=== PATIENT | male | born 1970 | race Caucasian/White ===

== ENCOUNTER 2020-02-25 16:20 | Emergency (ER) | payer MEDICAID, SELFPAY ==
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
[2020-02-25 16:45] VITALS: BP 130/76; PULSE 95; RESP 20; TEMP 36.6; O2SAT 96
[2020-02-25] MEDS: LORazepam 1 MG TABLET 2 MG PO (16:56)
[2020-02-25 17:03] VITALS: BP 130/76; PULSE 95; RESP 24; TEMP 36.6; BMI 26.2
[2020-02-25 17:13] LABS: Glucose, Whole Blood 102 mg/dL (60-115)
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
[2020-02-25 17:24] LABS: MANUAL DIFF FLAG NO
[2020-02-25 17:27] LABS: Basophils Absolute Auto 0.1 X10*3/uL (0.0-0.2); Basophils Percent Auto 1.4 % (0-2); Eosinophils Percent Auto 13.8 % (0-4); Hematocrit 36.6 % (42-52); Hemoglobin 11.9 g/dl (14.0-18.0); Imm Gran Abs Auto 0.01 X10*3/uL (0.00-0.03); Imm Gran Pct Auto 0.1 % (0.0-0.4); Lymphocytes Percent Auto 42.1 % (20-40); Mean Corpuscular HGB Conc 32.5 g/dl (31.0-36.0); Mean Corpuscular Hemoglobin 30.5 pg (27.0-33.0); Mean Corpuscular Volume 93.8 fL (80-98); Mean Platelet Volume 8.8 fL (9.4-12.4); Monocytes Absolute Auto 0.7 X10*3/uL (0.1-1.2); Monocytes Percent Auto 9.5 % (2-11); Neutrophils Absolute Auto 2.4 X10*3/uL (2.0-8.3); Neutrophils Percent Auto 33.1 % (45-73); Platelet Count 221 X10*3/uL (160-400); Red Cell Distribution Width 16.5 % (11.0-16.0); White Blood Count 7.2 X10*3/uL (4.8-10.8)
--- NOTE | 2020-02-25 17:37 | PC.NURSE ---
Dr Oscar aware of current [facility] rating.
[2020-02-25 17:41] LABS: Ethanol 130 mg/dL
[2020-02-25 17:45] LABS: Alanine Aminotransferase 29 U/L (0-40); Albumin Level 3.8 g/dL (3.5-5.0); Alkaline Phosphatase 61 U/L (39-117); Anion Gap 13 (12-20); Aspartate Amino Transferase 23 U/L (5-37); Bilirubin Direct < 0.2 mg/dL (0.0-0.5); Bilirubin Total 0.2 mg/dL (0.0-1.0); Blood Urea Nitrogen 10 mg/dL (9-16); Calcium 8.3 mg/dL (8.4-10.2); Carbon Dioxide 27 mmol/L (22-29); Chloride 107 mmol/L (96-108); Creatinine Clr Calc Pharmacy 111.6; Estimated Glomerular Filt Rate > 60; Glucose Random 96 mg/dL (60-115); Potassium 4.2 mmol/l (3.3-5.1); Sodium 143 mmol/L (135-145); Total Protein 6.5 g/dL (6.5-8.0)
--- NOTE | 2020-02-25 18:07 | PC.NURSE ---
Late entry: Dr Oscar aware of CIWA completed on arrival
[2020-02-25] MEDS: Ibuprofen 600 MG TABLET PO (18:24)
[2020-02-25 19:18] VITALS: BP 115/67; PULSE 94; O2SAT 94
--- NOTE | 2020-02-25 19:29 | PC.NURSE ---
Patient in bed appears sleeping, no distress observed/reported, asymptomatic of withdrawal, respiration +/=/non-labored bilaterally. Will continue to monitor.
--- NOTE | 2020-02-25 20:30 | PC.NURSE ---
JOE called to check on clinician ETA, reported they have not received referral for the patient and no called, Audra refaxed/called/spoke with Michelle/confirmed receipt of referral. [facility], spoke with Tobias pharmacist, [facility] recs completed/pending providers approval. Patient in bed appears sleeping, no distress observed/reported. will continue to monitor.
[2020-02-25] MEDS: LORazepam 1 MG TABLET PO (22:55)
--- NOTE | 2020-02-25 22:58 | PC.NURSE ---
Patient in bed lying, tremulous, Ativan 1 mg administered as ordered. Will continue to monitor.
--- NOTE | 2020-02-26 00:33 | PC.NURSE ---
BHN just called/notified clinician will be shorty for patient assessment.
--- NOTE | 2020-02-26 01:41 | PC.NURSE ---
BHN with patient patient seems engaged.
[2020-02-26 02:16] VITALS: BP 122/85; PULSE 83; RESP 18; TEMP 36.9; O2SAT 96
[2020-02-26] MEDS: LORazepam 1 MG TABLET PO ×4 (02:41→16:03)
--- NOTE | 2020-02-26 02:53 | PC.NURSE ---
Patient scored 12 on CIWA, mostly because patient is diaphoretic and tremulous, seems like chronic alcoholic tremor, HR 97, BP 122/85, administered scheduled Ativan 1 mg as ordered. patient currently appears sleeping. Harpaln completed assessment pending disposition. Will continue to monitor,
--- NOTE | 2020-02-26 03:45 | PC.NURSE ---
JOE updated patient's disposition, patient is voluntary EATS bed search. Will continue to monitor.
--- NOTE | 2020-02-26 07:21 | PC.NURSE ---
Report received from LAYA Menchaca. Pt resting, resp unlabored.
--- NOTE | 2020-02-26 10:48 | PC.NURSE ---
Pt resting, resp unlabored.
[2020-02-26 12:23] VITALS: BP 136/83; PULSE 65; RESP 18; TEMP 36.9; O2SAT 96
[2020-02-26 13:12] LABS: Amphetamine Screen Urine Not Detected (Not Detect); Barbiturates, Urine POSITIVE (Not Detect); Benzodiazepines Screen Urine Not Detected (Not Detect); Cannabinoid Screen Urine Not Detected (Not Detect); Cocaine Screen Urine Not Detected (Not Detect); Opiate Screen Urine Not Detected (Not Detect); Phencyclidine Screen Urine Not Detected (Not Detect)
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
[2020-02-26 14:12] VITALS: BP 127/69; PULSE 93; RESP 20; TEMP 36.3; O2SAT 95
[2020-02-26] MEDS: Ibuprofen 600 MG TABLET PO (16:03)
--- NOTE | 2020-02-26 16:41 | PC.NURSE ---
pt came to desk, demanding medications, demanding to be dioscharged. N December notified. BHN notified- pt is voluntary, EATS bedsearch per [facility]. Pt to be dischareged per December. Pt reports he can be safe on discharge.
--- NOTE | 2020-02-26 16:43 | PC.NURSE ---
Pt becoming increasingly anxious, agitated, demanding to leave. Aware that provider is working on discharge.
[2020-02-27 07:32] LABS: Glucose, Whole Blood 102 mg/dL (60-115)
== END 2020-02-26 17:00 | disposition home or self-care (01) ==
PROVIDERS: Emergency Provider Emergency Medicine; PCP Nurse Practitioner Family
DX: F33.1 Major depressive disorder, recurrent, moderate (principal); R45.851 Suicidal ideations; F10.129 Alcohol abuse with intoxication, unspecified; F14.10 Cocaine abuse, uncomplicated; Y90.6 Blood alcohol level of 120-199 mg/100 ml; F17.200 Nicotine dependence, unspecified, uncomplicated; Z71.6 Tobacco abuse counseling; Z79.899 Other long term (current) drug therapy
CPT/HCPCS: 36415; 80048; 80076; 80307; 80320; 82947; 85025; 99285

== ENCOUNTER 2021-12-05 10:07 | Emergency (ER) | payer MEDICAID, SELFPAY ==
[2021-12-05 10:15] VITALS: BP 132/80; PULSE 71; RESP 13; TEMP 36.8; O2SAT 97
[2021-12-05 10:23] VITALS: BMI 28.0
--- NOTE | 2021-12-05 10:29 | ECG_ITS ---
Test Reason : electrocuted Blood Pressure : / mmHG Vent. Rate : 067 BPM Atrial Rate : 067 BPM P-R Int : 146 ms QRS Dur : 108 ms QT Int : 398 ms P-R-T Axes : 060 009 047 degrees QTc Int : 420 ms Normal sinus rhythm Normal ECG No previous ECGs available Referred By: Traci Oscar Electronically Signed By:MELISSA DE LEÓN MD
[2021-12-05] MEDS: diazePAM 2 MG TABLET 5 MG PO (10:44)
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
[2021-12-05 11:17] LABS: MANUAL DIFF FLAG NO
[2021-12-05 11:19] LABS: Basophils Absolute Auto 0.1 X10*3/uL (0.0-0.2); Eosinophils Absolute Auto 0.1 X10*3/uL (0.0-0.4); Eosinophils Percent Auto 2.7 % (0-4); Hematocrit 41.2 % (42.0-52.0); Hemoglobin 13.8 g/dl (14.0-18.0); Imm Gran Abs Auto 0.01 X10*3/uL (0.00-0.03); Imm Gran Pct Auto 0.2 % (0.0-0.4); Lymphocytes Absolute Auto 2.2 X10*3/uL (1.2-4.9); Lymphocytes Percent Auto 45.4 % (20-40); Mean Corpuscular HGB Conc 33.5 g/dl (31.0-36.0); Mean Corpuscular Hemoglobin 30.9 pg (27.0-33.0); Mean Corpuscular Volume 92.4 fL (80.0-98.0); Mean Platelet Volume 9.8 fL (9.4-12.4); Monocytes Absolute Auto 0.6 X10*3/uL (0.1-1.2); Monocytes Percent Auto 11.9 % (2-11); Neutrophils Absolute Auto 1.9 x10*3/uL (2.0-8.3); Neutrophils Percent Auto 38.8 % (45-73); Platelet Count 225 X10*3/uL (160-400); Red Blood Count 4.46 X10*6/uL (4.60-5.80); Red Cell Distribution Width 12.7 % (11.0-16.0); White Blood Count 4.8 X10*3/uL (4.8-10.8)
[2021-12-05 11:41] LABS: Anion Gap 13 (12-20); Blood Urea Nitrogen 11 mg/dL (9-16); Calcium 9.4 mg/dL (8.4-10.2); Carbon Dioxide 27 mmol/L (22-29); Chloride 106 mmol/L (96-108); Creatinine Clr Calc Pharmacy 113.1; Estimated Glomerular Filt Rate > 60; Glucose Random 129 mg/dL (60-115); Magnesium 1.7 mg/dL (1.6-2.6); Potassium 4.5 mmol/L (3.3-5.1); Sodium 141 mmol/L (135-145)
[2021-12-05 11:42] LABS: Troponin-I High Sensitivity < 3.5 ng/L (<3.5-35.0)
--- NOTE | 2021-12-05 12:43 | PC.NURSE ---
Pt had MD fill out paperwork for [facility], left before I could give DC paperwork
== END 2021-12-05 12:44 | disposition home or self-care (01) ==
PROVIDERS: Emergency Provider Emergency Medicine; PCP Nurse Practitioner Family
DX: F41.9 Anxiety disorder, unspecified (principal); G62.9 Polyneuropathy, unspecified; T75.4XXA Electrocution, initial encounter; W86.8XXA Exposure to other electric current, initial encounter; Y93.9 Activity, unspecified; Y92.009 Unspecified place in unspecified non-institutional (private) residence as the place of occurrence of the external cause; Y99.9 Unspecified external cause status
CPT/HCPCS: 36415; 80048; 82550; 83735; 84484; 85025; 93005; 99283; 99284

== ENCOUNTER 2022-02-02 15:23 | Emergency (ER) | payer MEDICAID, SELFPAY ==
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
[2022-02-02 15:46] VITALS: BP 113/65; BP 138/92; PULSE 104; PULSE 120; RESP 16; TEMP 36.8; O2SAT 100; O2SAT 95; BMI 26.9
[2022-02-02 16:37] LABS: Basophils Absolute Auto 0.1 X10*3/uL (0.0-0.2); Basophils Percent Auto 0.4 % (0-2); Eosinophils Absolute Auto 0.1 X10*3/uL (0.0-0.4); Eosinophils Percent Auto 0.6 % (0-4); Hematocrit 40.6 % (42.0-52.0); Hemoglobin 13.6 g/dl (14.0-18.0); Imm Gran Abs Auto 0.07 X10*3/uL (0.00-0.03); Imm Gran Pct Auto 0.5 % (0.0-0.4); Lymphocytes Absolute Auto 1.4 X10*3/uL (1.2-4.9); Lymphocytes Percent Auto 10.1 % (20-40); MANUAL DIFF FLAG NO; Mean Corpuscular HGB Conc 33.5 g/dl (31.0-36.0); Mean Corpuscular Hemoglobin 30.6 pg (27.0-33.0); Mean Corpuscular Volume 91.2 fL (80.0-98.0); Mean Platelet Volume 9.6 fL (9.4-12.4); Monocytes Absolute Auto 1.3 X10*3/uL (0.1-1.2); Monocytes Percent Auto 9.3 % (2-11); Neutrophils Absolute Auto 11.1 x10*3/uL (2.0-8.3); Neutrophils Percent Auto 79.1 % (45-73); Platelet Count 270 X10*3/uL (160-400); Red Blood Count 4.45 X10*6/uL (4.60-5.80); Red Cell Distribution Width 14.2 % (11.0-16.0)
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
[2022-02-02] MEDS: Midazolam HCl/PF 2 MG/2 ML VIAL IVPUSH (16:52)
[2022-02-02] MEDS: 0.9 % Sodium Chloride 1,000 ML 999 ML IV (16:53)
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
[2022-02-02 18:33] VITALS: BP 131/76; PULSE 97; RESP 16; TEMP 37.2; O2SAT 97
[2022-02-02] MEDS: LORazepam 1 MG TABLET 2 MG PO (20:21)
[2022-02-02 20:51] LABS: COVID-19 Test Negative (Negative); IDNOW Serial# 9DB6401D
[2022-02-02] MEDS: Acetaminophen 325 MG TABLET 975 MG PO (21:04)
--- NOTE | 2022-02-02 21:14 | PC.NURSE ---
Unable to get his labs, 3 attempts, no result. Patient is now refusing any labs.
[2022-02-03 00:35] VITALS: BP 167/89; PULSE 100; RESP 16; TEMP 36.6; O2SAT 96
--- NOTE | 2022-02-03 06:37 | PC.NURSE ---
Patient sleeping comfortably. No distress noted. Will continue to monitor.
[2022-02-03 06:54] VITALS: BP 130/103; PULSE 96; RESP 18; O2SAT 96
[2022-02-03 10:19] LABS: Appearance Urine Clear; Color Urine Yellow; Glucose Urine UA Negative (Negative); Leukocyte Esterase Urine Negative (Negative); Nitrite Urine Negative (Negative); Specific Gravity - Urine 1.015 (1.005-1.025); Urine Blood Negative (Negative); Urine Ketones Negative (Negative); Urine Protein Negative (Neg-Trace)
[2022-02-03] MEDS: LORazepam 1 MG TABLET 2 MG PO ×2 (10:20→13:22)
[2022-02-03] MEDS: Acetaminophen 325 MG TABLET 650 MG PO (10:20)
--- NOTE | 2022-02-03 10:23 | PC.NURSE ---
alert, speech clear, slept most of the morning after coming to the rn station and stating he was suicidal, lindsay griffin complete and plan is for a bed search, md to bedside and looked through pt chart, medicated for reported etoh withdrawl, has tremors, lab contacted for another attempt at blood draw
[2022-02-03 10:58] LABS: Alanine Aminotransferase 18 U/L (0-40); Albumin Level 3.9 g/dL (3.5-5.0); Alkaline Phosphatase 50 U/L (39-117); Anion Gap 14 (12-20); Aspartate Amino Transferase 14 U/L (5-37); Bilirubin Direct < 0.2 mg/dL (0.0-0.5); Bilirubin Total 0.3 mg/dL (0.0-1.0); Blood Urea Nitrogen 14 mg/dL (9-16); Carbon Dioxide 25 mmol/L (22-29); Chloride 105 mmol/L (96-108); Creatinine Clr Calc Pharmacy 126.6; Estimated Glomerular Filt Rate > 60; Glucose Random 132 mg/dL (60-115); Potassium 4.5 mmol/L (3.3-5.1); Sodium 139 mmol/L (135-145); Total Protein 6.2 g/dL (6.5-8.0)
--- NOTE | 2022-02-03 13:24 | PC.NURSE ---
alert, speech clear, steady gait, skin wpd, reports withdrawl and anxiety , medicated as ordered, tremulous, cooperative, disaster recovery manager working w pt to get into detox
[2022-02-03 13:30] VITALS: BP 122/76; PULSE 89; RESP 19; TEMP 36.6; O2SAT 97
--- NOTE | 2022-02-03 14:04 | MHC.RECOVRN ---
T/W met w/ pt. Pt states has been drinking a gallon of Vodka daily for past weeks. Pt states last drink about 3 days ago. Pt reports history of ATS, last ATS stay about one year ago. Pt is requesting detox, pt wants to stay in [facility]. T/W reviewed sending referral to [facility]. Pt agreeable. T/W discussed w/ pt making calls from the community and accessing [facility]. Pt verbalized understanding.
--- NOTE | 2022-02-03 15:22 | MHC.RECOVRN ---
T/W met w/ pt, pt did phone intake w/ [facility]. T/W f/u w/ [facility], pts referral needs to be reviewed by nursing. T/W will pass on to Care team before end of shift.
--- NOTE | 2022-02-03 15:32 | PC.NURSE ---
Addendum entered by Colleen Maradiaga 02/03/22 15:37: men's basketball coach at bedside. Original Note: This nurse assumed care at 1500. PT in room resting quietly.
== END 2022-02-03 16:19 | disposition home or self-care (01) ==
PROVIDERS: Emergency Medicine; Physician Assistant; Emergency Provider Internal Medicine; PCP Nurse Practitioner Family
DX: S09.90XA Unspecified injury of head, initial encounter (principal); S79.912A Unspecified injury of left hip, initial encounter; R51.9 Headache, unspecified; M25.552 Pain in left hip; F14.10 Cocaine abuse, uncomplicated; Y04.2XXA Assault by strike against or bumped into by another person, initial encounter; Y93.9 Activity, unspecified; Y92.9 Unspecified place or not applicable; Y99.9 Unspecified external cause status; Z20.822 Contact with and (suspected) exposure to COVID-19; Z79.899 Other long term (current) drug therapy
CPT/HCPCS: 36415; 73502; 80048; 80076; 81003; 82550; 85025; 87635; 96372; 99285; J2250

== ENCOUNTER 2022-02-13 17:45 | Emergency (ER) | payer MEDICAID, SELFPAY ==
--- NOTE | ~2022-02-13 | CT_ITS ---
EXAMINATION: CT HEAD WITHOUT CONTRAST CLINICAL INFORMATION: EtOH with possible fall COMPARISON: None TECHNIQUE: Contiguous axial imaging was performed from the skull base to vertex without intravenous administration of contrast. This CT examination was performed using dose optimization techniques as appropriate, variously including the following: *Automated exposure control *Adjustment of mA and/or kV according to patient size (this includes techniques or standardized protocols for targeted exams where dose is matched to indication/reason for exam; i.e. extremities or head) *Use of iterative reconstruction technique DLP: 1412 mGy-cm FINDINGS: No midline shift. No mass effect. No hemorrhage. Basal cisterns appear patent. The posterior fossa is grossly within normal limits. There is no extra-axial collection. No fracture on the bone windows. Ventricular system within normal limits. Some possible small scattered areas of white matter ischemic change in focal small infarcts CT/CT head/brain wo IV con IMPRESSION: Negative acute noncontrast CT of the brain.
[2022-02-13 17:58] VITALS: BP 110/60; PULSE 58; O2SAT 94
[2022-02-13 18:01] VITALS: BP 110/56; PULSE 56; RESP 19; TEMP 36.6; O2SAT 98; BMI 27.3
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
[2022-02-13 20:00] VITALS: BP 135/74; PULSE 65; RESP 15; O2SAT 99
--- NOTE | 2022-02-13 20:28 | MHC.RECOVSUP ---
? Reason for consult:ETOH o? Current location:ED22H? o? Identified substance use concern:? -? Seeking ATS (detox) -? Support ? Intervention: o? ATS bed search started/completed/in process o? Harm reduction discussion ? Plan: o? Follow up tomorrow? ? Additional information:RC met with pt, pt states he's willing to try detox, RC called around but wasn't successful in finding pt a bed tonight. Pt is still intoxicated, please follow up in the morning with [facility].
--- NOTE | 2022-02-13 20:49 | PC.NURSE ---
pt wakes up and uses inapprop languege. pt states he is to be on a atian drip which is not ordered at this time. pt has tremors visable and a headache. lights sensitivity
[2022-02-13] MEDS: LORazepam 1 MG TABLET 2 MG PO (21:06)
--- NOTE | 2022-02-13 21:44 | PC.NURSE ---
Patient yelling and swearing at staff and yelling out multiple times.Calling anyone over who walks by. Patient voicing displeasure about being in the ED, not being able to go home, States he is detoxing by having sensitivity to light and anxiety. MD over to access. Patient given ativan PO, ate a sandwich and 2 gingerale. Patient then yelling out that he needs to (string of obscenities) but not telling staff exactly what he needs. When speaking with the charge nurse sometime later patient started crying and hyperventilating that he wanted to kill himself by drinking gallons of ETOH and taking whatever pills will make him go to sleep and not wake up. Patient changed to hospital attire with security and moved to a room with 1:1 sitter
[2022-02-13 22:07] LABS: Glucose, Whole Blood 144 mg/dL (60-115)
[2022-02-13 22:19] LABS: Amphetamine Screen Urine Not Detected (Not Detect); Barbiturates, Urine POSITIVE (Not Detect); Benzodiazepines Screen Urine POSITIVE (Not Detect); Cannabinoid Screen Urine Not Detected (Not Detect); Cocaine Screen Urine Not Detected (Not Detect); Fentanyl, urine Not Detected (Not Detect); Opiate Screen Urine Not Detected (Not Detect); Phencyclidine Screen Urine Not Detected (Not Detect)
[2022-02-13 23:51] VITALS: BP 120/52; PULSE 81; RESP 16; TEMP 36.8; O2SAT 92
--- NOTE | 2022-02-14 00:21 | PC.NURSE ---
Pt continued to make SI statements to this RN. Pt stated, I wish I was . Pt also stated that he would like help with getting sober but it is very difficult for him to stop drinking.
[2022-02-14] MEDS: HaloperidoL 5 MG TABLET PO (02:02)
[2022-02-14] MEDS: LORazepam 1 MG TABLET 2 MG PO (02:02)
[2022-02-14] MEDS: diphenhydrAMINE HCL 25 MG TABLET 50 MG PO (02:14)
[2022-02-14 02:33] LABS: Ethanol 102 mg/dL
--- NOTE | 2022-02-14 03:56 | PC.NURSE ---
[facility] referral completed.
[2022-02-14 06:04] VITALS: BP 124/69; PULSE 74; RESP 16; O2SAT 96
[2022-02-14 06:29] LABS: COVID-19 Test Negative (Negative)
[2022-02-14 07:24] VITALS: BP 137/70; PULSE 71; RESP 16; TEMP 36.7; O2SAT 94
--- NOTE | 2022-02-14 08:48 | PC.NURSE ---
N provider at bedside . patient currently 1.1 . patient aware of plan of care .
[2022-02-14 08:55] VITALS: BP 147/90; PULSE 84
[2022-02-14] MEDS: Acetaminophen 325 MG TABLET 975 MG PO (09:04)
[2022-02-14] MEDS: chlordiazePOXIDE HCl 25 MG CAPSULE PO (09:04)
--- NOTE | 2022-02-14 09:17 | PC.NURSE ---
Nurse to Nurse has been Given to Mariela RN patient ready to transfer to [facility] . patient aware of plan of care .
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
--- NOTE | 2022-02-14 10:38 | PC.NURSE ---
RECOVERY COAH -(MANUEL) AT BEDSIDE, PT AWARE OF PLAN OF CARE.
--- NOTE | 2022-02-14 11:21 | MHC.RECOVSUP ---
Recovery Support note: This conventional mortgage underwriter met with patient at request of CARE Team. Patient reports he left [facility] one day ago, stating that they could not manage his withdrawal symptoms and they felt he needed a higher level of care. This conventional mortgage underwriter offered to secure a spot at a different [facility] facility for patient and patient declined. Patient stated I need help for my mental health. This conventional mortgage underwriter explained getting through detox would be the first step in that process however patient is not interested at this time. Offered to provide patient with resources on supports and patient declined, requesting discharge. Discussed with CARE Team.
== END 2022-02-14 12:35 | disposition home or self-care (01) ==
PROVIDERS: Emergency Provider Emergency Medicine; PCP Nurse Practitioner Family
DX: F10.220 Alcohol dependence with intoxication, uncomplicated (principal); Y90.5 Blood alcohol level of 100-119 mg/100 ml; R45.851 Suicidal ideations; R45.1 Restlessness and agitation; E11.9 Type 2 diabetes mellitus without complications; Z79.02 Long term (current) use of antithrombotics/antiplatelets; Z79.899 Other long term (current) drug therapy; Z79.84 Long term (current) use of oral hypoglycemic drugs; Z20.822 Contact with and (suspected) exposure to COVID-19
CPT/HCPCS: 36415; 70450; 80307; 82077; 82947; 87635; 99285; Q0163

== ENCOUNTER 2022-04-16 17:39 | Emergency (ER) | payer MEDICAID, SELFPAY ==
[2022-04-16] VITALS (8 sets, daily range): BP systolic 115–124; BP diastolic 58–70; PULSE 84–101; RESP 16–20; TEMP 37.1; O2SAT 95–98; BMI 33.3
[2022-04-16] MEDS: diphenhydrAMINE HCL 50 MG/ML VIAL IM (18:05)
[2022-04-16] MEDS: LORazepam 2 MG/ML VIAL IM (18:08)
[2022-04-16] MEDS: Haloperidol Lactate 5 MG/ML VIAL IM (18:08)
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
--- NOTE | 2022-04-16 18:28 | PC.NURSE ---
[employer] Operator was notified of patient in restraints.
--- OUTSIDE RECORDS SUMMARY | 2022-04-16 18:28 | XMS_ITS | Continuity of Care Document ---
:1970 Author Organization [facility] Address [address] [place] [address] Drive [address] [place] [address]- Care Team Providers Name Role Phone Jonathan OLIVARES, Amalia Primary Care Physician [place] [facility] [place] [place] [id number] Date(s): 03/14/20 - 04/27/20 [facility] [address] [place] [address] Drive [address] [place], [place] [address] Attending Physician: Samson IRVIN MD, Cedric Fernando Referring Physician: Amalia Castillo NP Allergies, Adverse Reactions, Alerts Substance Reaction Severity Status lisinopril1 intestent twisting Active Zoloft Active Red Dye Persistent Severe Active Mushrooms Persistent Severe Active 1Makes his legs hurt Immunizations Not Given Vaccine Date Status Refusal Reason influenza virus vaccine, inactivated 04/08/20 Not Given Patient Refuses influenza virus vaccine, inactivated 03/06/20 Not Given Patient Refuses influenza virus vaccine, inactivated 03/04/20 Not Given Patient Refuses influenza virus vaccine, inactivated 02/05/20 Not Given Patient Refuses pneumococcal 23-valent vaccine 04/08/20 Not Given P atient Refuses pneumococcal 23-valent vaccine 03/06/20 Not Given P atient Refuses pneumococcal 23-valent vaccine 03/04/20 Not Given P atient Refuses pneumococcal 23-valent vaccine 02/29/20 Not Given P ermanently Refused pneumococcal 23-valent vaccine 10/12/14 Not Given P atient Refuses pneumococcal 23-valent vaccine 10/01/14 Not Given P atient Refuses pneumococcal 23-valent vaccine 01/12/14 Not Given P atient Refuses pneumococcal 23-valent vaccine 01/03/14 Not Given P atient Refuses pneumococcal 23-valent vaccine1 09/06/13 Not Given Patient Refuses 1Result Note: pt refused vaccine at this time Medications atorvastatin 20 mg oral tablet 1 tablet = 20 mg, By Mouth, Daily, # 30 tablet, 0 Refills, Maintenance, 04/09/20 12:02:00 EST, Tablet, [facility] #[id number], 175, cm, 04/09/20 0:09:00 EST, Height, 79.5, kg, 04/06/20 14:00:00 EST, Dry Weight Start Date: 04/09/20 Status: OrderedbuPROPion 150 mg/24 hours (XL) oral tablet, extended release 3 tablet = 450 mg, By Mouth, Every 24 hours, # 90 tablet, 0 Refills, Maintenance, 04/09/20 12:02:00 EST, XL Tablet, [facility] #[id number], Partial fill upon patient request if the prescription isfor a schedule II opioid drug., 3 tablet By Mouth... Start Date: 04/09/20 Status: OrderedcloNIDine 0.1 mg oral tablet 0.2 mg, 2, tablet, By Mouth, Daily at bedtime, # 60 tablet, Refills 0, Tot. Refills 0, Maintenance, 04/09/20 12:02:00 EST, Route to Pharmacy Electronically, [facility] #[id number], Partial fill upon patient request, 175, cm, 04/09/20 0:09:00 EST,... Start Date: 04/09/20 Status: OrderedhydrOXYzine pamoate 50 mg oral capsule = 50 mg, By Mouth, Every 6 hours, PRN Anxiety, # 28 tablet, 3 Refills, Maintenance, 04/09/20 12:03:00 EST, Capsule, [facility] #[id number], 175, cm, 04/09/20 0:09:00 EST, Height, 79.5, kg, 04/06/20 14:00:00 EST, Dry Weight Start Date: 04/09/20 Status: OrderedmetFORMIN 500 mg oral tablet 1 each = 500 mg, By Mouth, 2 times a day, # 60 tablet, 0 Refills, Maintenance, 04/09/20 12:02:00 EST, Tablet, [facility] #[id number], 175, cm, 04/09/20 0:09:00 EST, Height, 79.5, kg, 04/06/20 14:00:00 EST, Dry Weight Start Date: 04/09/20 Status: Orderedmultivitamin Multiple Vitamins oral tablet 1 tablet, By Mouth, Daily, # 30 tablet, 0 Refills, Maintenance, 04/09/20 12:03:00 EST, Tablet, [facility] #[id number], 1 tablet By Mouth Daily, 175, cm, 04/09/20 0:09:00 EST, Height, 79.5, kg, 04/06/20 14:00:00 EST, Dry Weight Start Date: 04/09/20 Status: OrderedNicotine 2 mg gum 1 each = 2 mg, Chew, Every 2 hours, PRN as needed for smoking cessation, # 40 each, 0 Refills, Maintenance, 04/09/20 12:05:00 EST, Gum, [facility] #[id number], Partial fill upon patient request ifthe prescription is for a schedule II opioid drug... Start Date: 04/09/20 Status: OrderedPeridex 0.12% liquid 15 mL = 0.018 Gm, By Mouth, 2 times a day, # 210 mL, 1 Refills, Maintenance, 04/09/20 12:02:00 EST, [facility] #[id number], Partial fill upon patient request, 15 mL By Mouth 2 times a day,x7 days,175, cm, 04/09/20 0:09:00 EST, Height, 79.5, kg,... Start Date: 04/09/20 Stop Date: 04/23/20 Status: Orderedpregabalin 50 mg oral capsule 2 capsule = 100 mg, By Mouth, 3 times a day, # 30 capsule, 0 Refills, Maintenance, 04/09/20 12:03:00EST, Capsule, [facility] #[id number], Partial fill upon patient request, 175, cm, 04/09/20 0:09:00 EST, Height, 79.5, kg, 04/06/20 14:00:00 EST,... Start Date: 04/09/20 Status: OrderedSEROquel 25 mg oral tablet 50 mg, 2, tablet, By Mouth, 3 times a day, PRN, # 21 tablet, Refills 0, Tot. Refills 0, Maintenance,Anxiety, 03/22/20 12:37:00 EST, Route to Pharmacy Electronically, [facility], Partial fill upon patient request, 175, cm, 03/21/20 19:40... Start Date: 03/22/20 Stop Date: 03/29/20 Status: OrderedtraZODone 50 mg oral tablet 100 mg, 2, tablet, By Mouth, Daily at bedtime, PRN, # 14 tablet, Refills 0, Tot. Refills 0, Maintenance, Sleep, 04/09/20 12:03:00 EST, Route to Pharmacy Electronically, [facility] #[id number], Partial fill upon patient request, 175, cm, 04/09/20... Start Date: 04/09/20 Stop Date: 04/16/20 Status: Orderedvenlafaxine 150 mg oral capsule, extended release 150 mg, 1, capsule, By Mouth, Daily, # 30 capsule, Refills 0, Tot. Refills 0, Maintenance, 04/09/20 12:03:00 EST, Route to Pharmacy Electronically, [facility] #[id number], Partial fill upon patient request, 175, cm, 04/09/20 0:09:00 EST, Height,... Start Date: 04/09/20 Status: Ordered Problem List Condition Effective Dates Status Health Status Informant Alcohol abuse(Confirmed) Active Alcohol dependence(Confirmed) Active Alcohol-induced mood Active disorder(Confirmed) Generalized anxiety Active disorder(Confirmed) Hypertension(Confirmed) Active Musculoskeletal chest pain(Confirmed) Active Neurosyphilis in male(Confirmed) Active Post traumatic stress disorder Active (PTSD)(Confirmed) Major depressive disorder, recurrent Active episode, moderate without psychosis(Confirmed) Alcohol use disorder, severe, Active dependence(Confirmed) Suicidal ideation(Confirmed) Active Diabetes mellitus type 2, Active diet-controlled(Confirmed) Social History Social History Type Response Smoking Status Current every day smoker entered on: 09/30/14 Sex
--- OUTSIDE RECORDS SUMMARY | 2022-04-16 18:28 | XMS_ITS | Continuity of Care Document ---
:1970 Author Organization [facility] Address [address] [place] [address] Drive [address] [place] [address]- Care Team Providers Name Role Phone Jonathan OLIVARES, Amalia Primary Care Physician Encounter [facility] [place] Date(s): 04/18/20 - 04/25/20 [facility] [address] [place] [address] Drive [address] [place], [place] [address] Attending Physician: Samson IRVIN MD, Cedric Fernando [...] 0 Refills, Maintenance, 04/09/20 12:02:00 EST, Tablet, [facility] #[id number], 175, cm, 04/09/20 0:09:00 EST, Height, 79.5, kg, 04/06/20 14:00:00 EST, Dry Weight Start Date: 04/09/20 Status: OrderedbuPROPion 150 mg/24 hours (XL) oral tablet, extended release 3 tablet = 450 mg, By Mouth, Every 24 hours, # 90 tablet, 0 Refills, Maintenance, 04/09/20 12:02:00 EST, XL Tablet, [facility] #[id number], Partial fill upon patient request if the prescription isfor a schedule II opioid drug., 3 tablet By Mouth... Start Date: 04/09/20 Status: OrderedcloNIDine 0.1 mg oral tablet 0.2 mg, 2, tablet, By Mouth, Daily at bedtime, # 60 tablet, Refills 0, Tot. Refills 0, Maintenance, 04/09/20 12:02:00 EST, Route to Pharmacy Electronically, [facility] #[id number], Partial fill upon patient request, 175, cm, 04/09/20 0:09:00 EST,... Start Date: 04/09/20 Status: OrderedhydrOXYzine pamoate 50 mg oral capsule = 50 mg, By Mouth, Every 6 hours, PRN Anxiety, # 28 tablet, 3 Refills, Maintenance, 04/09/20 12:03:00 EST, Capsule, [facility] #[id number], 175, cm, 04/09/20 0:09:00 EST, Height, 79.5, kg, 04/06/20 14:00:00 EST, Dry Weight Start Date: 04/09/20 Status: OrderedmetFORMIN 500 mg oral tablet 1 each = 500 mg, By Mouth, 2 times a day, # 60 tablet, 0 Refills, Maintenance, 04/09/20 12:02:00 EST, Tablet, [facility] #[id number], 175, cm, 04/09/20 0:09:00 EST, Height, 79.5, kg, 04/06/20 14:00:00 EST, Dry Weight Start Date: 04/09/20 Status: Orderedmultivitamin Multiple Vitamins oral tablet 1 tablet, By Mouth, Daily, # 30 tablet, 0 Refills, Maintenance, 04/09/20 12:03:00 EST, Tablet, [facility] #[id number], 1 tablet By Mouth Daily, 175, cm, 04/09/20 0:09:00 EST, Height, 79.5, kg, 04/06/20 14:00:00 EST, Dry Weight Start Date: 04/09/20 Status: OrderedNicotine 2 mg gum 1 each = 2 mg, Chew, Every 2 hours, PRN as needed for smoking cessation, # 40 each, 0 Refills, Maintenance, 04/09/20 12:05:00 EST, Gum, [facility] #[id number], Partial fill upon patient request ifthe prescription is for a schedule II opioid drug... Start Date: 04/09/20 Status: OrderedPeridex 0.12% liquid 15 mL = 0.018 Gm, By Mouth, 2 times a day, # 210 mL, 1 Refills, Maintenance, 04/09/20 12:02:00 EST, [facility] #[id number], Partial fill upon patient request, 15 mL By Mouth 2 times a day,x7 days,175, cm, 04/09/20 0:09:00 EST, Height, 79.5, kg,... Start Date: 04/09/20 Stop Date: 04/23/20 Status: Orderedpregabalin 50 mg oral capsule 2 capsule = 100 mg, By Mouth, 3 times a day, # 30 capsule, 0 Refills, Maintenance, 04/09/20 12:03:00EST, Capsule, [facility] #[id number], Partial fill upon patient request, 175, cm, 04/09/20 0:09:00 EST, Height, 79.5, kg, 04/06/20 14:00:00 EST,... Start Date: 04/09/20 Status: OrderedSEROquel 25 mg oral tablet 50 mg, 2, tablet, By Mouth, 3 times a day, PRN, # 21 tablet, Refills 0, Tot. Refills 0, Maintenance,Anxiety, 03/22/20 12:37:00 EST, Route to Pharmacy Electronically, [facility], Partial fill upon patient request, 175, cm, 03/21/20 19:40... Start Date: 03/22/20 Stop Date: 03/29/20 Status: OrderedtraZODone 50 mg oral tablet 100 mg, 2, tablet, By Mouth, Daily at bedtime, PRN, # 14 tablet, Refills 0, Tot. Refills 0, Maintenance, Sleep, 04/09/20 12:03:00 EST, Route to Pharmacy Electronically, [facility] #[id number], Partial fill upon patient request, 175, cm, 04/09/20... Start Date: 04/09/20 Stop Date: 04/16/20 Status: Orderedvenlafaxine 150 mg oral capsule, extended release 150 mg, 1, capsule, By Mouth, Daily, # 30 capsule, Refills 0, Tot. Refills 0, Maintenance, 04/09/20 12:03:00 EST, Route to Pharmacy Electronically, [facility] #[id number], Partial fill upon patient request, 175, cm, [...] Active Diabetes mellitus type 2, Active diet-controlled(Confirmed) Vital Signs Most recent to oldest [Reference Range]: 1 Height 175 cm (04/18/20 9:39 AM) Weight 81.8 kg (04/18/20 9:39 AM) Body Mass Index [18.5-24.99] 26.71 *H* (04/18/20 9:39 AM) Social History Social History Type Response Smoking Status Current every day smoker entered on: 09/30/14 Sex
--- OUTSIDE RECORDS SUMMARY | 2022-04-16 18:28 | XMS_ITS | Continuity of Care Document ---
:1970 Author Organization [facility] Address [address] [place] [address] Drive [address] [place] [address]- Care Team Providers Name Role Phone Jonathan OLIVARES, Amalia Primary Care Physician Encounter [facility] [place] [place] Date(s): 05/07/20 - 06/15/20 [facility] [address] [place] [address] Drive [address] [place], [place] [address] Attending Physician: Samson IRVIN [...] Daily, # 30 tablet, 0 Refills, Maintenance, 12/07/20 12:02:00 EST, Tablet, [facility] #[id number], 175, cm, 04/09/20 0:09:00 EST, Height, 79.5, kg, 04/06/20 14:00:00 EST, Dry Weight Start Date: 04/09/20 Status: OrderedBotox 100 units injection See Instructions, Dispense 1 vial of Botox 100 units for injection in OR to masseter muscle for spasming, # 1 each, 0 Refills, Maintenance, 05/24/20 16:41:00 EST, Partial fill upon patient request if the prescription is for a schedule II opioid drug. Start Date: 05/24/20 Status: OrderedbuPROPion 150 mg/24 hours (XL) oral tablet, extended release 3 tablet = 450 mg, By Mouth, Every 24 hours, # 90 tablet, 0 Refills, Maintenance, 04/09/20 12:02:00 EST, XL Tablet, [facility] #[id number], Partial fill upon patient request if the prescription isfor a schedule II opioid drug., 3 tablet By Mouth... Start Date: 04/09/20 Status: Orderedchlorhexidine topical 0.12% liquid 15 mL = 0.018 Gm, Swish and Spit, 2 times a day, # 473 mL, 1 Refills, Maintenance, 05/25/20 13:50:00EST, Oral Rinse, [facility] #[id number], Partial fill upon patient request if the prescription is for a schedule II opioid drug., 15 mL Swish and... Start Date: 05/25/20 Status: OrderedcloNIDine 0.1 mg oral tablet 0.2 mg, 2, tablet, By Mouth, Daily at bedtime, # 60 tablet, Refills 0, Tot. Refills 0, Maintenance, 04/09/20 12:02:00 EST, Route to Pharmacy Electronically, [facility] #[id number], Partial fill upon patient request, 175, cm, 04/09/20 0:09:00 EST,... Start Date: 04/09/20 Status: OrderedhydrOXYzine pamoate 50 mg oral capsule = 50 mg, By Mouth, Every 6 hours, PRN Anxiety, # 28 tablet, 3 Refills, Maintenance, 04/09/20 12:03:00 EST, Capsule, [facility] #[id number], 175, cm, 04/09/20 0:09:00 EST, Height, 79.5, kg, 04/06/20 14:00:00 EST, Dry Weight Start Date: 04/09/20 Status: OrderedmetFORMIN 500 mg oral tablet 1 each = 500 mg, By Mouth, 2 times a day, # 60 tablet, 0 Refills, Maintenance, 04/09/20 12:02:00 EST, Tablet, [facility] #[id number], 175, cm, 04/09/20 0:09:00 EST, Height, 79.5, kg, 04/06/20 14:00:00 EST, Dry Weight Start Date: 04/09/20 Status: Orderedmultivitamin Multiple Vitamins oral tablet 1 tablet, By Mouth, Daily, # 30 tablet, 0 Refills, Maintenance, 04/09/20 12:03:00 EST, Tablet, [facility] #[id number], 1 tablet By Mouth Daily, 175, cm, 04/09/20 0:09:00 EST, Height, 79.5, kg, 04/06/20 14:00:00 EST, Dry Weight Start Date: 04/09/20 Status: Orderedpregabalin 50 mg oral capsule 2 capsule = 100 mg, By Mouth, 3 times a day, # 30 capsule, 0 Refills, Maintenance, 04/09/20 12:03:00EST, Capsule, [facility] #[id number], Partial fill upon patient request, 175, cm, 04/09/20 0:09:00 EST, Height, 79.5, kg, 04/06/20 14:00:00 EST,... Start Date: 04/09/20 Status: OrderedVivitrol Oral Tablet 1 tab, By Mouth, Daily, 0 Refills, Maintenance, 05/17/20 8:38:00 EST, Partial fill upon patient request if the prescription is for a schedule II opioid drug. Start Date: 05/17/20 Status: Ordered Problem List Condition Effective Dates [...]
--- OUTSIDE RECORDS SUMMARY | 2022-04-16 18:28 | XMS_ITS | Continuity of Care Document ---
:1970 Author Organization [facility] Address [address] [place] [address]- Care Team Providers Name Role Phone Amalia Castillo NP Primary Care Physician [place] [facility] [place] 02/11/20 - 02/15/[address] [address]- [facility] Encounter Diagnosis Depression (Final) - 02/11/20 Discharge Disposition: Transfer to Psych Facility Attending Physician: Lam Gomez DO Admitting Physician: Lam Gomez DO Referring Physician: Not on Staff, Referring MD Allergies, Adverse Reactions, Alerts Substance Reaction Severity Status lisinopril1 intestent twisting Active Zoloft Active Red Dye Persistent Severe Active Mushrooms Persistent Severe Active 1Makes his legs hurt Immunizations Not Given Vaccine Date Status Refusal Reason influenza virus vaccine, inactivated 02/05/20 Not Given Patient Refuses pneumococcal 23-valent vaccine 10/12/14 Not Given P atient Refuses pneumococcal 23-valent vaccine 10/01/14 Not Given P atient Refuses pneumococcal 23-valent vaccine 01/12/14 Not Given P atient Refuses pneumococcal 23-valent vaccine 01/03/14 Not Given P atient Refuses pneumococcal 23-valent vaccine1 09/06/13 Not Given Patient Refuses 1Result Note: pt refused vaccine at this time Medications acetaminophen 325 mg oral tablet 650 mg, By Mouth, 4 times a day, # 50 tablet, Refills 3, Tot. Refills 3, Maintenance, 02/10/20 16:19:00 EDT, Route to Pharmacy Electronically, [facility], 176, cm, 02/10/20 11:42:00 EDT, Height, 96.3, kg, 02/04/20 17:22:00 EDT, Dry Weight Start Date: 02/10/20 Status: Orderedamoxicillin-clavulanate 875 mg-125 mg oral tablet 1 tablet, By Mouth, 2 times a day, for 7 days, # 14 tablet, 0 Refills, Acute 02/17/20 16:28:00 EDT, 02/10/20 16:28:00 EDT, Tablet, [facility], 176, cm, 02/10/20 11:42:00 EDT, Height, 96.3, kg, 02/04/20 17:22:00 EDT, Dry Weight Start Date: 02/10/20 Stop Date: 02/17/20 Status: Orderedatorvastatin 20 mg oral tablet 1 tablet = 20 mg, By Mouth, Daily, # 30 tablet, 0 Refills, Maintenance, 02/10/20 16:20:00 EDT, Tablet, [facility], 176, cm, 02/10/20 11:42:00 EDT, Height, 96.3, kg, 02/04/20 17:22:00 EDT,Dry Weight Start Date: 02/10/20 Status: OrderedbuPROPion 450 mg/24 hours (XL) oral tablet, extended release 1 tablet = 450 mg, By Mouth, Daily in AM, # 30 tablet, 0 Refills, Maintenance, 02/10/20 16:22:00 EDT, ER Tablet, [facility], 176, cm, 02/10/20 11:42:00 EDT, Height, 96.3, kg, 02/04/20 17:22:00 EDT, Dry Weight Start Date: 02/10/20 Status: OrderedcloNIDine 0.2 mg oral tablet 0.2 mg, 1, tablet, By Mouth, 2 times a day, # 60 tablet, Refills 0, Tot. Refills 0, Maintenance, 02/10/20 16:23:00 EDT, Route to Pharmacy Electronically, [facility], 176, cm, 02/10/20 11:42:00 EDT, Height, 96.3, kg, 02/04/20 17:22:00 EDT... Start Date: 02/10/20 Status: OrderedColace sodium 100 mg oral capsule 100 mg, 1, capsule, By Mouth, 2 times a day, # 60 capsule, Refills 0, Tot. Refills 0, Maintenance, 02/10/20 16:23:00 EDT, Route to Pharmacy Electronically, [facility], 176, cm, 02/10/20 11:42:00 EDT, Height, 96.3, kg, 02/04/20 17:22:00 E... Start Date: 02/10/20 Status: OrderedEffexor XR 75 mg oral capsule, extended release 75 mg, 1, capsule, By Mouth, Daily, # 30 capsule, Refills 0, Tot. Refills 0, Maintenance, 02/10/20 16:27:00 EDT, Route to Pharmacy Electronically, [facility], 176, cm, 02/10/20 11:42:00 EDT, Height, 96.3, kg, 02/04/20 17:22:00 EDT, Dry W... Start Date: 02/10/20 Status: Orderedfolic acid 1 mg oral tablet 1 mg, 1, tablet, By Mouth, Daily, # 30 tablet, Refills 0, Tot. Refills 0, Maintenance, 02/10/20 16:23:00 EDT, Route to Pharmacy Electronically, [facility], 176, cm, 02/10/20 11:42:00 EDT,Height, 96.3, kg, 02/04/20 17:22:00 EDT, Dry Weight Start Date: 02/10/20 Status: Orderedgabapentin 600 mg oral tablet 1 tablet = 600 mg, By Mouth, 3 times a day, # 90 tablet, 0 Refills, Maintenance, 02/10/20 16:24:00 EDT, Tablet, [facility], 176, cm, 02/10/20 11:42:00 EDT, Height, 96.3, kg, 02/04/20 17:22:00 EDT, Dry Weight Start Date: 02/10/20 Status: OrderedhydrOXYzine pamoate 50 mg oral capsule = 50 mg, By Mouth, Every 6 hours, PRN Anxiety, # 28 tablet, 3 Refills, Maintenance, 02/10/20 16:25:00 EDT, Capsule, [facility], 176, cm, 02/10/20 11:42:00 EDT, Height, 96.3, kg, 02/04/20 17:22:00 EDT, Dry Weight Start Date: 02/10/20 Status: Orderedloratadine 10 mg oral tablet 10 mg, 1, tablet, By Mouth, Daily, # 30 tablet, Refills 0, Tot. Refills 0, Maintenance, 02/10/20 16:19:00 EDT, Route to Pharmacy Electronically, [facility], 176, cm, 02/10/20 11:42:00 EDT, Height, 96.3, kg, 02/04/20 17:22:00 EDT, Dry Weight Start Date: 02/10/20 Status: OrderedLORazepam 1 mg oral tablet 1 tablet = 1 mg, By Mouth, 2 times a day, PRN Anxiety, for 7 days, # 14 tablet, 0 Refills, Acute 02/17/20 16:28:00 EDT, 02/10/20 16:28:00 EDT, Tablet, [facility], 176, cm, 02/10/20 11:42:00 EDT, Height, 96.3, kg, 02/04/20 17:22:00 EDT, D... Start Date: 02/10/20 Stop Date: 02/17/20 Status: OrderedmetFORMIN 500 mg oral tablet 1 each = 500 mg, By Mouth, 2 times a day, # 60 tablet, 0 Refills, Maintenance, 02/10/20 16:19:00 EDT, Tablet, [facility], 176, cm, 02/10/20 11:42:00 EDT, Height, 96.3, kg, 02/04/20 17:22:00 EDT, Dry Weight Start Date: 02/10/20 Status: Orderedmorphine 15 mg oral tablet, immediate release See Instructions, PRN Pain , Severe, Day 1: 15 mg every 4 hours as needed, Day 2: 15 mg every 6 hours as needed, Day 3: 15 mg every 8 hours as needed, Day 4: 15 mg twice daily as needed, Day 5: 15 mg daily as needed and then stop, # 16 tablet, 0 Refil... Start Date: 02/10/20 Status: Orderedmultivitamin Multiple Vitamins oral tablet 1 tablet, By Mouth, Daily, # 30 tablet, 0 Refills, Maintenance, 02/10/20 16:26:00 EDT, Tablet, [facility], 1 tablet By Mouth Daily, 176, cm, 02/10/20 11:42:00 EDT, Height, 96.3, kg, 02/04/20 17:22:00 EDT, Dry Weight Start Date: 02/10/20 Status: Orderednaproxen 250 mg oral tablet 500 mg, 2, tablet, By Mouth, 2 times a day, for 7 days, # 28 tablet, Refills 0, Tot. Refills 0, Acute 02/17/20 16:28:00 EDT, 02/10/20 16:28:00 EDT, Route to Pharmacy Electronically, [facility], 176, cm, 02/10/20 11:42:00 EDT, Height, 96.... Start Date: 02/10/20 Stop Date: 02/17/20 Status: OrderedNicotine 2 mg gum = 2 mg, Chew, Every 2 hours, PRN Other, Nicotine Cravings, # 84 each, 3 Refills, Maintenance, 02/10/20 16:26:00 EDT, Gum, [facility], 176, cm, 02/10/20 11:42:00 EDT, Height, 96.3, kg, 02/04/20 17:22:00 EDT, Dry Weight Start Date: 02/10/20 Status: Orderedpyridoxine 50 mg oral tablet 50 mg, 1, tablet, By Mouth, Daily, # 30 tablet, Refills 0, Tot. Refills 0, Maintenance, 02/10/20 16:26:00 EDT, Route to Pharmacy Electronically, [facility], 176, cm, 02/10/20 11:42:00 EDT, Height, 96.3, kg, 02/04/20 17:22:00 EDT, Dry Weight Start Date: 02/10/20 Status: OrderedSenna 8.6 mg oral tablet 17.2 mg, 2, tablet, By Mouth, Daily, # 60 tablet, Refills 0, Tot. Refills 0, Maintenance, 02/10/20 16:26:00 EDT, Route to Pharmacy Electronically, [facility] Tablet, 176, cm, 02/10/20 11:42:00 EDT, Height, 96.3, kg, 02/04/20 17:22:00 EDT... Start Date: 02/10/20 Status: Orderedthiamine 100 mg oral tablet 100 mg, 1, tablet, By Mouth, Daily, # 30 tablet, Refills 0, Tot. Refills 0, Maintenance, 02/10/20 16:26:00 EDT, Route to Pharmacy Electronically, [facility], 176, cm, 02/10/20 11:42:00 EDT, Height, 96.3, kg, 02/04/20 17:22:00 EDT, Dry We... Start Date: 02/10/20 Status: OrderedtraZODone 50 mg oral tablet 50 mg, 1, tablet, By Mouth, Daily at bedtime, PRN, # 30 tablet, Refills 0, Tot. Refills 0, Maintenance, Insomnia, 02/10/20 16:27:00 EDT, Route to Pharmacy Electronically, [facility], 176,cm, 02/10/20 11:42:00 EDT, Height, 96.3, kg, 100... 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(Confirmed) Diabetes mellitus type 2, Active diet-controlled(Confirmed) Vital Signs Most recent to oldest 1 2 3 [Reference Range]: Oxygen Saturation [94-100 %] 98 % 98 % 98 % (02/15/20 5:31 PM) (02/15/20 4:07 PM) (02/15/20 5:38 AM) Pulse Rate [55-90 bpm] 93 bpm 68 bpm 57 bpm *H* (02/15/20 4:07 PM) (02/15/20 5:3 8 AM) (02/15/20 5:31 PM) Blood Pressure [90-138/55-84 134/66 mm Hg 122/72 mm Hg 108 /69 mm Hg mm Hg] (02/15/20 5:31 PM) (02/15/20 4:07 PM) (02/15/20 5:38 AM) Respiratory Rate [16-30 22 br/min 18 br/min 20 br/mi n br/min] (02/15/20 5:39 PM) (02/15/20 5:31 PM) (02/15/20 4:10 PM) Temperature [96.8-100.4 98.0 DegF 98.1 DegF 98.3 Deg F DegF] (02/15/20 4:07 PM) (02/15/20 5:38 AM) (02/14/20 6:12 PM) Liters per Minute 0 L/min (02/13/20 4:07 AM) Mode of Delivery (Oxygen) Room air Room air Room a ir (02/15/20 5:31 PM) (02/15/20 4:07 PM) (02/15/20 5:38 AM) Blood pressure sites Arm, left Arm, left Arm, right (02/15/20 5:31 PM) (02/15/20 4:07 PM) (02/13/20 4:27 PM) Temperature Route Oral Oral Oral (02/15/20 4:07 PM) (02/15/20 5:38 AM) (02/14/20 6:12 PM) Social History Social History Type Response Smoking Status Current every day smoker entered on: 09/30/14 Sex
--- OUTSIDE RECORDS SUMMARY | 2022-04-16 18:29 | XMS_ITS | Continuity of Care Document ---
:1970 Author Organization [facility] Address [address] [place] [address]- Care Team Providers Name Role Phone Jonathan OLIVARES, Amalia Primary Care Physician [place] [facility] [place] [id number] Date(s): 04/14/22 - 04/15/[address] [address]- Discharge Disposition: A-D/C Walkout Attending Physician: Not on Staff, Attending MD Admitting Physician: Not on Staff, Admitting MD Referring Physician: Not on Staff, Referring MD Allergies, Adverse Reactions, Alerts Substance Reaction Severity Status lisinopril1 intestent twisting Active Zoloft Active Red Dye2 Persistent Severe Active Mushrooms Persistent Severe Active [place] Oil Active 1Makes his legs [id number] dye 40 Immunizations Given and Recorded Vaccine Date Status Refusal Reason influenza virus vaccine, inactivated 02/22/22 Given [id number] 12y+ bivalent booster vax 02/07/22 Given hepatitis B adult vaccine 11/29/21 Recorded SARS-CoV-2 (COVID-19) mRNA-1273 vaccine 11/12/21 Recorded SARS-CoV-2 (COVID-19) mRNA-1273 vaccine1 11/01/21 Recorde d SARS-CoV-2 (COVID-19) mRNA BNT-162b2 vac 07/12/20 Recorde d SARS-CoV-2 (COVID-19) mRNA BNT-162b2 vac 06/20/20 Recorde d Not Given Vaccine Date Status Refusal Reason [...] Not Given P atient Refuses pneumococcal 23-valent vaccine2 09/06/13 Not Given Patient Refuses 1Result Comment: Not given on that [id number] Note: pt refused vaccine at this time Medications acetaminophen 325 mg oral tablet 975 mg, By Mouth, 3 times a day, Temperature Greater than 100.5, Refills 0, Maintenance, 03/05/22 14:36:00 EDT, Partial fill upon patient request if the prescription is for a schedule II opioid drug. Start Date: 03/05/22 Status: Orderedatorvastatin 40 mg oral tablet 1 tablet = 40 mg, By Mouth, Daily at bedtime, TAKE 1 TABLET BY MOUTH AT BEDTIME Start Date: 02/11/22 Status: OrderedbuPROPion 300 mg/24 hours (XL) oral tablet, extended release 1 tablet = 300 mg, By Mouth, Daily, # 30 tablet, 0 Refills, Maintenance, 02/10/22 10:29:00 EDT, [facility], Partial fill upon patient request if the prescription is for a schedule II opioid drug., 175, cm, 02/01/22 10:53:00 ED... Start Date: 02/10/22 Stop Date: 03/12/22 Status: Orderedcitalopram 20 mg oral tablet 20 mg, 1, tablet, By Mouth, Daily, # 30 tablet, Refills 0, Tot. Refills 0, Maintenance, 02/10/22 10:30:00 EDT, Route to Pharmacy Electronically, [facility] 3, Partial fill upon patient request if the prescription is for a schedule II opioi... Start Date: 02/10/22 Stop Date: 03/12/22 Status: OrderedcloNIDine 0.1 mg oral tablet 0.1 mg, 1, tablet, By Mouth, Daily at bedtime, # 30 tablet, Refills 0, Tot. Refills 0, Maintenance, 02/10/22 10:30:00 EDT, Route to Pharmacy Electronically, [facility], Partial fill upon patient request if the prescription is for a sched... Start Date: 02/10/22 Stop Date: 03/12/22 Status: Orderedfolic acid 1 mg oral tablet 1 mg, 1, tablet, By Mouth, Daily, # 30 tablet, Refills 0, Tot. Refills 0, Maintenance, 02/10/22 10:30:00 EDT, Route to Pharmacy Electronically, [facility], Partial fill upon patient request if the prescription is for a schedule II opioid... Start Date: 02/10/22 Stop Date: 03/12/22 Status: OrderedhydrOXYzine pamoate 50 mg oral capsule 1 capsule = 50 mg, By Mouth, Every 6 hours, PRN Anxiety, # 28 capsule, 3 Refills, Maintenance, 02/10/22 10:31:00 EDT, Capsule, [facility], 175, cm, 02/01/22 10:53:00 EDT, Height, 84, kg, 01/28/22 14:32:00 EDT, Dry Weight Start Date: 02/10/22 Stop Date: 03/10/22 Status: Orderedlamotrigine 25 mg oral tablet 25 mg, 1, tablet, By Mouth, Daily, # 30 tablet, Refills 0, Tot. Refills 0, Maintenance, 02/10/22 10:31:00 EDT, Route to Pharmacy Electronically, [facility], Partial fill upon patient request if the prescription is for a schedule II opioi... Start Date: 02/10/22 Stop Date: 03/12/22 Status: Orderedlidocaine 5% topical film Topically, Daily, 0 Refills, Maintenance, 03/05/22 14:37:00 EDT, Patch, Partial fill upon patient request if the prescription is for a schedule II opioid drug. Start Date: 03/05/22 Status: OrderedmetFORMIN 500 mg oral tablet 1 tablet = 500 mg, By Mouth, 2 times a day, # 60 tablet, 0 Refills, Maintenance, 02/10/22 10:29:00 EDT, Tablet, [facility], 175, cm, 02/01/22 10:53:00 EDT, Height, 84, kg, 01/28/22 14:32:00 EDT, Dry Weight Start Date: 02/10/22 Stop Date: 03/12/22 Status: Orderedmultivitamin Multiple Vitamins oral tablet 1 tablet, By Mouth, Daily, # 30 tablet, 0 Refills, Maintenance, 02/10/22 10:31:00 EDT, Tablet, [facility] 3, 1 tablet By Mouth Daily,x30 days, 175, cm, 02/01/22 10:53:00 EDT, Height, 84, kg, 01/28/22 14:32:00 EDT, Dry Weight Start Date: 02/10/22 Stop Date: 03/12/22 Status: Orderednaltrexone 50 mg oral tablet 1 tablet = 50 mg, By Mouth, Daily, for 12 week(s), # 84 tablet, 0 Refills, Acute 05/05/22 9:37:00 EST, 02/10/22 9:37:00 EDT, Tablet, [facility], Partial fill upon patient request if the prescription is for a schedule II opioid drug., 175... Start Date: 02/10/22 Stop Date: 05/05/22 Status: OrderedoxyCODONE 5 mg oral tablet 5 mg, 1, tablet, By Mouth, Every 6 hours, PRN, taper over 5 days per [place] discretion, Refills0, Tot. Refills 0, Maintenance, Pain , Moderate, 03/05/22 14:36:00 EDT, Partial fill upon patient request if the prescription is for a schedule II opi... Start Date: 03/05/22 Status: Orderedpregabalin 200 mg oral capsule 1 capsule = 200 mg, By Mouth, 3 times a day, 0 Refills, Maintenance, 02/15/22 16:47:00 EDT, Capsule,Partial fill upon patient request if the prescription is for a schedule II opioid drug. Start Date: 02/15/22 Status: Orderedpropranolol 20 mg oral tablet 20 mg, 1, tablet, By Mouth, 2 times a day, # 60 tablet, Refills 0, Tot. Refills 0, Maintenance, 02/10/22 10:31:00 EDT, Route to Pharmacy Electronically, [facility], Partial fill upon patient request if the prescription is for a schedule... Start Date: 02/10/22 Stop Date: 03/12/22 Status: OrderedProtonix 40 mg oral delayed release tablet = 40 mg, By Mouth, 2 times a day, # 30 capsule, 0 Refills, Maintenance, 02/10/22 10:31:00 EDT, EC Tablet, 175, cm, 02/01/22 10:53:00 EDT, Height, 84, kg, 01/28/22 14:32:00 EDT, Dry Weight Start Date: 02/10/22 Stop Date: 03/12/22 Status: Orderedthiamine 100 mg oral tablet 100 mg, 1, tablet, By Mouth, Daily, Refills 0, Maintenance, 03/05/22 14:51:00 EDT, Partial fill uponpatient request if the prescription is for a schedule II opioid drug. Start Date: 03/05/22 Status: OrderedtiZANidine 4 mg oral tablet 4 mg, 1, tablet, By Mouth, 3 times a day, PRN, Refills 0, Maintenance, Spasm, 03/05/22 14:36:00 EDT,Partial fill upon patient request if the prescription is for a schedule II opioid drug. 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 Post traumatic stress Confirmed Active disorder (PTSD) Major depressive Confirmed Active disorder, recurrent episode, moderate without psychosis Alcohol use disorder, Confirmed Active severe, dependence Suicidal ideation Confirmed Active Diabetes mellitus Confirmed Active type 2, diet-controlled Vital Signs Most recent to oldest 1 2 3 [Reference Range]: Oxygen Saturation [94-100 95 % 99 % 100 % %] (04/15/22 7:49 AM) (04/14/22 11:36 PM) (04/14/22 11:20 PM) Pulse Rate [55-90 bpm] 93 bpm 94 bpm *H* *H* (04/15/22 7:49 AM) (04/14/22 11:36 PM) Blood Pressure 151/81 mm Hg 140/77 mm Hg [90-138/55-84 mm Hg] *H* *H* (04/15/22 7:49 AM) (04/14/22 11:36 PM) Respiratory Rate [16-30 16 br/min 15 br/min br/min] (04/15/22 7:49 AM) *L* (04/14/22 11:36 PM) Temperature [96.8-100.4 98.3 DegF 98.4 DegF DegF] (04/15/22 7:49 AM) (04/14/22 11:36 PM) Liters per Minute 15 L/min (04/14/22 11:20 PM) Mode of Delivery (Oxygen) Room air Room air Nonreb reather mask (04/15/22 7:49 AM) (04/14/22 11:36 PM) (04/14/22 11:20 PM) Blood pressure sites Arm, left Arm, left (04/15/22 7:49 AM) (04/14/22 11:36 PM) Temperature Route Oral Oral (04/15/22 7:49 AM) (04/14/22 11:36 PM) Social History Social History Type Response Smoking Status 5-9 cigarettes (between 1/4 to 1/2 pack)/day in last 30 days; Use: 6 to 7 cigarettes for the past 20 years entered on: 02/15/22 Sex EKG study Event Display: ECG 12-Lead Authored Date: Please click on pdf link to open report Event Display: ECG 12-Lead Authored Date: Ventricular Rate: 91 BPM Atrial Rate: 91 BPM P-R Interval: 140 ms QRS Duration: 100 ms Q-T Interval: 390 ms QTC Calculation(Bazett): 479 ms P [place]: 60 degrees R [place]: 37 degrees T [place]: 54 degrees Sinus rhythm with Premature atrial complexes Otherwise normal ECG When compared with ECG of 10-FEB-2022 23:56, Premature atrial complexes are now Present Confirmed by GEORGES VEGA MD ([id number]) on 04/15/2022 8:51:18 AM [place]: GEORGES VEGA MD Event Display: EKG Authored Date: Patient Care team information Care Team PersonnelName: Fozia Aguilar RN Position: [facility] RN Member Role: Primary Care Nurse Name: Natalia Weems NP Position: [facility] PCO Associate Professional Member Role: Primary Care Nurse Address: Address: [address] [place] [address] [place] [address]- [place] Name: Jae Tapia RN Position: [facility] ED RN W/OE and Tasks Member Role: Primary Care Nurse Name: Krista Naylor RN Position: [facility] RN Member Role: Primary Care Nurse Name: Alecia Alegria RN Position: [facility] SN RN Member Role: Primary Care Nurse Name: Iris Benavidez RN Position: [facility] RN Member Role: Primary Care Nurse Name: Shelia Berg RN Position: [facility] RN Member Role: Primary Care Nurse Name: Hollie Amaya RN Position: [facility] RN Member Role: Primary Care Nurse Name: Caren Zuniga RN Position: [facility] RN Member Role: Primary Care Nurse Name: Leida Walker RN Position: [facility] SN RN Member Role: Primary Care Nurse Name: Mayra Bernardo Position: [facility] RN Member Role: Primary Care Nurse Name: Shea Zaldivar RN Position: [facility] RN Member Role: Primary Care Nurse Name: James Mixon RN Position: [facility] RN Member Role: Primary Care Nurse Name: Nga Wang RN Position: [facility] RN Member Role: Primary Care Nurse Name: Tomasa Jean RN Position: [facility] RN Member Role: Primary Care Nurse Name: Marylin Mehta RN Position: [facility] OB RN Member Role: Primary Care Nurse Name: Karey Sr Position: [facility] RN Member Role: Primary Care Nurse Name: Miko Gutierrez RN Position: [facility] RN Member Role: Primary Care Nurse Name: Julee Casas RN Position: [facility] RN Member Role: Primary Care Nurse Name: Mesha Dunlap RN Position: [facility] RN Member Role: Primary Care Nurse Name: Marylin Chan RN Position: [facility] RN Member Role: Primary Care Nurse Name: Amalia Castillo NP Position: Reference Physician Member Role: PCP Address: Address: [address] [place] [id number]- [place] Name: Juan Alberto Pang RN Position: [facility] ED RN W/OE and Tasks Member Role: Primary Care Nurse Name: Rossy Marti Position: [facility] RN Member Role: Primary Care Nurse Name: Olga Castrejon Position: [facility] RN Member Role: Primary Care Nurse Name: Gabby العراقي RN Position: [facility] SN Bonding Equipment Operator Member Role: Primary Care Nurse Name: Ree Toro RN Position: [facility] RN Member Role: Primary Care Nurse Name: Crys Stevens RN Position: [facility] OB RN Member Role: Primary Care Nurse Name: Rossy Thompson RN Position: [facility] RN Member Role: Primary Care Nurse Name: Shelia Bynum RN Position: [facility] Onco RN Member Role: Primary Care Nurse Name: Aime Galeana RN Position: [facility] RN Member Role: Primary Care Nurse Name: Phyllis Jamison RN Position: [facility] SN RN Member Role: Primary Care Nurse Name: Jelly Sutherland RN Position: [facility] RN Member Role: Primary Care Nurse Name: Ivanna Seo RN Position: [facility] RN Supv Member Role: Primary Care Nurse Name: Chacho Juarez RN Position: [facility] RN Member Role: Primary Care Nurse Name: Dian Benz RN Position: [facility] RN Member Role: Primary Care Nurse Name: Jacy Almendarez RN Position: [facility] RN Member Role: Primary Care Nurse Name: Camacho Estrella RN Position: [facility] RN Member Role: Primary Care Nurse Name: Tomasa Shin RN Position: [facility] ED RN W/OE and Tasks Member Role: Primary Care Nurse Name: Anabel Nuñez NP Position: [facility] PCO Associate Professional Member Role: Primary Care Nurse Address: Address: [address] [place] [address] 3rd [place] [address]- Name: Crys Davison RN Position: [facility] RN Member Role: Primary Care Nurse Name: Katie Frazier RN Position: [facility] RN Member Role: Primary Care Nurse Name: Sharron Middleton RN Position: [facility] RN Member Role: Primary Care Nurse Name: Dasia Franklin RN Position: [facility] SN RN Member Role: Primary Care Nurse Name: Blanca Marley RN Position: [facility] RN Member Role: Primary Care Nurse Name: Marcela De Souza RN Position: [facility] RN Member Role: Primary Care Nurse Name: Alicia Martines RN Position: [facility] RN Member Role: Primary Care Nurse Name: Katie Parrish RN Position: [facility] RN Member Role: Primary Care Nurse Name: Margarette Porter RN Position: [facility] RN Member Role: Primary Care Nurse Name: Delmi Marrufo RN Position: [facility] RN Member Role: Primary Care Nurse Name: Akbar Cowart RN Position: [facility] RN Member Role: Primary Care Nurse Name: Vanessa Gomez RN Position: [facility] RN Member Role: Primary Care Nurse Name: Yolanda Sanchez RN Position: [facility] Hospital Nurse Head Member Role: Primary Care Nurse Name: Natalia Hess RN Position: [facility] RN Supv Member Role: Primary Care Nurse Care Team Related PersonsName: SOCORRO MCGRATH Address: home [address] [place] [id number] Name: KIARA DENNISCY Address: home [address] [place] [address] Name: RUPESH MCALLISTER Address: [place] [address] Name: PREETI COFFMAN Address: home [address] [place] [address]
--- OUTSIDE RECORDS SUMMARY | 2022-04-16 18:29 | XMS_ITS | Continuity of Care Document ---
:1970 Author Organization [facility] Address [address] [place] [address]- Care Team Providers Name Role Phone Not on Staff, PCP Primary Care Physician Unavailable [place] [facility] [place]22 [facility] [address] [place] [address]- Encounter Diagnosis Abrasion of eye (Final) - 02/16/22 Discharge Disposition: A-D/C Home Attending Physician: Carloz Maciel MD Admitting Physician: Carloz Maciel MD Referring Physician: Not on Staff, Referring MD Allergies, Adverse Reactions, Alerts No Known Medication Allergies Results Radiology Reports Exam Date Time Procedure Performing Provider Status 02/16/22 10:25 PM Chest Portable Dixon Clark; Mart (Keegan hoff) Notes:(Chest Portable) Reason For Exam: Other:RESULT: Chest Portable Chest Portable Reason: Trauma COMPARISON: None. FINDINGS: LINES AND TUBES: None. LUNGS AND PLEURA: Prominent pulmonary vascularity and hazy bilateral airspace opacities. No pleural effusion. No pneumothorax. HEART, MEDIASTINUM AND CHRISSY: Mild prominence of the cardiac silhouette. Normal mediastinal and hilar contour. BONES AND SOFT TISSUES: No acute abnormality. IMPRESSION: Appearance suggestive of mild pulmonary edema. I have personally reviewed the images and I agree with this report. WSN: [id number] Ordering Physician: Cece Em Dictated By: Hitesh Hazel DO Dictated Date/Time: 02/16/22 10:31 p Reviewed By: Kang Luna MD Signed By: Kang Luna MD Signed Date/Time: 02/16/22 10:36 pm Transcribed By: VANDANA Transcribed Date/Time: 02/16/22 10:31 pm Vital Signs Most recent to oldest 1 2 3 [Reference Range]: Oxygen Saturation [94-100 96 % 96 % 95 % %] (02/17/22 12:52 PM) (02/17/22 10:11 AM) ( 7:02 AM) Pulse Rate [55-90 bpm] 72 bpm 78 bpm 67 bpm (02/17/22 12:52 PM) (02/17/22 10:11 AM) ( 7:02 AM) Blood Pressure 114/62 mm Hg 117/59 mm Hg 112/53 mm Hg [90-138/55-84 mm Hg] (02/17/22 12:52 PM) (02/17/22 10:11 AM) ( 7:02 AM) Respiratory Rate [16-30 12 br/min 11 br/min 12 br/mi n br/min] *L* *L* *L* (02/17/22 12:52 PM) (02/17/22 10:11 AM) ( 7:02 AM) Temperature [96.8-100.4 97.7 DegF 97.5 DegF 97.6 Deg F DegF] (02/17/22 7:02 AM) (02/17/22 4:47 AM) (02/17/22 2:24 AM) Liters per Minute 2 L/min (02/16/22 11:17 PM) Mode of Delivery (Oxygen) Room air Room air Room a ir (02/17/22 12:52 PM) (02/17/22 10:11 AM) ( 7:02 AM) Temperature Route Axillary Axillary Axillary (02/17/22 7:02 AM) (02/17/22 4:47 AM) (02/17/22 2:24 AM) Portable XR Chest Views [facility] , CIS S: TRANSCRIBE Kang Luna MD: VERIFY Hitesh Hazel DO L: SIGN Event Display: Result: Authored Date: Chest Portable Reason: Trauma COMPARISON: None. FINDINGS: LINES AND TUBES: None. LUNGS AND PLEURA: Prominent pulmonary vascularity and hazy bilateral airspace opacities. No pleural effusion. No pneumothorax. HEART, MEDIASTINUM AND CHRISSY: Mild prominence of the cardiac silhouette. Normal mediastinal and hilar contour. BONES AND SOFT TISSUES: No acute abnormality. IMPRESSION: Appearance suggestive of mild pulmonary edema. I have personally reviewed the images and I agree with this report. WSN: [id number] Ordering Physician: Cece Em Dictated By: Hitesh Hazel DO Dictated Date/Time: 02/16/22 10:31 p Reviewed By: Kang Luna MD Signed By: Kang Luna MD Signed Date/Time: 02/16/22 10:36 pm Transcribed By: VANDANA Transcribed Date/Time: 02/16/22 10:31 pm Patient Care team information PersonnelName: Not on Staff, PCP
--- OUTSIDE RECORDS SUMMARY | 2022-04-16 18:29 | XMS_ITS | Continuity of Care Document ---
:1970 Author Organization [facility] Address [address] [place] [address]- Care Team Providers Name Role Phone Jonathan OLIVARES, Amalia Primary Care Physician Encounter [facility] [place] Date(s): 09/29/21 - 09/29/21 [facility] [address] [place] [id number]- Encounter Diagnosis Alcohol withdrawal (Final) - 09/29/21 Suicidal ideation (Final) - 09/29/21 Discharge Disposition: A-D/C Home Attending Physician: Marco Antonio Xavier MD Admitting Physician: Marco Antonio Xavier MD Referring Physician: Not on Staff, Referring MD Allergies, Adverse Reactions, Alerts Substance Reaction Severity Status lisinopril1 intestent twisting Active Zoloft Active Red Dye Persistent Severe Active Mushrooms Persistent Severe Active 1Makes his legs hurt Immunizations Given and Recorded Vaccine Date Status Refusal Reason SARS-CoV-2 (COVID-19) mRNA BNT-162b2 vac 07/12/20 Recorde [...] Daily, # 30 tablet, 0 Refills, Maintenance, 09/27/21 12:12:00 EDT, Tablet, [facility], 175, cm, 09/16/21 5:49:00 EDT, Height, 93.8, kg, 09/16/21 5:49:00 EDT, Dry Weight Start Date: 09/27/21 Stop Date: 10/27/21 Status: OrderedbuPROPion 150 mg/24 hours (XL) oral tablet, extended release 1 tablet = 150 mg, By Mouth, Daily, # 30 tablet, 0 Refills, Maintenance, 09/27/21 12:12:00 EDT, XL Tablet, [facility], Partial fill upon patient request if the prescription is for a schedule II opioid drug., 1 tablet By Mouth Daily,x30 d... Start Date: 09/27/21 Stop Date: 10/27/21 Status: OrderedcloNIDine 0.1 mg oral tablet 0.2 mg, 2, tablet, By Mouth, Daily at bedtime, # 60 tablet, Refills 0, Tot. Refills 0, Maintenance, 09/27/21 12:13:00 EDT, Route to Pharmacy Electronically, [facility], Partial fill upon patient request, 175, cm, 09/16/21 5:49:00 EDT, He... Start Date: 09/27/21 Stop Date: 10/27/21 Status: Orderedfolic acid 1 mg oral tablet 1 mg, 1, tablet, By Mouth, Daily, # 30 tablet, Refills 0, Tot. Refills 0, Maintenance, 09/27/21 12:37:00 EDT, Route to Pharmacy Electronically, [facility], Partial fill upon patient request if the prescription is for a schedule II opioid... Start Date: 09/27/21 Stop Date: 10/27/21 Status: OrderedhydrOXYzine pamoate 50 mg oral capsule 1 capsule = 50 mg, By Mouth, Every 6 hours, PRN Anxiety, # 28 capsule, 3 Refills, Maintenance, 09/27/21 12:13:00 EDT, Capsule, [facility], 175, cm, 09/16/21 5:49:00 EDT, Height, 93.8, kg,09/16/21 5:49:00 EDT, Dry Weight Start Date: 09/27/21 Stop Date: 10/25/21 Status: Orderedlamotrigine 25 mg oral tablet 25 mg, 1, tablet, By Mouth, Daily, # 30 tablet, Refills 0, Tot. Refills 0, Maintenance, 09/27/21 12:14:00 EDT, Route to Pharmacy Electronically, [facility], Partial fill upon patient request if the prescription is for a schedule II opioi... Start Date: 09/27/21 Stop Date: 10/27/21 Status: OrderedmetFORMIN 500 mg oral tablet 1 tablet = 500 mg, By Mouth, 2 times a day, # 60 tablet, 0 Refills, Maintenance, 09/27/21 12:12:00 EDT, Tablet, [facility], 175, cm, 09/16/21 5:49:00 EDT, Height, 93.8, kg, 09/16/21 5:49:00 EDT, Dry Weight Start Date: 09/27/21 Stop Date: 10/27/21 Status: Orderedmultivitamin Multiple Vitamins oral tablet 1 tablet, By Mouth, Daily, # 30 tablet, 0 Refills, Maintenance, 09/27/21 12:12:00 EDT, Tablet, [facility], 1 tablet By Mouth Daily,x30 days, 175, cm, 09/16/21 5:49:00 EDT, Height, 93.8, kg, 09/16/21 5:49:00 EDT, Dry Weight Start Date: 09/27/21 Stop Date: 10/27/21 Status: Orderednicotine 2 mg oral transmucosal lozenge 1 lozenge = 2 mg, By Mouth, Every hour, PRN Other, for 1 week(s), Nicotine Withdrawal Symptoms (not to exceed 20 lozenges per day), # 72 lozenge, 0 Refills, Acute 10/04/21 12:37:00 EDT, 09/27/21 12:37:00 EDT, Lozenge, [facility], Partial... Start Date: 09/27/21 Stop Date: 10/04/21 Status: Orderednicotine 21 mg/24 hr transdermal film, extended release 1 patch, Topically, Daily, for 30 days, # 30 patch, 0 Refills, Acute 10/27/21 12:36:00 EDT, 09/28/2211:36:00 EDT, Patch, [facility] 3, Partial fill upon patient request if the prescriptionis for a schedule II opioid drug., 1 patch Topica... Start Date: 09/27/21 Stop Date: 10/27/21 Status: Orderedpregabalin 200 mg oral capsule 1 capsule = 200 mg, By Mouth, 3 times a day, To replace prior prescription for 50mg capsules, # 90 capsule, 0 Refills, Maintenance, 09/27/21 12:14:00 EDT, Capsule, [facility] 3, Partial fill upon patient request if the prescription is for... Start Date: 09/27/21 Stop Date: 10/27/21 Status: OrderedProtonix 40 mg oral delayed release tablet 1 tablet = 40 mg, By Mouth, 2 times a day, alcoholic gastritis, # 60 tablet, 0 Refills, Maintenance,09/27/21 12:35:00 EDT, EC Tablet, 175, cm, 09/16/21 5:49:00 EDT, Height, 93.8, kg, 09/16/21 5:49:00 EDT, Dry Weight Start Date: 09/27/21 Stop Date: 10/27/21 Status: Orderedthiamine 100 mg oral tablet 100 mg, 1, tablet, By Mouth, Daily, for 30 days, # 30 tablet, Refills 0, Tot. Refills 0, Acute 10/27/21 12:35:00 EDT, 09/27/21 12:35:00 EDT, Route to Pharmacy Electronically, [facility] 3, Partial fill upon patient request if the prescript... 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(Confirmed) Alcohol use disorder, severe, Active dependence(Confirmed) Suicidal ideation(Confirmed) Active Diabetes mellitus type 2, Active diet-controlled(Confirmed) Vital Signs Most recent to oldest 1 2 3 [Reference Range]: Oxygen Saturation [94-100 %] 99 % 99 % 98 % (09/29/21 4:01 PM) (09/29/21 12:56 PM) (09/29/21 7: 42 AM) Pulse Rate [55-90 bpm] 66 bpm 59 bpm 91 bpm (09/29/21 4:01 PM) (09/29/21 12:56 PM) *H* (09/29/21 7:42 AM ) Blood Pressure [90-138/55-84 142/89 mm Hg 108/61 mm Hg 120 /40 mm Hg mm Hg] *H* (09/29/21 12:56 PM) (09/29/21 7:42 AM) (09/29/21 4:01 PM) Respiratory Rate [16-30 18 br/min 19 br/min 22 br/mi n br/min] (09/29/21 4:01 PM) (09/29/21 12:56 PM) (09/29/21 7: 42 AM) Temperature [96.8-100.4 DegF] 97.8 DegF 98.4 DegF (09/29/21 12:56 PM) (09/29/21 7:42 AM) Liters per Minute 0 L/min 0 L/min (09/29/21 12:56 PM) (09/29/21 7:42 AM) Mode of Delivery (Oxygen) Room air Room air Room a ir (09/29/21 4:01 PM) (09/29/21 12:56 PM) (09/29/21 7: 42 AM) Blood pressure sites Arm, left Arm, left Arm, right (09/29/21 4:01 PM) (09/29/21 12:56 PM) (09/29/21 7: 42 AM) Temperature Route Oral Oral (09/29/21 12:56 PM) (09/29/21 7:42 AM) Social History Social History Type Response Smoking Status Current every day smoker entered on: 09/30/14 Sex
--- OUTSIDE RECORDS SUMMARY | 2022-04-16 18:29 | XMS_ITS | Continuity of Care Document ---
:1970 Author Organization [facility] Address [address] [place] [address]- Care Team Providers Name Role Phone Jonathan OLIVARES, Amalia Primary Care Physician Encounter [facility] [facility] [id number] Date(s): 01/04/20 - 02/17/[address] [place] [id number]- [facility] Attending Physician: Delmi Perkins MD Allergies, Adverse Reactions, Alerts Substance Reaction [...] 02/10/20 16:19:00 EDT, Route to Pharmacy Electronically, [facility], 176, cm, 02/10/20 11:42:00 EDT, Height, 96.3, kg, 02/04/20 17:22:00 EDT, Dry Weight Start Date: 02/10/20 Status: Orderedatorvastatin 20 mg oral tablet 1 tablet = 20 mg, By Mouth, Daily, # 30 tablet, 0 Refills, Maintenance, 02/10/20 16:20:00 EDT, Tablet, [facility], 176, cm, 02/10/20 11:42:00 EDT, Height, 96.3, kg, 02/04/20 17:22:00 EDT,Dry Weight Start Date: 02/10/20 Status: OrderedbuPROPion 450 mg/24 hours (XL) oral tablet, extended release 1 tablet = 450 mg, By Mouth, Daily in AM, # 30 tablet, 0 Refills, Maintenance, 02/10/20 16:22:00 EDT, ER Tablet, [facility], 176, cm, 02/10/20 11:42:00 EDT, Height, 96.3, kg, 02/04/20 17:22:00 EDT, Dry Weight Start Date: 02/10/20 Status: OrderedcloNIDine 0.2 mg oral tablet 0.2 mg, 1, tablet, By Mouth, 2 times a day, # 60 tablet, Refills 0, Tot. Refills 0, Maintenance, 02/10/20 16:23:00 EDT, Route to Pharmacy Electronically, [facility], 176, cm, 02/10/20 11:42:00 EDT, Height, 96.3, kg, 02/04/20 17:22:00 EDT... Start Date: 02/10/20 Status: OrderedColace sodium 100 mg oral capsule 100 mg, 1, capsule, By Mouth, 2 times a day, # 60 capsule, Refills 0, Tot. Refills 0, Maintenance, 02/10/20 16:23:00 EDT, Route to Pharmacy Electronically, [facility], 176, cm, 02/10/20 11:42:00 EDT, Height, 96.3, kg, 02/04/20 17:22:00 E... Start Date: 02/10/20 Status: OrderedEffexor XR 75 mg oral capsule, extended release 75 mg, 1, capsule, By Mouth, Daily, # 30 capsule, Refills 0, Tot. Refills 0, Maintenance, 02/10/20 16:27:00 EDT, Route to Pharmacy Electronically, [facility], 176, cm, 02/10/20 11:42:00 EDT, Height, 96.3, kg, 02/04/20 17:22:00 EDT, Dry W... Start Date: 02/10/20 Status: Orderedfolic acid 1 mg oral tablet 1 mg, 1, tablet, By Mouth, Daily, # 30 tablet, Refills 0, Tot. Refills 0, Maintenance, 02/10/20 16:23:00 EDT, Route to Pharmacy Electronically, [facility], 176, cm, 02/10/20 11:42:00 EDT,Height, 96.3, kg, 02/04/20 17:22:00 EDT, Dry Weight Start Date: 02/10/20 Status: Orderedgabapentin 600 mg oral tablet 1 tablet = 600 mg, By Mouth, 3 times a day, # 90 tablet, 0 Refills, Maintenance, 02/10/20 16:24:00 EDT, Tablet, [facility], 176, cm, 02/10/20 11:42:00 EDT, Height, 96.3, kg, 02/04/20 17:22:00 EDT, Dry Weight Start Date: 02/10/20 Status: OrderedhydrOXYzine pamoate 50 mg oral capsule = 50 mg, By Mouth, Every 6 hours, PRN Anxiety, # 28 tablet, 3 Refills, Maintenance, 02/10/20 16:25:00 EDT, Capsule, [facility], 176, cm, 02/10/20 11:42:00 EDT, Height, 96.3, kg, 02/04/20 17:22:00 EDT, Dry Weight Start Date: 02/10/20 Status: Orderedloratadine 10 mg oral tablet 10 mg, 1, tablet, By Mouth, Daily, # 30 tablet, Refills 0, Tot. Refills 0, Maintenance, 02/10/20 16:19:00 EDT, Route to Pharmacy Electronically, [facility], 176, cm, 02/10/20 11:42:00 EDT, Height, 96.3, kg, 02/04/20 17:22:00 EDT, Dry Weight Start Date: 02/10/20 Status: OrderedmetFORMIN 500 mg oral tablet 1 each = 500 mg, By Mouth, 2 times a day, # 60 tablet, 0 Refills, Maintenance, 02/10/20 16:19:00 EDT, Tablet, [facility], 176, cm, 02/10/20 11:42:00 EDT, Height, 96.3, kg, 02/04/20 17:22:00 EDT, Dry Weight Start Date: 02/10/20 Status: Orderedmultivitamin Multiple Vitamins oral tablet 1 tablet, By Mouth, Daily, # 30 tablet, 0 Refills, Maintenance, 02/10/20 16:26:00 EDT, Tablet, [facility], 1 tablet By Mouth Daily, 176, cm, 02/10/20 11:42:00 EDT, Height, 96.3, kg, 02/04/20 17:22:00 EDT, Dry Weight Start Date: 02/10/20 Status: OrderedNicotine 2 mg gum = 2 mg, Chew, Every 2 hours, PRN Other, Nicotine Cravings, # 84 each, 3 Refills, Maintenance, 02/10/20 16:26:00 EDT, Gum, [facility], 176, cm, 02/10/20 11:42:00 EDT, Height, 96.3, kg, 02/04/20 17:22:00 EDT, Dry Weight Start Date: 02/10/20 Status: Orderedpyridoxine 50 mg oral tablet 50 mg, 1, tablet, By Mouth, Daily, # 30 tablet, Refills 0, Tot. Refills 0, Maintenance, 02/10/20 16:26:00 EDT, Route to Pharmacy Electronically, [facility], 176, cm, 02/10/20 11:42:00 EDT, Height, 96.3, kg, 02/04/20 17:22:00 EDT, Dry Weight Start Date: 02/10/20 Status: OrderedSenna 8.6 mg oral tablet 17.2 mg, 2, tablet, By Mouth, Daily, # 60 tablet, Refills 0, Tot. Refills 0, Maintenance, 02/10/20 16:26:00 EDT, Route to Pharmacy Electronically, [facility] Tablet, 176, cm, 02/10/20 11:42:00 EDT, Height, 96.3, kg, 02/04/20 17:22:00 EDT... Start Date: 02/10/20 Status: Orderedthiamine 100 mg oral tablet 100 mg, 1, tablet, By Mouth, Daily, # 30 tablet, Refills 0, Tot. Refills 0, Maintenance, 02/10/20 16:26:00 EDT, Route to Pharmacy Electronically, [facility], 176, cm, 02/10/20 11:42:00 EDT, Height, 96.3, kg, 02/04/20 17:22:00 EDT, Dry We... Start Date: 02/10/20 Status: OrderedtraZODone 50 mg oral tablet 50 mg, 1, tablet, By Mouth, Daily at bedtime, PRN, # 30 tablet, Refills 0, Tot. Refills 0, Maintenance, Insomnia, 02/10/20 16:27:00 EDT, Route to Pharmacy Electronically, [facility], 176,cm, 02/10/20 11:42:00 EDT, Height, 96.3, kg, ... 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(Confirmed) Diabetes mellitus type 2, Active diet-controlled(Confirmed) Social History Social History Type Response Smoking Status Current every day smoker entered on: 09/30/14 Sex
--- OUTSIDE RECORDS SUMMARY | 2022-04-16 18:29 | XMS_ITS | Continuity of Care Document ---
:1970 Author Organization [facility] Address [address] [place] [address]- Care Team Providers Name Role Phone Jonathan OLIVARES, Amalia Primary Care Physician [place] [facility] [place](s): 03/15/20 - 04/14/20 [facility] [address] [place] [id number] Allergies, Adverse Reactions, Alerts Substance Reaction Severity [...] 0 Refills, Maintenance, 04/09/20 12:02:00 EST, Tablet, [id number], 175, cm, 04/09/20 0:09:00 EST, Height, 79.5, kg, 04/06/20 14:00:00 EST, Dry Weight Start Date: 04/09/20 Status: OrderedbuPROPion 150 mg/24 hours (XL) oral tablet, extended release 3 tablet = 450 mg, By Mouth, Every 24 hours, # 90 tablet, 0 Refills, Maintenance, 04/09/20 12:02:00 EST, XL Tablet, [id number], Partial fill upon patient request if the prescription isfor a schedule II opioid drug., 3 tablet By Mouth... Start Date: 04/09/20 Status: OrderedcloNIDine 0.1 mg oral tablet 0.2 mg, 2, tablet, By Mouth, Daily at bedtime, # 60 tablet, Refills 0, Tot. Refills 0, Maintenance, 04/09/20 12:02:00 EST, Route to Pharmacy Electronically, [facility][id number], Partial fill upon patient request, 175, cm, 04/09/20 0:09:00 EST,... Start Date: 04/09/20 Status: OrderedhydrOXYzine pamoate 50 mg oral capsule = 50 mg, By Mouth, Every 6 hours, PRN Anxiety, # 28 tablet, 3 Refills, Maintenance, 04/09/20 12:03:00 EST, Capsule, [facility] #[id number], 175, cm, 04/09/20 0:09:00 EST, Height, 79.5, kg, 04/06/20 14:00:00 EST, Dry Weight Start Date: 04/09/20 Status: OrderedmetFORMIN 500 mg oral tablet 1 each = 500 mg, By Mouth, 2 times a day, # 60 tablet, 0 Refills, Maintenance, 04/09/20 12:02:00 EST, Tablet, [facility] #[id number], 175, cm, 04/09/20 0:09:00 EST, Height, 79.5, kg, 04/06/20 14:00:00 EST, Dry Weight Start Date: 04/09/20 Status: Orderedmultivitamin Multiple Vitamins oral tablet 1 tablet, By Mouth, Daily, # 30 tablet, 0 Refills, Maintenance, 04/09/20 12:03:00 EST, Tablet, [facility] #[id number], 1 tablet By Mouth Daily, 175, cm, 04/09/20 0:09:00 EST, Height, 79.5, kg, 04/06/20 14:00:00 EST, Dry Weight Start Date: 04/09/20 Status: OrderedNicotine 2 mg gum 1 each = 2 mg, Chew, Every 2 hours, PRN as needed for smoking cessation, # 40 each, 0 Refills, Maintenance, 04/09/20 12:05:00 EST, Gum, [facility] #[id number], Partial fill upon patient request ifthe prescription is for a schedule II opioid drug... Start Date: 04/09/20 Status: OrderedPeridex 0.12% liquid 15 mL = 0.018 Gm, By Mouth, 2 times a day, # 210 mL, 1 Refills, Maintenance, 04/09/20 12:02:00 EST, [facility] #[id number], Partial fill upon patient request, 15 mL By Mouth 2 times a day,x7 days,175, cm, 04/09/20 0:09:00 EST, Height, 79.5, kg,... Start Date: 04/09/20 Stop Date: 04/23/20 Status: Orderedpregabalin 50 mg oral capsule 2 capsule = 100 mg, By Mouth, 3 times a day, # 30 capsule, 0 Refills, Maintenance, 04/09/20 12:03:00EST, Capsule, [facility][id number], Partial fill upon patient request, 175, cm, 04/09/20 0:09:00 EST, Height, 79.5, kg, 04/06/20 14:00:00 EST,... Start Date: 04/09/20 Status: OrderedSEROquel 25 mg oral tablet 50 mg, 2, tablet, By Mouth, 3 times a day, PRN, # 21 tablet, Refills 0, Tot. Refills 0, Maintenance,Anxiety, 03/22/20 12:37:00 EST, Route to Pharmacy Electronically, [facility], Partial fill upon patient request, 175, cm, 03/21/20 19:40... Start Date: 03/22/20 Stop Date: 03/29/20 Status: OrderedtraZODone 50 mg oral tablet 100 mg, 2, tablet, By Mouth, Daily at bedtime, PRN, # 14 tablet, Refills 0, Tot. Refills 0, Maintenance, Sleep, 04/09/20 12:03:00 EST, Route to Pharmacy Electronically, [facility] #[id number], Partial fill upon patient request, 175, cm, 04/09/20... Start Date: 04/09/20 Stop Date: 04/16/20 Status: Orderedvenlafaxine 150 mg oral capsule, extended release 150 mg, 1, capsule, By Mouth, Daily, # 30 capsule, Refills 0, Tot. Refills 0, Maintenance, 04/09/20 12:03:00 EST, Route to Pharmacy Electronically, [facility] #[id number], Partial fill upon patient request, 175, cm, [...]
--- OUTSIDE RECORDS SUMMARY | 2022-04-16 18:29 | XMS_ITS | Continuity of Care Document ---
:1970 Author Organization [facility] Address [address] [place] [address]- Care Team Providers Name Role Phone Jonathan OLIVARES, Amalia Primary Care Physician Encounter [facility] [place] Date(s): 01/18/20 - 02/17/[address] [place] [id number]- [facility] Attending Physician: Gabriella Clark Admitting Physician: Gabriella Clark Referring Physician: AdmtrGabriella Allergies, Adverse Reactions, Alerts Substance Reaction Severity [...] 02/10/20 16:19:00 EDT, Route to Pharmacy Electronically, [facility], 176, cm, 02/10/20 11:42:00 EDT, Height, 96.3, kg, 02/04/20 17:22:00 EDT, Dry Weight Start Date: 02/10/20 Status: Orderedatorvastatin 20 mg oral tablet 1 tablet = 20 mg, By Mouth, Daily, # 30 tablet, 0 Refills, Maintenance, 02/10/20 16:20:00 EDT, Tablet, [facility], 176, cm, 02/10/20 11:42:00 EDT, Height, 96.3, kg, 02/04/20 17:22:00 EDT,Dry Weight Start Date: 02/10/20 Status: OrderedbuPROPion 450 mg/24 hours (XL) oral tablet, extended release 1 tablet = 450 mg, By Mouth, Daily in AM, # 30 tablet, 0 Refills, Maintenance, 02/10/20 16:22:00 EDT, ER Tablet, [facility], 176, cm, 02/10/20 11:42:00 EDT, Height, 96.3, kg, 02/04/20 17:22:00 EDT, Dry Weight Start Date: 02/10/20 Status: OrderedcloNIDine 0.2 mg oral tablet 0.2 mg, 1, tablet, By Mouth, 2 times a day, # 60 tablet, Refills 0, Tot. Refills 0, Maintenance, 02/10/20 16:23:00 EDT, Route to Pharmacy Electronically, [facility], 176, cm, 02/10/20 11:42:00 EDT, Height, 96.3, kg, 02/04/20 17:22:00 EDT... Start Date: 02/10/20 Status: OrderedColace sodium 100 mg oral capsule 100 mg, 1, capsule, By Mouth, 2 times a day, # 60 capsule, Refills 0, Tot. Refills 0, Maintenance, 02/10/20 16:23:00 EDT, Route to Pharmacy Electronically, [facility], 176, cm, 02/10/20 11:42:00 EDT, Height, 96.3, kg, 02/04/20 17:22:00 E... Start Date: 02/10/20 Status: OrderedEffexor XR 75 mg oral capsule, extended release 75 mg, 1, capsule, By Mouth, Daily, # 30 capsule, Refills 0, Tot. Refills 0, Maintenance, 02/10/20 16:27:00 EDT, Route to Pharmacy Electronically, [facility], 176, cm, 02/10/20 11:42:00 EDT, Height, 96.3, kg, 02/04/20 17:22:00 EDT, Dry W... Start Date: 02/10/20 Status: Orderedfolic acid 1 mg oral tablet 1 mg, 1, tablet, By Mouth, Daily, # 30 tablet, Refills 0, Tot. Refills 0, Maintenance, 02/10/20 16:23:00 EDT, Route to Pharmacy Electronically, [facility], 176, cm, 02/10/20 11:42:00 EDT,Height, 96.3, kg, 02/04/20 17:22:00 EDT, Dry Weight Start Date: 02/10/20 Status: Orderedgabapentin 600 mg oral tablet 1 tablet = 600 mg, By Mouth, 3 times a day, # 90 tablet, 0 Refills, Maintenance, 02/10/20 16:24:00 EDT, Tablet, [facility], 176, cm, 02/10/20 11:42:00 EDT, Height, 96.3, kg, 02/04/20 17:22:00 EDT, Dry Weight Start Date: 02/10/20 Status: OrderedhydrOXYzine pamoate 50 mg oral capsule = 50 mg, By Mouth, Every 6 hours, PRN Anxiety, # 28 tablet, 3 Refills, Maintenance, 02/10/20 16:25:00 EDT, Capsule, [facility], 176, cm, 02/10/20 11:42:00 EDT, Height, 96.3, kg, 02/04/20 17:22:00 EDT, Dry Weight Start Date: 02/10/20 Status: Orderedloratadine 10 mg oral tablet 10 mg, 1, tablet, By Mouth, Daily, # 30 tablet, Refills 0, Tot. Refills 0, Maintenance, 02/10/20 16:19:00 EDT, Route to Pharmacy Electronically, [facility], 176, cm, 02/10/20 11:42:00 EDT, Height, 96.3, kg, 02/04/20 17:22:00 EDT, Dry Weight Start Date: 02/10/20 Status: OrderedmetFORMIN 500 mg oral tablet 1 each = 500 mg, By Mouth, 2 times a day, # 60 tablet, 0 Refills, Maintenance, 02/10/20 16:19:00 EDT, Tablet, [facility], 176, cm, 02/10/20 11:42:00 EDT, Height, 96.3, kg, 02/04/20 17:22:00 EDT, Dry Weight Start Date: 02/10/20 Status: Orderedmultivitamin Multiple Vitamins oral tablet 1 tablet, By Mouth, Daily, # 30 tablet, 0 Refills, Maintenance, 02/10/20 16:26:00 EDT, Tablet, [facility], 1 tablet By Mouth Daily, 176, cm, 02/10/20 11:42:00 EDT, Height, 96.3, kg, 02/04/20 17:22:00 EDT, Dry Weight Start Date: 02/10/20 Status: OrderedNicotine 2 mg gum = 2 mg, Chew, Every 2 hours, PRN Other, Nicotine Cravings, # 84 each, 3 Refills, Maintenance, 02/10/20 16:26:00 EDT, Gum, [facility], 176, cm, 02/10/20 11:42:00 EDT, Height, 96.3, kg, 02/04/20 17:22:00 EDT, Dry Weight Start Date: 02/10/20 Status: Orderedpyridoxine 50 mg oral tablet 50 mg, 1, tablet, By Mouth, Daily, # 30 tablet, Refills 0, Tot. Refills 0, Maintenance, 02/10/20 16:26:00 EDT, Route to Pharmacy Electronically, [facility], 176, cm, 02/10/20 11:42:00 EDT, Height, 96.3, kg, 02/04/20 17:22:00 EDT, Dry Weight Start Date: 02/10/20 Status: OrderedSenna 8.6 mg oral tablet 17.2 mg, 2, tablet, By Mouth, Daily, # 60 tablet, Refills 0, Tot. Refills 0, Maintenance, 02/10/20 16:26:00 EDT, Route to Pharmacy Electronically, [facility] Tablet, 176, cm, 02/10/20 11:42:00 EDT, Height, 96.3, kg, 02/04/20 17:22:00 EDT... Start Date: 02/10/20 Status: Orderedthiamine 100 mg oral tablet 100 mg, 1, tablet, By Mouth, Daily, # 30 tablet, Refills 0, Tot. Refills 0, Maintenance, 02/10/20 16:26:00 EDT, Route to Pharmacy Electronically, [facility], 176, cm, 02/10/20 11:42:00 EDT, Height, 96.3, kg, 02/04/20 17:22:00 EDT, Dry We... Start Date: 02/10/20 Status: OrderedtraZODone 50 mg oral tablet 50 mg, 1, tablet, By Mouth, Daily at bedtime, PRN, # 30 tablet, Refills 0, Tot. Refills 0, Maintenance, Insomnia, 02/10/20 16:27:00 EDT, Route to Pharmacy Electronically, [facility], 176,cm, 02/10/20 11:42:00 EDT, Height, 96.3, kg, 10/0... Start Date: 02/10/20 Status: Ordered Problem List [...]
--- OUTSIDE RECORDS SUMMARY | 2022-04-16 18:29 | XMS_ITS | Continuity of Care Document ---
:1970 Author Organization [facility] Address [address] [place] [id number]- Care Team Providers Name Role Phone Jonathan OLIVARES, Amalia Primary Care Physician Encounter [facility] Date(s): 01/26/22 - 01/26/[address] [id number]- Encounter Diagnosis Alcohol intoxication (Final) - 01/26/22 Discharge Disposition: A-D/C Home Attending Physician: Marco Antonio Xavier MD Admitting Physician: Marco Antonio Xavier MD Referring Physician: Not on Staff, Referring MD Allergies, Adverse Reactions, Alerts Substance Reaction Severity Status lisinopril1 intestent twisting Active Zoloft Active Red Dye Persistent Severe Active Mushrooms Persistent Severe Active [place] Oil Active 1Makes his legs hurt Immunizations Given [...] 0 Refills, Maintenance, 09/27/21 12:12:00 EDT, Tablet, [facility], 175, cm, 09/16/21 5:49:00 EDT, Height, 93.8, kg, 09/16/21 5:49:00 EDT, Dry Weight Start Date: 09/27/21 Stop Date: 10/27/21 Status: OrderedbuPROPion 300 mg/24 hours (XL) oral tablet, extended release 1 tablet = 300 mg, By Mouth, Daily, # 30 tablet, 0 Refills, Maintenance, 10/04/21 14:27:00 EDT, XL Tablet, [facility], Partial fill upon patient request if the prescription is for a schedule II opioid drug., 175, cm, 09/16/21 5:49:00 EDT... Start Date: 10/04/21 Status: OrderedcloNIDine 0.1 mg oral tablet 0.2 mg, 2, tablet, By Mouth, Daily at bedtime, # 60 tablet, Refills 0, Tot. Refills 0, Maintenance, 09/27/21 12:13:00 EDT, Route to Pharmacy Electronically, [facility], Partial fill upon patient request, 175, cm, 09/16/21 5:49:00 EDT, He... Start Date: 09/27/21 Stop Date: 10/27/21 Status: Ordereddivalproex sodium 250 mg oral enteric coated tablet = 750 mg, By Mouth, 2 times a day, # 56 tablet, 0 Refills, Maintenance, 10/04/21 14:33:00 EDT, Tablet, [facility], Partial fill upon patient request if the prescription is for a schedule II opioid drug., 175, cm, 09/16/21 5:49:00 EDT, He... Start Date: 10/04/21 Stop Date: 10/18/21 Status: Orderedfolic acid 1 mg oral tablet 1 mg, 1, tablet, By Mouth, Daily, # 30 tablet, Refills 0, Tot. Refills 0, Maintenance, 09/27/21 12:37:00 EDT, Route to Pharmacy Electronically, [facility], Partial fill upon patient request if the prescription is for a schedule II opioid... Start Date: 09/27/21 Stop Date: 10/27/21 Status: OrderedhydrOXYzine pamoate 50 mg oral capsule 1 capsule = 50 mg, By Mouth, Every 6 hours, PRN Anxiety, # 28 capsule, 3 Refills, Maintenance, 09/27/21 12:13:00 EDT, Capsule, [facility], 175, cm, 09/16/21 5:49:00 EDT, Height, 93.8, kg,09/16/21 5:49:00 EDT, Dry Weight Start Date: 09/27/21 Stop Date: 10/25/21 Status: Orderedlamotrigine 25 mg oral tablet 25 mg, 1, tablet, By Mouth, Daily, # 30 tablet, Refills 0, Tot. Refills 0, Maintenance, 09/27/21 12:14:00 EDT, Route to Pharmacy Electronically, [facility], Partial fill upon patient request if the prescription is for a schedule II opioi... Start Date: 09/27/21 Stop Date: 10/27/21 Status: OrderedmetFORMIN 500 mg oral tablet 1 tablet = 500 mg, By Mouth, 2 times a day, # 60 tablet, 0 Refills, Maintenance, 09/27/21 12:12:00 EDT, Tablet, [facility], 175, cm, 09/16/21 5:49:00 EDT, Height, 93.8, kg, 09/16/21 5:49:00 EDT, Dry Weight Start Date: 09/27/21 Stop Date: 10/27/21 Status: Orderedmultivitamin Multiple Vitamins oral tablet 1 tablet, By Mouth, Daily, # 30 tablet, 0 Refills, Maintenance, 09/27/21 12:12:00 EDT, Tablet, [facility], 1 tablet By Mouth Daily,x30 days, 175, cm, 09/16/21 5:49:00 EDT, Height, 93.8, kg, 09/16/21 5:49:00 EDT, Dry Weight Start Date: 09/27/21 Stop Date: 10/27/21 Status: Orderedpregabalin 200 mg oral capsule 1 capsule = 200 mg, By Mouth, 3 times a day, To replace prior prescription for 50mg capsules, # 90 capsule, 0 Refills, Maintenance, 09/27/21 12:14:00 EDT, Capsule, [facility], Partial fill upon patient request [...] Most recent to oldest [Reference Range]: 1 Oxygen Saturation [94-100 %] 98 % (01/26/22 9:58 AM) Pulse Rate [55-90 bpm] 85 bpm (01/26/22 9:58 AM) Blood Pressure [90-138/55-84 mm Hg] 111/62 mm Hg (01/26/22 11:50 AM) Respiratory Rate [16-30 br/min] 13 br/min *L* (01/26/22 9:58 AM) Liters per Minute 4 L/min (01/26/22 9:58 AM) Mode of Delivery (Oxygen) Nasal cannula (01/26/22 9:58 AM) Blood pressure sites Arm, left (01/26/22 11:50 AM) Social History Social History Type Response Smoking Status Current every day smoker entered on: 09/30/14 Sex Care Team PersonnelName: Amalia Castillo NP Address: [address] [place] [address]
--- OUTSIDE RECORDS SUMMARY | 2022-04-16 18:29 | XMS_ITS | Continuity of Care Document ---
:1970 Author Organization [facility] Address [address] [place] [address]- Care Team Providers Name Role Phone Jonathan OLIVARES, Amalia Primary Care Physician Encounter [facility] [place] [facility] R [id number] Date(s): 10/05/21 - 10/08/21 [facility] [address] [place] [id number]- Discharge Disposition: A-D/C Home Attending Physician: Valarie Petersen MD Admitting Physician: Valarie Petersen MD Referring Physician: Not on Staff, Referring MD Allergies, Adverse Reactions, Alerts Substance Reaction Severity Status lisinopril1 intestent twisting Active Red Dye Persistent Severe Active [place] Oil Active Zoloft Active Mushrooms Persistent Severe Active 1Makes his [...] 0 Refills, Maintenance, 09/27/21 12:12:00 EDT, Tablet, [facility], 175, cm, 09/16/21 5:49:00 EDT, Height, 93.8, kg, 09/16/21 5:49:00 EDT, Dry Weight Start Date: 09/27/21 Stop Date: 10/27/21 Status: OrderedbuPROPion 300 mg/24 hours (XL) oral tablet, extended release 1 tablet = 300 mg, By Mouth, Daily, # 30 tablet, 0 Refills, Maintenance, 10/04/21 14:27:00 EDT, XL Tablet, [facility], Partial fill upon patient request if the prescription is for a schedule II opioid drug., 175, cm, 09/16/21 5:49:00 EDT... Start Date: 10/04/21 Status: OrderedcloNIDine 0.1 mg oral tablet 0.2 mg, 2, tablet, By Mouth, Daily at bedtime, # 60 tablet, Refills 0, Tot. Refills 0, Maintenance, 09/27/21 12:13:00 EDT, Route to Pharmacy Electronically, [facility], Partial fill upon patient request, 175, cm, 09/16/21 5:49:00 EDT, He... Start Date: 09/27/21 Stop Date: 10/27/21 Status: Ordereddivalproex sodium 250 mg oral enteric coated tablet = 750 mg, By Mouth, 2 times a day, # 56 tablet, 0 Refills, Maintenance, 10/04/21 14:33:00 EDT, Tablet, [facility], Partial fill upon patient request if the prescription is for a schedule II opioid drug., 175, cm, 09/16/21 5:49:00 EDT, He... Start Date: 10/04/21 Stop Date: 10/18/21 Status: Orderedfolic acid 1 mg oral tablet 1 mg, 1, tablet, By Mouth, Daily, # 30 tablet, Refills 0, Tot. Refills 0, Maintenance, 09/27/21 12:37:00 EDT, Route to Pharmacy Electronically, [facility], Partial fill upon patient request if the prescription is for a schedule II opioid... Start Date: 09/27/21 Stop Date: 10/27/21 Status: OrderedhydrOXYzine pamoate 50 mg oral capsule 1 capsule = 50 mg, By Mouth, Every 6 hours, PRN Anxiety, # 28 capsule, 3 Refills, Maintenance, 09/27/21 12:13:00 EDT, Capsule, [facility], 175, cm, 09/16/21 5:49:00 EDT, Height, 93.8, kg,09/16/21 5:49:00 EDT, Dry Weight Start Date: 09/27/21 Stop Date: 10/25/21 Status: Orderedlamotrigine 25 mg oral tablet 25 mg, 1, tablet, By Mouth, Daily, # 30 tablet, Refills 0, Tot. Refills 0, Maintenance, 09/27/21 12:14:00 EDT, Route to Pharmacy Electronically, [facility], Partial fill upon patient request if the prescription is for a schedule II opioi... Start Date: 09/27/21 Stop Date: 10/27/21 Status: OrderedmetFORMIN 500 mg oral tablet 1 tablet = 500 mg, By Mouth, 2 times a day, # 60 tablet, 0 Refills, Maintenance, 09/27/21 12:12:00 EDT, Tablet, [facility], 175, cm, 09/16/21 5:49:00 EDT, Height, 93.8, kg, 09/16/21 5:49:00 EDT, Dry Weight Start Date: 09/27/21 Stop Date: 10/27/21 Status: Orderedmultivitamin Multiple Vitamins oral tablet 1 tablet, By Mouth, Daily, # 30 tablet, 0 Refills, Maintenance, 09/27/21 12:12:00 EDT, Tablet, [facility], 1 tablet By Mouth Daily,x30 days, 175, cm, 09/16/21 5:49:00 EDT, Height, 93.8, kg, 09/16/21 5:49:00 EDT, Dry Weight Start Date: 09/27/21 Stop Date: 10/27/21 Status: Orderednicotine 21 mg/24 hr transdermal film, extended release 1 patch, Topically, Daily, for 30 days, # 30 patch, 0 Refills, Acute 10/27/21 12:36:00 EDT, 09/28/2211:36:00 EDT, Patch, [facility], Partial fill upon patient request if the prescriptionis for a schedule II opioid drug., 1 patch Topica... Start Date: 09/27/21 Stop Date: 10/27/21 Status: Orderedpregabalin 200 mg oral capsule 1 capsule = 200 mg, By Mouth, 3 times a day, To replace prior prescription for 50mg capsules, # 90 capsule, 0 Refills, Maintenance, 09/27/21 12:14:00 EDT, Capsule, [facility], Partial fill upon patient request [...] 09/27/21 12:35:00 EDT, Route to Pharmacy Electronically, [facility], Partial fill upon patient [...] Vital Signs Most recent to oldest [Reference 1 2 3 Range]: Oxygen Saturation [94-100 %] 96 % 96 % 94 % (10/08/21 4:33 AM) (10/07/21 11:37 PM) (10/07/21 8:16 PM) Pulse Rate [55-90 bpm] 80 bpm 80 bpm 64 bpm (10/08/21 4:33 AM) (10/08/21 4:33 AM) (10/07/21 11:37 PM) Blood Pressure [90-138/55-84 mm 132/53 mm Hg 132/53 mm Hg 123/66 mm Hg Hg] (10/08/21 4:33 AM) (10/08/21 4:33 AM) (10/07/21 11:37 PM) Respiratory Rate [16-30 br/min] 22 br/min 22 br/min 16 br/min (10/08/21 4:33 AM) (10/08/21 4:33 AM) (10/07/21 11:37 PM) Temperature [96.8-100.4 DegF] 97.9 DegF 97.9 DegF 98 .2 DegF (10/08/21 4:33 AM) (10/08/21 4:33 AM) (10/07/21 8:16 P M) Mode of Delivery (Oxygen) Room air Room air Room a ir (10/08/21 4:33 AM) (10/07/21 11:37 PM) (10/07/21 8:16 PM) Blood pressure sites Arm, left Arm, left Arm, right (10/08/21 4:33 AM) (10/07/21 11:37 PM) (10/07/21 8:16 PM) Temperature Route Oral Oral Oral (10/08/21 4:33 AM) (10/08/21 4:33 AM) (10/07/21 8:16 P M) Social History Social History Type Response Smoking Status Current every day smoker entered on: 09/30/14 Sex
--- OUTSIDE RECORDS SUMMARY | 2022-04-16 18:29 | XMS_ITS | Continuity of Care Document ---
:1970 Author Organization [facility] Address [address] [place] [address]- Care Team Providers Name Role Phone Jonathan OLIVARES, Amalia Primary Care Physician Encounter [facility] Date(s): 04/05/20 - 04/09/20 [facility] [address] [place] [id number]- Encounter Diagnosis Alcohol withdrawal (Final) - 04/05/20 Discharge Disposition: A-D/C Home Attending Physician: Rachel Garcia DO Admitting Physician: Anne-Marie HUNT, Varinder Urena Referring Physician: Not on Staff, Referring MD Allergies, Adverse Reactions, Alerts Substance Reaction Severity Status lisinopril1 intestent twisting Active Red Dye Persistent Severe Active Mushrooms Persistent Severe Active Zoloft Active 1Makes his legs hurt Immunizations Not [...] 0 Refills, Maintenance, 04/09/20 12:02:00 EST, Tablet, [facility] #[id number], 175, cm, 04/09/20 0:09:00 EST, Height, 79.5, kg, 04/06/20 14:00:00 EST, Dry Weight Start Date: 04/09/20 Status: OrderedbuPROPion 150 mg/24 hours (XL) oral tablet, extended release 3 tablet = 450 mg, By Mouth, Every 24 hours, # 90 tablet, 0 Refills, Maintenance, 04/09/20 12:02:00 EST, XL Tablet, [facility] #[id number], Partial fill upon patient request if the prescription isfor a schedule II opioid drug., 3 tablet By Mouth... Start Date: 04/09/20 Status: OrderedcloNIDine 0.1 mg oral tablet 0.2 mg, 2, tablet, By Mouth, Daily at bedtime, # 60 tablet, Refills 0, Tot. Refills 0, Maintenance, 04/09/20 12:02:00 EST, Route to Pharmacy Electronically, [facility] #[id number], Partial fill upon patient request, 175, cm, 04/09/20 0:09:00 EST,... Start Date: 04/09/20 Status: OrderedhydrOXYzine pamoate 50 mg oral capsule = 50 mg, By Mouth, Every 6 hours, PRN Anxiety, # 28 tablet, 3 Refills, Maintenance, 04/09/20 12:03:00 EST, Capsule, [facility] #[id number], 175, cm, 04/09/20 0:09:00 EST, Height, 79.5, kg, 04/06/20 14:00:00 EST, Dry Weight Start Date: 04/09/20 Status: OrderedmetFORMIN 500 mg oral tablet 1 each = 500 mg, By Mouth, 2 times a day, # 60 tablet, 0 Refills, Maintenance, 04/09/20 12:02:00 EST, Tablet, [facility] #[id number], 175, cm, 04/09/20 0:09:00 EST, Height, 79.5, kg, 04/06/20 14:00:00 EST, Dry Weight Start Date: 04/09/20 Status: Orderedmultivitamin Multiple Vitamins oral tablet 1 tablet, By Mouth, Daily, # 30 tablet, 0 Refills, Maintenance, 04/09/20 12:03:00 EST, Tablet, [facility] #[id number], 1 tablet By Mouth Daily, 175, cm, 04/09/20 0:09:00 EST, Height, 79.5, kg, 04/06/20 14:00:00 EST, Dry Weight Start Date: 04/09/20 Status: OrderedNicotine 2 mg gum 1 each = 2 mg, Chew, Every 2 hours, PRN as needed for smoking cessation, # 40 each, 0 Refills, Maintenance, 04/09/20 12:05:00 EST, Gum, [facility] #[id number], Partial fill upon patient request ifthe prescription is for a schedule II opioid drug... Start Date: 04/09/20 Status: OrderedoxyCODONE 5 mg oral tablet 5 mg, Tablet, By Mouth, Every 6 hours, PRN for Pain , Severe, Routine, 04/05/20 17:05:00 EST Start Date: 04/05/20 Stop Date: 04/09/20 Status: DiscontinuedPeridex 0.12% liquid 15 mL = 0.018 Gm, By Mouth, 2 times a day, # 210 mL, 1 Refills, Maintenance, 04/09/20 12:02:00 EST, [facility] #[id number], Partial fill upon patient request, 15 mL By Mouth 2 times a day,x7 days,175, cm, 04/09/20 0:09:00 EST, Height, 79.5, kg,... Start Date: 04/09/20 Stop Date: 04/23/20 Status: Orderedpregabalin 50 mg oral capsule 2 capsule = 100 mg, By Mouth, 3 times a day, # 30 capsule, 0 Refills, Maintenance, 04/09/20 12:03:00EST, Capsule, [facility] #[id number], Partial fill upon patient request, 175, cm, 04/09/20 0:09:00 EST, Height, 79.5, kg, 04/06/20 14:00:00 EST,... Start Date: 04/09/20 Status: OrderedSEROquel 25 mg oral tablet 50 mg, 2, tablet, By Mouth, 3 times a day, PRN, # 21 tablet, Refills 0, Tot. Refills 0, Maintenance,Anxiety, 03/22/20 12:37:00 EST, Route to Pharmacy Electronically, [facility], Partial fill upon patient request, 175, cm, 03/21/20 19:40... Start Date: 03/22/20 Stop Date: 03/29/20 Status: OrderedtraZODone 50 mg oral tablet 100 mg, 2, tablet, By Mouth, Daily at bedtime, PRN, # 14 tablet, Refills 0, Tot. Refills 0, Maintenance, Sleep, 04/09/20 12:03:00 EST, Route to Pharmacy Electronically, [facility] #[id number], Partial fill upon patient request, 175, cm, 04/09/20... Start Date: 04/09/20 Stop Date: 04/16/20 Status: Orderedvenlafaxine 150 mg oral capsule, extended release 150 mg, 1, capsule, By Mouth, Daily, # 30 capsule, Refills 0, Tot. Refills 0, Maintenance, 04/09/20 12:03:00 EST, Route to Pharmacy Electronically, [facility] #[id number], Partial fill upon patient request, 175, cm, [...] Active Diabetes mellitus type 2, Active diet-controlled(Confirmed) Results Radiology Reports Exam Date Time Procedure Performing Provider Status 04/05/20 5:47 PM Chest 2 Views Frontal and Lat Ami Pickard; Au th (Verified) Notes:(Chest 2 Views Frontal and Lat) Reason For Exam: Cough, dyspnea;Shortness of BreathRESULT: Chest 2 Views Frontal and Lat Chest 2 Views Frontal and Lat Reason: Shortness of Breath; Cough, dyspnea; Clinical Question(s): Pneumonia COMPARISON: 03/03/2020 FINDINGS: LINES AND TUBES: None. LUNGS AND PLEURA: Clear lungs. Normal pulmonary vascularity. No pleural effusion. No pneumothorax. HEART, MEDIASTINUM AND CHRISSY: Heart is normal in size. Normal mediastinal and hilar contour. BONES AND SOFT TISSUES: No acute abnormality. IMPRESSION: No acute abnormality. WSN: [id number] Ordering Physician: Araceli Perez Dictated By: Kelton Roberts MD Dictated Date/Time: 04/05/20 6:11 pm Reviewed By: Kelton Roberts MD Signed By: Kelton Roberts MD Signed Date/Time: 04/05/20 6:11 pm Transcribed By: VANDANA Transcribed Date/Time: 04/05/20 6:11 pm Vital Signs Most recent to oldest 1 2 3 [Reference Range]: Height 175 cm 175 cm 175 cm (04/09/20 12:09 AM) (04/08/20 4:27 PM) (04/08/20 12 :01 PM) Weight 79.5 kg 81 kg 81 kg (04/06/20 2:00 PM) (04/06/20 1:05 PM) (04/06/20 8:4 7 AM) Oxygen Saturation [94-100 97 % 98 % 100 % %] (04/09/20 12:09 AM) (04/08/20 4:27 PM) (04/08/20 12 :01 PM) Pulse Rate [55-90 bpm] 79 bpm 98 bpm 91 bpm (04/09/20 12:09 AM) *H* *H* (04/08/20 4:27 PM) (04/08/20 12:01 PM) Body Mass Index 25.96 26.45 26.45 [18.5-24.99] *H* *H* *H* (04/06/20 2:00 PM) (04/06/20 1:05 PM) (04/06/20 8:4 7 AM) Blood Pressure 105/63 mm Hg 143/77 mm Hg 129/77 mm Hg [90-138/55-84 mm Hg] (04/09/20 12:09 AM) *H* (04/08/20 12:01 PM) (04/08/20 4:27 PM) Respiratory Rate [16-30 18 br/min 18 br/min 19 br/mi n br/min] (04/09/20 8:31 AM) (04/09/20 12:09 AM) (04/08/20 4: 27 PM) Temperature [96.8-100.4 98 DegF 98.5 DegF 97.5 Deg F DegF] (04/09/20 12:09 AM) (04/08/20 4:27 PM) (04/08/20 12 :01 PM) Mode of Delivery (Oxygen) Room air Room air Room a ir (04/09/20 12:09 AM) (04/08/20 4:27 PM) (04/08/20 12 :01 PM) Blood pressure sites Arm, right Arm, left Arm, left (04/09/20 12:09 AM) (04/08/20 4:27 PM) (04/08/20 12 :01 PM) Temperature Route Oral Oral Oral (04/09/20 12:09 AM) (04/08/20 4:27 PM) (04/08/20 12 :01 PM) Dry Weight 79.5 kg 81 kg 81 kg (04/06/20 2:00 PM) (04/06/20 1:05 PM) (04/06/20 8:4 7 AM) Weight Obtained Via Patient/family stated (04/06/20 2:00 PM) Social History Social History Type Response Smoking Status Current every day smoker entered on: 09/30/14 Sex
--- OUTSIDE RECORDS SUMMARY | 2022-04-16 18:29 | XMS_ITS | Continuity of Care Document ---
:1970 Author Organization [facility] Address [address] [place] [address]- Care Team Providers Name Role Phone Jonathan OLIVARES, Amalia Primary Care Physician Encounter [facility] Date(s): 09/03/21 - 09/10/[address] [id number] Discharge Disposition: A-D/C Home Attending Physician: Slick HUNT, Manpreet Fernando Admitting Physician: Fredi Johnston DO Referring Physician: Not on Staff, Referring [...] pt refused vaccine at this time Medications Ativan 1 mg oral tablet 1 tablet = 1 mg, By Mouth, 3 times a day, PRN Anxiety, # 12 tablet, 0 Refills, Acute 09/13/21 9:00:00 EDT, 09/10/21 9:59:00 EDT, Tablet, [facility], Partial fill upon patient request if the prescription is for a schedule II opioid drug.,... Start Date: 09/10/21 Stop Date: 09/13/21 Status: Orderedatorvastatin 20 mg oral tablet 1 tablet = 20 mg, By Mouth, Daily, # 30 tablet, 0 Refills, Maintenance, 09/10/21 9:48:00 EDT, Tablet, [facility], 175, cm, 09/04/21 17:26:00 EDT, Height, 94.6, kg, 09/04/21 17:26:00 EDT, Dry Weight Start Date: 09/10/21 Status: OrderedbuPROPion 150 mg/24 hours (XL) oral tablet, extended release 1 tablet = 150 mg, By Mouth, Daily, Continue lower dose for 12 more days (total of 14 days) then increase to 300mg, # 12 tablet, 0 Refills, Maintenance, 09/10/21 7:30:00 EDT, XL Tablet, [facility], Partial fill upon patient request if th... Start Date: 09/10/21 Stop Date: 09/22/21 Status: Orderedchlorhexidine topical 0.12% liquid 15 mL = 0.018 Gm, Swish and Spit, 2 times a day, # 473 mL, 1 Refills, Maintenance, 05/25/20 13:50:00EST, Oral Rinse, [facility] #[id number], Partial fill upon patient request if the prescription is for a schedule II opioid drug., 15 mL Swish and... Start Date: 05/25/20 Status: OrderedcloNIDine 0.1 mg oral tablet 0.2 mg, 2, tablet, By Mouth, Daily at bedtime, # 60 tablet, Refills 0, Tot. Refills 0, Maintenance, 09/10/21 9:48:00 EDT, Route to Pharmacy Electronically, [facility], Partial fill upon patient request, 175, cm, 09/04/21 17:26:00 EDT, He... Start Date: 09/10/21 Status: OrderedhydrOXYzine pamoate 50 mg oral capsule = 50 mg, By Mouth, Every 6 hours, PRN Anxiety, # 28 tablet, 3 Refills, Maintenance, 09/10/21 9:48:00EDT, Capsule, [facility], 175, cm, 09/04/21 17:26:00 EDT, Height, 94.6, kg, 09/04/21 17:26:00 EDT, Dry Weight Start Date: 09/10/21 Status: Orderedlamotrigine 25 mg oral tablet 25 mg, 1, tablet, By Mouth, Daily, # 30 tablet, Refills 0, Tot. Refills 0, Maintenance, 09/10/21 7:31:00 EDT, Route to Pharmacy Electronically, [facility], Partial fill upon patient request if the prescription is for a schedule II opioid... Start Date: 09/10/21 Status: OrderedmetFORMIN 500 mg oral tablet 1 each = 500 mg, By Mouth, 2 times a day, # 60 tablet, 0 Refills, Maintenance, 09/10/21 9:48:00 EDT,Tablet, [facility], 175, cm, 09/04/21 17:26:00 EDT, Height, 94.6, kg, 09/04/21 17:26:00 EDT, Dry Weight Start Date: 09/10/21 Status: Orderedmultivitamin Multiple Vitamins oral tablet 1 tablet, By Mouth, Daily, # 30 tablet, 0 Refills, Maintenance, 04/09/20 12:03:00 EST, Tablet, [facility] #[id number], 1 tablet By Mouth Daily, 175, cm, 04/09/20 0:09:00 EST, Height, 79.5, kg, 04/06/20 14:00:00 EST, Dry Weight Start Date: 04/09/20 Status: Orderedpregabalin 200 mg oral capsule 1 capsule = 200 mg, By Mouth, 3 times a day, To replace prior prescription for 50mg capsules, # 90 capsule, 0 Refills, Maintenance, 09/10/21 10:58:00 EDT, Capsule, [facility], Partial fill upon patient request if the prescription is for... Start Date: 09/10/21 Status: Ordered Problem List Condition Effective Dates [...] 2 3 [Reference Range]: Height 175 cm (09/04/21 5:01 PM) Weight 94.6 kg (09/04/21 5:01 PM) Oxygen Saturation [94-100 %] 100 % 100 % 100 % (09/10/21 8:00 AM) (09/10/21 5:07 AM) (09/09/21 10:0 0 PM) Pulse Rate [55-90 bpm] 84 bpm 95 bpm 92 bpm (09/10/21 8:00 AM) *H* *H* (09/10/21 5:07 AM) (09/09/21 10:00 PM) Body Mass Index [18.5-24.99] 30.89 *>HHI* (09/04/21 5:01 PM) Blood Pressure [90-138/55-84 mm 131/90 mm Hg 133/87 mm Hg 136/84 mm Hg Hg] (09/10/21 8:00 AM) (09/10/21 5:07 AM) (09/09/21 10:0 0 PM) Respiratory Rate [16-30 br/min] 18 br/min 18 br/min 18 br/min (09/10/21 5:07 AM) (09/09/21 10:00 PM) (09/09/21 8:00 PM) Temperature [96.8-100.4 DegF] 97.9 DegF 98.3 DegF 98 .4 DegF (09/10/21 8:00 AM) (09/10/21 5:07 AM) (09/09/21 8:00 PM) Liters per Minute 2 L/min 2 L/min 2 L/min (09/03/21 10:12 PM) (09/03/21 9:01 PM) (09/03/21 7:15 PM) Mode of Delivery (Oxygen) Room air Room air Room a ir (09/10/21 8:00 AM) (09/10/21 5:07 AM) (09/09/21 10:0 0 PM) Blood pressure sites Arm, right Arm, left Arm, right (09/10/21 8:00 AM) (09/10/21 5:07 AM) (09/09/21 8:00 PM) Temperature Route Oral Oral Oral (09/10/21 8:00 AM) (09/10/21 5:07 AM) (09/09/21 8:00 PM) Dry Weight 94.6 kg (09/04/21 5:01 PM) Social History Social History Type Response Smoking Status Current every day smoker entered on: 09/30/14 Sex
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
--- OUTSIDE RECORDS SUMMARY | 2022-04-16 18:29 | XMS_ITS | Continuity of Care Document ---
:1970 Author Organization [facility] Address [address] [place] [address]- Care Team Providers Name Role Phone Not on Staff, PCP Primary Care Physician Unavailable Encounter [facility] [place] Date(s): 01/16/20 - 01/17/20 [facility] [address] [place] [address]- [facility] Encounter Diagnosis Alcohol intoxication (Final) - 01/16/20 Discharge Disposition: A-D/C Home Attending Physician: Amauri Martines MD Admitting Physician: Amauri Martines MD Referring Physician: Not on Staff, Referring MD Allergies, Adverse Reactions, Alerts Substance Reaction Severity Status lisinopril1 intestent twisting Active Zoloft Active 1Makes his legs hurt Immunizations Not Given Vaccine Date Status Refusal Reason pneumococcal 23-valent vaccine 10/12/14 Not Given P atient Refuses pneumococcal 23-valent vaccine 10/01/14 Not Given P atient Refuses pneumococcal 23-valent vaccine 01/12/14 Not Given P atient Refuses pneumococcal 23-valent vaccine 01/03/14 Not Given P atient Refuses pneumococcal 23-valent vaccine1 09/06/13 Not Given Patient Refuses 1Result Note: pt refused vaccine at this time Medications acetaminophen 325 mg oral tablet 650 mg, By Mouth, Every 6 hours, PRN, /Headache, # 28 tablet, Refills 3, Tot. Refills 3, Maintenance, Pain , Mild, 01/11/20 9:06:00 EDT, Print Requisition Start Date: 01/11/20 Stop Date: 02/08/20 Status: Orderedatorvastatin 20 mg oral tablet 1 tablet = 20 mg, By Mouth, Daily, # 7 tablet, 3 Refills, Maintenance, 01/11/20 9:13:00 EDT, Tablet Start Date: 01/11/20 Status: OrderedbuPROPion 450 mg/24 hours (XL) oral tablet, extended release 1 tablet = 450 mg, By Mouth, Daily in AM, # 7 tablet, 3 Refills, Maintenance, 01/11/20 9:06:00 EDT, ER Tablet Start Date: 01/11/20 Status: OrderedcloNIDine 0.1 mg oral tablet 0.2 mg, 2, tablet, By Mouth, Daily at bedtime, # 14 tablet, Refills 3, Tot. Refills 3, Maintenance, 01/11/20 9:07:00 EDT, Print Requisition Start Date: 01/11/20 Status: OrderedcloNIDine 0.1 mg oral tablet 0.1 mg, 1, tablet, By Mouth, 2 times a day, PRN, # 14 tablet, Refills 3, Tot. Refills 3, Maintenance, Anxiety, 01/11/20 9:07:00 EDT, Print Requisition Start Date: 01/11/20 Status: OrderedColace sodium 100 mg oral capsule 100 mg, 1, capsule, By Mouth, 2 times a day, # 14 tablet, Refills 3, Tot. Refills 3, Maintenance, 01/11/20 9:08:00 EDT, Print Requisition Start Date: 01/11/20 Status: OrderedEffexor XR 75 mg oral capsule, extended release 75 mg, 1, capsule, By Mouth, Daily, # 7 capsule, Refills 3, Tot. Refills 3, Maintenance, 01/11/20 9:12:00 EDT, Print Requisition Start Date: 01/11/20 Status: Orderedfolic acid 1 mg oral tablet 1 mg, 1, tablet, By Mouth, Daily, # 7 tablet, Refills 3, Tot. Refills 3, Maintenance, 01/11/20 9:10:00 EDT, Print Requisition Start Date: 01/11/20 Status: Orderedgabapentin 600 mg oral tablet 1 tablet = 600 mg, By Mouth, 3 times a day, # 21 tablet, 3 Refills, Maintenance, 01/11/20 9:08:00 EDT, Tablet Start Date: 01/11/20 Status: OrderedhydrOXYzine pamoate 50 mg oral capsule = 50 mg, By Mouth, Every 6 hours, PRN Anxiety, # 28 tablet, 3 Refills, Maintenance, 01/11/20 9:11:00EDT, Capsule Start Date: 01/11/20 Status: Orderedibuprofen 800 mg oral tablet 800 mg, 1, tablet, By Mouth, 3 times a day, PRN, # 21 tablet, Refills 3, Tot. Refills 3, Maintenance, Pain , Mild, 01/11/20 9:08:00 EDT, Print Requisition Start Date: 01/11/20 Status: Orderedloratadine 10 mg oral tablet 10 mg, 1, tablet, By Mouth, Daily, # 7 tablet, Refills 3, Tot. Refills 3, Maintenance, 01/11/20 9:11:00 EDT, Print Requisition Start Date: 01/11/20 Status: Orderedmelatonin 10 mg oral tablet 1 tablet = 10 mg, By Mouth, Daily at bedtime, PRN Sleep, # 7 tablet, 3 Refills, Maintenance, 01/11/20 9:11:00 EDT, Tablet Start Date: 01/11/20 Status: OrderedmetFORMIN 500 mg oral tablet 1 each = 500 mg, By Mouth, 2 times a day, # 14 tablet, 3 Refills, Maintenance, 01/11/20 9:09:00 EDT,Tablet Start Date: 01/11/20 Status: Orderedmorphine 15 mg oral tablet, immediate [...] # 16 tablet, 0 Refil... Start Date: 01/11/20 Status: Orderedmultivitamin Multiple Vitamins oral tablet 1 tablet, By Mouth, Daily, # 7 tablet, 3 Refills, Maintenance, 01/11/20 9:09:00 EDT, Tablet Start Date: 01/11/20 Status: OrderedNicotine 2 mg gum = 2 mg, Chew, Every 2 hours, PRN Other, Nicotine Cravings, # 84 each, 3 Refills, Maintenance, 01/11/20 9:11:00 EDT, Gum Start Date: 01/11/20 Status: Orderedpyridoxine 50 mg oral tablet 50 mg, 1, tablet, By Mouth, Daily, # 7 tablet, Refills 3, Tot. Refills 3, Maintenance, 01/11/20 9:10:00 EDT, Print Requisition Start Date: 01/11/20 Status: OrderedSenna 8.6 mg oral tablet 17.2 mg, 2, tablet, By Mouth, Daily, # 14 tablet, Refills 3, Tot. Refills 3, Maintenance, 01/11/20 9:10:00 EDT, Print Requisition, Tablet Start Date: 01/11/20 Status: Orderedthiamine 100 mg oral tablet 100 mg, 1, tablet, By Mouth, 2 times a day, # 14 tablet, Refills 3, Tot. Refills 3, Maintenance, 01/11/20 9:10:00 EDT, Print Requisition Start Date: 01/11/20 Status: OrderedtraZODone 50 mg oral tablet 50 mg, 1, tablet, By Mouth, Daily at bedtime, PRN, # 7 tablet, Refills 3, Tot. Refills 3, Maintenance, Insomnia, 01/11/20 9:12:00 EDT, Print Requisition Start Date: 01/11/20 Status: OrderedValium 5 mg oral tablet See Instructions, 1/2 tablet BID for 3 days followed by 1/2 tablet daily for 3 days followed by 1/2 tablet every other day for 3 days and then stop, # 6 tablet, Refills 0, Tot. Refills 0, Maintenance, 01/11/20 9:01:00 EDT, Instructions Replace Require... Start Date: 01/11/20 Status: OrderedWellbutrin XL 150 mg/24 hours oral tablet, extended release 1 tablet = 150 mg, By Mouth, Every 24 hours, take with another tablet of 300 mg for a total daily dose of 450 mg, # 7 tablet, 3 Refills, Maintenance, 01/13/20 15:35:00 EDT, ER Tablet, [facility]/pharmacy #[id number], 176, cm, 01/11/20 9:43:00 EDT, Height, 81.3, kg... Start Date: 01/13/20 Status: OrderedWellbutrin XL 300 mg/24 hours oral tablet, extended release 1 tablet = 300 mg, By Mouth, Daily, take with another tablet of 150 mg for a total daily dose of 450mg., # 7 tablet, 3 Refills, Maintenance, 01/13/20 15:33:00 EDT, ER Tablet, [facility]/pharmacy #[id number], 176, cm, 01/11/20 9:43:00 EDT, Height, 81.3, kg, 01/03/... 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 Comparison films are from January 01, 2020. HISTORY: Slurred speech. FINDINGS: The cardiac silhouette is mildly increased in size and has increased from the prior study.Central pulmonary vascularity is engorged some interstitial edema is demonstrated. No airspace consolidation is identified. No pleural effusions are seen. Visualized osseous structures are unremarkable. IMPRESSION: Mild volume overload appearance. Examination 33417. Thank you for allowing me to participate in the care of this patient. WSN: [id number] Ordering Physician: Amauri Martines Dictated By: Clifford Orona MD Dictated Date/Time: 01/17/20 10:24 a Reviewed By: Clifford Orona MD Signed By: Clifford Orona MD Signed Date/Time: 01/17/20 10:24 am Transcribed By: VANDANA Transcribed Date/Time: 01/17/20 10:24 am Vital Signs Most recent to oldest 1 2 3 [Reference Range]: Oxygen Saturation [94-100 %] 95 % 97 % 99 % (01/17/20 11:31 AM) (01/17/20 9:26 AM) (01/17/20 5: 37 AM) Pulse Rate [55-90 bpm] 74 bpm 82 bpm 77 bpm (01/17/20 11:31 AM) (01/17/20 9:26 AM) (01/17/20 5: 37 AM) Blood Pressure [90-138/55-84 123/79 mm Hg 128/72 mm Hg 101 /66 mm Hg mm Hg] (01/17/20 11:31 AM) (01/17/20 9:26 AM) (01/17/20 5: 37 AM) Respiratory Rate [16-30 18 br/min 18 br/min 18 br/mi n br/min] (01/17/20 11:31 AM) (01/17/20 10:26 AM) (01/17/20 1 0:26 AM) Temperature [96.8-100.4 98.2 DegF 97.8 DegF DegF] (01/17/20 9:26 AM) (01/16/20 5:49 PM) Mode of Delivery (Oxygen) Room air Room air Room a ir (01/17/20 11:31 AM) (01/17/20 9:26 AM) (01/17/20 5: 37 AM) Blood pressure sites Arm, left Arm, left Arm, left (01/17/20 11:31 AM) (01/17/20 9:26 AM) (01/17/20 5: 37 AM) Temperature Route Oral Oral (01/17/20 9:26 AM) (01/16/20 5:49 PM) Social History Social History Type Response Smoking Status Current every day smoker entered on: 09/30/14 Sex
--- OUTSIDE RECORDS SUMMARY | 2022-04-16 18:29 | XMS_ITS | Continuity of Care Document ---
:1970 Author Organization [facility] Address [address] [place] [address]- Care Team Providers Name Role Phone Jonathan OLIVARES, Amalia Primary Care Physician [place] [facility] [place](s): 03/03/20 - 03/04/[address] [address]- [facility] Discharge Disposition: A-D/C AMA Attending Physician: Noelle HUNT, Mal Admitting Physician: Marta Angelo MD Referring Physician: Not on Staff, Referring MD Allergies, Adverse Reactions, Alerts Substance Reaction Severity Status lisinopril1 intestent twisting Active Zoloft Active Red Dye Persistent Severe Active Mushrooms Persistent Severe Active 1Makes his legs hurt Immunizations Not Given Vaccine Date Status Refusal Reason influenza virus vaccine, inactivated 03/04/20 Not Given Patient Refuses influenza virus vaccine, inactivated 02/05/20 Not Given Patient Refuses pneumococcal 23-valent vaccine 03/04/20 Not Given [...] 0 Refills, Maintenance, 02/10/20 16:20:00 EDT, Tablet, [facility], 176, cm, 02/10/20 11:42:00 EDT, Height, 96.3, kg, 02/04/20 17:22:00 EDT,Dry Weight Start Date: 02/10/20 Status: OrderedbuPROPion 450 mg/24 hours (XL) oral tablet, extended release 1 tablet = 450 mg, By Mouth, Daily in AM, # 30 tablet, 0 Refills, Maintenance, 02/10/20 16:22:00 EDT, ER Tablet, [facility], 176, cm, 02/10/20 11:42:00 EDT, Height, 96.3, kg, 02/04/20 17:22:00 EDT, Dry Weight Start Date: 02/10/20 Status: OrderedcloNIDine 0.2 mg oral tablet 0.2 mg, 1, tablet, By Mouth, 2 times a day, # 60 tablet, Refills 0, Tot. Refills 0, Maintenance, 02/10/20 16:23:00 EDT, Route to Pharmacy Electronically, [facility], 176, cm, 02/10/20 11:42:00 EDT, Height, 96.3, kg, 02/04/20 17:22:00 EDT... Start Date: 02/10/20 Status: OrderedEffexor XR 75 mg oral capsule, extended release 75 mg, 1, capsule, By Mouth, Daily, # 30 capsule, Refills 0, Tot. Refills 0, Maintenance, 02/10/20 16:27:00 EDT, Route to Pharmacy Electronically, [facility], 176, cm, 02/10/20 11:42:00 EDT, Height, 96.3, kg, 02/04/20 17:22:00 EDT, Dry W... Start Date: 02/10/20 Status: Orderedgabapentin 600 mg oral tablet 1 tablet = 600 mg, By Mouth, 3 times a day, # 90 tablet, 0 Refills, Maintenance, 02/10/20 16:24:00 EDT, Tablet, [facility], 176, cm, 02/10/20 11:42:00 EDT, Height, 96.3, kg, 02/04/20 17:22:00 EDT, Dry Weight Start Date: 02/10/20 Status: OrderedhydrOXYzine pamoate 50 mg oral capsule = 50 mg, By Mouth, Every 6 hours, PRN Anxiety, # 28 tablet, 3 Refills, Maintenance, 02/10/20 16:25:00 EDT, Capsule, [facility], 176, cm, 02/10/20 11:42:00 EDT, Height, 96.3, kg, 02/04/20 17:22:00 EDT, Dry Weight Start Date: 02/10/20 Status: OrderedmetFORMIN 500 mg oral tablet 1 each = 500 mg, By Mouth, 2 times a day, # 60 tablet, 0 Refills, Maintenance, 02/10/20 16:19:00 EDT, Tablet, [facility] 3, 176, cm, 02/10/20 11:42:00 EDT, Height, 96.3, kg, 02/04/20 17:22:00 EDT, Dry Weight Start Date: 02/10/20 Status: Orderedmultivitamin Multiple Vitamins oral tablet 1 tablet, By Mouth, Daily, # 30 tablet, 0 Refills, Maintenance, 02/10/20 16:26:00 EDT, Tablet, [facility], 1 tablet By Mouth Daily, 176, cm, 02/10/20 11:42:00 EDT, Height, 96.3, kg, 02/04/20 17:22:00 EDT, Dry Weight Start Date: 02/10/20 Status: Orderednicotine 14 mg/24 hr transdermal film, extended release 1 patch, Topically, Daily, # 14 patch, 0 Refills, Maintenance, 02/28/20 0:44:00 EDT, Patch Start Date: 02/28/20 Stop Date: 03/12/20 Status: OrderedtraZODone 50 mg oral tablet 50 mg, 1, tablet, By Mouth, Daily at bedtime, PRN, # 30 tablet, Refills 0, Tot. Refills 0, Maintenance, Insomnia, 02/10/20 16:27:00 EDT, [facility], 176,cm, 02/10/20 11:42:00 EDT, Height, 96.3, kg, 10/0... 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 LUNGS AND PLEURA: Clear lungs. Normal pulmonary vascularity. No pleural effusion. No pneumothorax. HEART, MEDIASTINUM AND CHRISSY: Heart is normal in size. Normal mediastinal and hilar contour. BONES AND SOFT TISSUES: No acute abnormality. IMPRESSION: No acute abnormality. WSN: [id number] Ordering Physician: Angely Pastrana Dictated By: Gabriella Lindsey MD Dictated Date/Time: 03/03/20 9:15 am Reviewed By: Gabriella Lindsey MD Signed By: Gabriella Lindsey MD Signed Date/Time: 03/03/20 9:15 am Transcribed By: VANDANA Transcribed Date/Time: 03/03/20 9:13 am Vital Signs Most recent to oldest 1 2 3 [Reference Range]: Height 175 cm 175 cm 175 cm (03/04/20 8:28 AM) (03/04/20 4:50 AM) (03/04/20 12: 03 AM) Weight 92.6 kg 81 kg 81 kg (03/03/20 10:33 PM) (03/03/20 12:07 PM) ( 0 9:56 AM) Oxygen Saturation [94-100 97 % 94 % 93 % %] (03/04/20 8:28 AM) (03/04/20 4:50 AM) *L* (03/04/20 12:03 A M) Pulse Rate [55-90 bpm] 93 bpm 75 bpm 82 bpm *H* (03/04/20 4:50 AM) (03/04/20 12:03 AM) (03/04/20 8:28 AM) Body Mass Index 30.24 26.45 26.45 [18.5-24.99] *>HHI* *H* *H* (03/03/20 10:33 PM) (03/03/20 12:07 PM) ( 0 9:56 AM) Blood Pressure 119/78 mm Hg 119/68 mm Hg 114/60 mm Hg [90-138/55-84 mm Hg] (03/04/20 8:28 AM) (03/04/20 4:50 AM) ( 0 12:03 AM) Respiratory Rate [16-30 20 br/min 17 br/min 19 br/mi n br/min] (03/04/20 8:28 AM) (03/04/20 4:50 AM) (03/04/20 12: 03 AM) Temperature [96.8-100.4 98.2 DegF 97.9 DegF 98.4 Deg F DegF] (03/04/20 8:28 AM) (03/04/20 4:50 AM) (03/04/20 12: 03 AM) Mode of Delivery (Oxygen) Room air Room air Room a ir (03/04/20 8:28 AM) (03/04/20 4:50 AM) (03/04/20 12: 03 AM) Blood pressure sites Arm, right Arm, left Arm, right (03/04/20 8:28 AM) (03/04/20 4:50 AM) (03/04/20 12: 03 AM) Temperature Route Oral Oral Oral (03/04/20 8:28 AM) (03/04/20 4:50 AM) (03/04/20 12: 03 AM) Dry Weight 92.6 kg 81 kg 81 kg (03/03/20 10:33 PM) (03/03/20 12:07 PM) ( 0 9:56 AM) Weight Obtained Via Bed scale Patient/family stated (03/03/20 10:33 PM) (03/03/20 8:21 AM) Dry Weight Obtained Via Bed scale Patient/family stated (03/03/20 10:33 PM) (03/03/20 8:21 AM) Social History Social History Type Response Smoking Status Current every day smoker entered on: 09/30/14 Sex
--- OUTSIDE RECORDS SUMMARY | 2022-04-16 18:29 | XMS_ITS | Continuity of Care Document ---
:1970 Author Organization [facility] Address [address] [place] [address]- Care Team Providers Name Role Phone Not on Staff, PCP Primary Care Physician Unavailable [place] [facility] [place]20 [facility] [address], [place] [address] Encounter Diagnosis Laceration of lip (Final) - 03/08/20 Discharge Disposition: A-D/C AMA Attending Physician: Evelina Gonzales MD Admitting Physician: Evelina Gonzales MD Referring Physician: Not on Staff, Referring MD Allergies, Adverse Reactions, Alerts Substance Reaction Severity Status lisinopril Active Red Dye Active Mushrooms Active Immunizations Not Given Vaccine Date Status Refusal Reason influenza virus vaccine, inactivated 03/06/20 Not Given Patient Refuses pneumococcal 23-valent vaccine 03/06/20 Not Given P atient Refuses Medications atorvastatin 20 mg oral tablet TAKE 1 TABLET BY MOUTH DAILY Start Date: 03/05/20 Status: OrderedbuPROPion 300 mg/24 hours (XL) oral tablet, extended release TAKE 1 TABLET BY MOUTH EVERY DAY WITH 150MG FOR A TOTAL OF 450MG Start Date: 03/05/20 Status: OrderedBuPROpion XL Tablet = 100 mg, By Mouth, along with the 300, total 450 mg, 0 Refills, Maintenance, 03/05/20 15:07:00 EST Start Date: 03/05/20 Status: Orderedgabapentin 600 mg oral tablet TAKE 1 TABLET BY MOUTH 3 TIMES DAILY Start Date: 03/05/20 Status: OrderedmetFORMIN 500 mg oral tablet 0 Refills, Maintenance, 03/05/20 15:05:00 EST Start Date: 03/05/20 Status: Ordered Problem List Condition Effective Dates Status Health Status Informant Alcohol use disorder, severe, Active dependence(Confirmed) Results Radiology Reports Exam Date Time Procedure Performing Provider Status 03/05/20 1:25 AM Chest Portable Jaquelin Pickard (Verified) Notes:(Chest Portable) Reason For Exam: Pain;Other:RESULT: Chest Portable Examination: Portable chest performed on 03/05/2020. History: Fall. Findings: A frontal view of the chest is submitted without comparison. The cardiac silhouette is at the upper limits of normal for size. Elevation of the right hemidiaphragm is seen. There are ill-defined opacities bilaterally. No displaced rib fractures are seen. IMPRESSION: Patchy opacities bilaterally which could represent pulmonary edema although infections, including atypical viral cannot be excluded. WSN: [id number] Ordering Physician: [facility] Dictated By: Iris Grant MD Dictated Date/Time: 03/05/20 7:50 am Reviewed By: Iris Grant MD Signed By: Iris Grant MD Signed Date/Time: 03/05/20 7:50 am Transcribed By: VANDANA Transcribed Date/Time: 03/05/20 7:47 am Exam Date Time Procedure Performing Provider Status 03/05/20 1:25 AM Pelvis 1 or 2 Views Jaquelin Pickard (Verifi ed) Notes:(Pelvis 1 or 2 Views) Reason For Exam: with Pain;TraumaRESULT: Pelvis 1 or 2 Views Pelvis 1 or 2 Views Reason: Trauma; with Pain; Clinical Question(s): Fracture COMPARISON: None. FINDINGS: There is no fracture or dislocation. There is mild joint space narrowing and bony proliferation of the left hip. The right hip joint space is maintained and the sacroiliac joints appear symmetric. Normal soft tissues. IMPRESSION: Mild degenerative change in the left hip with no acute displaced fracture. WSN: [id number] Ordering Physician: [facility] Dictated By: Alicia Young MD Dictated Date/Time: 03/05/20 7:18 am Reviewed By: Alicia Young MD Signed By: Alicia Young MD Signed Date/Time: 03/05/20 7:18 am Transcribed By: VANDANA Transcribed Date/Time: 03/05/20 7:16 am Vital Signs Most recent to oldest 1 2 3 [Reference Range]: Height 175 cm 175 cm 175 cm (03/09/20 8:14 AM) (03/08/20 7:19 PM) (03/08/20 4:5 2 PM) Weight 94 kg (03/05/20 9:26 PM) Oxygen Saturation [94-100 %] 100 % 98 % 97 % (03/09/20 8:14 AM) (03/08/20 7:19 PM) (03/08/20 4:5 2 PM) Pulse Rate [55-90 bpm] 97 bpm 92 bpm 115 bpm *H* *H* *H* (03/09/20 8:14 AM) (03/08/20 7:19 PM) (03/08/20 4:5 2 PM) Body Mass Index [18.5-24.99] 30.69 *>HHI* (03/05/20 9:26 PM) Blood Pressure [90-138/55-84 134/91 mm Hg 134/68 mm Hg 133 /97 mm Hg mm Hg] (03/09/20 8:14 AM) (03/08/20 7:19 PM) (03/08/20 4:5 2 PM) Respiratory Rate [16-30 20 br/min 20 br/min 17 br/mi n br/min] (03/09/20 8:52 AM) (03/09/20 8:14 AM) (03/09/20 1:0 4 AM) Temperature [96.8-100.4 DegF] 97.8 DegF 98.2 DegF 98 .0 DegF (03/09/20 8:14 AM) (03/08/20 7:19 PM) (03/08/20 4:5 2 PM) Liters per Minute 0 L/min 2 L/min 2 L/min (03/05/20 12:46 PM) (03/05/20 2:31 AM) (03/05/20 1: 49 AM) Mode of Delivery (Oxygen) Room air Room air Room a ir (03/09/20 8:14 AM) (03/08/20 7:19 PM) (03/08/20 4:5 2 PM) Blood pressure sites Arm, right Arm, right Arm, left (03/09/20 8:14 AM) (03/08/20 7:19 PM) (03/08/20 4:5 2 PM) Temperature Route Oral Oral Oral (03/09/20 8:14 AM) (03/08/20 7:19 PM) (03/08/20 4:5 2 PM) Dry Weight 94 kg (03/05/20 9:26 PM) Weight Obtained Via Bed scale (03/05/20 9:26 PM) Dry Weight Obtained Via Bed scale (03/05/20 9:26 PM)
--- OUTSIDE RECORDS SUMMARY | 2022-04-16 18:29 | XMS_ITS | Continuity of Care Document ---
:1970 Author Organization [facility] Address [address] [place] [address] Drive [address] [place] [address]- Care Team Providers Name Role Phone Jonathan OLIVARES, Amalia Primary Care Physician [place] [facility] [place]20 [facility] [address] [place] [address] Drive [address] [place], [place] [address] Attending Physician: Samson IRVIN [...] 0 Refills, Maintenance, 04/09/20 12:02:00 EST, Tablet, [id number], 175, cm, 04/09/20 0:09:00 EST, Height, 79.5, kg, 04/06/20 14:00:00 EST, Dry Weight Start Date: 04/09/20 Status: OrderedbuPROPion 150 mg/24 hours (XL) oral tablet, extended release 3 tablet = 450 mg, By Mouth, Every 24 hours, # 90 tablet, 0 Refills, Maintenance, 04/09/20 12:02:00 EST, XL Tablet, [facility][id number], Partial fill upon patient request if the prescription isfor a schedule II opioid drug., 3 tablet By Mouth... Start Date: 04/09/20 Status: OrderedcloNIDine 0.1 mg oral tablet 0.2 mg, 2, tablet, By Mouth, Daily at bedtime, # 60 tablet, Refills 0, Tot. Refills 0, Maintenance, 04/09/20 12:02:00 EST, Route to Pharmacy Electronically, [facility][id number], Partial fill upon patient request, 175, cm, 04/09/20 0:09:00 EST,... Start Date: 04/09/20 Status: OrderedhydrOXYzine pamoate 50 mg oral capsule = 50 mg, By Mouth, Every 6 hours, PRN Anxiety, # 28 tablet, 3 Refills, Maintenance, 04/09/20 12:03:00 EST, Capsule, [facility] #[id number], 175, cm, 04/09/20 0:09:00 EST, Height, 79.5, kg, 04/06/20 14:00:00 EST, Dry Weight Start Date: 04/09/20 Status: OrderedmetFORMIN 500 mg oral tablet 1 each = 500 mg, By Mouth, 2 times a day, # 60 tablet, 0 Refills, Maintenance, 04/09/20 12:02:00 EST, Tablet, [facility] #[id number], 175, cm, 04/09/20 0:09:00 EST, Height, 79.5, kg, 04/06/20 14:00:00 EST, Dry Weight Start Date: 04/09/20 Status: Orderedmultivitamin Multiple Vitamins oral tablet 1 tablet, By Mouth, Daily, # 30 tablet, 0 Refills, Maintenance, 04/09/20 12:03:00 EST, Tablet, [facility] #[id number], 1 tablet By Mouth Daily, 175, cm, 04/09/20 0:09:00 EST, Height, 79.5, kg, 04/06/20 14:00:00 EST, Dry Weight Start Date: 04/09/20 Status: OrderedNicotine 2 mg gum 1 each = 2 mg, Chew, Every 2 hours, PRN as needed for smoking cessation, # 40 each, 0 Refills, Maintenance, 04/09/20 12:05:00 EST, Gum, [facility] #[id number], Partial fill upon patient request ifthe prescription is for a schedule II opioid drug... Start Date: 04/09/20 Status: OrderedPeridex 0.12% liquid 15 mL = 0.018 Gm, By Mouth, 2 times a day, # 210 mL, 1 Refills, Maintenance, 04/09/20 12:02:00 EST, [facility] #[id number], Partial fill upon patient request, 15 mL By Mouth 2 times a day,x7 days,175, cm, 04/09/20 0:09:00 EST, Height, 79.5, kg,... Start Date: 04/09/20 Stop Date: 04/23/20 Status: Orderedpregabalin 50 mg oral capsule 2 capsule = 100 mg, By Mouth, 3 times a day, # 30 capsule, 0 Refills, Maintenance, 04/09/20 12:03:00EST, Capsule, [facility] #[id number], Partial fill upon patient request, 175, cm, 04/09/20 0:09:00 EST, Height, 79.5, kg, 04/06/20 14:00:00 EST,... Start Date: 04/09/20 Status: OrderedSEROquel 25 mg oral tablet 50 mg, 2, tablet, By Mouth, 3 times a day, PRN, # 21 tablet, Refills 0, Tot. Refills 0, Maintenance,Anxiety, 03/22/20 12:37:00 EST, Route to Pharmacy Electronically, [facility], Partial fill upon patient request, 175, cm, 03/21/20 19:40... Start Date: 03/22/20 Stop Date: 03/29/20 Status: OrderedtraZODone 50 mg oral tablet 100 mg, 2, tablet, By Mouth, Daily at bedtime, PRN, # 14 tablet, Refills 0, Tot. Refills 0, Maintenance, Sleep, 04/09/20 12:03:00 EST, Route to Pharmacy Electronically, [facility] #[id number], Partial fill upon patient request, 175, cm, 04/09/20... Start Date: 04/09/20 Stop Date: 04/16/20 Status: Orderedvenlafaxine 150 mg oral capsule, extended release 150 mg, 1, capsule, By Mouth, Daily, # 30 capsule, Refills 0, Tot. Refills 0, Maintenance, 04/09/20 12:03:00 EST, Route to Pharmacy Electronically, [facility][id number], Partial fill upon patient request, 175, cm, [...] oldest [Reference Range]: 1 Height 175 cm (04/04/20 9:21 AM) Weight 86.0 kg (04/04/20 9:21 AM) Body Mass Index [18.5-24.99] 28.08 *H* (04/04/20 9:21 AM) Temperature [96.8-100.4 DegF] 97.5 DegF (04/04/20 9:21 AM) Weight Obtained Via Standing scale (04/04/20 9:21 AM) Social History Social History Type Response Smoking Status Current every day smoker entered on: 09/30/14 Sex
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
--- OUTSIDE RECORDS SUMMARY | 2022-04-16 18:29 | XMS_ITS | Continuity of Care Document ---
:1970 Author Organization [facility] Address [address] [place] [address]- Care Team Providers Name Role Phone Jonathan OLIVARES, Amalia Primary Care Physician Encounter [facility] Date(s): 03/01/20 - 03/02/[address] [address]- [facility] Encounter Diagnosis Alcohol intoxication (Final) - 03/01/20 Discharge Disposition: A-D/C Home Attending Physician: Lam Gomez DO Admitting Physician: Lam Gomez DO Referring Physician: Not on Staff, Referring MD Allergies, Adverse Reactions, Alerts Substance Reaction Severity Status lisinopril1 intestent twisting Active Zoloft Active Red Dye Persistent Severe Active Mushrooms Persistent Severe Active 1Makes his legs hurt Immunizations Not Given Vaccine Date Status Refusal Reason pneumococcal 23-valent vaccine 02/29/20 Not Given P ermanently Refused pneumococcal 23-valent vaccine 10/12/14 Not Given P atient Refuses pneumococcal 23-valent vaccine 10/01/14 Not Given P atient Refuses pneumococcal 23-valent vaccine 01/12/14 Not Given P atient Refuses pneumococcal 23-valent vaccine 01/03/14 Not Given P atient Refuses pneumococcal 23-valent vaccine1 09/06/13 Not Given Patient Refuses influenza virus vaccine, inactivated 02/05/20 Not Given Patient Refuses 1Result Note: pt refused vaccine at this time Medications atorvastatin 20 mg oral tablet 1 tablet = 20 mg, By Mouth, Daily, # 30 tablet, 0 Refills, Maintenance, 02/10/20 16:20:00 EDT, Tablet, [facility], 176, cm, 02/10/20 11:42:00 EDT, Height, 96.3, kg, 02/04/20 17:22:00 EDT,Dry Weight Start Date: 02/10/20 Status: OrderedbuPROPion 450 mg/24 hours (XL) oral tablet, extended release 1 tablet = 450 mg, By Mouth, Daily in AM, # 30 tablet, 0 Refills, Maintenance, 02/10/20 16:22:00 EDT, ER Tablet, [facility], 176, cm, 02/10/20 11:42:00 EDT, Height, 96.3, kg, 02/04/20 17:22:00 EDT, Dry Weight Start Date: 02/10/20 Status: OrderedcloNIDine 0.2 mg oral tablet 0.2 mg, 1, tablet, By Mouth, 2 times a day, # 60 tablet, Refills 0, Tot. Refills 0, Maintenance, 02/10/20 16:23:00 EDT, Route to Pharmacy Electronically, [facility], 176, cm, 02/10/20 11:42:00 EDT, Height, 96.3, kg, 02/04/20 17:22:00 EDT... Start Date: 02/10/20 Status: OrderedEffexor XR 75 mg oral capsule, extended release 75 mg, 1, capsule, By Mouth, Daily, # 30 capsule, Refills 0, Tot. Refills 0, Maintenance, 02/10/20 16:27:00 EDT, Route to Pharmacy Electronically, [facility], 176, cm, 02/10/20 11:42:00 EDT, Height, 96.3, kg, 02/04/20 17:22:00 EDT, Dry W... Start Date: 02/10/20 Status: Orderedgabapentin 600 mg oral tablet 1 tablet = 600 mg, By Mouth, 3 times a day, # 90 tablet, 0 Refills, Maintenance, 02/10/20 16:24:00 EDT, Tablet, [facility], 176, cm, 02/10/20 11:42:00 EDT, Height, 96.3, kg, 02/04/20 17:22:00 EDT, Dry Weight Start Date: 02/10/20 Status: OrderedhydrOXYzine pamoate 50 mg oral capsule = 50 mg, By Mouth, Every 6 hours, PRN Anxiety, # 28 tablet, 3 Refills, Maintenance, 02/10/20 16:25:00 EDT, Capsule, [facility], 176, cm, 02/10/20 11:42:00 EDT, Height, 96.3, kg, 02/04/20 17:22:00 EDT, Dry Weight Start Date: 02/10/20 Status: OrderedmetFORMIN 500 mg oral tablet 1 each = 500 mg, By Mouth, 2 times a day, # 60 tablet, 0 Refills, Maintenance, 02/10/20 16:19:00 EDT, Tablet, [facility], 176, cm, 02/10/20 11:42:00 EDT, Height, 96.3, kg, 02/04/20 17:22:00 EDT, Dry Weight Start Date: 02/10/20 Status: Orderedmultivitamin Multiple Vitamins oral tablet 1 tablet, By Mouth, Daily, # 30 tablet, 0 Refills, Maintenance, 02/10/20 16:26:00 EDT, Tablet, [facility], 1 tablet By Mouth Daily, [...] 02/10/20 16:27:00 EDT, Route to Pharmacy Electronically, [facility], 176,cm, 02/10/20 11:42:00 EDT, Height, 96.3, [...] Exam Date Time Procedure Performing Provider Status 03/01/20 10:34 PM Chest 2 Views Frontal and Lat Rosalio Juarez; Mart (Verified) Notes:(Chest 2 Views Frontal and Lat) Reason For Exam: Chest Pain;Other:RESULT: Chest 2 Views Frontal and Lat Chest 2 Views Frontal and Lat Hx of Present Illness: E[place] Unable to obtain info.; Reason: Other:; Chest Pain; Clinical Question(s): Other: COMPARISON: 02/27/2020 FINDINGS: LINES AND TUBES: None. LUNGS AND PLEURA: Clear lungs. Normal pulmonary vascularity. Small nodular density projected over the left lung base laterally. No pleural effusion. No pneumothorax. HEART, MEDIASTINUM AND CHRISSY: Unchanged cardiomediastinal silhouette. BONES AND SOFT TISSUES: No acute abnormality. IMPRESSION: No acute abnormality. Small nodular density projected over the left lung base laterally is indeterminate. Consider follow-up with nipple markers. A Yellow message has been communicated via the [employer] system on 03/01/2020 10:46 PM, Message ID [id number]. WSN: [id number] Ordering Physician: Sly Munoz Dictated By: Kang Luna MD Dictated Date/Time: 03/01/20 10:46 p Reviewed By: Kang Luna MD Signed By: Kang Luna MD Signed Date/Time: 03/01/20 10:46 pm Transcribed By: VANDANA Transcribed Date/Time: 03/01/20 10:40 pm Vital Signs Most recent to oldest 1 2 3 [Reference Range]: Oxygen Saturation [94-100 100 % 97 % 95 % %] (03/02/20 6:58 AM) (03/02/20 12:20 AM) (03/01/20 9:37 PM) Pulse Rate [55-90 bpm] 92 bpm 83 bpm 77 bpm *H* (03/02/20 12:20 AM) (03/01/20 9: 37 PM) (03/02/20 6:58 AM) Blood Pressure 123/80 mm Hg 107/89 mm Hg 117/78 mm Hg [90-138/55-84 mm Hg] (03/02/20 6:58 AM) (03/02/20 12:20 AM) ( 9:37 PM) Respiratory Rate [16-30 16 br/min 20 br/min 18 br/mi n br/min] (03/02/20 6:58 AM) (03/02/20 12:20 AM) (03/01/20 9:37 PM) Temperature [96.8-100.4 98.0 DegF 97.9 DegF 97.7 Deg F DegF] (03/02/20 6:58 AM) (03/02/20 12:20 AM) (03/01/20 6:20 PM) Mode of Delivery (Oxygen) Room air Room air Room a ir (03/02/20 6:58 AM) (03/02/20 12:20 AM) (03/01/20 9:37 PM) Blood pressure sites Arm, right Arm, left (03/02/20 6:58 AM) (03/02/20 12:20 AM) Temperature Route Oral Oral Oral (03/02/20 6:58 AM) (03/02/20 12:20 AM) (03/01/20 6:20 PM) Social History Social History Type Response Smoking Status Current every day smoker entered on: 09/30/14 Sex
--- OUTSIDE RECORDS SUMMARY | 2022-04-16 18:29 | XMS_ITS | Continuity of Care Document ---
:1970 Author Organization [facility] Address [address] [place] [address]- Care Team Providers Name Role Phone Amalia Castillo NP Primary Care Physician Encounter [facility] [place] Date(s): 02/10/22 - 02/11/[address] [address]- Encounter Diagnosis Alcohol abuse (Final) - 02/11/22 Cocaine use (Final) - 02/11/22 Suicidal ideation (Final) - 02/11/22 Discharge Disposition: A-D/C Home Attending Physician: Marcela Palafox MD Admitting Physician: Marcela Palafox MD Referring Physician: Not on Staff, Referring MD Allergies, Adverse Reactions, Alerts Substance Reaction Severity Status lisinopril1 intestent twisting Active Zoloft Active Red Dye Persistent Severe Active Mushrooms Persistent Severe Active [place] Oil Active 1Makes his legs hurt Immunizations Given and Recorded Vaccine Date Status Refusal Reason [id number] 12y+ bivalent booster vax 02/07/22 Given hepatitis [...] Refuses 1Result Comment: Not given on that [id number] Note: pt refused vaccine at this time Medications Ativan 1 mg oral tablet See Instructions, 1 tablet By Mouth Every 8 hours for 3 days then 2 time per day for 3 days then daily for 3 days., # 18 tablet, 0 Refills, Acute 02/22/22 9:34:00 EDT, 02/10/22 9:33:00 EDT, Tablet, [facility], Partial fill upon patient r... Start Date: 02/10/22 Stop Date: 02/22/22 Status: Orderedatorvastatin 40 mg oral tablet 1 tablet = 40 mg, By Mouth, Daily at bedtime, TAKE 1 TABLET BY MOUTH AT BEDTIME Start Date: 02/11/22 Status: Orderedatorvastatin 40 mg oral tablet 1 tablet = 40 mg, By Mouth, Daily, # 30 tablet, 0 Refills, Maintenance, 02/10/22 10:29:00 EDT, Tablet, [facility], Partial fill upon patient request if the prescription is for a schedule II opioid drug., 175, cm, 02/01/22 10:53:00 EDT, H... Start Date: 02/10/22 Stop Date: 03/12/22 Status: OrderedbuPROPion 300 mg/24 hours (XL) oral tablet, extended release 1 tablet = 300 mg, By Mouth, Daily in AM, TAKE 1 TABLET BY MOUTH ONCE DAILY IN THE MORNING Start Date: 02/11/22 Status: OrderedbuPROPion 300 mg/24 hours (XL) oral tablet, extended release 1 tablet = 300 mg, By Mouth, Daily, # 30 tablet, 0 Refills, Maintenance, 02/10/22 10:29:00 EDT, XL Tablet, [facility], Partial fill upon patient request if the prescription is for a schedule II opioid drug., 175, cm, 02/01/22 10:53:00 ED... Start Date: 02/10/22 Stop Date: 03/12/22 Status: Orderedcitalopram 10 mg oral tablet 2 tablet = 20 mg, By Mouth, Daily, TAKE 1 TABLET BY MOUTH EVERY DAY FOR 7 DAYS. INCREASE TO 2 TABLETS EVERY DAY Start Date: 02/11/22 Status: Orderedcitalopram 20 mg oral tablet 20 mg, 1, tablet, By Mouth, Daily, Refills 0, Maintenance, 02/10/22 9:32:00 EDT, Partial fill upon patient request if the prescription is for a schedule II opioid drug. Start Date: 02/10/22 Status: Orderedcitalopram 20 mg oral tablet 20 mg, 1, tablet, By Mouth, Daily, # 30 tablet, Refills 0, Tot. Refills 0, Maintenance, 02/10/22 10:30:00 EDT, Route to Pharmacy Electronically, [facility], Partial fill upon patient request if the prescription is for a schedule II opioi... Start Date: 02/10/22 Stop Date: 03/12/22 Status: OrderedcloNIDine 0.1 mg oral tablet 0.1 mg, 1, tablet, By Mouth, Daily at bedtime, TAKE 1 TABLET BY MOUTH AT BEDTIME HOLD FOR SEDATION OR DIZZINESS Start Date: 02/11/22 Status: OrderedcloNIDine 0.1 mg oral tablet 0.1 mg, 1, tablet, By Mouth, Daily at bedtime, Refills 0, Maintenance, 02/10/22 9:32:00 EDT, Partialfill upon patient request if the prescription is for a schedule II opioid drug. Start Date: 02/10/22 Status: OrderedcloNIDine 0.1 mg oral tablet 0.1 mg, 1, tablet, By Mouth, Daily at bedtime, # 30 tablet, Refills 0, Tot. Refills 0, Maintenance, 02/10/22 10:30:00 EDT, Route to Pharmacy Electronically, [facility], Partial fill upon patient request if the prescription is for a sched... Start Date: 02/10/22 Stop Date: 03/12/22 Status: Orderedfolic acid 1 mg oral tablet 1 mg, 1, tablet, By Mouth, Daily, # 30 tablet, Refills 0, Tot. Refills 0, Maintenance, 02/10/22 10:30:00 EDT, Route to Pharmacy Electronically, [facility], Partial fill upon patient request if the prescription is for a schedule II opioid... Start Date: 02/10/22 Stop Date: 03/12/22 Status: OrderedhydrOXYzine pamoate 50 mg oral capsule 1 capsule = 50 mg, By Mouth, Every 6 hours, PRN Anxiety, # 28 capsule, 3 Refills, Maintenance, 02/10/22 10:31:00 EDT, Capsule, [facility], 175, cm, 02/01/22 10:53:00 EDT, Height, 84, kg, 01/28/22 14:32:00 EDT, Dry Weight Start Date: 02/10/22 Stop Date: 03/10/22 Status: Orderedlamotrigine 25 mg oral tablet 25 mg, 1, tablet, By Mouth, Daily, # 30 tablet, Refills 0, Tot. Refills 0, Maintenance, 02/10/22 10:31:00 EDT, Route to Pharmacy Electronically, [facility], Partial fill upon patient request if the prescription is for a schedule II opioi... Start Date: 02/10/22 Stop Date: 03/12/22 Status: OrderedmetFORMIN 500 mg oral tablet 1 tablet = 500 mg, By Mouth, 2 times a day, # 60 tablet, 0 Refills, Maintenance, 02/10/22 10:29:00 EDT, Tablet, [facility], 175, cm, 02/01/22 10:53:00 EDT, Height, 84, kg, 01/28/22 14:32:00 EDT, Dry Weight Start Date: 02/10/22 Stop Date: 03/12/22 Status: Orderedmultivitamin Multiple Vitamins oral tablet 1 tablet, By Mouth, Daily, # 30 tablet, 0 Refills, Maintenance, 02/10/22 10:31:00 EDT, Tablet, [facility], 1 tablet By Mouth Daily,x30 days, 175, cm, 02/01/22 10:53:00 EDT, Height, 84, kg, 01/28/22 14:32:00 EDT, Dry Weight Start Date: 02/10/22 Stop Date: 03/12/22 Status: Orderednaltrexone 50 mg oral tablet 1 tablet = 50 mg, By Mouth, Daily, for 12 week(s), # 84 tablet, 0 Refills, Acute 05/05/22 9:37:00 EST, 02/10/22 9:37:00 EDT, Tablet, [facility], Partial fill upon patient request if the prescription is for a schedule II opioid drug., 175... Start Date: 02/10/22 Stop Date: 05/05/22 Status: OrderedPHENobarbital 30 mg oral tablet See Instructions, 30 mg By Mouth 2 times a day for 2 days then once daily for 2 days and stop, # 6 tablet, 0 Refills, Maintenance, 02/10/22 9:34:00 EDT, Tablet, [facility], Partial fill upon patient request if the prescription is for a s... Start Date: 02/10/22 Status: Orderedpregabalin 200 mg oral capsule 1 capsule = 200 mg, By Mouth, 3 times a day, 0 Refills, Maintenance, 02/04/22 7:07:00 EDT, Capsule, Partial fill upon patient request if the prescription is for a schedule II opioid drug. Start Date: 02/04/22 Status: Orderedpregabalin 200 mg oral capsule 1 capsule = 200 mg, By Mouth, 3 times a day, TAKE ONE CAPSULE BY MOUTH THREE TIMES A DAY Start Date: 02/11/22 Status: Orderedpropranolol 20 mg oral tablet 20 mg, 1, tablet, By Mouth, 2 times a day, TAKE 1 TABLET BY MOUTH TWICE A DAY NEEDED Start Date: 02/11/22 Status: Orderedpropranolol 20 mg oral tablet 20 mg, Tablet, By Mouth, 02/11/22 9:00:00 EDT Start Date: 02/11/22 Stop Date: 02/11/22 Status: Completedpropranolol 20 mg oral tablet 20 mg, 1, tablet, By Mouth, 2 times a day, # 60 tablet, Refills 0, Tot. Refills 0, Maintenance, 02/10/22 10:31:00 EDT, Route to Pharmacy Electronically, [facility], Partial fill upon patient request if the prescription is for a schedule... Start Date: 02/10/22 Stop Date: 03/12/22 Status: OrderedProtonix 40 mg oral delayed release tablet = 40 mg, By Mouth, Daily, 0 Refills, Maintenance, 02/10/22 9:32:00 EDT, EC Tablet Start Date: 02/10/22 Status: OrderedProtonix 40 mg oral delayed release tablet = 40 mg, By Mouth, 2 times a day, # 30 capsule, 0 Refills, Maintenance, 02/10/22 10:31:00 EDT, EC Tablet, 175, cm, 02/01/22 10:53:00 EDT, Height, 84, kg, 01/28/22 14:32:00 EDT, Dry Weight Start Date: 02/10/22 Stop Date: 03/12/22 Status: Ordered Problem List Condition Confirmation Course Effective Dates Status Health I nformant Status Alcohol abuse Confirmed Active Alcohol dependence Confirmed Active Alcohol-induced mood Confirmed Active disorder [...] 2 3 [Reference Range]: Oxygen Saturation [94-100 97 % 99 % 93 % %] (02/11/22 9:55 AM) (02/11/22 9:32 AM) *L* (02/11/22 1:23 A M) Pulse Rate [55-90 bpm] 107 bpm 107 bpm 106 bpm *H* *H* *H* (02/11/22 10:07 AM) (02/11/22 9:55 AM) (02/11/22 9:32 AM) Blood Pressure 155/84 mm Hg 155/84 mm Hg 147/79 mm Hg [90-138/55-84 mm Hg] *H* *H* *H* (02/11/22 10:07 AM) (02/11/22 9:55 AM) (02/11/22 9:32 AM) Respiratory Rate [16-30 18 br/min 17 br/min 20 br/mi n br/min] (02/11/22 9:55 AM) (02/11/22 9:32 AM) (02/11/22 4:27 AM) Temperature [96.8-100.4 98.2 DegF 97.4 DegF DegF] (02/11/22 9:55 AM) (02/10/22 11:43 PM) Mode of Delivery (Oxygen) Room air Room air Room a ir (02/11/22 9:55 AM) (02/11/22 9:32 AM) (02/11/22 1:23 AM) Blood pressure sites Arm, right Arm, right Leg, left (02/11/22 9:32 AM) (02/11/22 1:23 AM) (02/10/22 11:43 PM) Temperature Route Oral Oral (02/11/22 9:55 AM) (02/10/22 11:43 PM) Social History Social History Type Response Smoking Status Current every day smoker entered on: 09/30/14 Sex Patient Care team information PersonnelName: Amalia Castillo NP Address: Address: [address] [place] [id number]-
--- OUTSIDE RECORDS SUMMARY | 2022-04-16 18:29 | XMS_ITS | Continuity of Care Document ---
:1970 Author Organization [facility] Address [address] [place] [address]- Care Team Providers Name Role Phone Jonathan OLIVARES, Amalia Primary Care Physician Encounter [facility] [place] Date(s): 05/25/20 - 05/25/[address] [address] Discharge Disposition: A-D/C Home Attending Physician: Cedric Davies III, MD Admitting Physician: Cedric Davies III, MD Referring Physician: Cedric Davies III, MD Allergies, Adverse Reactions, Alerts Substance Reaction Severity Status Red Dye Persistent Severe Active Mushrooms Persistent Severe Active lisinopril1 intestent twisting Active Zoloft Active 1Makes [...] 0 Refills, Maintenance, 04/09/20 12:02:00 EST, Tablet, [id number], 175, cm, 04/09/20 0:09:00 EST, Height, 79.5, [...] Refills, Maintenance, 04/09/20 12:02:00 EST, XL Tablet, [id number], Partial fill upon patient request if the prescription isfor a schedule II opioid drug., 3 tablet By Mouth... Start Date: 04/09/20 Status: Orderedchlorhexidine topical 0.12% liquid 15 mL = 0.018 Gm, Swish and Spit, 2 times a day, # 473 mL, 1 Refills, Maintenance, 05/25/20 13:50:00EST, Oral Rinse, [id number], Partial fill upon patient request if the prescription is for a schedule II opioid drug., 15 mL Swish and... Start Date: 05/25/20 Status: OrderedcloNIDine 0.1 mg oral tablet 0.2 mg, 2, tablet, By Mouth, Daily at bedtime, # 60 tablet, Refills 0, Tot. Refills 0, Maintenance, 04/09/20 12:02:00 EST, Route to Pharmacy Electronically, [id number], Partial fill upon patient request, 175, cm, 04/09/20 0:09:00 EST,... Start Date: 04/09/20 Status: OrderedFENTanyl Inj 50 mcg, Injection, IV Push Slowly, Every 5 minutes for 4 doses/times, in PACU ONLY, Hold for: RR less than 8 or over-sedation, PRN for Pain , Severe, Repeat until Pain Score is less than or equal to 2,Routine, 05/25/20 12:20:00 EST, Stop date Limited... Start Date: 05/25/20 Stop Date: 05/25/20 Status: DiscontinuedhydrOXYzine pamoate 50 mg oral capsule = 50 mg, By Mouth, Every 6 hours, PRN Anxiety, # 28 tablet, 3 Refills, Maintenance, 04/09/20 12:03:00 EST, Capsule, [id number], 175, cm, 04/09/20 0:09:00 EST, Height, 79.5, kg, 04/06/20 14:00:00 EST, Dry Weight Start Date: 04/09/20 Status: OrderedmetFORMIN 500 mg oral tablet 1 each = 500 mg, By Mouth, 2 times a day, # 60 tablet, 0 Refills, Maintenance, 04/09/20 12:02:00 EST, Tablet, [id number], 175, cm, 04/09/20 0:09:00 EST, Height, 79.5, kg, 04/06/20 14:00:00 EST, Dry Weight Start Date: 04/09/20 Status: Orderedmultivitamin Multiple Vitamins oral tablet 1 tablet, By Mouth, Daily, # 30 tablet, 0 Refills, Maintenance, 04/09/20 12:03:00 EST, Tablet, [id number], 1 tablet By Mouth Daily, 175, cm, 04/09/20 0:09:00 EST, Height, 79.5, kg, 04/06/20 14:00:00 EST, Dry Weight Start Date: 04/09/20 Status: OrderedoxyCODONE 5 mg oral tablet 5 mg, 1, tablet, By Mouth, Every 4 hours, PRN, # 10 tablet, Refills 0, Tot. Refills 0, Acute 05/31/20 7:00:00 EST, Pain , Moderate, 05/25/20 13:46:00 EST, Route to Pharmacy Electronically, [facility][id number], Partial fill upon patient request... Start Date: 05/25/20 Stop Date: 05/31/20 Status: OrderedPercocet-5 Tablet 2 tablet, Tablet, By Mouth, Every 4 hours, in PACU ONLY, PRN for Pain , Moderate, if patient can tolerate po, Routine, 05/25/20 12:20:00 EST Start Date: 05/25/20 Stop Date: 05/25/20 Status: Discontinuedpregabalin 50 mg oral capsule 2 capsule = 100 mg, By Mouth, 3 times a day, # 30 capsule, 0 Refills, Maintenance, 04/09/20 12:03:00EST, Capsule, [id number], Partial fill upon patient request, 175, cm, [...] Most recent to oldest 1 2 3 4 [Reference Range]: Height 175.2 cm 175.2 cm (05/25/20 9:47 AM) (05/17/20 8:50 AM) Weight 90.7 kg 81.8 kg (05/25/20 9:47 AM) (05/17/20 8:50 AM) Oxygen Saturation 98 % 98 % 93 % [94-100 %] (05/25/20 1:45 PM) (05/25/20 1:30 PM) *L* (05/25/20 1:15 PM) Pulse Rate [55-90 bpm] 66 bpm (05/25/20 9:47 AM) Body Mass Index 29.55 26.65 [18.5-24.99] *H* *H* (05/25/20 9:47 AM) (05/17/20 8:50 AM) Blood Pressure 143/85 mm Hg 132/76 mm Hg 146/83 mm Hg [90-138/55-84 mm Hg] *H* (05/25/20 1:30 PM) *H* (05/25/20 1:45 PM) (05/25/20 1:15 PM) Respiratory Rate 18 br/min 12 br/min 20 br/min 18 br/min [16-30 br/min] (05/25/20 1:59 PM) *L* (05/25/20 1:30 PM) ( 1:30 PM) (05/25/20 1:45 PM) Temperature 98.1 DegF 98.6 DegF [96.8-100.4 DegF] (05/25/20 12:45 PM) (05/25/20 9:47 AM) Liters per Minute 6 L/min 6 L/min (05/25/20 1:00 PM) (05/25/20 12:45 PM) Mode of Delivery Room air Room air Room air (Oxygen) (05/25/20 1:45 PM) (05/25/20 1:30 PM) (05/25/20 1:15 PM) Blood pressure sites Arm, left (05/25/20 9:47 AM) Temperature Route Temporal Temporal (05/25/20 12:45 PM) (05/25/20 9:47 AM) Dry Weight 90.7 kg 81.8 kg (05/25/20 9:47 AM) (05/17/20 8:50 AM) Weight Obtained Via Patient/family stated (05/17/20 8:50 AM) Dry Weight Obtained Patient/family stated Via (05/17/20 8:50 AM) Social History Social History Type Response Smoking Status Current every day smoker entered on: 09/30/14 Sex
--- OUTSIDE RECORDS SUMMARY | 2022-04-16 18:29 | XMS_ITS | Continuity of Care Document ---
:1970 Author Organization [facility] Address [address] [place] [address] Drive [address] [place] [address]- Care Team Providers Name Role Phone Jonathan OLIVARES, Amalia Primary Care Physician Encounter [facility] Date(s): 04/18/20 - 06/08/20 [facility] [address] [place] [address] Drive [address] [place], [place] [address] Attending Physician: Samson IRVIN MD, Cedric Fernando [...] 0 Refills, Maintenance, 12/07/20 12:02:00 EST, Tablet, [facility] #[id number], 175, cm, 04/09/20 0:09:00 EST, Height, 79.5, [...] Refills, Maintenance, 04/09/20 12:02:00 EST, XL Tablet, [facility] #[id number], Partial fill upon patient request if the prescription isfor a schedule II opioid drug., 3 tablet By Mouth... Start Date: 04/09/20 Status: Orderedchlorhexidine topical 0.12% liquid 15 mL = 0.018 Gm, Swish and Spit, 2 times a day, # 473 mL, 1 Refills, Maintenance, 05/25/20 13:50:00EST, Oral Rinse, [facility] #[id number], Partial fill upon patient request if the prescription is for a schedule II opioid drug., 15 mL Swish and... Start Date: 05/25/20 Status: OrderedcloNIDine 0.1 mg oral tablet 0.2 mg, 2, tablet, By Mouth, Daily at bedtime, # 60 tablet, Refills 0, Tot. Refills 0, Maintenance, 04/09/20 12:02:00 EST, Route to Pharmacy Electronically, [facility] #[id number], Partial fill upon patient request, 175, cm, 04/09/20 0:09:00 EST,... Start Date: 04/09/20 Status: OrderedhydrOXYzine pamoate 50 mg oral capsule = 50 mg, By Mouth, Every 6 hours, PRN Anxiety, # 28 tablet, 3 Refills, Maintenance, 04/09/20 12:03:00 EST, Capsule, [facility] #[id number], 175, cm, 04/09/20 0:09:00 EST, Height, 79.5, kg, 04/06/20 14:00:00 EST, Dry Weight Start Date: 04/09/20 Status: OrderedmetFORMIN 500 mg oral tablet 1 each = 500 mg, By Mouth, 2 times a day, # 60 tablet, 0 Refills, Maintenance, 04/09/20 12:02:00 EST, Tablet, [facility] #[id number], 175, cm, 04/09/20 0:09:00 EST, Height, 79.5, kg, 04/06/20 14:00:00 EST, Dry Weight Start Date: 04/09/20 Status: Orderedmultivitamin Multiple Vitamins oral tablet 1 tablet, By Mouth, Daily, # 30 tablet, 0 Refills, Maintenance, 04/09/20 12:03:00 EST, Tablet, [facility] #[id number], 1 tablet By Mouth Daily, 175, cm, 04/09/20 0:09:00 EST, Height, 79.5, kg, 04/06/20 14:00:00 EST, Dry Weight Start Date: 04/09/20 Status: Orderedpregabalin 50 mg oral capsule 2 capsule = 100 mg, By Mouth, 3 times a day, # 30 capsule, 0 Refills, Maintenance, 04/09/20 12:03:00EST, Capsule, [facility] #[id number], Partial fill upon patient request, 175, cm, [...]
--- OUTSIDE RECORDS SUMMARY | 2022-04-16 18:30 | XMS_ITS | Continuity of Care Document ---
:1970 Author Organization [facility] Address [address] [place] [address]- Care Team Providers Name Role Phone Jonathan OLIVARES, Amalia Primary Care Physician [place] [facility] [place] 03/01/[address] [address]- [facility] Encounter Diagnosis Alcohol withdrawal (Final) - 02/27/20 Discharge Disposition: A-D/C AMA Attending Physician: George HUNT, Cheo Angelo Admitting Physician: Naomi HUNT, Rohit Referring Physician: Not on Staff, Referring MD [...] 0 Refills, Maintenance, 02/10/20 16:20:00 EDT, Tablet, [facility], 176, cm, 02/10/20 11:42:00 EDT, Height, 96.3, kg, 02/04/20 17:22:00 EDT,Dry Weight Start Date: 02/10/20 Status: OrderedbuPROPion 450 mg/24 hours (XL) oral tablet, extended release 1 tablet = 450 mg, By Mouth, Daily in AM, # 30 tablet, 0 Refills, Maintenance, 02/10/20 16:22:00 EDT, ER Tablet, [facility], 176, cm, 02/10/20 11:42:00 EDT, Height, 96.3, kg, 02/04/20 17:22:00 EDT, Dry Weight Start Date: 02/10/20 Status: OrderedcloNIDine 0.2 mg oral tablet 0.2 mg, 1, tablet, By Mouth, 2 times a day, # 60 tablet, Refills 0, Tot. Refills 0, Maintenance, 02/10/20 16:23:00 EDT, Route to Pharmacy Electronically, [facility], 176, cm, 02/10/20 11:42:00 EDT, Height, 96.3, kg, 02/04/20 17:22:00 EDT... Start Date: 02/10/20 Status: OrderedEffexor XR 75 mg oral capsule, extended release 75 mg, 1, capsule, By Mouth, Daily, # 30 capsule, Refills 0, Tot. Refills 0, Maintenance, 02/10/20 16:27:00 EDT, Route to Pharmacy Electronically, [facility], 176, cm, 02/10/20 11:42:00 EDT, Height, 96.3, kg, 02/04/20 17:22:00 EDT, Dry W... Start Date: 02/10/20 Status: Orderedgabapentin 600 mg oral tablet 1 tablet = 600 mg, By Mouth, 3 times a day, # 90 tablet, 0 Refills, Maintenance, 02/10/20 16:24:00 EDT, Tablet, [facility], 176, cm, 02/10/20 11:42:00 EDT, Height, 96.3, kg, 02/04/20 17:22:00 EDT, Dry Weight Start Date: 02/10/20 Status: OrderedhydrOXYzine pamoate 50 mg oral capsule = 50 mg, By Mouth, Every 6 hours, PRN Anxiety, # 28 tablet, 3 Refills, Maintenance, 02/10/20 16:25:00 EDT, Capsule, [facility], 176, cm, 02/10/20 11:42:00 EDT, Height, 96.3, kg, 02/04/20 17:22:00 EDT, Dry Weight Start Date: 02/10/20 Status: OrderedmetFORMIN 500 mg oral tablet 1 each = 500 mg, By Mouth, 2 times a day, # 60 tablet, 0 Refills, Maintenance, 02/10/20 16:19:00 EDT, Tablet, [facility], 176, cm, 02/10/20 11:42:00 EDT, Height, 96.3, kg, 02/04/20 17:22:00 EDT, Dry Weight Start Date: 02/10/20 Status: Orderedmultivitamin Multiple Vitamins oral tablet 1 tablet, By Mouth, Daily, # 30 tablet, 0 Refills, Maintenance, 02/10/20 16:26:00 EDT, Tablet, [facility], 1 tablet By Mouth Daily, [...] 02/10/20 16:27:00 EDT, Route to Pharmacy Electronically, [facility], 176,cm, 02/10/20 11:42:00 EDT, Height, 96.3, [...] Exam Date Time Procedure Performing Provider Status 02/27/20 12:43 PM Chest 2 Views Frontal and Lat Zeb Torredevika james; Mart (Verified) Notes:(Chest 2 Views Frontal and Lat) Reason For Exam: Shortness of Breath RESULT: Chest 2 Views Frontal and Lat Chest 2 Views Frontal and Lat INDICATION / CLINICAL QUESTION: Pt c o alcohol withdrawal. States his last drink was approximately 0600 the previous day. States he has been drinking a half gallon for several months now.; COMPARISON: 01/17/2020 FINDINGS: LINES AND TUBES: None. LUNGS AND PLEURA: Clear lungs. Normal pulmonary vascularity. No pleural effusion. No pneumothorax. HEART, MEDIASTINUM AND CHRISSY: Normal. BONES AND SOFT TISSUES: Normal. IMPRESSION: Normal. WSN: [id number] Ordering Physician: Sly Munoz Dictated By: Abdullahi Patel MD Dictated Date/Time: 02/27/20 12:55 p Reviewed By: Abdullahi Patel MD Signed By: Abdullahi Patel MD Signed Date/Time: 02/27/20 12:55 pm Transcribed By: VANDANA Transcribed Date/Time: 02/27/20 12:47 pm Vital Signs Most recent to oldest 1 2 3 [Reference Range]: Height 175 cm 175 cm 175 cm (03/01/20 11:25 AM) (03/01/20 8:09 AM) (03/01/20 6:00 AM) Weight 94.1 kg 96.2 kg 96 kg (03/01/20 6:00 AM) (02/29/20 5:21 AM) (02/28/20 2:39 PM) Oxygen Saturation [94-100 100 % 100 % 97 % %] (03/01/20 11:25 AM) (03/01/20 8:09 AM) (03/01/20 6:00 AM) Pulse Rate [55-90 bpm] 88 bpm 66 bpm 54 bpm (03/01/20 11:25 AM) (03/01/20 8:09 AM) *L* (03/01/20 6:00 A M) Body Mass Index 30.73 31.41 31.35 [18.5-24.99] *>HHI* *>HHI* *>HHI* (03/01/20 6:00 AM) (02/29/20 5:21 AM) (02/28/20 2:39 PM) Blood Pressure 122/70 mm Hg 139/94 mm Hg 98/49 mm Hg [90-138/55-84 mm Hg] (03/01/20 11:25 AM) *H* ( 6:00 AM) (03/01/20 8:09 AM) Respiratory Rate [16-30 20 br/min 18 br/min 17 br/mi n br/min] (03/01/20 11:25 AM) (03/01/20 9:12 AM) (03/01/20 9:12 AM) Temperature [96.8-100.4 97.3 DegF 98 DegF 97.6 Deg F DegF] (03/01/20 11:25 AM) (03/01/20 6:00 AM) (02/29/20 10:59 PM) Mode of Delivery (Oxygen) Room air Room air Room a ir (03/01/20 11:25 AM) (03/01/20 8:09 AM) (03/01/20 6:00 AM) Blood pressure sites Arm, left Arm, left Arm, left (03/01/20 11:25 AM) (03/01/20 8:09 AM) (03/01/20 6:00 AM) Temperature Route Oral Oral Axillary (03/01/20 11:25 AM) (03/01/20 6:00 AM) (02/29/20 10:59 PM) Dry Weight 96 kg (02/28/20 2:39 PM) Weight Obtained Via Bed scale Bed scale Bed scale (03/01/20 6:00 AM) (02/29/20 5:21 AM) (02/28/20 2:39 PM) Dry Weight Obtained Via Bed scale (02/28/20 2:39 PM) Social History Social History Type Response Smoking Status Current every day smoker entered on: 09/30/14 Sex
--- OUTSIDE RECORDS SUMMARY | 2022-04-16 18:30 | XMS_ITS | Continuity of Care Document ---
:1970 Author Organization [facility] Address [address] [place] [address]- Care Team Providers Name Role Phone Jonathan OLVIARES, Amalia Primary Care Physician Encounter [facility] [place] Date(s): 02/04/22 - 02/10/[address] [address]- Encounter Diagnosis Alcohol intoxication (Final) - 02/04/22 Discharge Disposition: A-D/C Home Attending Physician: Aiyana HUNT, Delaney Admitting Physician: Nilam HUNT, Kayode Carter Referring Physician: Not on Staff, Referring MD Allergies, Adverse Reactions, Alerts Substance Reaction Severity Status lisinopril1 intestent twisting Active Zoloft Active Red Dye Persistent Severe Active Mushrooms Persistent Severe Active Monterey Oil Active 1Makes his legs hurt Immunizations Given and Recorded Vaccine Date Status Refusal Reason [id number] 12y+ bivalent booster vax 02/07/22 Given hepatitis [...] Refuses 1Result Comment: Not given on that [id number] Note: pt refused vaccine at this time Medications Ativan 1 mg oral tablet See Instructions, 1 tablet By Mouth Every 8 hours for 3 days then 2 time per day for 3 days then daily for 3 days., # 18 tablet, 0 Refills, Acute 02/22/22 9:34:00 EDT, 02/10/22 9:33:00 EDT, Tablet, [facility], Partial fill upon patient r... Start Date: 02/10/22 Stop Date: 02/22/22 Status: Orderedatorvastatin 40 mg oral tablet 1 tablet = 40 mg, By Mouth, Daily, # 30 tablet, 0 Refills, Maintenance, 02/10/22 10:29:00 EDT, Tablet, [facility], Partial fill upon patient request if the prescription is for a schedule II opioid drug., 175, cm, 02/01/22 10:53:00 EDT, H... Start Date: 02/10/22 Stop Date: 03/12/22 Status: OrderedbuPROPion 300 mg/24 hours (XL) oral tablet, extended release 1 tablet = 300 mg, By Mouth, Daily, # 30 tablet, 0 Refills, Maintenance, 02/10/22 10:29:00 EDT, XL Tablet, [facility], Partial fill upon patient request [...] 02/10/22 10:30:00 EDT, Route to Pharmacy Electronically, [facility], Partial fill upon patient request [...] 02/10/22 10:30:00 EDT, Route to Pharmacy Electronically, [facility], Partial fill upon patient request if the prescription is for a sched... Start Date: 02/10/22 Stop Date: 03/12/22 Status: Orderedfolic acid 1 mg oral tablet 1 mg, 1, tablet, By Mouth, Daily, # 30 tablet, Refills 0, Tot. Refills 0, Maintenance, 02/10/22 10:30:00 EDT, Route to Pharmacy Electronically, [facility], Partial fill upon patient request if the prescription is for a schedule II opioid... Start Date: 02/10/22 Stop Date: 03/12/22 Status: OrderedhydrOXYzine pamoate 50 mg oral capsule 1 capsule = 50 mg, By Mouth, Every 6 hours, PRN Anxiety, # 28 capsule, 3 Refills, Maintenance, 02/10/22 10:31:00 EDT, Capsule, [facility], 175, cm, 02/01/22 10:53:00 EDT, Height, 84, kg, 01/28/22 14:32:00 EDT, Dry Weight Start Date: 02/10/22 Stop Date: 03/10/22 Status: Orderedlamotrigine 25 mg oral tablet 25 mg, 1, tablet, By Mouth, Daily, # 30 tablet, Refills 0, Tot. Refills 0, Maintenance, 02/10/22 10:31:00 EDT, Route to Pharmacy Electronically, [facility], Partial fill upon patient request if the prescription is for a schedule II opioi... Start Date: 02/10/22 Stop Date: 03/12/22 Status: OrderedmetFORMIN 500 mg oral tablet 1 tablet = 500 mg, By Mouth, 2 times a day, # 60 tablet, 0 Refills, Maintenance, 02/10/22 10:29:00 EDT, Tablet, [facility], 175, cm, 02/01/22 10:53:00 EDT, Height, 84, kg, 01/28/22 14:32:00 EDT, Dry Weight Start Date: 02/10/22 Stop Date: 03/12/22 Status: Orderedmultivitamin Multiple Vitamins oral tablet 1 tablet, By Mouth, Daily, # 30 tablet, 0 Refills, Maintenance, 02/10/22 10:31:00 EDT, Tablet, [facility], 1 tablet By Mouth Daily,x30 days, 175, cm, 02/01/22 10:53:00 EDT, Height, 84, kg, 01/28/22 14:32:00 EDT, Dry Weight Start Date: 02/10/22 Stop Date: 03/12/22 Status: Orderednaltrexone 50 mg oral tablet 1 tablet = 50 mg, By Mouth, Daily, for 12 week(s), # 84 tablet, 0 Refills, Acute 05/05/22 9:37:00 EST, 02/10/22 9:37:00 EDT, Tablet, [facility], Partial fill upon patient request if the prescription is for a schedule II opioid drug., 175... Start Date: 02/10/22 Stop Date: 05/05/22 Status: OrderedPHENobarbital 30 mg oral tablet See Instructions, 30 mg By Mouth 2 times a day for 2 days then once daily for 2 days and stop, # 6 tablet, 0 Refills, Maintenance, 02/10/22 9:34:00 EDT, Tablet, [facility], Partial fill upon patient request if the prescription is for a s... Start Date: 02/10/22 Status: Orderedpregabalin 200 mg oral capsule 1 capsule = 200 mg, By Mouth, 3 times a day, 0 Refills, Maintenance, 02/04/22 7:07:00 EDT, Capsule, Partial fill upon patient request if the prescription is for a schedule II opioid drug. Start Date: 02/04/22 Status: Orderedpropranolol 20 mg oral tablet 20 mg, Tablet, By Mouth, 02/10/22 9:00:00 EDT Start Date: 02/10/22 Stop Date: 02/10/22 Status: Completedpropranolol 20 mg oral tablet 20 mg, 1, tablet, By Mouth, 2 times a day, # 60 tablet, Refills 0, Tot. Refills 0, Maintenance, 02/10/22 10:31:00 EDT, Route to Pharmacy Electronically, [facility], Partial fill upon patient request [...] Diabetes mellitus Confirmed Active type 2, diet-controlled Results Radiology Reports Exam Date Time Procedure Performing Provider Status 02/03/22 11:54 PM Chest Portable Yayo Mancilla; Auth (Verified) Notes:(Chest Portable) Reason For Exam: Shortness of BreathRESULT: Chest Portable Chest Portable Hx of Present Illness: Pt arrived via EMS from [facility]. Refered since he was intoxicated and unable to stand on own. No SI HI but vague disussion during interview at [facility]; Reason: Shortness of Breath; Clinical Question(s): CHF COMPARISON: 02/02/2022 FINDINGS: LINES AND TUBES: None. LUNGS AND PLEURA: Low lung volumes with mild basilar atelectasis. Lungs are otherwise clear with no consolidation. No pleural effusion. No pneumothorax. HEART, MEDIASTINUM AND CHRISSY: Heart is at the upper limits of normal for size. Normal mediastinal and hilar contour. BONES AND SOFT TISSUES: No acute abnormality. IMPRESSION: Technically limited examination due to low lung volumes and positioning. No acute abnormality. WSN: [id number] Ordering Physician: Benito Martinez Dictated By: Abelardo Rodriguez MD Dictated Date/Time: 02/03/22 11:58 p Reviewed By: Abelardo Rodriguez MD Signed By: Abelardo Rodriguez MD Signed Date/Time: 02/03/22 11:58 pm Transcribed By: VANDANA Transcribed Date/Time: 02/03/22 11:57 pm Vital Signs Most recent to oldest 1 2 3 [Reference Range]: Oxygen Saturation [94-100 %] 98 % 96 % 98 % (02/10/22 7:00 AM) (02/10/22 3:00 AM) (02/09/22 1 0:49 PM) Pulse Rate [55-90 bpm] 83 bpm 87 bpm 65 bpm (02/10/22 7:46 AM) (02/10/22 3:00 AM) (02/09/22 1 0:49 PM) Blood Pressure [90-138/55-84 152/112 mm Hg 126/81 mm Hg 130 /97 mm Hg mm Hg] *H* (02/10/22 3:00 AM) (02/09/22 10:4 9 PM) (02/10/22 7:46 AM) Respiratory Rate [16-30 18 br/min 18 br/min 16 br/mi n br/min] (02/10/22 3:00 AM) (02/09/22 10:49 PM) (02/09/22 1 0:00 PM) Temperature [96.8-100.4 98.1 DegF 98.0 DegF 97.6 Deg F DegF] (02/10/22 7:00 AM) (02/10/22 3:00 AM) (02/09/22 1 0:49 PM) Mode of Delivery (Oxygen) Room air Room air Room a ir (02/10/22 7:00 AM) (02/10/22 3:00 AM) (02/09/22 1 0:49 PM) Blood pressure sites Arm, right Arm, right Arm, right (02/10/22 3:00 AM) (02/09/22 10:49 PM) (02/09/22 1 0:00 PM) Temperature Route Oral Oral Oral (02/10/22 7:00 AM) (02/10/22 3:00 AM) (02/09/22 1 0:49 PM) Social History Social History Type Response Smoking Status Current every day smoker entered on: 09/30/14 Sex Portable XR Chest Views SPowerscribe , CIS S: TRANSCRIBE Michael HUNT, Abelardo J: VERIFY Event Display: Result: Authored Date: [id number] Chest Portable Hx of Present Illness: Pt arrived via EMS from [facility]. Refered since he was intoxicated and unable to stand on own. No SI HI but vague disussion during interview at [facility]; Reason: Shortness of Breath; Clinical Question(s): CHF COMPARISON: 02/02/2022 FINDINGS: LINES AND TUBES: None. LUNGS AND PLEURA: Low lung volumes with mild basilar atelectasis. Lungs are otherwise clear with no consolidation. No pleural effusion. No pneumothorax. HEART, MEDIASTINUM AND CHRISSY: Heart is at the upper limits of normal for size. Normal mediastinal and hilar contour. BONES AND SOFT TISSUES: No acute abnormality. IMPRESSION: Technically limited examination due to low lung volumes and positioning. No acute abnormality. WSN: [id number] Ordering Physician: Benito Martinez Dictated By: Abelardo Rodriguez MD Dictated Date/Time: 02/03/22 11:58 p Reviewed By: Abelardo Rodriguez MD Signed By: Abelardo Rodriguez MD Signed Date/Time: 02/03/22 11:58 pm Transcribed By: VANDANA Transcribed Date/Time: 02/03/22 11:57 pm Patient Care team information PersonnelName: Amalia Castillo NP Address: Address: [address] [place] [id number]
--- OUTSIDE RECORDS SUMMARY | 2022-04-16 18:30 | XMS_ITS | Continuity of Care Document ---
:1970 Author Organization [facility] Address [address] [place] [address]- Care Team Providers Name Role Phone Jonathan OLIVARES, Amalia Primary Care Physician Encounter [facility] [place](s): 03/14/20 - 04/13/[address] [address] Attending Physician: Cderic Davies III, MD Admitting Physician: Cedric Davies III, MD Allergies, Adverse [...] 0 Refills, Maintenance, 04/09/20 12:02:00 EST, Tablet, [id number], 175, cm, 04/09/20 0:09:00 EST, Height, 79.5, kg, 04/06/20 14:00:00 EST, Dry Weight Start Date: 04/09/20 Status: OrderedbuPROPion 150 mg/24 hours (XL) oral tablet, extended release 3 tablet = 450 mg, By Mouth, Every 24 hours, # 90 tablet, 0 Refills, Maintenance, 04/09/20 12:02:00 EST, XL Tablet, [id number], Partial fill upon patient request if the prescription isfor a schedule II opioid drug., 3 tablet By Mouth... Start Date: 04/09/20 Status: OrderedcloNIDine 0.1 mg oral tablet 0.2 mg, 2, tablet, By Mouth, Daily at bedtime, # 60 tablet, Refills 0, Tot. Refills 0, Maintenance, 04/09/20 12:02:00 EST, Route to Pharmacy Electronically, [id number], Partial fill upon patient request, 175, cm, 04/09/20 0:09:00 EST,... Start Date: 04/09/20 Status: OrderedhydrOXYzine pamoate 50 mg oral capsule = 50 mg, By Mouth, Every 6 hours, PRN Anxiety, # 28 tablet, 3 Refills, Maintenance, 04/09/20 12:03:00 EST, Capsule, [id number], 175, cm, 04/09/20 0:09:00 EST, Height, 79.5, kg, 04/06/20 14:00:00 EST, Dry Weight Start Date: 04/09/20 Status: OrderedmetFORMIN 500 mg oral tablet 1 each = 500 mg, By Mouth, 2 times a day, # 60 tablet, 0 Refills, Maintenance, 04/09/20 12:02:00 EST, Tablet, [facility] #[id number], 175, cm, 04/09/20 0:09:00 EST, Height, 79.5, kg, 04/06/20 14:00:00 EST, Dry Weight Start Date: 04/09/20 Status: Orderedmultivitamin Multiple Vitamins oral tablet 1 tablet, By Mouth, Daily, # 30 tablet, 0 Refills, Maintenance, 04/09/20 12:03:00 EST, Tablet, [facility] #[id number], 1 tablet By Mouth Daily, 175, cm, 04/09/20 0:09:00 EST, Height, 79.5, kg, 04/06/20 14:00:00 EST, Dry Weight Start Date: 04/09/20 Status: OrderedNicotine 2 mg gum 1 each = 2 mg, Chew, Every 2 hours, PRN as needed for smoking cessation, # 40 each, 0 Refills, Maintenance, 04/09/20 12:05:00 EST, Gum, [facility][id number], Partial fill upon patient request ifthe prescription is for a schedule II opioid drug... Start Date: 04/09/20 Status: OrderedPeridex 0.12% liquid 15 mL = 0.018 Gm, By Mouth, 2 times a day, # 210 mL, 1 Refills, Maintenance, 04/09/20 12:02:00 EST, [facility][id number], Partial fill upon patient request, 15 mL By Mouth 2 times a day,x7 days,175, cm, 04/09/20 0:09:00 EST, Height, 79.5, kg,... Start Date: 04/09/20 Stop Date: 04/23/20 Status: Orderedpregabalin 50 mg oral capsule 2 capsule = 100 mg, By Mouth, 3 times a day, # 30 capsule, 0 Refills, Maintenance, 04/09/20 12:03:00EST, Capsule, [facility][id number], Partial fill upon patient request, 175, cm, 04/09/20 0:09:00 EST, Height, 79.5, kg, 04/06/20 14:00:00 EST,... Start Date: 04/09/20 Status: OrderedSEROquel 25 mg oral tablet 50 mg, 2, tablet, By Mouth, 3 times a day, PRN, # 21 tablet, Refills 0, Tot. Refills 0, Maintenance,Anxiety, 03/22/20 12:37:00 EST, Route to Pharmacy Electronically, [facility], Partial fill upon patient request, 175, cm, 03/21/20 19:40... Start Date: 03/22/20 Stop Date: 03/29/20 Status: OrderedtraZODone 50 mg oral tablet 100 mg, 2, tablet, By Mouth, Daily at bedtime, PRN, # 14 tablet, Refills 0, Tot. Refills 0, Maintenance, Sleep, 04/09/20 12:03:00 EST, Route to Pharmacy Electronically, [facility][id number], Partial fill upon patient request, 175, cm, 04/09/20... Start Date: 04/09/20 Stop Date: 04/16/20 Status: Orderedvenlafaxine 150 mg oral capsule, extended release 150 mg, 1, capsule, By Mouth, Daily, # 30 capsule, Refills 0, Tot. Refills 0, Maintenance, 04/09/20 12:03:00 EST, Route to Pharmacy Electronically, [facility] #[id number], Partial fill upon patient request, 175, cm, [...]
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
--- OUTSIDE RECORDS SUMMARY | 2022-04-16 18:30 | XMS_ITS | Continuity of Care Document ---
:1970 Author Organization [facility] Address [address] [place] [address] Drive [address] [place] [address]- Care Team Providers Name Role Phone Jonathan OLIVARES, Amalia Primary Care Physician Encounter [facility] [place] Date(s): 05/16/20 - 05/23/20 [facility] [address] [place] [address] Drive [address] [place], [place] [address] Attending Physician: Samson IRVIN MD, [...] 0 Refills, Maintenance, 04/09/20 12:02:00 EST, Tablet, [id number], 175, cm, 04/09/20 0:09:00 EST, Height, 79.5, kg, 04/06/20 14:00:00 EST, Dry Weight Start Date: 04/09/20 Status: OrderedbuPROPion 150 mg/24 hours (XL) oral tablet, extended release 3 tablet = 450 mg, By Mouth, Every 24 hours, # 90 tablet, 0 Refills, Maintenance, 04/09/20 12:02:00 EST, XL Tablet, [id number], Partial fill upon patient request if the prescription isfor a schedule II opioid drug., 3 tablet By Mouth... Start Date: 04/09/20 Status: OrderedcloNIDine 0.1 mg oral tablet 0.2 mg, 2, tablet, By Mouth, Daily at bedtime, # 60 tablet, Refills 0, Tot. Refills 0, Maintenance, 04/09/20 12:02:00 EST, Route to Pharmacy Electronically, [id number], Partial fill upon patient request, 175, cm, 04/09/20 0:09:00 EST,... Start Date: 04/09/20 Status: OrderedhydrOXYzine pamoate 50 mg oral capsule = 50 mg, By Mouth, Every 6 hours, PRN Anxiety, # 28 tablet, 3 Refills, Maintenance, 04/09/20 12:03:00 EST, Capsule, [id number], 175, cm, 04/09/20 0:09:00 EST, Height, 79.5, kg, 04/06/20 14:00:00 EST, Dry Weight Start Date: 04/09/20 Status: OrderedmetFORMIN 500 mg oral tablet 1 each = 500 mg, By Mouth, 2 times a day, # 60 tablet, 0 Refills, Maintenance, 04/09/20 12:02:00 EST, Tablet, [id number], 175, cm, 04/09/20 0:09:00 EST, Height, 79.5, kg, 04/06/20 14:00:00 EST, Dry Weight Start Date: 04/09/20 Status: Orderedmultivitamin Multiple Vitamins oral tablet 1 tablet, By Mouth, Daily, # 30 tablet, 0 Refills, Maintenance, 04/09/20 12:03:00 EST, Tablet, [facility][id number], 1 tablet By Mouth Daily, 175, cm, 04/09/20 0:09:00 EST, Height, 79.5, kg, 04/06/20 14:00:00 EST, Dry Weight Start Date: 04/09/20 Status: Orderedpregabalin 50 mg oral capsule 2 capsule = 100 mg, By Mouth, 3 times a day, # 30 capsule, 0 Refills, Maintenance, 04/09/20 12:03:00EST, Capsule, [id number], Partial fill upon patient request, 175, cm, [...] oldest [Reference Range]: 1 Height 175 cm (05/16/20 10:52 AM) Weight 81.81 kg (05/16/20 10:52 AM) Body Mass Index [18.5-24.99] 26.71 *H* (05/16/20 10:52 AM) Temperature [96.8-100.4 DegF] 97.7 DegF (05/16/20 10:52 AM) Social History Social History Type Response Smoking Status Current every day smoker entered on: 09/30/14 Sex
--- OUTSIDE RECORDS SUMMARY | 2022-04-16 18:30 | XMS_ITS | Continuity of Care Document ---
:1970 Author Organization [facility] Address [address] [place] [phone]- Care Team Providers Name Role Phone Jonathan OLIVARES, Amalia Primary Care Physician Encounter [facility] [place] Date(s): 12/19/20 - 12/21/[address] [address] Encounter Diagnosis Alcohol withdrawal (Final) - 12/19/20 Discharge Disposition: A-D/C AMA Attending Physician: Fidelia HUNT, Clifford Admitting Physician: Damaso Carcamo MD Referring Physician: Not on Staff, Referring [...] 0 Refills, Maintenance, 04/09/20 12:02:00 EST, Tablet, [facility] #[id number], 175, cm, 04/09/20 0:09:00 EST, Height, 79.5, [...] Refills, Maintenance, 04/09/20 12:02:00 EST, XL Tablet, [facility] #[id number], Partial fill upon patient request if the prescription isfor a schedule II opioid drug., 3 tablet By Mouth... Start Date: 04/09/20 Status: OrderedbuPROPion 300 mg/24 hours (XL) oral tablet, extended release 1 tablet = 300 mg, By Mouth, Daily, # 30 tablet, 0 Refills, Maintenance, 12/21/20 8:55:00 EDT, ER Tablet, Partial fill upon patient request if the prescription is for a schedule II opioid drug. Start Date: 12/21/20 Status: Orderedchlorhexidine topical 0.12% liquid 15 mL = 0.018 Gm, Swish and Spit, 2 times a day, # 473 mL, 1 Refills, Maintenance, 05/25/20 13:50:00EST, Oral Rinse, [facility] #[id number], Partial fill upon patient request if the prescription is for a schedule II opioid drug., 15 mL Swish and... Start Date: 05/25/20 Status: OrderedcloNIDine 0.1 mg oral tablet 0.2 mg, 2, tablet, By Mouth, Daily at bedtime, # 60 tablet, Refills 0, Tot. Refills 0, Maintenance, 04/09/20 12:02:00 EST, Route to Pharmacy Electronically, [facility] #[id number], Partial fill upon patient request, 175, cm, 04/09/20 0:09:00 EST,... Start Date: 04/09/20 Status: OrderedhydrOXYzine pamoate 50 mg oral capsule = 50 mg, By Mouth, Every 6 hours, PRN Anxiety, # 28 tablet, 3 Refills, Maintenance, 04/09/20 12:03:00 EST, Capsule, [facility] #[id number], 175, cm, 04/09/20 0:09:00 EST, Height, 79.5, kg, 04/06/20 14:00:00 EST, Dry Weight Start Date: 04/09/20 Status: OrderedmetFORMIN 500 mg oral tablet 1 each = 500 mg, By Mouth, 2 times a day, # 60 tablet, 0 Refills, Maintenance, 04/09/20 12:02:00 EST, Tablet, [facility] #[id number], 175, cm, 04/09/20 0:09:00 EST, Height, 79.5, kg, 04/06/20 14:00:00 EST, Dry Weight Start Date: 04/09/20 Status: Orderedmultivitamin Multiple Vitamins oral tablet 1 tablet, By Mouth, Daily, # 30 tablet, 0 Refills, Maintenance, 04/09/20 12:03:00 EST, Tablet, [facility] #[id number], 1 tablet By Mouth Daily, 175, cm, 04/09/20 0:09:00 EST, Height, 79.5, kg, 04/06/20 14:00:00 EST, Dry Weight Start Date: 04/09/20 Status: Orderedpregabalin 50 mg oral capsule 2 capsule = 100 mg, By Mouth, 3 times a day, # 30 capsule, 0 Refills, Maintenance, 04/09/20 12:03:00EST, Capsule, [facility] #[id number], Partial fill upon patient request, 175, cm, [...] Exam Date Time Procedure Performing Provider Status 12/21/20 2:15 PM Shoulder Min 2 Views Left Rachel Martel; Aut h (Verified) Notes:(Shoulder Min 2 Views Left) Reason For Exam: Patient had a fall few days ago;PainRESULT: Shoulder Min 2 Views Left Shoulder Min 2 Views Left, 4 views Reason: Pain; Patient had a fall few days ago; Clinical Question(s): Fracture COMPARISON: None. FINDINGS: No fracture or dislocation. No arthritic change of the glenohumeral joint. There are hypertrophic degenerative changes at the AC joint. No calcification of the rotator cuff. IMPRESSION: 1. There is no evidence of acute fracture or dislocation. 2. Hypertrophic degenerative changes at the AC joint. WSN: [id number] Ordering Physician: Clifford Mistry Dictated By: Simona Alarcon MD Dictated Date/Time: 12/21/20 3:48 pm Reviewed By: Simona Alarcon MD Signed By: Simona Alarcon MD Signed Date/Time: 12/21/20 3:48 pm Transcribed By: VANDANA Transcribed Date/Time: 12/21/20 3:46 pm Vital Signs Most recent to oldest 1 2 3 [Reference Range]: Height 175 cm 175 cm 175 cm (12/20/20 3:44 AM) (12/20/20 3:10 AM) (12/19/20 9:2 8 PM) Weight 91.3 kg 79.6 kg 79.6 kg (12/20/20 3:44 AM) (12/19/20 9:28 PM) (12/19/20 7:5 6 PM) Oxygen Saturation [94-100 %] 98 % 100 % 96 % (12/21/20 12:00 PM) (12/21/20 10:00 AM) (12/21/20 8 :00 AM) Pulse Rate [55-90 bpm] 100 bpm 100 bpm 102 bpm *H* *H* *H* (12/20/20 3:44 AM) (12/20/20 3:00 AM) (12/20/20 1:0 9 AM) Body Mass Index [18.5-24.99] 29.81 25.99 *H* *H* (12/20/20 3:44 AM) (12/19/20 9:28 PM) Blood Pressure [90-138/55-84 131/85 mm Hg 131/81 mm Hg 117 /77 mm Hg mm Hg] (12/21/20 12:00 PM) (12/21/20 10:00 AM) (12/21/20 8 :00 AM) Respiratory Rate [16-30 17 br/min 12 br/min 15 br/mi n br/min] (12/21/20 12:00 PM) *L* *L* (12/21/20 10:00 AM) (12/21/20 12:0 0 AM) Temperature [96.8-100.4 97.9 DegF 97.5 DegF 97.1 Deg F DegF] (12/21/20 12:00 PM) (12/21/20 8:00 AM) (12/21/20 4: 00 AM) Mode of Delivery (Oxygen) Room air Room air Room a ir (12/20/20 6:00 AM) (12/20/20 4:00 AM) (12/20/20 3:0 0 AM) Blood pressure sites Arm, right Arm, right Arm, right (12/20/20 6:00 AM) (12/20/20 4:00 AM) (12/20/20 3:4 4 AM) Temperature Route Temporal Temporal Temporal (12/21/20 12:00 PM) (12/21/20 8:00 AM) (12/21/20 4: 00 AM) Dry Weight 91.3 kg 79.6 kg 79.6 kg (12/20/20 3:44 AM) (12/19/20 9:28 PM) (12/19/20 7:5 6 PM) Social History Social History Type Response Smoking Status Current every day smoker entered on: 09/30/14 Sex
--- OUTSIDE RECORDS SUMMARY | 2022-04-16 18:30 | XMS_ITS | Continuity of Care Document ---
:1970 Author Organization [facility] Address [address] [place] [id number]- Care Team Providers Name Role Phone Jonathan OLIVARES, Amalia Primary Care Physician Encounter [facility] [place] Date(s): 02/16/22 - 02/16/[address] [address]- Encounter Diagnosis Alcohol intoxication (Final) - 02/16/22 Discharge Disposition: A-D/C Home Attending Physician: Levon Cooley MD Admitting Physician: Levon Cooley MD Referring Physician: Not on Staff, Referring MD Allergies, Adverse Reactions, Alerts Substance Reaction Severity Status lisinopril1 intestent twisting Active Zoloft Active Red Dye Persistent Severe Active Mushrooms Persistent Severe Active [place] Oil Active 1Makes his legs hurt Immunizations Given and Recorded Vaccine Date Status Refusal Reason [id number] 12y+ bivalent booster vax 02/07/22 Given hepatitis [...] Refuses 1Result Comment: Not given on that [id number] Note: pt refused vaccine at this time Medications Ativan 1 mg oral tablet See Instructions, 1 tablet By Mouth Every 8 hours for 3 days then 2 time per day for 3 days then daily for 3 days., # 18 tablet, 0 Refills, Acute 02/22/22 9:34:00 EDT, 02/10/22 9:33:00 EDT, Tablet, [facility], Partial fill upon patient [...] 0 Refills, Maintenance, 02/10/22 10:29:00 EDT, Tablet, [facility], Partial fill upon patient request if [...] Refills, Maintenance, 02/10/22 10:29:00 EDT, XL Tablet, [facility], Partial fill upon patient [...] 02/10/22 10:30:00 EDT, Route to Pharmacy Electronically, [facility], Partial fill upon patient [...] 02/10/22 10:30:00 EDT, Route to Pharmacy Electronically, [facility], Partial fill upon patient request if the prescription is for a sched... Start Date: 02/10/22 Stop Date: 03/12/22 Status: Orderedfolic acid 1 mg oral tablet 1 mg, 1, tablet, By Mouth, Daily, # 30 tablet, Refills 0, Tot. Refills 0, Maintenance, 02/10/22 10:30:00 EDT, Route to Pharmacy Electronically, [facility], Partial fill upon patient request if the prescription is for a schedule II opioid... Start Date: 02/10/22 Stop Date: 03/12/22 Status: OrderedhydrOXYzine pamoate 50 mg oral capsule 1 capsule = 50 mg, By Mouth, Every 6 hours, PRN Anxiety, # 28 capsule, 3 Refills, Maintenance, 02/10/22 10:31:00 EDT, Capsule, [facility], 175, cm, 02/01/22 10:53:00 EDT, Height, 84, kg, 01/28/22 14:32:00 EDT, Dry Weight Start Date: 02/10/22 Stop Date: 03/10/22 Status: Orderedlamotrigine 25 mg oral tablet 25 mg, 1, tablet, By Mouth, Daily, # 30 tablet, Refills 0, Tot. Refills 0, Maintenance, 02/10/22 10:31:00 EDT, Route to Pharmacy Electronically, [facility], Partial fill upon patient request if the prescription is for a schedule II opioi... Start Date: 02/10/22 Stop Date: 03/12/22 Status: OrderedmetFORMIN 500 mg oral tablet 1 tablet = 500 mg, By Mouth, 2 times a day, # 60 tablet, 0 Refills, Maintenance, 02/10/22 10:29:00 EDT, Tablet, [facility], 175, cm, 02/01/22 10:53:00 EDT, Height, 84, kg, 01/28/22 14:32:00 EDT, Dry Weight Start Date: 02/10/22 Stop Date: 03/12/22 Status: Orderedmultivitamin Multiple Vitamins oral tablet 1 tablet, By Mouth, Daily, # 30 tablet, 0 Refills, Maintenance, 02/10/22 10:31:00 EDT, Tablet, [facility], 1 tablet By Mouth Daily,x30 days, 175, cm, 02/01/22 10:53:00 EDT, Height, 84, kg, 01/28/22 14:32:00 EDT, Dry Weight Start Date: 02/10/22 Stop Date: 03/12/22 Status: Orderednaltrexone 50 mg oral tablet 1 tablet = 50 mg, By Mouth, Daily, for 12 week(s), # 84 tablet, 0 Refills, Acute 05/05/22 9:37:00 EST, 02/10/22 9:37:00 EDT, Tablet, [facility], Partial fill upon patient request if the prescription is for a schedule II opioid drug., 175... Start Date: 02/10/22 Stop Date: 05/05/22 Status: OrderedPHENobarbital 30 mg oral tablet See Instructions, 30 mg By Mouth 2 times a day for 2 days then once daily for 2 days and stop, # 6 tablet, 0 Refills, Maintenance, 02/10/22 9:34:00 EDT, Tablet, [facility], Partial fill upon patient [...] 02/10/22 10:31:00 EDT, Route to Pharmacy Electronically, [facility], Partial fill upon patient request if [...] diet-controlled Vital Signs Most recent to oldest [Reference Range]: 1 2 Oxygen Saturation [94-100 %] 97 % 97 % (02/16/22 5:15 PM) (02/16/22 3:12 PM) Pulse Rate [55-90 bpm] 80 bpm 64 bpm (02/16/22 5:15 PM) (02/16/22 3:12 PM) Blood Pressure [90-138/55-84 mm Hg] 102/55 mm Hg 104/ 56 mm Hg (02/16/22 5:15 PM) (02/16/22 3:12 PM) Respiratory Rate [16-30 br/min] 20 br/min 20 br/mi n (02/16/22 5:15 PM) (02/16/22 3:12 PM) Mode of Delivery (Oxygen) Room air Room air (02/16/22 5:15 PM) (02/16/22 3:12 PM) Blood pressure sites Arm, left (02/16/22 3:12 PM) Social History Social History Type Response Smoking Status Current every day smoker entered on: 09/30/14 Sex Patient Care team information PersonnelName: Amalia Castillo NP Address: Address: [address] [place] [id number]
--- OUTSIDE RECORDS SUMMARY | 2022-04-16 18:30 | XMS_ITS | Continuity of Care Document ---
:1970 Author Organization [facility] Address [address] [place] [address]- Care Team Providers Name Role Phone Jonathan OLIVARES, Amalia Primary Care Physician Encounter [facility] [place] [facility] [place] Date(s): 10/01/21 - 10/04/21 [facility] [address] [place] [address]- Encounter Diagnosis Depression (Final) - 09/30/21 Discharge Disposition: A-D/C Home Attending Physician: Fredi Johnston DO Admitting Physician: Jason Samuel MD Referring Physician: Not on Staff, Referring MD Allergies, Adverse Reactions, Alerts Substance Reaction Severity Status lisinopril1 intestent twisting Active Zoloft Active Red Dye Persistent Severe Active Mushrooms Persistent Severe Active [place] Oil Active 1Makes his legs hurt Immunizations [...] 09/27/21 12:12:00 EDT, Tablet, [facility], 175, cm, 09/16/21 5:49:00 EDT, Height, 93.8, kg, 09/16/21 5:49:00 EDT, Dry Weight Start Date: 09/27/21 Stop Date: 10/27/21 Status: OrderedbuPROPion 300 mg/24 hours (XL) oral tablet, extended release 1 tablet = 300 mg, By Mouth, Daily, # 30 tablet, 0 Refills, Maintenance, 10/04/21 14:27:00 EDT, XL Tablet, [facility], Partial fill upon patient request if the prescription is for a schedule II opioid drug., 175, cm, 09/16/21 5:49:00 EDT... Start Date: 10/04/21 Status: OrderedcloNIDine 0.1 mg oral tablet 0.2 mg, 2, tablet, By Mouth, Daily at bedtime, # 60 tablet, Refills 0, Tot. Refills 0, Maintenance, 09/27/21 12:13:00 EDT, Route to Pharmacy Electronically, [facility], Partial fill upon patient request, 175, cm, 09/16/21 5:49:00 EDT, He... Start Date: 09/27/21 Stop Date: 10/27/21 Status: Ordereddivalproex sodium 250 mg oral enteric coated tablet = 750 mg, By Mouth, 2 times a day, # 56 tablet, 0 Refills, Maintenance, 10/04/21 14:33:00 EDT, Tablet, [facility], Partial fill upon patient request if the prescription is for a schedule II opioid drug., 175, cm, 09/16/21 5:49:00 EDT, He... Start Date: 10/04/21 Stop Date: 10/18/21 Status: Orderedfolic acid 1 mg oral tablet 1 mg, 1, tablet, By Mouth, Daily, # 30 tablet, Refills 0, Tot. Refills 0, Maintenance, 09/27/21 12:37:00 EDT, Route to Pharmacy Electronically, [facility], Partial fill upon patient request if the prescription is for a schedule II opioid... Start Date: 09/27/21 Stop Date: 10/27/21 Status: OrderedhydrOXYzine pamoate 50 mg oral capsule 1 capsule = 50 mg, By Mouth, Every 6 hours, PRN Anxiety, # 28 capsule, 3 Refills, Maintenance, 09/27/21 12:13:00 EDT, Capsule, [facility], 175, cm, 09/16/21 5:49:00 EDT, Height, 93.8, kg,09/16/21 5:49:00 EDT, Dry Weight Start Date: 09/27/21 Stop Date: 10/25/21 Status: Orderedlamotrigine 25 mg oral tablet 25 mg, 1, tablet, By Mouth, Daily, # 30 tablet, Refills 0, Tot. Refills 0, Maintenance, 09/27/21 12:14:00 EDT, Route to Pharmacy Electronically, [facility], Partial fill upon patient request if the prescription is for a schedule II opioi... Start Date: 09/27/21 Stop Date: 10/27/21 Status: OrderedmetFORMIN 500 mg oral tablet 1 tablet = 500 mg, By Mouth, 2 times a day, # 60 tablet, 0 Refills, Maintenance, 09/27/21 12:12:00 EDT, Tablet, [facility], 175, cm, 09/16/21 5:49:00 EDT, Height, 93.8, kg, 09/16/21 5:49:00 EDT, Dry Weight Start Date: 09/27/21 Stop Date: 10/27/21 Status: Orderedmultivitamin Multiple Vitamins oral tablet 1 tablet, By Mouth, Daily, # 30 tablet, 0 Refills, Maintenance, 09/27/21 12:12:00 EDT, Tablet, [facility], 1 tablet By Mouth Daily,x30 days, 175, cm, 09/16/21 5:49:00 EDT, Height, 93.8, kg, 09/16/21 5:49:00 EDT, Dry Weight Start Date: 09/27/21 Stop Date: 10/27/21 Status: Orderednicotine 21 mg/24 hr transdermal film, extended release 1 patch, Topically, Daily, for 30 days, # 30 patch, 0 Refills, Acute 10/27/21 12:36:00 EDT, 09/28/2211:36:00 EDT, Patch, [facility], Partial fill upon patient request if the prescriptionis for a schedule II opioid drug., 1 patch Topica... Start Date: 09/27/21 Stop Date: 10/27/21 Status: OrderedoxyCODONE 5 mg oral tablet 5 mg, Tablet, By Mouth, Every 6 hours, PRN for Pain , Moderate, Routine, 10/04/21 8:43:00 EDT Start Date: 10/04/21 Stop Date: 10/05/21 Status: DiscontinuedoxyCODONE 5 mg oral tablet 5 mg, 1, tablet, By Mouth, Every 6 hours, PRN, for 3 days, # 12 tablet, Refills 0, Tot. Refills 0, Acute 10/07/21 14:28:00 EDT, Pain , Moderate, 10/04/21 14:28:00 EDT, Route to Pharmacy Electronically,[facility], Partial fill upon patie... Start Date: 10/04/21 Stop Date: 10/07/21 Status: Orderedpregabalin 200 mg oral capsule 1 capsule = 200 mg, By Mouth, 3 times a day, To replace prior prescription for 50mg capsules, # 90 capsule, 0 Refills, Maintenance, 09/27/21 12:14:00 EDT, Capsule, [facility], Partial fill upon [...] Route to Pharmacy Electronically, [facility], Partial fill upon patient request if [...] to oldest 1 2 3 [Reference Range]: Weight 93.8 kg 93.8 kg 93.8 kg (10/01/21 2:11 PM) (09/30/21 6:19 PM) (09/30/21 8:0 5 AM) Oxygen Saturation [94-100 %] 97 % 95 % 96 % (10/04/21 2:04 PM) (10/03/21 2:00 PM) (10/02/21 8:21 P M) Pulse Rate [55-90 bpm] 90 bpm 75 bpm 79 bpm (10/04/21 2:04 PM) (10/04/21 5:56 AM) (10/04/21 4:31 A M) Blood Pressure [90-138/55-84 mm 136/78 mm Hg 113/74 mm Hg 107/69 mm Hg Hg] (10/04/21 2:04 PM) (10/04/21 5:56 AM) (10/04/21 4:31 A M) Respiratory Rate [16-30 br/min] 16 br/min 18 br/min 16 br/min (10/04/21 3:18 PM) (10/04/21 2:04 PM) (10/04/21 9:57 A M) Temperature [96.8-100.4 DegF] 97.4 DegF 97.9 DegF 98 .4 DegF (10/04/21 2:04 PM) (10/04/21 5:56 AM) (10/04/21 4:31 A M) Mode of Delivery (Oxygen) Room air Room air Room a ir (10/04/21 2:04 PM) (10/03/21 2:00 PM) (10/02/21 8:21 P M) Blood pressure sites Arm, left Arm, right Arm, left (10/04/21 2:04 PM) (10/03/21 2:00 PM) (10/02/21 8:21 P M) Temperature Route Oral Oral Oral (10/04/21 2:04 PM) (10/04/21 5:56 AM) (10/04/21 4:31 A M) Social History Social History Type Response Smoking Status Current every day smoker entered on: 09/30/14 Sex
--- OUTSIDE RECORDS SUMMARY | 2022-04-16 18:30 | XMS_ITS | Continuity of Care Document ---
:1970 Author Organization [facility] Address [address] [place] [address]- Care Team Providers Name Role Phone Jonathan OLIVARES, Amalia Primary Care Physician Encounter [facility] [place] Date(s): 10/07/20 - 10/08/[address] [address]- Encounter Diagnosis Abscess (Final) - 10/08/20 Discharge Disposition: A-D/C [facility], [facility], or [facility] Attending Physician: Margarito Thibodeaux MD Admitting Physician: Margarito Thibodeaux MD Referring Physician: Not on Staff, Referring [...] 0 Refills, Maintenance, 04/09/20 12:02:00 EST, Tablet, [facility] #[id number], 175, cm, 04/09/20 0:09:00 EST, Height, 79.5, [...] Refills, Maintenance, 04/09/20 12:02:00 EST, XL Tablet, [facility] #[id number], Partial fill upon patient request if the prescription isfor a schedule II opioid drug., 3 tablet By Mouth... Start Date: 04/09/20 Status: Orderedchlorhexidine topical 0.12% liquid 15 mL = 0.018 Gm, Swish and Spit, 2 times a day, # 473 mL, 1 Refills, Maintenance, 05/25/20 13:50:00EST, Oral Rinse, [facility][id number], Partial fill upon patient request if the prescription is for a schedule II opioid drug., 15 mL Swish and... Start Date: 05/25/20 Status: Orderedclindamycin 300 mg oral capsule 1 capsule = 300 mg, By Mouth, Every 6 hours, for 5 days, # 20 capsule, 0 Refills, Acute 10/13/20 14:13:00 EDT, 10/08/20 14:13:00 EDT, Capsule, Partial fill upon patient request if the prescription is for a schedule II opioid drug. Start Date: 10/08/20 Stop Date: 10/13/20 Status: OrderedcloNIDine 0.1 mg oral tablet 0.2 mg, 2, tablet, By Mouth, Daily at bedtime, # 60 tablet, Refills 0, Tot. Refills 0, Maintenance, 04/09/20 12:02:00 EST, Route to Pharmacy Electronically, [facility] #[id number], Partial fill upon patient request, 175, cm, 04/09/20 0:09:00 EST,... Start Date: 04/09/20 Status: OrderedhydrOXYzine pamoate 50 mg oral capsule = 50 mg, By Mouth, Every 6 hours, PRN Anxiety, # 28 tablet, 3 Refills, Maintenance, 04/09/20 12:03:00 EST, Capsule, [facility] #[id number], 175, cm, 04/09/20 0:09:00 EST, Height, 79.5, kg, 04/06/20 14:00:00 EST, Dry Weight Start Date: 04/09/20 Status: OrderedmetFORMIN 500 mg oral tablet 1 each = 500 mg, By Mouth, 2 times a day, # 60 tablet, 0 Refills, Maintenance, 04/09/20 12:02:00 EST, Tablet, [facility] #[id number], 175, cm, 04/09/20 0:09:00 EST, Height, 79.5, kg, 04/06/20 14:00:00 EST, Dry Weight Start Date: 04/09/20 Status: OrderedMorPHINE Inj 4 mg, Injection, IV Push Slowly, Every 5 minutes for 3 doses/times, PRN for Pain , Moderate, and SBPgreater than 100, Routine, 10/08/20 10:22:00 EDT, Stop date Limited # of times Start Date: 10/08/20 Status: Orderedmultivitamin Multiple Vitamins oral tablet 1 tablet, By Mouth, Daily, # 30 tablet, 0 Refills, Maintenance, 04/09/20 12:03:00 EST, Tablet, [facility] #[id number], 1 tablet By Mouth Daily, 175, cm, 04/09/20 0:09:00 EST, Height, 79.5, kg, 04/06/20 14:00:00 EST, Dry Weight Start Date: 04/09/20 Status: Orderedpregabalin 50 mg oral capsule 2 capsule = 100 mg, By Mouth, 3 times a day, # 30 capsule, 0 Refills, Maintenance, 04/09/20 12:03:00EST, Capsule, [facility][id number], Partial fill upon patient request, 175, cm, [...] 3 [Reference Range]: Oxygen Saturation [94-100 %] 100 % 98 % 98 % (10/08/20 3:13 PM) (10/08/20 3:13 AM) (10/08/20 12:06 AM) Pulse Rate [55-90 bpm] 100 bpm 100 bpm 74 bpm *H* *H* (10/08/20 3:13 AM) (10/08/20 3:13 PM) (10/08/20 11:36 AM) Blood Pressure [90-138/55-84 mm 137/70 mm Hg 130/89 mm Hg 132/73 mm Hg Hg] (10/08/20 3:13 PM) (10/08/20 11:36 AM) (10/08/20 3:13 AM) Respiratory Rate [16-30 br/min] 18 br/min 20 br/min 22 br/min (10/08/20 3:13 PM) (10/08/20 11:36 AM) (10/08/20 10:52 AM) Temperature [96.8-100.4 DegF] 97.7 DegF 97.8 DegF 98 .4 DegF (10/08/20 3:13 AM) (10/08/20 12:06 AM) (10/07/20 10:24 PM) Mode of Delivery (Oxygen) Room air Room air Room a ir (10/08/20 3:13 PM) (10/08/20 11:36 AM) (10/08/20 3:13 AM) Blood pressure sites Arm, left Arm, left Arm, right (10/08/20 3:13 PM) (10/08/20 11:36 AM) (10/08/20 3:13 AM) Temperature Route Oral Oral Oral (10/08/20 11:36 AM) (10/08/20 3:13 AM) (10/08/20 12:06 AM) Social History Social History Type Response Smoking Status Current every day smoker entered on: 09/30/14 Sex
--- OUTSIDE RECORDS SUMMARY | 2022-04-16 18:30 | XMS_ITS | Continuity of Care Document ---
:1970 Author Organization [facility] Address [address] [place] [address]- Care Team Providers Name Role Phone Jonathan EXECUTIVE ADVISOR, Amalia Primary Care Physician Encounter [facility] Date(s): 02/20/22 - 03/05/22 [facility] [address] [place] [id number] Encounter Diagnosis Tachycardia (Final) - 02/20/22 Lactic acidosis (Final) - 02/20/22 Alcohol use (Final) - 02/20/22 Discharge Disposition: A-D/C Snf, Chcf, or Intermediate Fac Attending Physician: Sindy Watts MD Admitting Physician: Elle Amezcua MD Referring Physician: Not on Staff, Referring MD Allergies, Adverse Reactions, Alerts Substance Reaction Severity Status lisinopril1 intestent twisting Active Zoloft Active Red Dye2 Persistent Severe Active Mushrooms Persistent Severe Active [place] Oil Active 1Makes his legs [id number] dye 40 Immunizations Given and Recorded Vaccine Date Status Refusal Reason influenza virus vaccine, inactivated 02/22/22 Given [id number] 12y+ bivalent booster vax 02/07/22 Given hepatitis [...] Refuses 1Result Comment: Not given on that [id number] Note: pt refused vaccine at this time Medications acetaminophen 325 mg oral tablet 975 mg, By Mouth, 3 times a day, Temperature Greater than 100.5, Refills 0, Maintenance, 03/05/22 14:36:00 EDT, Partial fill upon patient request if the prescription is for a schedule II opioid drug. Start Date: 03/05/22 Status: OrderedamLODIPine 5 mg oral tablet 5 mg, Tablet, By Mouth, 03/05/22 14:41:00 EDT Start Date: 03/05/22 Stop Date: 03/05/22 Status: Completedatorvastatin 40 mg oral tablet 1 tablet = 40 mg, By Mouth, Daily at bedtime, TAKE 1 TABLET BY MOUTH AT BEDTIME Start Date: 02/11/22 Status: OrderedbuPROPion 300 mg/24 hours (XL) oral tablet, extended release 1 tablet = 300 mg, By Mouth, Daily, # 30 tablet, 0 Refills, Maintenance, 02/10/22 10:29:00 EDT, XL Tablet, [facility], Partial fill upon patient request if the prescription is for a schedule II opioid drug., 175, cm, 02/01/22 10:53:00 ED... Start Date: 02/10/22 Stop Date: 03/12/22 Status: Orderedcitalopram 20 mg oral tablet 20 mg, 1, tablet, By Mouth, Daily, # 30 tablet, Refills 0, Tot. Refills 0, Maintenance, 02/10/22 10:30:00 EDT, Route to Pharmacy Electronically, [facility], Partial fill upon patient request if the prescription is for a schedule II opioi... Start Date: 02/10/22 Stop Date: 03/12/22 Status: OrderedcloNIDine 0.1 mg oral tablet 0.1 mg, 1, tablet, By Mouth, Daily at bedtime, # 30 tablet, Refills 0, Tot. Refills 0, Maintenance, 02/10/22 10:30:00 EDT, Route to Pharmacy Electronically, [facility], Partial fill upon patient request if the prescription is for a sched... Start Date: 02/10/22 Stop Date: 03/12/22 Status: Orderedfolic acid 1 mg oral tablet 1 mg, 1, tablet, By Mouth, Daily, # 30 tablet, Refills 0, Tot. Refills 0, Maintenance, 02/10/22 10:30:00 EDT, Route to Pharmacy Electronically, [facility], Partial fill upon patient request if the prescription is for a schedule II opioid... Start Date: 02/10/22 Stop Date: 03/12/22 Status: Orderedgabapentin 300 mg oral capsule 300 mg, Capsule, By Mouth, MOE, 03/05/22 11:09:00 EDT Start Date: 03/05/22 Stop Date: 03/05/22 Status: CompletedhydrOXYzine pamoate 50 mg oral capsule 1 capsule = 50 mg, By Mouth, Every 6 hours, PRN Anxiety, # 28 capsule, 3 Refills, Maintenance, 02/10/22 10:31:00 EDT, Capsule, [facility], 175, cm, 02/01/22 10:53:00 EDT, Height, 84, kg, 01/28/22 14:32:00 EDT, Dry Weight Start Date: 02/10/22 Stop Date: 03/10/22 Status: Orderedlamotrigine 25 mg oral tablet 25 mg, 1, tablet, By Mouth, Daily, # 30 tablet, Refills 0, Tot. Refills 0, Maintenance, 02/10/22 10:31:00 EDT, Route to Pharmacy Electronically, [facility], Partial fill upon [...] 0 Refills, Maintenance, 02/10/22 10:29:00 EDT, Tablet, [facility], 175, cm, 02/01/22 10:53:00 EDT, Height, 84, kg, 01/28/22 14:32:00 EDT, Dry Weight Start Date: 02/10/22 Stop Date: 03/12/22 Status: Orderedmultivitamin Multiple Vitamins oral tablet 1 tablet, By Mouth, Daily, # 30 tablet, 0 Refills, Maintenance, 02/10/22 10:31:00 EDT, Tablet, [facility], 1 tablet By Mouth Daily,x30 days, 175, cm, 02/01/22 10:53:00 EDT, Height, 84, kg, 01/28/22 14:32:00 EDT, Dry Weight Start Date: 02/10/22 Stop Date: 03/12/22 Status: Orderednaltrexone 50 mg oral tablet 1 tablet = 50 mg, By Mouth, Daily, for 12 week(s), # 84 tablet, 0 Refills, Acute 05/05/22 9:37:00 EST, 02/10/22 9:37:00 EDT, Tablet, [facility], Partial fill upon patient request if the prescription is for a schedule II opioid drug., 175... Start Date: 02/10/22 Stop Date: 05/05/22 Status: OrderedoxyCODONE 5 mg oral tablet 5 mg, Tablet, By Mouth, Every 6 hours, PRN for Pain , Moderate, Routine, 03/04/22 14:16:00 EDT Start Date: 03/04/22 Stop Date: 03/06/22 Status: DiscontinuedoxyCODONE 5 mg oral tablet 5 mg, 1, tablet, By Mouth, Every 6 hours, PRN, taper over 5 days per [facility] discretion, Refills0, Tot. Refills 0, Maintenance, Pain [...] oral tablet 20 mg, Tablet, By Mouth, 03/05/22 9:00:00 EDT Start Date: 03/05/22 Stop Date: 03/05/22 Status: Completedpropranolol 20 mg oral tablet 20 mg, 1, tablet, By Mouth, 2 times a day, # 60 tablet, Refills 0, Tot. Refills 0, Maintenance, 02/10/22 10:31:00 EDT, Route to Pharmacy Electronically, [facility], Partial fill upon patient request if [...] Exam Date Time Procedure Performing Provider Status 02/24/22 3:08 PM XR Hip w/Pelvis 2-3 View Left Fernanda Guajardo [facility] (Verified) Notes:(XR Hip w/Pelvis 2-3 View Left) Reason For Exam: PainRESULT: XR Hip w/Pelvis 2-3 View Left XR Hip w/Pelvis 2-3 View Left Reason: Pain; Clinical Question(s): Arthritis COMPARISON: 02/20/2022 FINDINGS: There is no fracture or dislocation. Normal hips and sacroiliac joints. Normal soft tissues. IMPRESSION: Normal. WSN: [id number] Ordering Physician: Abbie Rowan Dictated By: Margarito Dumont MD Dictated Date/Time: 02/24/22 3:20 pm Reviewed By: Margarito Dumont MD Signed By: Margarito Dumont MD Signed Date/Time: 02/24/22 3:20 pm Transcribed By: VANDANA Transcribed Date/Time: 02/24/22 3:19 pm Exam Date Time Procedure Performing Provider Status 02/20/22 12:57 PM Chest 2 Views Frontal and Lat Heber Nam; Auth (Verified) Notes:(Chest 2 Views Frontal and Lat) Reason For Exam: Shortness of Breath, Fever;Other:RESULT: Chest 2 Views Frontal and Lat Chest 2 Views Frontal and Lat Hx of Present Illness: fevers, chills, n v since this morning; Reason: Other:; Shortness of Breath, Fever; Clinical Question(s): Pneumonia COMPARISON: 02/03/2022, CT chest 02/14/2022. FINDINGS: LINES AND TUBES: External monitoring leads. LUNGS AND PLEURA: Low lung volumes. No focal pulmonary consolidation. No pleural effusion. No pneumothorax. HEART, MEDIASTINUM AND CHRISSY: Heart is normal in size. Normal mediastinal and hilar contour. BONES AND SOFT TISSUES: No acute abnormality. Mild arthritic changes of the acromioclavicular joints. IMPRESSION: No acute pulmonary process. WSN: [id number] Ordering Physician: Lalitha Johnson Dictated By: Aundrea Colmenares MD Dictated Date/Time: 02/20/22 1:32 pm Reviewed By: Aundrea Colmenares MD Signed By: Aundrea Colmenares MD Signed Date/Time: 02/20/22 1:32 pm Transcribed By: VANDANA Transcribed Date/Time: 02/20/22 1:30 pm Exam Date Time Procedure Performing Provider Status 02/20/22 12:57 PM XR Hip w/Pelvis 2-3 View Right Heber Nam ; Auth (Verified) Notes:(XR Hip w/Pelvis 2-3 View Right) Reason For Exam: PainRESULT: XR Hip w/Pelvis 2-3 View Right XR Hip w/Pelvis 2-3 View Right Hx of Present Illness: fevers, chills, n v since this morning; Reason: Pain; Clinical Question(s): Fracture COMPARISON: 02/02/2022. FINDINGS: There is no fracture or dislocation. Normal hips and sacroiliac joints. Symmetric sacroiliac joints. Normal soft tissues. IMPRESSION: No acute pelvic bone or RIGHT hip fracture. WSN: [id number] Ordering Physician: Lalitha Johnson Dictated By: Aundrea Colmenares MD Dictated Date/Time: 02/20/22 1:29 pm Reviewed By: Aundrea Colmenares MD Signed By: Aundrea Colmenares MD Signed Date/Time: 02/20/22 1:29 pm Transcribed By: VANDANA Transcribed Date/Time: 02/20/22 1:28 pm Vital Signs Most recent to oldest 1 2 3 4 [Reference Range]: Height 176 cm 176 cm 176 cm (03/05/22 2:08 PM) (03/05/22 1:22 PM) (03/05/22 3:50 AM) Weight 84 kg 86 kg 86 kg (02/21/22 12:23 PM) (02/21/22 6:41 AM) (02/21/22:23 AM) Oxygen Saturation 98 % 98 % 97 % [94-100 %] (03/05/22 1:22 PM) (03/05/22 3:50 AM) (03/04/22 7:45 PM) Pulse Rate [55-90 bpm] 82 bpm 80 bpm 68 bpm (03/05/22 2:08 PM) (03/05/22 1:22 PM) (03/05/22 8:01 AM) Body Mass Index 27.12 kg/m2 27.76 kg/m2 27.76 kg/m2 [18.5-24.99 kg/m2] *H* *H* *H* (02/21/22 12:23 PM) (02/21/22 6:41 AM) (02/21/22 2:23 AM) Blood Pressure 152/96 mm Hg 152/96 mm Hg 152/103 mm Hg [90-138/55-84 mm Hg] *H* *H* *H* (03/05/22 2:50 PM) (03/05/22 2:08 PM) (03/05/22 1: PM) Respiratory Rate 20 br/min 20 br/min 20 br/min 20 br/min [16-30 br/min] (03/05/22 2:05 PM) (03/05/22 1:22 PM) (03/05/22 12:41 P M) (03/05/22 12:41 PM) Temperature 97.8 DegF 98.0 DegF 98.0 DegF [96.8-100.4 DegF] (03/05/22 1:22 PM) (03/05/22 3:50 AM) (03/04/22 7:45 PM) Mode of Delivery Room air Room air Room air (Oxygen) (03/05/22 1:22 PM) (03/05/22 3:50 AM) (03/04/22 7:45 PM) Blood pressure sites Arm, right Arm, right Arm, right (03/05/22 2:08 PM) (03/05/22 1:22 PM) (03/05/22 3:50 AM) Temperature Route Oral Oral Oral (11/2/22 1:22 PM) (03/05/22 3:50 AM) (03/04/22 7:45 PM) Dry Weight 84 kg 86 kg 86 kg (02/21/22 12:23 PM) (02/21/22 6:41 AM) (02/21/22 2:23 AM) Weight Obtained Via Patient/family stated Patient/family stated (02/21/22 12:23 PM) (02/20/22 10:00 AM) Dry Weight Obtained Patient/family stated Patient/family stated Via (02/21/22 12:23 PM) (02/20/22 10:00 AM) Social History Social History Type Response Smoking Status 5-9 cigarettes (between 1/4 to 1/2 pack)/day in last 30 days; Use: 6 to 7 cigarettes for the past 20 years entered on: 02/15/22 Sex XR Pelvis and Hip - right Views [facility] , CIS S: TRANSCRIBE Aundrea Colmenares MD: VERIFY Event Display: Result: Authored Date: [id number] XR Hip w/Pelvis 2-3 View Right Hx of Present Illness: fevers, chills, n v since this morning; Reason: Pain; Clinical Question(s): Fracture COMPARISON: 02/02/2022. FINDINGS: There is no fracture or dislocation. Normal hips and sacroiliac joints. Symmetric sacroiliac joints. Normal soft tissues. IMPRESSION: No acute pelvic bone or RIGHT hip fracture. WSN: [id number] Ordering Physician: Lalitha Johnson Dictated By: Aundrea Colmenares MD Dictated Date/Time: 02/20/22 1:29 pm Reviewed By: Aundrea Colmenares MD Signed By: Aundrea Colmenares MD Signed Date/Time: 02/20/22 1:29 pm Transcribed By: VANDANA Transcribed Date/Time: 02/20/22 1:28 pm Note BHSPalejandro , CIS S: BLANCHERIAundrea Leyva MD: VERIFY Event Display: Result: Authored Date: [id number] Chest 2 Views Frontal and Lat Hx of Present Illness: fevers, chills, n v since this morning; Reason: Other:; Shortness of Breath, Fever; Clinical Question(s): Pneumonia COMPARISON: 02/03/2022, CT chest 02/14/2022. FINDINGS: LINES AND TUBES: External monitoring leads. LUNGS AND PLEURA: Low lung volumes. No focal pulmonary consolidation. No pleural effusion. No pneumothorax. HEART, MEDIASTINUM AND CHRISSY: Heart is normal in size. Normal mediastinal and hilar contour. BONES AND SOFT TISSUES: No acute abnormality. Mild arthritic changes of the acromioclavicular joints. IMPRESSION: No acute pulmonary process. WSN: [id number] Ordering Physician: Lalitha Johnson Dictated By: Aundrea Colmenares MD Dictated Date/Time: 02/20/22 1:32 pm Reviewed By: Aundrea Colmenares MD Signed By: Aundrea Colmenares MD Signed Date/Time: 02/20/22 1:32 pm Transcribed By: VANDANA Transcribed Date/Time: 02/20/22 1:30 pm XR Pelvis and Hip - left Views [facility] , CIS S: TRANSCRIBE Margarito Dumont MD: VERIFY Event Display: Result: Authored Date: [id number] XR Hip w/Pelvis 2-3 View Left Reason: Pain; Clinical Question(s): Arthritis COMPARISON: 02/20/2022 FINDINGS: There is no fracture or dislocation. Normal hips and sacroiliac joints. Normal soft tissues. IMPRESSION: Normal. WSN: [id number] Ordering Physician: Abbie Rowan Dictated By: Margarito Dumont MD Dictated Date/Time: 02/24/22 3:20 pm Reviewed By: Margarito Dumont MD Signed By: Margarito Dumont MD Signed Date/Time: 02/24/22 3:20 pm Transcribed By: VANDANA Transcribed Date/Time: 02/24/22 3:19 pm Patient Care team information PersonnelName: Amalia Castillo NP Address: Address: [address] [place] [id number]-
--- OUTSIDE RECORDS SUMMARY | 2022-04-16 18:30 | XMS_ITS | Continuity of Care Document ---
:1970 Author Organization [facility] Address [address] [place] [address]- Care Team Providers Name Role Phone Jonathan OLIVARES, Amalia Primary Care Physician Encounter [facility] Date(s): 03/04/20 - 03/04/[address] [address]- [facility] Discharge Disposition: A-D/C Walkout Attending Physician: Not [...] 0 Refills, Maintenance, 02/10/20 16:20:00 EDT, Tablet, [facility], 176, cm, 02/10/20 11:42:00 EDT, Height, 96.3, kg, 02/04/20 17:22:00 EDT,Dry Weight Start Date: 02/10/20 Status: OrderedbuPROPion 450 mg/24 hours (XL) oral tablet, extended release 1 tablet = 450 mg, By Mouth, Daily in AM, # 30 tablet, 0 Refills, Maintenance, 02/10/20 16:22:00 EDT, ER Tablet, [facility], 176, cm, 02/10/20 11:42:00 EDT, Height, 96.3, kg, 02/04/20 17:22:00 EDT, Dry Weight Start Date: 02/10/20 Status: OrderedcloNIDine 0.2 mg oral tablet 0.2 mg, 1, tablet, By Mouth, 2 times a day, # 60 tablet, Refills 0, Tot. Refills 0, Maintenance, 02/10/20 16:23:00 EDT, Route to Pharmacy Electronically, [facility], 176, cm, 02/10/20 11:42:00 EDT, Height, 96.3, kg, 02/04/20 17:22:00 EDT... Start Date: 02/10/20 Status: OrderedEffexor XR 75 mg oral capsule, extended release 75 mg, 1, capsule, By Mouth, Daily, # 30 capsule, Refills 0, Tot. Refills 0, Maintenance, 02/10/20 16:27:00 EDT, Route to Pharmacy Electronically, [facility], 176, cm, 02/10/20 11:42:00 EDT, Height, 96.3, kg, 02/04/20 17:22:00 EDT, Dry W... Start Date: 02/10/20 Status: Orderedgabapentin 600 mg oral tablet 1 tablet = 600 mg, By Mouth, 3 times a day, # 90 tablet, 0 Refills, Maintenance, 02/10/20 16:24:00 EDT, Tablet, [facility], 176, cm, 02/10/20 11:42:00 EDT, Height, 96.3, kg, 02/04/20 17:22:00 EDT, Dry Weight Start Date: 02/10/20 Status: OrderedhydrOXYzine pamoate 50 mg oral capsule = 50 mg, By Mouth, Every 6 hours, PRN Anxiety, # 28 tablet, 3 Refills, Maintenance, 02/10/20 16:25:00 EDT, Capsule, [facility], 176, cm, 02/10/20 11:42:00 EDT, Height, 96.3, kg, 02/04/20 17:22:00 EDT, Dry Weight Start Date: 02/10/20 Status: OrderedmetFORMIN 500 mg oral tablet 1 each = 500 mg, By Mouth, 2 times a day, # 60 tablet, 0 Refills, Maintenance, 02/10/20 16:19:00 EDT, Tablet, [facility], 176, cm, 02/10/20 11:42:00 EDT, Height, 96.3, kg, 02/04/20 17:22:00 EDT, Dry Weight Start Date: 02/10/20 Status: Orderedmultivitamin Multiple Vitamins oral tablet 1 tablet, By Mouth, Daily, # 30 tablet, 0 Refills, Maintenance, 02/10/20 16:26:00 EDT, Tablet, [facility], 1 tablet By Mouth Daily, [...] 02/10/20 16:27:00 EDT, Route to Pharmacy Electronically, [facility], 176,cm, 02/10/20 11:42:00 EDT, Height, [...] Range]: Oxygen Saturation [94-100 %] 99 % 100 % 100 % (03/04/20 8:41 PM) (03/04/20 5:53 PM) (03/04/20 3:2 1 PM) Pulse Rate [55-90 bpm] 104 bpm 106 bpm 122 bpm *H* *H* *H* (03/04/20 8:41 PM) (03/04/20 5:53 PM) (03/04/20 3:2 1 PM) Blood Pressure [90-138/55-84 mm 150/107 mm Hg 136/93 mm Hg 150/100 mm Hg Hg] *H* (03/04/20 5:53 PM) *H* (03/04/20 8:41 PM) (03/04/20 3:21 PM) Respiratory Rate [16-30 br/min] 16 br/min 16 br/min 18 br/min (03/04/20 8:41 PM) (03/04/20 5:53 PM) (03/04/20 3:2 1 PM) Temperature [96.8-100.4 DegF] 97.7 DegF 98.9 DegF (03/04/20 8:41 PM) (03/04/20 3:21 PM) Mode of Delivery (Oxygen) Room air Room air Room a ir (03/04/20 8:41 PM) (03/04/20 5:53 PM) (03/04/20 3:2 1 PM) Blood pressure sites Arm, right Arm, right Arm, right (03/04/20 8:41 PM) (03/04/20 5:53 PM) (03/04/20 3:2 1 PM) Temperature Route Oral Oral (03/04/20 8:41 PM) (03/04/20 3:21 PM) Social History Social History Type Response Smoking Status Current every day smoker entered on: 09/30/14 Sex
--- OUTSIDE RECORDS SUMMARY | 2022-04-16 18:30 | XMS_ITS | Continuity of Care Document ---
:1970 Author Organization [facility] Address [address] [place] [id number]- Care Team Providers Name Role Phone Jonathan OLIVARES, Amalia Primary Care Physician [facility] [facility] Date(s): 01/27/22 - 02/01/[address] [address]- Encounter Diagnosis Alcohol abuse (Final) - 01/26/22 Alcohol use with withdrawal (Final) - 01/27/22 Discharge Disposition: A-D/C AMA Attending Physician: George HUNT, Cheo Angelo Admitting Physician: Chauncey Johnson MD Referring Physician: Not on Staff, Referring MD Allergies, Adverse Reactions, Alerts Substance Reaction Severity Status lisinopril1 intestent twisting Active Zoloft Active Red Dye Persistent Severe Active Mushrooms Persistent Severe Active G[place] Oil Active 1Makes his legs hurt Immunizations [...] 0 Refills, Maintenance, 09/27/21 12:12:00 EDT, Tablet, [facility], 175, cm, 09/16/21 5:49:00 EDT, Height, 93.8, kg, 09/16/21 5:49:00 EDT, Dry Weight Start Date: 09/27/21 Stop Date: 10/27/21 Status: OrderedbuPROPion 300 mg/24 hours (XL) oral tablet, extended release 1 tablet = 300 mg, By Mouth, Daily, # 30 tablet, 0 Refills, Maintenance, 10/04/21 14:27:00 EDT, XL Tablet, [facility], Partial fill upon patient request if the prescription is for a schedule II opioid drug., 175, cm, 09/16/21 5:49:00 EDT... Start Date: 10/04/21 Status: OrderedcloNIDine 0.1 mg oral tablet 0.2 mg, 2, tablet, By Mouth, Daily at bedtime, # 60 tablet, Refills 0, Tot. Refills 0, Maintenance, 09/27/21 12:13:00 EDT, Route to Pharmacy Electronically, [facility], Partial fill upon patient request, 175, cm, 09/16/21 5:49:00 EDT, He... Start Date: 09/27/21 Stop Date: 10/27/21 Status: Ordereddivalproex sodium 250 mg oral enteric coated tablet = 750 mg, By Mouth, 2 times a day, # 56 tablet, 0 Refills, Maintenance, 10/04/21 14:33:00 EDT, Tablet, [facility] 3, Partial fill upon patient request if the prescription is for a schedule II opioid drug., 175, cm, 09/16/21 5:49:00 EDT, He... Start Date: 10/04/21 Stop Date: 10/18/21 Status: Orderedfolic acid 1 mg oral tablet 1 mg, 1, tablet, By Mouth, Daily, # 30 tablet, Refills 0, Tot. Refills 0, Maintenance, 09/27/21 12:37:00 EDT, Route to Pharmacy Electronically, [facility], Partial fill upon patient request if the prescription is for a schedule II opioid... Start Date: 09/27/21 Stop Date: 10/27/21 Status: OrderedhydrOXYzine pamoate 50 mg oral capsule 1 capsule = 50 mg, By Mouth, Every 6 hours, PRN Anxiety, # 28 capsule, 3 Refills, Maintenance, 09/27/21 12:13:00 EDT, Capsule, [facility], 175, cm, 09/16/21 5:49:00 EDT, Height, 93.8, kg,09/16/21 5:49:00 EDT, Dry Weight Start Date: 09/27/21 Stop Date: 10/25/21 Status: Orderedlamotrigine 25 mg oral tablet 25 mg, 1, tablet, By Mouth, Daily, # 30 tablet, Refills 0, Tot. Refills 0, Maintenance, 09/27/21 12:14:00 EDT, Route to Pharmacy Electronically, [facility], Partial fill upon patient request if the prescription is for a schedule II opioi... Start Date: 09/27/21 Stop Date: 10/27/21 Status: OrderedmetFORMIN 500 mg oral tablet 1 tablet = 500 mg, By Mouth, 2 times a day, # 60 tablet, 0 Refills, Maintenance, 09/27/21 12:12:00 EDT, Tablet, [facility], 175, cm, 09/16/21 5:49:00 EDT, Height, 93.8, kg, 09/16/21 5:49:00 EDT, Dry Weight Start Date: 09/27/21 Stop Date: 10/27/21 Status: OrderedMorPHINE Inj 2 mg, Injection, IV Push Slowly, Once, PRN for Pain , Severe, STAT, 01/31/22 22:28:00 EDT Start Date: 01/31/22 Stop Date: 01/31/22 Status: Completedmultivitamin Multiple Vitamins oral tablet 1 tablet, By Mouth, Daily, # 30 tablet, 0 Refills, Maintenance, 09/27/21 12:12:00 EDT, Tablet, [facility], 1 tablet By Mouth Daily,x30 days, 175, cm, 09/16/21 5:49:00 EDT, Height, 93.8, kg, 09/16/21 5:49:00 EDT, Dry Weight Start Date: 09/27/21 Stop Date: 10/27/21 Status: OrderedoxyCODONE 5 mg oral tablet 5 mg, Tablet, By Mouth, Every 6 hours, PRN for Pain , Severe, Routine, 01/29/22 11:22:00 EDT Start Date: 01/29/22 Stop Date: 02/01/22 Status: Discontinuedpregabalin 200 mg oral capsule 1 capsule = 200 mg, By Mouth, 3 times a day, To replace prior prescription for 50mg capsules, # 90 capsule, 0 Refills, Maintenance, 09/27/21 12:14:00 EDT, Capsule, [facility], Partial fill upon patient request [...] Exam Date Time Procedure Performing Provider Status 01/26/22 11:06 PM XR Femur 2 Views Left Kit Clarkian; Auth (Ve rified) Notes:(XR Femur 2 Views Left) Reason For Exam: with Pain;TraumaRESULT: Femur 2 Views Left Pelvis 1 or 2 Views, Femur 2 Views Left INDICATION: Alcohol. Trauma; With Pain; Clinical Question(s): Fracture COMPARISON: CT abdomen and pelvis 03/03/2020. FINDINGS: There is no fracture or dislocation. Visualized joints appear normal. Normal soft tissues. IMPRESSION: No acute abnormality. I have personally reviewed the images and I agree with this report. WSN: [id number] Ordering Physician: Tawnya Carmichael Dictated By: Hitesh Hazel DO Dictated Date/Time: 01/26/22 11:12 p Reviewed By: Kang Luna MD Signed By: Kang Luna MD Signed Date/Time: 01/26/22 11:17 pm Transcribed By: VANDANA Transcribed Date/Time: 01/26/22 11:11 pm Exam Date Time Procedure Performing Provider Status 01/26/22 11:06 PM Pelvis 1 or 2 Views Dixon Clark; Auth (Veri fied) Notes:(Pelvis 1 or 2 Views) Reason For Exam: With Pain;TraumaRESULT: Pelvis 1 or 2 Views Pelvis 1 or 2 Views, Femur 2 Views Left INDICATION: Alcohol. Trauma; With Pain; Clinical Question(s): Fracture COMPARISON: CT abdomen and pelvis 03/03/2020. FINDINGS: There is no fracture or dislocation. Visualized joints appear normal. Normal soft tissues. IMPRESSION: No acute abnormality. I have personally reviewed the images and I agree with this report. WSN: [id number] Ordering Physician: Tawnya Carmichael Dictated By: Hitesh Hazel DO Dictated Date/Time: 01/26/22 11:12 p Reviewed By: Kang Luna MD Signed By: Kang Luna MD Signed Date/Time: 01/26/22 11:17 pm Transcribed By: VANDANA Transcribed Date/Time: 01/26/22 11:11 pm Vital Signs Most recent to oldest 1 2 3 [Reference Range]: Height 175 cm 175 cm 175 cm (02/01/22 10:53 AM) (01/31/22 9:12 PM) (01/31/22 5: 43 PM) Weight 84 kg 84 kg 84 kg (01/28/22 2:26 PM) (01/28/22 10:50 AM) (01/27/22 10 :55 PM) Oxygen Saturation [94-100 98 % 98 % 99 % %] (02/01/22 10:53 AM) (01/31/22 9:12 PM) (01/31/22 7: 58 PM) Pulse Rate [55-90 bpm] 115 bpm 95 bpm 110 bpm *H* *H* *H* (02/01/22 10:53 AM) (01/31/22 9:12 PM) (01/31/22 7: 58 PM) Body Mass Index 27.43 kg/m2 27.43 kg/m2 27.43 kg/m2 [18.5-24.99 kg/m2] *H* *H* *H* (01/28/22 2:26 PM) (01/27/22 10:55 PM) (01/27/22 7: 15 PM) Blood Pressure 139/94 mm Hg 142/80 mm Hg 137/93 mm Hg [90-138/55-84 mm Hg] *H* *H* (01/31/22 7: 58 PM) (02/01/22 10:53 AM) (01/31/22 9:12 PM) Respiratory Rate [16-30 20 br/min 20 br/min 18 br/mi n br/min] (02/01/22 10:53 AM) (02/01/22 10:21 AM) (01/31/22 1 1:46 PM) Temperature [96.8-100.4 98.5 DegF 98.5 DegF 98.0 Deg F DegF] (02/01/22 10:53 AM) (01/31/22 9:12 PM) (01/31/22 7: 58 PM) Mode of Delivery (Oxygen) Room air Room air Room a ir (02/01/22 10:53 AM) (01/31/22 9:12 PM) (01/31/22 7: 58 PM) Blood pressure sites Arm, left Arm, left Arm, left (02/01/22 10:53 AM) (01/31/22 9:12 PM) (01/31/22 7: 58 PM) Temperature Route Oral Oral Oral (02/01/22 10:53 AM) (01/31/22 9:12 PM) (01/31/22 7: 58 PM) Dry Weight 84 kg 84 kg 84 kg (01/28/22 2:26 PM) (01/27/22 10:55 PM) (01/27/22 7: 15 PM) Weight Obtained Via Patient/family stated (01/26/22 9:07 PM) Dry Weight Obtained Via Patient/family stated (01/26/22 9:07 PM) Social History Social History Type Response Smoking Status Current every day smoker entered on: 09/30/14 Sex XR Femur - left 2 Views [facility] , CIS S: TRANSCRIBE Kang Luna MD: Hitesh Arnold DO: SIGN Event Display: Result: Authored Date: Pelvis 1 or 2 Views, Femur 2 Views Left INDICATION: Alcohol. Trauma; With Pain; Clinical Question(s): Fracture COMPARISON: CT abdomen and pelvis 03/03/2020. FINDINGS: There is no fracture or dislocation. Visualized joints appear normal. Normal soft tissues. IMPRESSION: No acute abnormality. I have personally reviewed the images and I agree with this report. WSN: [id number] Ordering Physician: Tawnya Carmichael Dictated By: Hitesh Hazel DO Dictated Date/Time: 01/26/22 11:12 p Reviewed By: Kang Luna MD Signed By: Kang Luna MD Signed Date/Time: 01/26/22 11:17 pm Transcribed By: VANDNAA Transcribed Date/Time: 01/26/22 11:11 pm XR Pelvis 1 or 2 Views [facility] , CIS S: TRANSCRIBE Kang Luna MD: Hitesh Arnold DO: SIGN Event Display: Result: Authored Date: Pelvis 1 or 2 Views, Femur 2 Views Left INDICATION: Alcohol. Trauma; With Pain; Clinical Question(s): Fracture COMPARISON: CT abdomen and pelvis 03/03/2020. FINDINGS: There is no fracture or dislocation. Visualized joints appear normal. Normal soft tissues. IMPRESSION: No acute abnormality. I have personally reviewed the images and I agree with this report. WSN: [id number] Ordering Physician: Tawnya Carmichael Dictated By: Hitesh Hazel DO Dictated Date/Time: 01/26/22 11:12 p Reviewed By: Kang Luna MD Signed By: Kang Luna MD Signed Date/Time: 01/26/22 11:17 pm Transcribed By: VANDANA Transcribed Date/Time: 01/26/22 11:11 pm Patient Care team information PersonnelName: Amalia Castillo NP Address: Address: [address] [place] [id number]
--- OUTSIDE RECORDS SUMMARY | 2022-04-16 18:30 | XMS_ITS | Continuity of Care Document ---
:1970 Author Organization [facility] Address [address] [place] [address]- Care Team Providers Name Role Phone Not on Staff, PCP Primary Care Physician Unavailable Encounter [facility] Date(s): 02/04/20 - 02/10/20 [facility] [address] [place] [address]- [facility] Encounter Diagnosis Alcohol use disorder, severe, dependence (Final) - 02/04/20 Wound infection, posttraumatic (Final) - 02/04/20 Discharge Disposition: A-D/C Home Attending Physician: Madi HUNT, Ishan Admitting Physician: Thi Torrez MD Referring Physician: Not on Staff, Referring [...] 02/10/20 16:19:00 EDT, Route to Pharmacy Electronically, [facility], 176, cm, 02/10/20 11:42:00 EDT, Height, 96.3, kg, 02/04/20 17:22:00 EDT, Dry Weight Start Date: 02/10/20 Status: Orderedamoxicillin-clavulanate 875 mg-125 mg oral tablet 1 tablet, By Mouth, 2 times a day, for 7 days, # 14 tablet, 0 Refills, Acute 02/17/20 16:28:00 EDT, 02/10/20 16:28:00 EDT, Tablet, [facility], 176, cm, 02/10/20 11:42:00 EDT, Height, 96.3, kg, 02/04/20 17:22:00 EDT, Dry Weight Start Date: 02/10/20 Stop Date: 02/17/20 Status: Orderedatorvastatin 20 mg oral tablet 1 tablet = 20 mg, By Mouth, Daily, # 30 tablet, 0 Refills, Maintenance, 02/10/20 16:20:00 EDT, Tablet, [facility], 176, cm, 02/10/20 11:42:00 EDT, Height, 96.3, kg, 02/04/20 17:22:00 EDT,Dry Weight Start Date: 02/10/20 Status: OrderedbuPROPion 450 mg/24 hours (XL) oral tablet, extended release 1 tablet = 450 mg, By Mouth, Daily in AM, # 30 tablet, 0 Refills, Maintenance, 02/10/20 16:22:00 EDT, ER Tablet, [facility], 176, cm, 02/10/20 11:42:00 EDT, Height, 96.3, kg, 02/04/20 17:22:00 EDT, Dry Weight Start Date: 02/10/20 Status: OrderedcloNIDine 0.2 mg oral tablet 0.2 mg, 1, tablet, By Mouth, 2 times a day, # 60 tablet, Refills 0, Tot. Refills 0, Maintenance, 02/10/20 16:23:00 EDT, Route to Pharmacy Electronically, [facility], 176, cm, 02/10/20 11:42:00 EDT, Height, 96.3, kg, 02/04/20 17:22:00 EDT... Start Date: 02/10/20 Status: OrderedColace sodium 100 mg oral capsule 100 mg, 1, capsule, By Mouth, 2 times a day, # 60 capsule, Refills 0, Tot. Refills 0, Maintenance, 02/10/20 16:23:00 EDT, Route to Pharmacy Electronically, [facility], 176, cm, 02/10/20 11:42:00 EDT, Height, 96.3, kg, 02/04/20 17:22:00 E... Start Date: 02/10/20 Status: OrderedEffexor XR 75 mg oral capsule, extended release 75 mg, 1, capsule, By Mouth, Daily, # 30 capsule, Refills 0, Tot. Refills 0, Maintenance, 02/10/20 16:27:00 EDT, Route to Pharmacy Electronically, [facility], 176, cm, 02/10/20 11:42:00 EDT, Height, 96.3, kg, 02/04/20 17:22:00 EDT, Dry W... Start Date: 02/10/20 Status: Orderedfolic acid 1 mg oral tablet 1 mg, 1, tablet, By Mouth, Daily, # 30 tablet, Refills 0, Tot. Refills 0, Maintenance, 02/10/20 16:23:00 EDT, Route to Pharmacy Electronically, [facility], 176, cm, 02/10/20 11:42:00 EDT,Height, 96.3, kg, 02/04/20 17:22:00 EDT, Dry Weight Start Date: 02/10/20 Status: Orderedgabapentin 600 mg oral tablet 1 tablet = 600 mg, By Mouth, 3 times a day, # 90 tablet, 0 Refills, Maintenance, 02/10/20 16:24:00 EDT, Tablet, [facility], 176, cm, 02/10/20 11:42:00 EDT, Height, 96.3, kg, 02/04/20 17:22:00 EDT, Dry Weight Start Date: 02/10/20 Status: OrderedhydrOXYzine pamoate 50 mg oral capsule = 50 mg, By Mouth, Every 6 hours, PRN Anxiety, # 28 tablet, 3 Refills, Maintenance, 02/10/20 16:25:00 EDT, Capsule, [facility], 176, cm, 02/10/20 11:42:00 EDT, Height, 96.3, kg, 02/04/20 17:22:00 EDT, Dry Weight Start Date: 02/10/20 Status: Orderedloratadine 10 mg oral tablet 10 mg, 1, tablet, By Mouth, Daily, # 30 tablet, Refills 0, Tot. Refills 0, Maintenance, 02/10/20 16:19:00 EDT, Route to Pharmacy Electronically, [facility], 176, cm, 02/10/20 11:42:00 EDT, Height, 96.3, kg, 02/04/20 17:22:00 EDT, Dry Weight Start Date: 02/10/20 Status: OrderedLORazepam 1 mg oral tablet 1 tablet = 1 mg, By Mouth, 2 times a day, PRN Anxiety, for 7 days, # 14 tablet, 0 Refills, Acute 02/17/20 16:28:00 EDT, 02/10/20 16:28:00 EDT, Tablet, [facility], 176, cm, 02/10/20 11:42:00 EDT, Height, 96.3, kg, 02/04/20 17:22:00 EDT, D... Start Date: 02/10/20 Stop Date: 02/17/20 Status: OrderedmetFORMIN 500 mg oral tablet 1 each = 500 mg, By Mouth, 2 times a day, # 60 tablet, 0 Refills, Maintenance, 02/10/20 16:19:00 EDT, Tablet, [facility], 176, cm, 02/10/20 11:42:00 [...] 0 Refills, Maintenance, 02/10/20 16:26:00 EDT, Tablet, [facility], 1 tablet By Mouth Daily, 176, cm, 02/10/20 11:42:00 EDT, Height, 96.3, kg, 02/04/20 17:22:00 EDT, Dry Weight Start Date: 02/10/20 Status: Orderednaproxen 250 mg oral tablet 500 mg, 2, tablet, By Mouth, 2 times a day, for 7 days, # 28 tablet, Refills 0, Tot. Refills 0, Acute 02/17/20 16:28:00 EDT, 02/10/20 16:28:00 EDT, Route to Pharmacy Electronically, [facility], 176, cm, 02/10/20 11:42:00 EDT, Height, 96.... Start Date: 02/10/20 Stop Date: 02/17/20 Status: OrderedNicotine 2 mg gum = 2 mg, Chew, Every 2 hours, PRN Other, Nicotine Cravings, # 84 each, 3 Refills, Maintenance, 02/10/20 16:26:00 EDT, Gum, [facility], 176, cm, 02/10/20 11:42:00 EDT, Height, 96.3, kg, 02/04/20 17:22:00 EDT, Dry Weight Start Date: 02/10/20 Status: Orderedpyridoxine 50 mg oral tablet 50 mg, 1, tablet, By Mouth, Daily, # 30 tablet, Refills 0, Tot. Refills 0, Maintenance, 02/10/20 16:26:00 EDT, Route to Pharmacy Electronically, [facility], 176, cm, 02/10/20 11:42:00 EDT, Height, 96.3, kg, 02/04/20 17:22:00 EDT, Dry Weight Start Date: 02/10/20 Status: OrderedSenna 8.6 mg oral tablet 17.2 mg, 2, tablet, By Mouth, Daily, # 60 tablet, Refills 0, Tot. Refills 0, Maintenance, 02/10/20 16:26:00 EDT, Route to Pharmacy Electronically, [facility] Tablet, 176, cm, 02/10/20 11:42:00 EDT, Height, 96.3, kg, 02/04/20 17:22:00 EDT... Start Date: 02/10/20 Status: Orderedthiamine 100 mg oral tablet 100 mg, 1, tablet, By Mouth, Daily, # 30 tablet, Refills 0, Tot. Refills 0, Maintenance, 02/10/20 16:26:00 EDT, Route to Pharmacy Electronically, [facility], 176, cm, 02/10/20 11:42:00 EDT, Height, 96.3, kg, 02/04/20 17:22:00 EDT, Dry We... Start Date: 02/10/20 Status: OrderedtraZODone 50 mg oral tablet 50 mg, 1, tablet, By Mouth, Daily at bedtime, PRN, # 30 tablet, Refills 0, Tot. Refills 0, Maintenance, Insomnia, 02/10/20 16:27:00 EDT, Route to Pharmacy Electronically, [facility], 176,cm, 02/10/20 11:42:00 EDT, Height, 96.3, [...] Diabetes mellitus type 2, Active diet-controlled(Confirmed) Results Orders for Microbiology Reports Name Date Wound Deep Culture w/ Gram Smear (Culture Wound Deep w / Gram Smear) 02/04/20 Microbiology Reports TEST:Deep Wound Culture STATUS:Auth (Verified) BODY SITE: SOURCE:ABSCES COLLECTED DATE/TIME:02/04/20 10:40 AMDeep Wound Culture SPECIMEN DESCRIPTION : ABSCESS CHEST SPECIAL REQUESTS : NONE GRAM STAIN : 1+ GRAM POSITIVE COCCI 2+ POLYMORPHONUCLEAR LEUKOCYTES CULTURE : 2+ STAPHYLOCOCCUS AUREUS. REPORT STATUS : FINAL 02/06/2020 ORGANISM 2+ STAPHYLOCOCCUS AUREUS. METHOD MIN. INHIB. CONC. (MCG/ML) CIPROFLOXACIN SUSCEPTIBLE CLINDAMYCIN SUSCEPTIBLE ERYTHROMYCIN SUSCEPTIBLE LEVOFLOXACIN SUSCEPTIBLE OXACILLIN SUSCEPTIBLE PENICILLIN SUSCEPTIBLE RIFAMPIN SUSCEPTIBLE RIFAMPIN RIFAMPIN SHOULD NOT BE USED ALONE FOR ANTIMICROBIAL RIFAMPIN THERAPY. TETRACYCLINE SUSCEPTIBLE TRIMETH/SULFAMETHOX SUSCEPTIBLE VANCOMYCIN SUSCEPTIBLE Vital Signs Most recent to oldest 1 2 3 4 [Reference Range]: Height 176 cm 176 cm 176 cm (02/10/20 11:42 AM) (02/10/20 5:51 AM) (02/10/20 12:11 AM ) Weight 96.3 kg (02/04/20 5:22 PM) Oxygen Saturation 95 % 96 % 99 % [94-100 %] (02/10/20 11:42 AM) (02/10/20 5:51 AM) (02/10/20 12:11 AM ) Pulse Rate [55-90 bpm] 71 bpm 56 bpm 58 bpm (02/10/20 11:42 AM) (02/10/20 5:51 AM) (02/10/20 12:11 AM ) Body Mass Index 31.09 [18.5-24.99] *>HHI* (02/04/20 5:22 PM) Blood Pressure 120/73 mm Hg 117/70 mm Hg 96/75 mm Hg [90-138/55-84 mm Hg] (02/10/20 11:42 AM) (02/10/20 5:51 AM) (02/10/20 12:11 AM) Respiratory Rate [16-30 18 br/min 18 br/min 16 br/min 16 b r/min br/min] (02/10/20 3:44 PM) (02/10/20 3:44 PM) (02/10/20 2:44 PM) (02/10/20 2:44 PM) Temperature [96.8-100.4 98.1 DegF 97.7 DegF 97.8 DegF DegF] (02/10/20 11:42 AM) (02/10/20 5:51 AM) (02/10/20 12:11 AM ) Mode of Delivery Room air Room air Room air (Oxygen) (02/10/20 11:42 AM) (02/10/20 5:51 AM) (02/10/20 12:11 AM ) Blood pressure sites Arm, right Arm, right Arm, left (02/10/20 11:42 AM) (02/10/20 5:51 AM) (02/10/20 12:11 AM ) Temperature Route Oral Oral Oral (02/10/20 11:42 AM) (02/10/20 5:51 AM) (02/10/20 12:11 AM ) Dry Weight 96.3 kg (02/04/20 5:22 PM) Weight Obtained Via Bed scale (02/04/20 5:22 PM) Social History Social History Type Response Smoking Status Current every day smoker entered on: 09/30/14 Sex
--- OUTSIDE RECORDS SUMMARY | 2022-04-16 18:30 | XMS_ITS | Continuity of Care Document ---
:1970 Author Organization [facility] Address [address] [place] [address] Drive [address] [place] [address]- Care Team Providers Name Role Phone Amalia Castillo NP Primary Care Physician Encounter [facility] Date(s): 06/13/20 - 07/13/20 [facility] [address] [place] [address] [address] [place], [place] [address] Attending Physician: Gabriella Clark Admitting Physician: Gabriella Clark Referring Physician: Gabriella Clark Allergies, Adverse Reactions, Alerts Substance Reaction Severity [...] 0 Refills, Maintenance, 04/09/20 12:02:00 EST, Tablet, [id number], 175, cm, 04/09/20 0:09:00 EST, Height, 79.5, [...] Refills, Maintenance, 04/09/20 12:02:00 EST, XL Tablet, [facility] #[id number], Partial fill upon patient request if the prescription isfor a schedule II opioid drug., 3 tablet By Mouth... Start Date: 04/09/20 Status: Orderedchlorhexidine topical 0.12% liquid 15 mL = 0.018 Gm, Swish and Spit, 2 times a day, # 473 mL, 1 Refills, Maintenance, 05/25/20 13:50:00EST, Oral Rinse, [facility] #[id number], Partial fill upon patient request if the prescription is for a schedule II opioid drug., 15 mL Swish and... Start Date: 05/25/20 Status: OrderedcloNIDine 0.1 mg oral tablet 0.2 mg, 2, tablet, By Mouth, Daily at bedtime, # 60 tablet, Refills 0, Tot. Refills 0, Maintenance, 04/09/20 12:02:00 EST, Route to Pharmacy Electronically, [facility] #[id number], Partial fill upon patient request, 175, cm, 04/09/20 0:09:00 EST,... Start Date: 04/09/20 Status: OrderedhydrOXYzine pamoate 50 mg oral capsule = 50 mg, By Mouth, Every 6 hours, PRN Anxiety, # 28 tablet, 3 Refills, Maintenance, 04/09/20 12:03:00 EST, Capsule, [facility][id number], 175, cm, 04/09/20 0:09:00 EST, Height, 79.5, kg, 04/06/20 14:00:00 EST, Dry Weight Start Date: 04/09/20 Status: OrderedmetFORMIN 500 mg oral tablet 1 each = 500 mg, By Mouth, 2 times a day, # 60 tablet, 0 Refills, Maintenance, 04/09/20 12:02:00 EST, Tablet, [facility] #[id number], 175, cm, 04/09/20 0:09:00 EST, Height, 79.5, kg, 04/06/20 14:00:00 EST, Dry Weight Start Date: 04/09/20 Status: Orderedmultivitamin Multiple Vitamins oral tablet 1 tablet, By Mouth, Daily, # 30 tablet, 0 Refills, Maintenance, 04/09/20 12:03:00 EST, Tablet, [facility] #[id number], 1 tablet By Mouth Daily, 175, cm, 04/09/20 0:09:00 EST, Height, 79.5, kg, 04/06/20 14:00:00 EST, Dry Weight Start Date: 04/09/20 Status: Orderedpregabalin 50 mg oral capsule 2 capsule = 100 mg, By Mouth, 3 times a day, # 30 capsule, 0 Refills, Maintenance, 04/09/20 12:03:00EST, Capsule, [facility] #[id number], Partial fill upon patient request, 175, cm, [...]
--- OUTSIDE RECORDS SUMMARY | 2022-04-16 18:30 | XMS_ITS | Continuity of Care Document ---
:1970 Author Organization [facility] Address [address] [place] [address] Drive [address] [place] [address]- Care Team Providers Name Role Phone Jonathan OLIVAERS, Amalia Primary Care Physician [place] [facility] [place]20 [facility] [address] [place] [address] Drive [address] [place], [place] [address] Attending Physician: Samson IRVIN [...] 0 Refills, Maintenance, 04/09/20 12:02:00 EST, Tablet, [facility] #[id number], 175, cm, 04/09/20 0:09:00 EST, Height, 79.5, [...] Refills, Maintenance, 04/09/20 12:02:00 EST, XL Tablet, [facility] #[id number], Partial fill upon patient request if the prescription isfor a schedule II opioid drug., 3 tablet By Mouth... Start Date: 04/09/20 Status: Orderedchlorhexidine topical 0.12% liquid 15 mL = 0.018 Gm, Swish and Spit, 2 times a day, # 473 mL, 1 Refills, Maintenance, 05/25/20 13:50:00EST, Oral Rinse, [facility] #[id number], Partial fill upon patient request if the prescription is for a schedule II opioid drug., 15 mL Swish and... Start Date: 05/25/20 Status: OrderedcloNIDine 0.1 mg oral tablet 0.2 mg, 2, tablet, By Mouth, Daily at bedtime, # 60 tablet, Refills 0, Tot. Refills 0, Maintenance, 04/09/20 12:02:00 EST, Route to Pharmacy Electronically, [facility] #[id number], Partial fill upon patient request, 175, cm, 04/09/20 0:09:00 EST,... Start Date: 04/09/20 Status: OrderedhydrOXYzine pamoate 50 mg oral capsule = 50 mg, By Mouth, Every 6 hours, PRN Anxiety, # 28 tablet, 3 Refills, Maintenance, 04/09/20 12:03:00 EST, Capsule, [facility] #[id number], 175, cm, 04/09/20 0:09:00 EST, Height, 79.5, kg, 04/06/20 14:00:00 EST, Dry Weight Start Date: 04/09/20 Status: OrderedmetFORMIN 500 mg oral tablet 1 each = 500 mg, By Mouth, 2 times a day, # 60 tablet, 0 Refills, Maintenance, 04/09/20 12:02:00 EST, Tablet, [facility] #[id number], 175, cm, 04/09/20 0:09:00 EST, Height, 79.5, kg, 04/06/20 14:00:00 EST, Dry Weight Start Date: 04/09/20 Status: Orderedmultivitamin Multiple Vitamins oral tablet 1 tablet, By Mouth, Daily, # 30 tablet, 0 Refills, Maintenance, 04/09/20 12:03:00 EST, Tablet, [facility] #[id number], 1 tablet By Mouth Daily, 175, cm, 04/09/20 0:09:00 EST, Height, 79.5, kg, 04/06/20 14:00:00 EST, Dry Weight Start Date: 04/09/20 Status: Orderedpregabalin 50 mg oral capsule 2 capsule = 100 mg, By Mouth, 3 times a day, # 30 capsule, 0 Refills, Maintenance, 04/09/20 12:03:00EST, Capsule, [facility] #[id number], Partial fill upon patient request, 175, cm, [...]
--- OUTSIDE RECORDS SUMMARY | 2022-04-16 18:30 | XMS_ITS | Continuity of Care Document ---
:1970 Author Organization [facility] Address [address] [place] [address] Drive [address] [place] [address]- Care Team Providers Name Role Phone Jonathan OLIVARES, Amalia Primary Care Physician En[place] [facility] [place] Date(s): 06/06/20 - 07/13/20 [facility] [address] [place] [address] Drive [address] [place] [address]- Attending Physician: Samson IRVIN MD, Cedric Fernando Allergies, Adverse Reactions, Alerts Substance Reaction Severity [...] 0 Refills, Maintenance, 04/09/20 12:02:00 EST, Tablet, [facility] #[id number], 175, cm, 04/09/20 0:09:00 EST, Height, 79.5, [...] Refills, Maintenance, 04/09/20 12:02:00 EST, XL Tablet, [facility] #[id number], Partial fill upon patient request if the prescription isfor a schedule II opioid drug., 3 tablet By Mouth... Start Date: 04/09/20 Status: Orderedchlorhexidine topical 0.12% liquid 15 mL = 0.018 Gm, Swish and Spit, 2 times a day, # 473 mL, 1 Refills, Maintenance, 05/25/20 13:50:00EST, Oral Rinse, [facility] #[id number], Partial fill upon patient request if the prescription is for a schedule II opioid drug., 15 mL Swish and... Start Date: 05/25/20 Status: OrderedcloNIDine 0.1 mg oral tablet 0.2 mg, 2, tablet, By Mouth, Daily at bedtime, # 60 tablet, Refills 0, Tot. Refills 0, Maintenance, 04/09/20 12:02:00 EST, Route to Pharmacy Electronically, [facility] #[id number], Partial fill upon patient request, 175, cm, 04/09/20 0:09:00 EST,... Start Date: 04/09/20 Status: OrderedhydrOXYzine pamoate 50 mg oral capsule = 50 mg, By Mouth, Every 6 hours, PRN Anxiety, # 28 tablet, 3 Refills, Maintenance, 04/09/20 12:03:00 EST, Capsule, [facility] #[id number], 175, cm, 04/09/20 0:09:00 EST, Height, 79.5, kg, 04/06/20 14:00:00 EST, Dry Weight Start Date: 04/09/20 Status: OrderedmetFORMIN 500 mg oral tablet 1 each = 500 mg, By Mouth, 2 times a day, # 60 tablet, 0 Refills, Maintenance, 04/09/20 12:02:00 EST, Tablet, [facility] #[id number], 175, cm, 04/09/20 0:09:00 EST, Height, 79.5, kg, 04/06/20 14:00:00 EST, Dry Weight Start Date: 04/09/20 Status: Orderedmultivitamin Multiple Vitamins oral tablet 1 tablet, By Mouth, Daily, # 30 tablet, 0 Refills, Maintenance, 04/09/20 12:03:00 EST, Tablet, [facility] #[id number], 1 tablet By Mouth Daily, 175, cm, 04/09/20 0:09:00 EST, Height, 79.5, kg, 04/06/20 14:00:00 EST, Dry Weight Start Date: 04/09/20 Status: Orderedpregabalin 50 mg oral capsule 2 capsule = 100 mg, By Mouth, 3 times a day, # 30 capsule, 0 Refills, Maintenance, 04/09/20 12:03:00EST, Capsule, [facility] #[id number], Partial fill upon patient request, 175, cm, [...]
[2022-04-16 18:59] LABS: COVID-19 Test Negative (Negative)
[2022-04-16] MEDS: HaloperidoL 5 MG TABLET 10 MG PO (19:35)
[2022-04-16] MEDS: LORazepam 1 MG TABLET 2 MG PO (19:35)
--- NOTE | 2022-04-17 05:51 | PC.NURSE ---
Patient was in restraint in the beginning of the shift, patient loud and disruptive, Ativan 2 mg PO and Haldol 10 mg PO administered at 1935, restraint discontinued at 2004 after patient contracted for the safety, patient slept through the night, no distress observed/reported, changeover pending, labs order pending, provider aware, [facility] referral completed/confirmed/pending ETA, med rec completed/pending provider's approval, VSS, will continue to monitor.
--- NOTE | 2022-04-17 06:15 | MHC.EDTECH ---
t/w and KRYSTA Johansen were able to change the pt over into hospital attire. PT cooperative with all removal of clothes except for t-shirt, RN aware.
[2022-04-17 06:27] LABS: Appearance Urine Clear; Color Urine Yellow; Glucose Urine UA Negative (Negative); Leukocyte Esterase Urine Negative (Negative); Nitrite Urine Negative (Negative); Specific Gravity - Urine 1.015 (1.005-1.025); UMIC TRIGGER UA YES; Urine Blood Small (1+) (Negative); Urine Ketones Negative (Negative); Urine Protein Negative (Neg-Trace)
[2022-04-17 06:36] LABS: Amphetamine Screen Urine Not Detected (Not Detect); Barbiturates, Urine Not Detected (Not Detect); Benzodiazepines Screen Urine Not Detected (Not Detect); Cannabinoid Screen Urine Not Detected (Not Detect); Cocaine Screen Urine POSITIVE (Not Detect); Fentanyl, urine POSITIVE (Not Detect); Opiate Screen Urine Not Detected (Not Detect); Phencyclidine Screen Urine Not Detected (Not Detect)
[2022-04-17 06:38] LABS: Bacteria Urine None Seen (None Seen); Hyaline Casts Urine 0-2 /LPF (0-2); RBC Urine 0-2 /HPF (0-2); Squamous Epithelial Cell Urine 0-2 /HPF (0-2); WBC Urine 0-5 /HPF (0-5)
[2022-04-17 07:00] VITALS: RESP 16
--- NOTE | 2022-04-17 09:47 | PC.NURSE ---
Pt remains asleep at this time. Morning meds pulled and placed in pt specific bin with label.
[2022-04-17] MEDS: lamoTRIgine 25 MG TABLET PO (10:01)
[2022-04-17] MEDS: chlordiazePOXIDE HCl 25 MG CAPSULE PO ×2 (10:01→20:41)
[2022-04-17] MEDS: Escitalopram Oxalate 10 MG TABLET PO (10:01)
[2022-04-17] MEDS: metFORMIN HCl 500 MG TABLET PO ×2 (10:01→20:41)
[2022-04-17] MEDS: Pregabalin 200 MG CAPSULE PO ×2 (10:01→20:41)
[2022-04-17] MEDS: Atorvastatin Calcium 40 MG TABLET PO (10:01)
[2022-04-17] MEDS: buPROPion HCl XL 300 MG TAB.ER.24H PO (10:02)
[2022-04-17] MEDS: Propranolol HCL 20 MG TABLET PO ×2 (10:02→20:41)
--- NOTE | 2022-04-17 12:08 | MHC.RECOVRN ---
Briefly met with pt in 6 to assess desire for [facility] tx. Pt laying in bed, eyes closed, wakes to voice. Pt irritable, does not open eyes throughout conversation. Pt reports drinking alcohol, a gallon a day, last drink 10 hours ago, I'm going through withdrawal. Pt denies other substances (UDS pos fentanyl, cocaine). Pt declines ATS referrals, declines resources/outpatient supports. CARE Team and RN aware.
[2022-04-17 14:00] VITALS: RESP 16
--- NOTE | 2022-04-17 16:43 | PC.NURSE ---
Pt refusing d/c. reporting withdrawal and SI. Provider aware. Care team aware. cell operation supervisor to verify d/c status. .
--- NOTE | 2022-04-17 16:45 | PC.NURSE ---
Security and care team to bedside.
--- NOTE | 2022-04-17 17:03 | MHC.CARE ---
Pod Rn Janie contacted CARE Team to notify this chart writer that pt was refusing to d/c and endorsed SI in the context of not having anywhere to go. T/w and Kenny from [facility] were at bedside explaining to pt that the CARE Team conducted a risk assessment on him and Katie also from Recovery met with him and he declined ATS referrals and outpatient services. Pt states he does not recall seeing anyone today and he was sleeping . Pt admits that he does not have any place to go and is also worried about his withdrawal sx's. I confirmed with nurse who reports pt was already provided with medications and scored low on CIWA therefore doesn't meet criteria for further medication management. Pt reports he is now interested in ATS referrals. Pt did not endorse any SI to this chart writer and was advised that he does not meet criteria for an inpatient admission. Tw spoke with ED provider Dr. Aguilar who states if pt is interested in ATS, he is to be transferred to the main ED so that recovery team can start a bedsearch for pt. Pt is also aware that he cannot go to detox if he is suicidal, which his SI is in the context of homelessness. If bed is not secured by tomorrow, pt is to be discharged per Dr. Aguilar. It was also indicated by Dr. Aguilar that if pt displays any behavioral issues pt will be discharged and PD will be called. CARE Team, Kenny from [facility], pod RN, and pt all aware and in agreement.
--- NOTE | 2022-04-17 17:11 | PC.NURSE ---
Pt brought to main to wait for detox assessment after refusal earlier today.
[2022-04-17 17:28] VITALS: BP 120/72; PULSE 72; RESP 16; TEMP 36.6; O2SAT 97
--- NOTE | 2022-04-17 18:49 | PC.NURSE ---
seen by trolley coach driver, possible [facility]
--- NOTE | 2022-04-17 18:59 | PC.NURSE ---
Addendum entered by Dorina Tam RN 04/18/22 07:00: report given to LAYA Black Note: report received from LAYA Denney
--- NOTE | 2022-04-17 19:38 | MHC.RECOVSUP ---
r consult:BOTH o? Current location:[id number]? o? Identified substance use concern:? -? Seeking ATS (detox) -? Support ? Intervention: o? ATS bed search started/completed/in process ? Plan: o? Bed search in progress to o? Follow up tomorrow? ? Additional information:[facility] met with pt, discussed ATS pt is willing to go. [facility] spoke with [facility], they have discharges in the morning. RC also contacted [facility] and they don't have any availability as of [facility]. Please follow up tomorrow!
[2022-04-17 19:54] VITALS: BP 162/97; PULSE 92; RESP 16; TEMP 36.6; O2SAT 98
[2022-04-17] MEDS: hydrOXYzine HCL 50 MG TABLET PO (20:41)
[2022-04-17] MEDS: cloNIDine HCL 0.1 MG TABLET PO (20:41)
[2022-04-17 20:49] LABS: Basophils Absolute Auto 0.1 X10*3/uL (0.0-0.2); Basophils Percent Auto 0.8 % (0-2); Eosinophils Absolute Auto 0.3 X10*3/uL (0.0-0.4); Eosinophils Percent Auto 5.4 % (0-4); Hematocrit 38.9 % (42.0-52.0); Hemoglobin 12.9 g/dl (14.0-18.0); Imm Gran Abs Auto 0.02 X10*3/uL (0.00-0.03); Imm Gran Pct Auto 0.3 % (0.0-0.4); Lymphocytes Absolute Auto 2.6 X10*3/uL (1.2-4.9); Lymphocytes Percent Auto 41.8 % (20-40); MANUAL DIFF FLAG NO; Mean Corpuscular HGB Conc 33.2 g/dl (31.0-36.0); Mean Corpuscular Hemoglobin 29.9 pg (27.0-33.0); Mean Corpuscular Volume 90.3 fL (80.0-98.0); Monocytes Absolute Auto 0.6 X10*3/uL (0.1-1.2); Monocytes Percent Auto 9.7 % (2-11); Neutrophils Absolute Auto 2.6 x10*3/uL (2.0-8.3); Platelet Count 246 X10*3/uL (160-400); Red Blood Count 4.31 X10*6/uL (4.60-5.80); Red Cell Distribution Width 13.7 % (11.0-16.0); White Blood Count 6.3 X10*3/uL (4.8-10.8)
[2022-04-17 21:02] LABS: Ethanol < 10 mg/dL
[2022-04-17 21:10] LABS: Alanine Aminotransferase 51 U/L (0-40); Albumin Level 3.6 g/dL (3.5-5.0); Alkaline Phosphatase 54 U/L (39-117); Anion Gap 10 (12-20); Aspartate Amino Transferase 39 U/L (5-37); Blood Urea Nitrogen 11 mg/dL (9-16); Calcium 8.6 mg/dL (8.4-10.2); Carbon Dioxide 27 mmol/L (22-29); Chloride 105 mmol/L (96-108); Estimated Glomerular Filt Rate > 60; Glucose Random 162 mg/dL (60-115); Potassium 3.9 mmol/L (3.3-5.1); Sodium 138 mmol/L (135-145); Total Protein 5.8 g/dL (6.5-8.0)
[2022-04-17 21:43] LABS: Bilirubin Total 0.3 mg/dL (0.0-1.0)
[2022-04-18 05:13] VITALS: BP 123/77; PULSE 62; RESP 15; TEMP 36.7; O2SAT 91
[2022-04-18] MEDS: Escitalopram Oxalate 10 MG TABLET PO (07:54)
[2022-04-18] MEDS: Pregabalin 200 MG CAPSULE PO (07:55)
[2022-04-18] MEDS: Propranolol HCL 20 MG TABLET PO (07:55)
[2022-04-18] MEDS: lamoTRIgine 25 MG TABLET PO (07:55)
[2022-04-18] MEDS: metFORMIN HCl 500 MG TABLET PO (07:55)
[2022-04-18] MEDS: buPROPion HCl XL 300 MG TAB.ER.24H PO (07:55)
[2022-04-18 07:59] VITALS: BP 143/84; PULSE 88; RESP 16; TEMP 37.6; O2SAT 95
[2022-04-18] MEDS: Atorvastatin Calcium 40 MG TABLET PO (08:04)
--- NOTE | 2022-04-18 08:16 | PC.NURSE ---
pt is a/o x 4 no sob/bipin noted speaks in full sentences. pt states 8/10 abd pain/disc. pt eating breakfast. pt has [facility] trying to call [facility] about inpatient admission. pt aware of plan of care.
--- NOTE | 2022-04-18 08:20 | PC.NURSE ---
pt denies any si/hi.
--- NOTE | 2022-04-18 11:27 | MHC.RECOVRN ---
[facility] declined pt due to their determination he would need EATS/behavioral health support and they are unable to accommodate. Referral sent to [facility]. Pt declined going out of the area for ATS and is choosing to discharge. RN aware.
== END 2022-04-18 11:38 | disposition home or self-care (01) ==
PROVIDERS: Emergency Provider Emergency Medicine; PCP Nurse Practitioner Family
DX: R45.851 Suicidal ideations (principal); F10.220 Alcohol dependence with intoxication, uncomplicated; Y90.9 Presence of alcohol in blood, level not specified; R45.1 Restlessness and agitation; R45.6 Violent behavior; Z20.822 Contact with and (suspected) exposure to COVID-19; E11.9 Type 2 diabetes mellitus without complications; F19.10 Other psychoactive substance abuse, uncomplicated; Z79.84 Long term (current) use of oral hypoglycemic drugs; Z79.02 Long term (current) use of antithrombotics/antiplatelets; Z79.899 Other long term (current) drug therapy
CPT/HCPCS: 36415; 80053; 80307; 81001; 82077; 85025; 87635; 96372; 99285; J1200; J2060

== ENCOUNTER 2022-06-04 11:27 | Emergency (ER) | payer MEDICAID, SELFPAY ==
--- NOTE | ~2022-06-04 | CT_ITS ---
EXAMINATION: CT HEAD WITHOUT CONTRAST CLINICAL INFORMATION: Altered mental status COMPARISON: 02/13/2022 TECHNIQUE: Contiguous axial imaging was performed from the skull base to vertex without intravenous administration of contrast. This CT examination was performed using dose optimization techniques as appropriate, variously including the following: *Automated exposure control *Adjustment of mA and/or kV according to patient size (this includes techniques or standardized protocols for targeted exams where dose is matched to indication/reason for exam; i.e. extremities or head) *Use of iterative reconstruction technique DLP: 778 mGy-cm FINDINGS: There is no midline shift. There is no mass effect. There is no hemorrhage. The basal cisterns appear patent. The posterior fossa is grossly within normal limits. No extra-axial collection. Scattered areas of probable lacunar infarction. Sinus disease is noted. CT/CT head/brain wo IV con IMPRESSION: Negative acute noncontrast CT of the brain.
--- NOTE | ~2022-06-04 | XR_ITS ---
EXAMINATION: XR CHEST CLINICAL INFORMATION: Shortness of breath COMPARISON: None TECHNIQUE: Frontal view of the chest was obtained. FINDINGS: No significant abnormality is noted involving the heart, lungs, mediastinum, bony thorax or soft tissues. XR/XR chest 1V IMPRESSION: No acute disease.
[2022-06-04 11:39] VITALS: BP 113/76; PULSE 90; RESP 20; O2SAT 98; BMI 39.1
--- NOTE | 2022-06-04 11:42 | PC.NURSE ---
Pt ambulated to bathroom with security and tech for urine sample with unsteady gait.
[2022-06-04 11:43] VITALS: RESP 20
[2022-06-04 11:45] VITALS: BP 123/73; PULSE 64; TEMP 37.1; O2SAT 91
--- OUTSIDE RECORDS SUMMARY | 2022-06-04 11:51 | XMS_ITS | Continuity of Care Document ---
:1970 Author Organization [facility] Address [address] [place] [address]- Care Team Providers Name Role Phone Jonathan OLIVARES, Amalia Primary Care Physician [place] [facility] [facility] [place] [id number] Date(s): 04/18/22 - 04/23/22 [facility] [address], [place] [address] Discharge Disposition: A-D/C AMA Attending Physician: Lynn HUNT, Mariah Serna Admitting Physician: Augusto Alberts DO Referring Physician: Not on Staff, Referring MD Allergies, Adverse Reactions, Alerts Substance Reaction Severity Status lisinopril1 intestent twisting Active Zoloft Active Red Dye2 Persistent Severe Active Mushrooms Persistent Severe Active Kirk Oil Active 1Makes his legs [id number] dye 40 Immunizations Given and Recorded Vaccine Date Status Refusal Reason influenza virus vaccine, inactivated 02/22/22 Given [id number] 12y+ bivalent booster vax 02/07/22 Given hepatitis [...] Refuses 1Result Comment: Not given on that [id number] Note: pt refused vaccine at this time [...] EDT, XL Tablet, [facility], Partial fill upon patient request if the prescription is for a schedule II opioid drug., 175, cm, 02/01/22 10:53:00 ED... Start Date: 02/10/22 Stop Date: 03/12/22 Status: Orderedfolic acid 1 mg oral tablet 1 mg, 1, tablet, By Mouth, Daily, # 30 tablet, Refills 0, Tot. Refills 0, Maintenance, 02/10/22 10:30:00 EDT, Route to Pharmacy Electronically, [facility], Partial fill upon patient request [...] 9:37:00 EDT, Tablet, [facility], Partial fill upon patient request if the prescription is for a schedule II opioid drug., 175... Start Date: 02/10/22 Stop Date: 05/05/22 Status: OrderedoxyCODONE 5 mg oral tablet 5 mg, 1, tablet, By Mouth, Every 6 hours, PRN, taper over 5 days per [place] discretion, Refills0, Tot. Refills 0, Maintenance, Pain [...] 02/10/22 10:31:00 EDT, Route to Pharmacy Electronically, [facility], Partial fill upon patient request [...] mellitus Confirmed Active type 2, diet-controlled Results Orders for Microbiology Reports Name Date Blood Culture 04/18/22 Blood Culture #2 04/18/22 Microbiology Reports TEST:Blood Culture STATUS:Auth (Verified) BODY SITE: SOURCE:Blood COLLECTED DATE/TIME:04/18/22 5:00 PMBlood Culture SPECIMEN DESCRIPTION : BLOOD L HAND SPECIAL REQUESTS : NONE CULTURE : NO GROWTH 5 DAYS. REPORT STATUS : FINAL 04/23/2022TEST:Blood Culture, Second Order STATUS:Auth (Verified) BODY SITE: SOURCE:Blood COLLECTED DATE/TIME:04/18/22 5:00 PMBlood Culture, Second Order SPECIMEN DESCRIPTION : BLOOD RT HAND SPECIAL REQUESTS : NONE CULTURE : NO GROWTH 5 DAYS. REPORT STATUS : FINAL 04/23/2022adiology Reports Exam Date Time Procedure Performing Provider Status 04/18/22 6:[address] Angio Neck Augusta Dowell; Auth (Ve rified) Notes:(CT Angio Neck) Reason For Exam: TraumaRESULT: CT Angio Neck CT Angio Head, CT Angio Neck Reason: Other:; unresponsive; possible opiate overdose Clinical Question(s): Other:; Order Comment: / Other: TECHNIQUE: CT angiogram of the head and neck was performed after bolus administration of intravenouscontrast. 100 mL of Omnipaque 300 was administered intravenously. Coronal and sagittal MIP reformatted images were obtained. Additional 3-D images were created on a separate workstation under concurrent supervision by the attending radiologist. All stenoses are measured using NASCET criteria. Weight-based protocol using automatic tube modulation was used to optimize exposure parameters. RADIATION DOSE PARAMETERS: CTDIvol Body: 13.17 mGy, DLP Body: 729 mGy*cm. COMPARISON: Noncontrast CT head performed concurrently. FINDINGS: CTA OF THE NECK: Arch: There is a three vessel aortic arch. The origins of the supra aortic vessels are patent. Right carotid system: The common carotid and cervical internal carotid arteries are patent. No stenosis (0%) by NASCET criteria. There is no dissection or aneurysm. Left carotid system: The common carotid and cervical internal carotid arteries are patent. No stenosis (0%) by NASCET criteria. There is no dissection or aneurysm. There is a co-dominant vertebral artery system. Right vertebral: The origin is partially obscured by streak artifact but the remainder of the vesselis normal. Left vertebral: No significant stenosis. No evidence of dissection or aneurysm. Other: Soft tissues and bones: No evidence of lymphadenopathy or mass. Endotracheal and nasogastric tubes are in place. CTA OF THE HEAD: Anterior circulation: The intracranial internal carotid arteries are normal as are the anterior and middle cerebral arteries. Posterior circulation: The vertebral, basilar, superior cerebellar and posterior cerebral arteries are normal. Veins: Major dural venous sinuses are patent. Other: Soft tissues and bones: No midline shift or effacement of the basal cisterns. No space-occupying hemorrhage. No territorial loss of smith-white matter differentiation. Bilateral nasal fractures are present. IMPRESSION: 1. No evidence of occlusion or significant stenosis involving the arteries of the head or neck. 2. Bilateral nasal fractures. A similar preliminary report was provided by [facility]. WSN: [id number] Ordering Physician: Beulah Ferris Dictated By: Jae Sterling MD Dictated Date/Time: 04/19/22 9:30 am Reviewed By: Jae Sterling MD Signed By: Jae Sterling MD Signed Date/Time: 04/19/22 9:30 am Transcribed By: VANDANA Transcribed Date/Time: 04/19/22 9:22 am Exam Date Time Procedure Performing Provider Status 04/18/22 6:[address] Angio Head Augusta Dowell; Auth (Ve rified) Notes:(CT Angio Head) Reason For Exam: unsresponsive;Other:RESULT: CT Angio Head CT Angio Head, CT Angio Neck Reason: Other:; unresponsive; possible opiate overdose Clinical Question(s): Other:; Order Comment: / Other: TECHNIQUE: CT angiogram of the head and neck was performed after bolus administration of intravenouscontrast. 100 mL of Omnipaque 300 was administered intravenously. Coronal and sagittal MIP reformatted images were obtained. Additional 3-D images were created on a separate workstation under concurrent supervision by the attending radiologist. All stenoses are measured using NASCET criteria. Weight-based protocol using automatic tube modulation was used to optimize exposure parameters. RADIATION DOSE PARAMETERS: CTDIvol Body: 13.17 mGy, DLP Body: 729 mGy*cm. COMPARISON: Noncontrast CT head performed concurrently. FINDINGS: CTA OF THE NECK: Arch: There is a three vessel aortic arch. The origins of the supra aortic vessels are patent. Right carotid system: The common carotid and cervical internal carotid arteries are patent. No stenosis (0%) by NASCET criteria. There is no dissection or aneurysm. Left carotid system: The common carotid and cervical internal carotid arteries are patent. No stenosis (0%) by NASCET criteria. There is no dissection or aneurysm. There is a co-dominant vertebral artery system. Right vertebral: The origin is partially obscured by streak artifact but the remainder of the vesselis normal. Left vertebral: No significant stenosis. No evidence of dissection or aneurysm. Other: Soft tissues and bones: No evidence of lymphadenopathy or mass. Endotracheal and nasogastric tubes are in place. CTA OF THE HEAD: Anterior circulation: The intracranial internal carotid arteries are normal as are the anterior and middle cerebral arteries. Posterior circulation: The vertebral, basilar, superior cerebellar and posterior cerebral arteries are normal. Veins: Major dural venous sinuses are patent. Other: Soft tissues and bones: No midline shift or effacement of the basal cisterns. No space-occupying hemorrhage. No territorial loss of smith-white matter differentiation. Bilateral nasal fractures are present. IMPRESSION: 1. No evidence of occlusion or significant stenosis involving the arteries of the head or neck. 2. Bilateral nasal fractures. A similar preliminary report was provided by [facility]. WSN: [id number] Ordering Physician: Beulah Ferris Dictated By: Hallie HUNT, Jae Schwartz Dictated Date/Time: 04/19/22 9:30 am Reviewed By: Jae Sterling MD Signed By: Jae Sterling MD Signed Date/Time: 04/19/22 9:30 am Transcribed By: VANDANA Transcribed Date/Time: 04/19/22 9:22 am Exam Date Time Procedure Performing Provider Status 04/18/22 6:[address] Cervical Spine W/O Delmer Augusta; Au th (Verified) Contrast Notes:(CT Cervical Spine W/O Contrast) Reason For Exam: Neck trauma, dangerous injury mechanism;Other:RESULT: CT Cervical Spine W/O Contrast CT Head/Brain W/O Contrast, CT Cervical Spine W/O Contrast CLINICAL INDICATION: Opiate overdose. This required resuscitation. Found unresponsive. Dilated pupils. Remains unresponsive following this dictation. PRIOR EXAMS: . TECHNIQUE: Incremental CT without contrast through the head was formatted in axial and coronal plane. Spiral CTwithout contrast through the cervical spine was formatted in 3 planes. Automatic tube modulation wasused for the cervical spine and iterative dose reconstruction was used for both the head and cervical spine to optimize scan parameters and image quality. RADIATION DOSE PARAMETERS: CTDIvol Body: 12.80 mGy, DLP Body: 353 mGy*cm. CTDIvol Head: 39.80 mGy, DLP Head: 672 mGy*cm. FINDINGS: BRAIN Solitary small old right lacunar infarct unchanged. No other infarct.. There is no intracerebral hemorrhage. There is no mass. There is normal differentiation between smith and white matter. VENTRICLES AND SULCI: The ventricles and sulci are symmetrical and normal. WHITE MATTER: No white matter abnormality. EXTRA AXIAL SPACES: There is no abnormal epidural, subdural, or subarachnoid blood or fluid. SKULL: There is no skull fracture.. PARANASAL SINUSES: Clear. TEMPORAL BONES: On the right side there is opacification of mastoid air cells without associated fracture. This is unchanged. Middle ear cavity is clear. On the left side, the mastoid air cells and middle ear cavity are clear. CERVICAL VERTEBRAL BODIES: There is no fracture. There is no focal bony lesion.. ALIGNMENT OF CERVICAL SPINE: The cervical vertebral bodies are in normal alignment.. CERVICAL DEGENERATIVE CHANGES: At C6-C7 there is anterior fusion. There is a posterior osteophyte. It causes mild central spinal stenosis. There is advanced degenerative change without ventral spinal stenosis at C5-C6, C7-T1, and T1-2. LUNG APICES: No pneumothorax. IMPRESSION: HEAD 1. No acute intracranial abnormality. 2. No skull fracture. CERVICAL SPINE: 1. There is no fracture. There is no focal bony lesion. 2. No acute post traumatic abnormality of alignment.. 3. Multilevel degenerative changes as noted above, including mild central spinal stenosis C6-C7. WSN: [id number] Ordering Physician: Beulah Ferris Dictated By: Teto Street MD Dictated Date/Time: 04/18/22 6:42 pm Reviewed By: Teto Street MD Signed By: Teto Street MD Signed Date/Time: 04/18/22 6:42 pm Transcribed By: VANDANA Transcribed Date/Time: 04/18/22 6:35 pm Exam Date Time Procedure Performing Provider Status 04/18/22 6:[address] Head/Brain W/O Contrast Janneth Dowell; Mart (Verified) Notes:(CT Head/Brain W/O Contrast) Reason For Exam: Other:RESULT: CT Head/Brain W/O Contrast CT Head/Brain W/O Contrast, CT Cervical Spine W/O Contrast CLINICAL INDICATION: Opiate overdose. This required resuscitation. Found unresponsive. Dilated pupils. Remains unresponsive following this dictation. PRIOR EXAMS: . TECHNIQUE: Incremental CT without contrast through the head was formatted in axial and coronal plane. Spiral CTwithout contrast through the cervical spine was formatted in 3 planes. Automatic tube modulation wasused for the cervical spine and iterative dose reconstruction was used for both the head and cervical spine to optimize scan parameters and image quality. RADIATION DOSE PARAMETERS: CTDIvol Body: 12.80 mGy, DLP Body: 353 mGy*cm. CTDIvol Head: 39.80 mGy, DLP Head: 672 mGy*cm. FINDINGS: BRAIN Solitary small old right lacunar infarct unchanged. No other infarct.. There is no intracerebral hemorrhage. There is no mass. There is normal differentiation between smith and white matter. VENTRICLES AND SULCI: The ventricles and sulci are symmetrical and normal. WHITE MATTER: No white matter abnormality. EXTRA AXIAL SPACES: There is no abnormal epidural, subdural, or subarachnoid blood or fluid. SKULL: There is no skull fracture.. PARANASAL SINUSES: Clear. TEMPORAL BONES: On the right side there is opacification of mastoid air cells without associated fracture. This is unchanged. Middle ear cavity is clear. On the left side, the mastoid air cells and middle ear cavity are clear. CERVICAL VERTEBRAL BODIES: There is no fracture. There is no focal bony lesion.. ALIGNMENT OF CERVICAL SPINE: The cervical vertebral bodies are in normal alignment.. CERVICAL DEGENERATIVE CHANGES: At C6-C7 there is anterior fusion. There is a posterior osteophyte. It causes mild central spinal stenosis. There is advanced degenerative change without ventral spinal stenosis at C5-C6, C7-T1, and T1-2. LUNG APICES: No pneumothorax. IMPRESSION: HEAD 1. No acute intracranial abnormality. 2. No skull fracture. CERVICAL SPINE: 1. There is no fracture. There is no focal bony lesion. 2. No acute post traumatic abnormality of alignment.. 3. Multilevel degenerative changes as noted above, including mild central spinal stenosis C6-C7. WSN: [id number] Ordering Physician: Beulah Ferris Dictated By: Teto Street MD Dictated Date/Time: 04/18/22 6:42 pm Reviewed By: Teto Street MD Signed By: Teto Street MD Signed Date/Time: 04/18/22 6:42 pm Transcribed By: VANDANA Transcribed Date/Time: 04/18/22 6:35 pm Exam Date Time Procedure Performing Provider Status 04/18/22 5:38 PM Chest Portable James Tee; Mart (Verified) Notes:(Chest Portable) Reason For Exam: Shortness of BreathRESULT: Chest Portable Chest Portable Hx of Present Illness: found down; Reason: Shortness of Breath; Clinical Question(s): CHF COMPARISON: 02/20/2022 FINDINGS: LINES AND TUBES: Endotracheal tube is in place, terminating 2.5 cm above the marleni. Enteric tube is in place, tip and sidehole visualized in the left upper quadrant projecting over the stomach. LUNGS AND PLEURA: Low lung volumes with mild basilar. Opacities likely reflecting atelectasis, left greater than right. The upper lungs are clear. No pleural effusion. No pneumothorax. HEART, MEDIASTINUM AND CHRISSY: Heart is normal in size. Normal mediastinal and hilar contour. BONES AND SOFT TISSUES: No acute abnormality. IMPRESSION: 1. Low lung volumes, with bibasilar opacities, favoring atelectasis over pneumonia. 2. Appropriate position of support lines. WSN: [id number] Ordering Physician: Beulah Ferris Dictated By: Liseth Coto MD Dictated Date/Time: 04/18/22 5:45 pm Reviewed By: Liseth Coto MD Signed By: Liseth Coto MD Signed Date/Time: 04/18/22 5:45 pm Transcribed By: VANDANA Transcribed Date/Time: 04/18/22 5:43 pm Vital Signs Most recent to oldest 1 2 3 [Reference Range]: Height 176 cm 176 cm 176 cm (04/23/22 7:26 AM) (04/22/22 9:14 PM) (04/22/22 3:57 PM) Weight 95.4 kg 86.1 kg 91.9 kg (04/22/22 6:45 AM) (04/19/22 6:24 AM) (04/18/22 8:05 PM) Oxygen Saturation [94-100 %] 94 % 95 % 92 % (04/23/22 7:26 AM) (04/22/22 9:14 PM) *L* (04/22/22 3:57 P M) Pulse Rate [55-90 bpm] 90 bpm 95 bpm 90 bpm (04/23/22 7:26 AM) *H* (04/22/22 3:5 7 PM) (04/22/22 9:14 PM) Body Mass Index [18.5-24.99 29.67 kg/m2 kg/m2] *H* (04/18/22 8:00 PM) Blood Pressure [90-138/55-84 117/71 mm Hg 145/88 mm Hg 118 /70 mm Hg mm Hg] (04/23/22 7:26 AM) *H* (04/22/22 3:5 7 PM) (04/22/22 9:14 PM) Respiratory Rate [16-30 18 br/min 16 br/min 18 br/mi n br/min] (04/23/22 7:26 AM) (04/22/22 9:14 PM) (04/22/22 3:57 PM) Temperature [96.8-100.4 97.9 DegF 98 DegF 98.1 Deg F DegF] (04/23/22 7:26 AM) (12/20/22 9:14 PM) (04/22/22 3:57 PM) Liters per Minute 15 L/min 15 L/min (04/18/22 4:44 PM) (04/18/22 4:40 PM) Mode of Delivery (Oxygen) Room air Room air Room a ir (04/23/22 7:26 AM) (04/22/22 9:14 PM) (04/22/22 3:57 PM) Blood pressure sites Arm, left Arm, left Arm, left (04/23/22 7:26 AM) (04/22/22 9:14 PM) (04/22/22 3:57 PM) Temperature Route Oral Oral Oral (04/23/22 7:26 AM) (04/22/22 9:14 PM) (04/22/22 3:57 PM) Dry Weight 91.9 kg (04/18/22 8:05 PM) Weight Obtained Via Standing scale Bed scale Bed scale (04/22/22 6:45 AM) (04/19/22 6:24 AM) (04/18/22 8:05 PM) Dry Weight Obtained Via Bed scale (04/18/22 8:05 PM) Social History Social History Type Response Smoking Status 5-9 cigarettes (between 1/4 to 1/2 pack)/day in last 30 days; Use: 6 to 7 cigarettes for the past 20 years entered on: 02/15/22 Sex Admission evaluation note Letitia HUNT, Gabriela: MODIFY, MODIFY, MODIFY, PERFORM, MODIFY, MODIFY, MODIFY, MODIFY, MODIFY Event Display: Admission Note Authored Date: [id number] Patient: ??JOHNATHAN MCALLISTER ? Age:??51 Years?Sex:??Male?:??1970?? Chief Complaint/Reason for Consultation found down History of Present Illness 51-year-old gentleman with history of anxiety/depression, alcohol use disorder, seizure from alcohol withdrawal, type 2 diabetes, GERD, COVID-19 infection 04/14 who presented to [facility] for suspected overdose. ?? As per patient's HCP/Friend Preeti: Patient has been struggling with alcohol use disorder, frequently binges a lot. For the past coupleof days he has been going through a rough time. He also snorts cocaine. No IV drug use (afraid of needles). Patient is not complaint with his psych meds. He isn't sure where patient is living these days. He has a mother and brother who are not really involved in his care. ?? As per ED/EMS Patient was reportedly found unresponsive sitting on the steps of a taoism, he was unresponsive upon EMS arrival, initially his vitals were stable, O2 sat was 90% on room air, POC 168, he was found tohave dilated pupils. ??Patient reportedly had a GCS of 10 for EMS, he was placed on nonrebreather and then transferred to [facility] ED. ??In [facility] ED patient was unresponsive and GCS was fluctuating from 3-5 as he intermittently would be responding to pain very mildly. In the ED patient presented with vitals blood pressure 120/86, 100% on 15 L nonrebreather, respiratory rate 12, afebrile work-up included EKG that showed sinus bradycardia with heart rate 59, QTc 445.??Chest x-ray with low lung volumes with bibasilar opacities CT head/cervical spine with no acute abn ormalities. ??Chronic findings of multilevel degenerative changes in the cervical spine including mild central spinal stenosis C6/C5. ??CT angio head read pending. ??Labs included normal CBC, BMP with glucose 125, creatinine 0.9, AST 45, ALT 49, lactate 2.8, ethanol 304, salicylate level less than 0.3, Tylenol level less than 5, COVID-positive. ??Patient received 0.4 mg IV Narcan x5 doses for a totalof 2 mg. ??Then an additional 2 mg IV dose was given with a total of 4 mg IV Narcan, he had very mild response at times from the Narcan and attempted to open his eyes and seemed to withdraw from pain more. ??Given patient's persistent unresponsive state and concern for airway protection patient was intubated with etomidate and rocuronium and started on fentanyl and propofol and transferred to medicalICU ?? In the medical ICU Patient has B/L reactive pupils. Sedated, unable to complete neuro??exam. Review of Systems Limited as patient intubated and sedated Objective Vital Signs?? Temperature: 97.5 DegF (04/18/22 16:40:00) Temperature Route: Oral (04/18/22 16:40:00) Pulse Rate: 83 bpm (04/18/22 18:18:00) Heart Rate Monitored: 77 bpm (04/18/22 17:00:00) Respiratory Rate: 17 br/min (04/18/22 18:18:00) Vented: Yes (04/18/22 18:18:00) Systolic Blood Pressure:??149 mm Hg??High (04/18/22 18:18:00) Diastolic Blood Pressure:??89 mm Hg??High (04/18/22 18:18:00) Blood pressure sites: Arm, left (04/18/22 18:18:00) Mean Arterial Pressure: 97 mm Hg (04/18/22 16:40:00) Pulse Pressure: 60 mm Hg (04/18/22 18:18:00) Oxygen Saturation: 95 % (04/18/22 18:18:00) Liters per Minute: 15 L/min (04/18/22 16:44:00) Mode of Delivery (Oxygen): Ventilator (04/18/22 18:18:00) FiO2: 30 % (04/18/22 18:18:00) End Tidal CO2: 51 mm Hg (04/18/22 18:18:00) Early Warning Score: 4 (04/18/22 18:19:22) ? Physical Exam General: Patient intubated and sedated HEENT: normocephalic, atraumatic, PERRL Respiratory: bilateral equal air entry, clear to auscultation with no wheezes or crackles. CVS: regular rate and rhythm, S1 and S2 present, no murmurs, rubs or gallops. No JVD.?? Abdomen: soft, non tender, non distended, bowel sounds present, no organomegaly.?? Extremities: no cyanosis, pulses present and equal bilaterally. . No edema noted b/l.?? Neuro: intubated and sedated Assessment/Plan 51-year-old gentleman with history of anxiety/depression, alcohol use disorder, seizure from alcoholwithdrawal, type 2 diabetes, GERD, COVID-19 infection [facility] for [facility] protection ?? Neuro/HEENT Suspected overdose Alcohol use disorder Anxiety and depression Intubated for GCS 3 As per patient's friend/HCP: binges alcohol and snorts cocaine. No IV drugs (scared of needles) CTH: Non acute CTA: read pending ?? Plan U tox Analgesia: Fentanyl Sedation: Propofol IV thiamine, folic acid and pyridoxine for alcohol use CIWA once extubated Psych and addiction medicine consult once extubated As per EXT rec patient refilled these meds - non-compliant as per friend Bupropion 300 XL -- resume Pregabalin 200 3 times daily -- hold pending repeat BMP Citalopram 20 mg every day in the morning -- resume Clonidine 0.1 daily at bedtime -- hold Hydroxyzine 50 every day at bedtime -- hold Lamotrigine 25 mg every day in the morning -- resume Propranolol 25 mg twice daily -- hold ? Cardiovascular HLD/HTN No active concerns ?? Plan: Resume Atorvastatin 40 mg daily ?? Pulmonary Intubated and sedated COVID 19 04/14 +ve date intubated for airway protection not hypoxia. was hypoxic to 90s with EMS req. supplemental O2 CXR: Low lung volumes Vent: AC 09/14/50% ?? Plan: Wean vent setting as appropriate Dex 6mg for 10 days for COVID hypoxia Isolation 04/14- 04/24 ?? GI GERD ?? Plan: famotidine BID ?? Renal Lactic acidosis Elevated CK suspect in the setting of alcohol use ?? Plan: Repeat BMP 1LR Recheck in the am ?? Endocrine Type 2 diabetes On metformin at home ?? Plan: POC glucose q 6 Hr with SS insulin ?? MSK/Integ No active issues. ?? Heme/Onc No active issues. ?? Infectious Disease No active issues. ?? Quality Measures: Diet:??NPO DVT prophylaxis:??heparin sub q Code Status:??Full code Family Update:??Preeti??Light ? Patient case and plan discussed with Dr. Rosalba Dong MD Internal Medicine PGY-3 Pager: [phone] ? Histories Allergies Allergies ?(Active and Proposed Allergies Only) Red Dye? (Severity: Persistent Severe, Onset: Unknown) ?Comments: Red dye 40 lisinopril? (Severity: Unknown severity, Onset: Unknown) ?Reactions: intestent twisting ?Comments: Makes ??his legs hurt Zoloft? (Severity: Unknown severity, Onset: Unknown) Mushrooms? (Severity: Persistent Severe, Onset: Unknown) Kirk Oil? (Severity: Unknown severity, Onset: Unknown) ? Past Medical History/Problem List Active Problems??(15) Alcohol abuse Alcohol dependence Alcohol intoxication Alcohol use disorder, severe, dependence Alcohol withdrawal Alcohol-induced mood disorder Diabetes mellitus type 2, diet-controlled Generalized anxiety disorder Hyperlipidemia Hypertension Major depressive disorder, recurrent episode, moderate without psychosis Musculoskeletal chest pain Neurosyphilis in male Post traumatic stress disorder (PTSD) Suicidal ideation ? Past Surgical History Other ? Social History Alcohol Details:??Use: Current. ??Frequency: Daily 1 gallon of vodka a day for the past 20 years. Details:??Use: Current. ??Frequency: Daily. ??Type: Wine, Liquor. ??Other: pt states he drinks up to a gallon ??of vodka per day recently. Has also gone through a box of wine on his own.. Employment/School Details:??Status: Unemployed. ??Previous employment/school: Currently unemployed. 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 ??Highest education level: University degree(s). Exercise Details:??Self assessment: Good condition. Home/Environment Details:??Living situation: Home/Independent. Other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 04/22/2022 16:01 ? Assessment/Plan Johnathan is a 51-year-old gentleman with a past medical history of anxiety/depression, alcohol use disorder, history of seizures from alcohol withdrawal, type 2 diabetes, GERD and recent diagnosis with COVID on 04/14 who presented to the hospital on 04/18 after being found down of suspected overdose ultimately requiring admission to the ICU for intubation. ??Patient now extubated and transition to medical floor. ?? Suspected overdose Alcohol use disorder History of alcohol withdrawal Patient with a background history of abuse disorder. ??He admits to drinking a gallon of alcohol a day and states that he was drinking before he was found down and does not remember much about the time. ??Patient is denying recent benzo or cocaine use although he does admit to use of it and he did undergo a urine tox which was positive for both cocaine and benzodiazepines. CT head with no acute findings Patient now back to baseline and he is denying intentional overdose. ?Monitor mentation ?CIWA protocol ordered ?Ativan for CIWA scores ?Seizure precautions ?? Concern for aspiration pneumonia Patient with concern for aspiration pneumonia. ??He received a dose of ceftriaxone and was transitioned to Augmentin will complete a 5-day course. ?Continue Augmentin (last day 04/23) ?? COVID-19 Patient tested positive for COVID on 04/14. ??He was hypoxic on presentation but this was likely secondary to over dose and since being extubated he has now been able to be weaned off to room air. ??Itis however somewhat complicated to figure out if COVID had any contributions to this and patient hasbeen placed on dexamethasone which we will continue at this time however would not add any other therapies as patient is now breathing comfortably. ?Continue dexamethasone ?Quarantine until 04/24 ?? Depression/anxiety Patient has multiple different medications at home to include fluoxetine, Wellbutrin, clonidine and Lamictal that have been prescribed for him however he states he is not taking any of these medications except for the Wellbutrin. ??Additionally on admission he was admitting to suicidal ideation although he is denying intentional overdose. ??Secondary to this he underwent psychiatric evaluation and they determined that he??did not have any suicidal intent at this time??and that he did not need a constant product marketing programs manager or suicide precautions any longer. Please note??patient??has had??occasions where he??claims he??dropped his dose of Wellbutrin and asks for another dose, but during this hospitalization he was witnessed in the bathroom later??appearingto snort??something.?? After discussion with psychiatry??snorting of Wellbutrin??apparently gives a cocaine like effect??and as such they recommended for patient to continue on his home Wellbutrin dosing but he will not be provided with any extra doses.?Continue home Wellbutrin, ?Continue constant product marketing programs manager??discontinued ?Suicide precautions??discontinued ?Patient can leave AMA if he chooses per psych ??? IM Haldol and Benadryl ordered for agitation ?? Hypertension: Clonidine at bedtime Diabetes: Patient is on metformin at home. ??We will continue sliding scale insulin with POC's 3 times daily and bedtime ?? Diet: Diabetic DVT prophylaxis: SQH Code: Full Portable XR Chest Views [facility] , CIS S: TRANSCRISERA Coto MD, Liseth Cuba: VERIFY Event Display: Result: Authored Date: [id number] Chest Portable Hx of Present Illness: found down; Reason: Shortness of Breath; Clinical Question(s): CHF COMPARISON: 02/20/2022 FINDINGS: LINES AND TUBES: Endotracheal tube is in place, terminating 2.5 cm above the marleni. Enteric tube is in place, tip and sidehole visualized in the left upper quadrant projecting over the stomach. LUNGS AND PLEURA: Low lung volumes with mild basilar. Opacities likely reflecting atelectasis, left greater than right. The upper lungs are clear. No pleural effusion. No pneumothorax. HEART, MEDIASTINUM AND CRHISSY: Heart is normal in size. Normal mediastinal and hilar contour. BONES AND SOFT TISSUES: No acute abnormality. IMPRESSION: 1. Low lung volumes, with bibasilar opacities, favoring atelectasis over pneumonia. 2. Appropriate position of support lines. WSN: [id number] Ordering Physician: Beulah Ferris Dictated By: Liseth Coto MD Dictated Date/Time: 04/18/22 5:45 pm Reviewed By: Liseth Coto MD Signed By: Liseth Coto MD Signed Date/Time: 04/18/22 5:45 pm Transcribed By: VANDANA Transcribed Date/Time: 04/18/22 5:[address] Cervical spine WO contrast [facility] , CIS S: TRANSCRIBE Jad HUNT, Teto D: VERIFY Event Display: Result: Authored Date: [id number] CT Head/Brain W/O Contrast, CT Cervical Spine W/O Contrast CLINICAL INDICATION: Opiate overdose. This required resuscitation. Found unresponsive. Dilated pupils. Remains unresponsive following this dictation. PRIOR EXAMS: . TECHNIQUE: Incremental CT without contrast through the head was formatted in axial and coronal plane. Spiral CTwithout contrast through the cervical spine was formatted in 3 planes. Automatic tube modulation wasused for the cervical spine and iterative dose reconstruction was used for both the head and cervical spine to optimize scan parameters and image quality. RADIATION DOSE PARAMETERS: CTDIvol Body: 12.80 mGy, DLP Body: 353 mGy*cm. CTDIvol Head: 39.80 mGy, DLP Head: 672 mGy*cm. FINDINGS: BRAIN Solitary small old right lacunar infarct unchanged. No other infarct.. There is no intracerebral hemorrhage. There is no mass. There is normal differentiation between smith and white matter. VENTRICLES AND SULCI: The ventricles and sulci are symmetrical and normal. WHITE MATTER: No white matter abnormality. EXTRA AXIAL SPACES: There is no abnormal epidural, subdural, or subarachnoid blood or fluid. SKULL: There is no skull fracture.. PARANASAL SINUSES: Clear. TEMPORAL BONES: On the right side there is opacification of mastoid air cells without associated fracture. This is unchanged. Middle ear cavity is clear. On the left side, the mastoid air cells and middle ear cavity are clear. CERVICAL VERTEBRAL BODIES: There is no fracture. There is no focal bony lesion.. ALIGNMENT OF CERVICAL SPINE: The cervical vertebral bodies are in normal alignment.. CERVICAL DEGENERATIVE CHANGES: At C6-C7 there is anterior fusion. There is a posterior osteophyte. It causes mild central spinal stenosis. There is advanced degenerative change without ventral spinal stenosis at C5-C6, C7-T1, and T1-2. LUNG APICES: No pneumothorax. IMPRESSION: HEAD 1. No acute intracranial abnormality. 2. No skull fracture. CERVICAL SPINE: 1. There is no fracture. There is no focal bony lesion. 2. No acute post traumatic abnormality of alignment.. 3. Multilevel degenerative changes as noted above, including mild central spinal stenosis C6-C7. WSN: [id number] Ordering Physician: Beulah Ferris Dictated By: Teto Street MD Dictated Date/Time: 04/18/22 6:42 pm Reviewed By: Teto Street MD Signed By: Teto Street MD Signed Date/Time: 04/18/22 6:42 pm Transcribed By: VANDANA Transcribed Date/Time: 04/18/22 6:[address] Head WO contrast [facility] , CIS S: TRANSCRIBE Teto Street MD: VERIFY Event Display: Result: Authored Date: [id number] CT Head/Brain W/O Contrast, CT Cervical Spine W/O Contrast CLINICAL INDICATION: Opiate overdose. This required resuscitation. Found unresponsive. Dilated pupils. Remains unresponsive following this dictation. PRIOR EXAMS: . TECHNIQUE: Incremental CT without contrast through the head was formatted in axial and coronal plane. Spiral CTwithout contrast through the cervical spine was formatted in 3 planes. Automatic tube modulation wasused for the cervical spine and iterative dose reconstruction was used for both the head and cervical spine to optimize scan parameters and image quality. RADIATION DOSE PARAMETERS: CTDIvol Body: 12.80 mGy, DLP Body: 353 mGy*cm. CTDIvol Head: 39.80 mGy, DLP Head: 672 mGy*cm. FINDINGS: BRAIN Solitary small old right lacunar infarct unchanged. No other infarct.. There is no intracerebral hemorrhage. There is no mass. There is normal differentiation between smith and white matter. VENTRICLES AND SULCI: The ventricles and sulci are symmetrical and normal. WHITE MATTER: No white matter abnormality. EXTRA AXIAL SPACES: There is no abnormal epidural, subdural, or subarachnoid blood or fluid. SKULL: There is no skull fracture.. PARANASAL SINUSES: Clear. TEMPORAL BONES: On the right side there is opacification of mastoid air cells without associated fracture. This is unchanged. Middle ear cavity is clear. On the left side, the mastoid air cells and middle ear cavity are clear. CERVICAL VERTEBRAL BODIES: There is no fracture. There is no focal bony lesion.. ALIGNMENT OF CERVICAL SPINE: The cervical vertebral bodies are in normal alignment.. CERVICAL DEGENERATIVE CHANGES: At C6-C7 there is anterior fusion. There is a posterior osteophyte. It causes mild central spinal stenosis. There is advanced degenerative change without ventral spinal stenosis at C5-C6, C7-T1, and T1-2. LUNG APICES: No pneumothorax. IMPRESSION: HEAD 1. No acute intracranial abnormality. 2. No skull fracture. CERVICAL SPINE: 1. There is no fracture. There is no focal bony lesion. 2. No acute post traumatic abnormality of alignment.. 3. Multilevel degenerative changes as noted above, including mild central spinal stenosis C6-C7. WSN: [id number] Ordering Physician: Beulah Ferris Dictated By: Teto Street MD Dictated Date/Time: 04/18/22 6:42 pm Reviewed By: Teto Street MD Signed By: Teto Street MD Signed Date/Time: 04/18/22 6:42 pm Transcribed By: VANDANA Transcribed Date/Time: 04/18/22 6:35 pm CTA Neck vessels W contrast IV [facility] , CIS S: TRANSCRIBE Jae Stelring MD: VERIFY Event Display: Result: Authored Date: [id number] CT Angio Head, CT Angio Neck Reason: Other:; unresponsive; possible opiate overdose Clinical Question(s): Other:; Order Comment: / Other: TECHNIQUE: CT angiogram of the head and neck was performed after bolus administration of intravenouscontrast. 100 mL of Omnipaque 300 was administered intravenously. Coronal and sagittal MIP reformatted images were obtained. Additional 3-D images were created on a separate workstation under concurrent supervision by the attending radiologist. All stenoses are measured using NASCET criteria. Weight-based protocol using automatic tube modulation was used to optimize exposure parameters. RADIATION DOSE PARAMETERS: CTDIvol Body: 13.17 mGy, DLP Body: 729 mGy*cm. COMPARISON: Noncontrast CT head performed concurrently. FINDINGS: CTA OF THE NECK: Arch: There is a three vessel aortic arch. The origins of the supra aortic vessels are patent. Right carotid system: The common carotid and cervical internal carotid arteries are patent. No stenosis (0%) by NASCET criteria. There is no dissection or aneurysm. Left carotid system: The common carotid and cervical internal carotid arteries are patent. No stenosis (0%) by NASCET criteria. There is no dissection or aneurysm. There is a co-dominant vertebral artery system. Right vertebral: The origin is partially obscured by streak artifact but the remainder of the vesselis normal. Left vertebral: No significant stenosis. No evidence of dissection or aneurysm. Other: Soft tissues and bones: No evidence of lymphadenopathy or mass. Endotracheal and nasogastric tubes are in place. CTA OF THE HEAD: Anterior circulation: The intracranial internal carotid arteries are normal as are the anterior and middle cerebral arteries. Posterior circulation: The vertebral, basilar, superior cerebellar and posterior cerebral arteries are normal. Veins: Major dural venous sinuses are patent. Other: Soft tissues and bones: No midline shift or effacement of the basal cisterns. No space-occupying hemorrhage. No territorial loss of smith-white matter differentiation. Bilateral nasal fractures are present. IMPRESSION: 1. No evidence of occlusion or significant stenosis involving the arteries of the head or neck. 2. Bilateral nasal fractures. A similar preliminary report was provided by [facility]. WSN: [id number] Ordering Physician: Beulah Ferris Dictated By: Jae Sterling MD Dictated Date/Time: 04/19/22 9:30 am Reviewed By: Jae Sterling MD Signed By: Jae Sterling MD Signed Date/Time: 04/19/22 9:30 am Transcribed By: VANDANA Transcribed Date/Time: 04/19/22 9:22 am CTA Head vessels W contrast IV [facility] , CIS S: TRANSCRIBE Jae Sterling MD: VERIFY Event Display: Result: Authored Date: [id number] CT Angio Head, CT Angio Neck Reason: Other:; unresponsive; possible opiate overdose Clinical Question(s): Other:; Order Comment: / Other: TECHNIQUE: CT angiogram of the head and neck was performed after bolus administration of intravenouscontrast. 100 mL of Omnipaque 300 was administered intravenously. Coronal and sagittal MIP reformatted images were obtained. Additional 3-D images were created on a separate workstation under concurrent supervision by the attending radiologist. All stenoses are measured using NASCET criteria. Weight-based protocol using automatic tube modulation was used to optimize exposure parameters. RADIATION DOSE PARAMETERS: CTDIvol Body: 13.17 mGy, DLP Body: 729 mGy*cm. COMPARISON: Noncontrast CT head performed concurrently. FINDINGS: CTA OF THE NECK: Arch: There is a three vessel aortic arch. The origins of the supra aortic vessels are patent. Right carotid system: The common carotid and cervical internal carotid arteries are patent. No stenosis (0%) by NASCET criteria. There is no dissection or aneurysm. Left carotid system: The common carotid and cervical internal carotid arteries are patent. No stenosis (0%) by NASCET criteria. There is no dissection or aneurysm. There is a co-dominant vertebral artery system. Right vertebral: The origin is partially obscured by streak artifact but the remainder of the vesselis normal. Left vertebral: No significant stenosis. No evidence of dissection or aneurysm. Other: Soft tissues and bones: No evidence of lymphadenopathy or mass. Endotracheal and nasogastric tubes are in place. CTA OF THE HEAD: Anterior circulation: The intracranial internal carotid arteries are normal as are the anterior and middle cerebral arteries. Posterior circulation: The vertebral, basilar, superior cerebellar and posterior cerebral arteries are normal. Veins: Major dural venous sinuses are patent. Other: Soft tissues and bones: No midline shift or effacement of the basal cisterns. No space-occupying hemorrhage. No territorial loss of smith-white matter differentiation. Bilateral nasal fractures are present. IMPRESSION: 1. No evidence of occlusion or significant stenosis involving the arteries of the head or neck. 2. Bilateral nasal fractures. A similar preliminary report was provided by [facility]. WSN: [id number] Ordering Physician: Beulah Ferris Dictated By: Jae Sterling MD Dictated Date/Time: 04/19/22 9:30 am Reviewed By: Jae Sterling MD Signed By: Jae Sterling MD Signed Date/Time: 04/19/22 9:30 am Transcribed By: VANDANA Transcribed Date/Time: 04/19/22 9:22 am Patient Care team information Care Team PersonnelName: Fozia Aguilar RN Position: [facility] RN Member Role: Primary Care Nurse Name: Natalia Weems NP Position: [facility] PCO Associate Professional Member Role: Primary Care Nurse Address: Address: [address] [place] [address] Name: Jae Tapia RN Position: [facility] ED RN W/OE and Tasks Member Role: Primary Care Nurse Name: Krista Naylor RN Position: [facility] RN Member Role: Primary Care Nurse Name: Alecia Alegria RN Position: [facility] RN Member Role: Primary Care Nurse Name: Iris Benavidez RN Position: [facility] RN Member Role: Primary Care Nurse Name: Shelia Berg RN Position: [facility] RN Member Role: Primary Care Nurse Name: Hollie Amaya RN Position: [facility] RN Member Role: Primary Care Nurse Name: Clay Davies RN Position: [facility] RN Member Role: Primary Care Nurse Name: Caren Zuniga RN Position: [facility] RN Member Role: Primary Care Nurse Name: Leida Walker RN Position: [facility] RN Member Role: Primary Care Nurse Name: Mayra Bernardo Position: [facility] RN Member Role: Primary Care Nurse Name: Shea Zaldivar RN Position: [facility] RN Member Role: Primary Care Nurse Name: James Mixon RN Position: [facility] RN Member Role: Primary Care Nurse Name: Nga Wang RN Position: [facility] RN Member Role: Primary Care Nurse Name: Bud Anderson Jr, RN Position: [facility] RN Member Role: Primary Care Nurse Name: Tomasa Jean RN Position: [facility] RN Member Role: Primary Care Nurse Name: Marylin Mehta RN Position: [facility] OB RN Member Role: Primary Care Nurse Name: Karey Sr Position: [facility] RN Member Role: Primary Care Nurse Name: Ladan Osman RN Position: [facility] RN Member Role: Primary Care Nurse Name: Miko Gutierrez RN Position: [facility] RN Member Role: Primary Care Nurse Name: Julee Casas RN Position: [facility] RN Member Role: Primary Care Nurse Name: Mesha Dunlap RN Position: [facility] RN Member Role: Primary Care Nurse Name: Marylin Chan RN Position: [facility] RN Member Role: Primary Care Nurse Name: Amalia Castillo NP Position: Reference Physician Member Role: PCP Address: Address: [address] [place] [address] Name: Juan Alberto Pang RN Position: [facility] ED RN W/OE and Tasks Member Role: Primary Care Nurse Name: Rossy Marit Position: [facility] RN Member Role: Primary Care Nurse Name: Olga Castrejon Position: [facility] RN Member Role: Primary Care Nurse Name: Gabby العراقي RN Position: [facility] SN Automotive Accessory Installer Member Role: Primary Care Nurse Name: Ree Toro RN Position: [facility] RN Member Role: Primary Care Nurse Name: Crys Stevens RN Position: [facility] OB RN Member Role: Primary Care Nurse Name: Rossy Thompson RN Position: [facility] RN Member Role: Primary Care Nurse Name: Shelia Bynum RN Position: [facility] Onco RN Member Role: Primary Care Nurse Name: Aime Galeana RN Position: [facility] RN Member Role: Primary Care Nurse Name: Phyllis Jamison RN Position: [facility] SN RN Member Role: Primary Care Nurse Name: Jelly Sutherland RN Position: [facility] RN Member Role: Primary Care Nurse Name: Ivanna Seo RN Position: [facility] RN Supv Member Role: Primary Care Nurse Name: Chacho Juarez RN Position: [facility] RN Member Role: Primary Care Nurse Name: Dian Benz RN Position: [facility] RN Member Role: Primary Care Nurse Name: Jacy Almendarez RN Position: [facility] RN Member Role: Primary Care Nurse Name: Camacho Estrella RN Position: [facility] RN Member Role: Primary Care Nurse Name: Tomasa Shin RN Position: [facility] ED RN W/OE and Tasks Member Role: Primary Care Nurse Name: Anabel Nuñez NP Position: [facility] PCO Associate Professional Member Role: Primary Care Nurse Address: Address: [address] [place] [address] [place] [address]- Name: Crys Davison RN Position: [facility] RN Member Role: Primary Care Nurse Name: Katie Frazier RN Position: [facility] RN Member Role: Primary Care Nurse Name: Sharron Middleton RN Position: [facility] RN Member Role: Primary Care Nurse Name: Dasia Franklin RN Position: [facility] SN RN Member Role: Primary Care Nurse Name: Blanca Marley RN Position: [facility] RN Member Role: Primary Care Nurse Name: Viki Can RN Position: [facility] RN Member Role: Primary Care Nurse Name: Brian Can RN Position: [facility] RN Member Role: Primary Care Nurse Name: Marcela De Souza RN Position: [facility] RN Member Role: Primary Care Nurse Name: Alicia Martines RN Position: [facility] RN Member Role: Primary Care Nurse Name: Katie Parrish RN Position: [facility] RN Member Role: Primary Care Nurse Name: Margarette Porter RN Position: [facility] RN Member Role: Primary Care Nurse Name: Delmi Marrufo RN Position: [facility] RN Member Role: Primary Care Nurse Name: Akbar Cowart RN Position: [facility] RN Member Role: Primary Care Nurse Name: Vanessa Gomez RN Position: [facility] RN Member Role: Primary Care Nurse Name: Yolanda Sanchez RN Position: [facility] Hospital Technical Proposal Writer Member Role: Primary Care Nurse Name: Natalia Hess RN Position: [facility] RN Wade Member Role: Primary Care Nurse Name: Rk Jasso MD Position: [facility] ED Medicine MD Address: Address: [address] [place] [address] [place] [address]- [place] Name: Payton Munoz Position: [facility] Associate Professional Member Role: ED Physician Test Grader Address: Address: [address] [place] [id number]- [place] Name: Catie Smith Position: [facility] ED TA [facility] Member Role: Window Shade Cutter And Mounter Name: Kane Quarles RN Position: [facility] ED RN W/OE and Tasks Member Role: Patient Care Provider Name: Leydi Avila Position: [facility] ED OA Charge Member Role: ED Associate Care Team Related PersonsName: SOCORRO MCGRATH Address: home [address] [place] [id number] Name: RUPESH MCALLISTER Address: [place] [address] Name: PREETI LIGHT Address: home [address] [place] [id number]
--- OUTSIDE RECORDS SUMMARY | 2022-06-04 11:52 | XMS_ITS | Continuity of Care Document ---
:1970 Author Organization [facility] Address [address] [place] [address]- Care Team Providers Name Role Phone Amalia Castillo NP Primary Care Physician Encounter [facility] Date(s): 04/24/22 - 04/25/22 [facility] [address] [place] [id number]- Encounter Diagnosis Alcohol abuse (Final) - 04/24/22 Alcohol-induced mood disorder (Final) - 04/24/22 Generalized anxiety disorder (Final) - 04/24/22 Post traumatic stress disorder (PTSD) (Final) - 04/24/22 Discharge Disposition: A-D/C Home Attending Physician: Carloz Maciel MD Admitting Physician: Carloz Maciel MD Referring Physician: Not on Staff, Referring MD Allergies, Adverse Reactions, Alerts Substance Reaction Severity Status lisinopril1 intestent twisting Active Zoloft Active Red Dye2 Persistent Severe Active Mushrooms Persistent Severe Active Mcgraw Oil Active 1Makes his legs [id number] dye 40 Immunizations Given and Recorded Vaccine Date Status Refusal Reason influenza virus vaccine, inactivated 02/22/22 Given [id number] 12y+ bivalent booster vax 02/07/22 Given hepatitis [...] Refuses 1Result Comment: Not given on that [id number] Note: pt refused vaccine at this time [...] Refills, Maintenance, 02/10/22 10:29:00 EDT, XL Tablet, [facility], Partial fill upon patient request if the prescription is for a schedule II opioid drug., 175, cm, 02/01/22 10:53:00 ED... Start Date: 02/10/22 Stop Date: 03/12/22 Status: Orderedfolic acid 1 mg oral tablet 1 mg, 1, tablet, By Mouth, Daily, # 30 tablet, Refills 0, Tot. Refills 0, Maintenance, 02/10/22 10:30:00 EDT, Route to Pharmacy Electronically, [facility] 3, Partial fill upon patient request if the prescription is for a schedule II opioid... Start Date: 02/10/22 Stop Date: 03/12/22 Status: OrderedhydrOXYzine pamoate 50 mg oral capsule 1 capsule = 50 mg, By Mouth, Every 6 hours, PRN Anxiety, # 28 capsule, 3 Refills, Maintenance, 02/10/22 10:31:00 EDT, Capsule, [facility], 175, cm, 02/01/22 10:53:00 EDT, Height, 84, kg, 01/28/22 14:32:00 EDT, Dry Weight Start Date: 02/10/22 Stop Date: 03/10/22 Status: Orderedlamotrigine 25 mg oral tablet 25 mg, 1, tablet, By Mouth, Daily, # 30 tablet, Refills 0, Tot. Refills 0, Maintenance, 02/10/22 10:31:00 EDT, Route to Pharmacy Electronically, [facility], Partial fill upon patient request [...] 0 Refills, Maintenance, 02/10/22 10:29:00 EDT, Tablet, [facility], 175, cm, 02/01/22 10:53:00 EDT, Height, 84, kg, 01/28/22 14:32:00 EDT, Dry Weight Start Date: 02/10/22 Stop Date: 03/12/22 Status: Orderedmultivitamin Multiple Vitamins oral tablet 1 tablet, By Mouth, Daily, # 30 tablet, 0 Refills, Maintenance, 02/10/22 10:31:00 EDT, Tablet, [facility], 1 tablet By Mouth Daily,x30 days, 175, cm, 02/01/22 10:53:00 EDT, Height, 84, kg, 01/28/22 14:32:00 EDT, Dry Weight Start Date: 02/10/22 Stop Date: 03/12/22 Status: Orderednaltrexone 50 mg oral tablet 1 tablet = 50 mg, By Mouth, Daily, for 12 week(s), # 84 tablet, 0 Refills, Acute 05/05/22 9:37:00 EST, 02/10/22 9:37:00 EDT, Tablet, [facility] 3, Partial fill upon patient request if the prescription is for a schedule II opioid drug., 175... Start Date: 02/10/22 Stop Date: 05/05/22 Status: OrderedoxyCODONE 5 mg oral tablet 5 mg, 1, tablet, By Mouth, Every 6 hours, PRN, taper over 5 days per [place] discretion, Refills0, Tot. Refills 0, Maintenance, Pain [...] 02/10/22 10:31:00 EDT, Route to Pharmacy Electronically, [facility] 3, Partial fill upon patient [...] Exam Date Time Procedure Performing Provider Status 04/25/22 8:28 AM Chest 2 Views Frontal and Lat Hanna Kim [facility] (Verified) Notes:(Chest 2 Views Frontal and Lat) Reason For Exam: Shortness of Breath, Fever;Other:RESULT: Chest 2 Views Frontal and Lat Chest 2 Views Frontal and Lat HX OF PRESENT ILLNESS: Etoh; Reason: Shortness of Breath, Fever; Clinical Question(s): Pneumonia / Pneumonia COMPARISON: 04/18/2022 FINDINGS: LINES AND TUBES: None. LUNGS AND PLEURA: Clear lungs. Normal pulmonary vascularity. No pleural effusion. No pneumothorax. HEART, MEDIASTINUM AND CHRISSY: Heart is normal in size. Normal mediastinal and hilar contour. BONES AND SOFT TISSUES: No acute abnormality. IMPRESSION: No evidence of acute abnormality. WSN: [id number] Ordering Physician: Tawnya Carmichael Dictated By: Abelardo Chen MD Dictated Date/Time: 04/25/22 8:29 am Reviewed By: Abelardo Chen MD Signed By: Abelardo Chen MD Signed Date/Time: 04/25/22 8:29 am Transcribed By: VANDANA Transcribed Date/Time: 04/25/22 8:29 am Vital Signs Most recent to oldest 1 2 3 [Reference Range]: Oxygen Saturation [94-100 94 % 94 % 88 % %] (04/25/22 10:18 AM) (04/25/22 7:31 AM) *L* (04/25/22 7:25 A M) Pulse Rate [55-90 bpm] 107 bpm 96 bpm 95 bpm *H* *H* *H* (04/25/22 10:18 AM) (04/25/22 7:31 AM) (04/25/22 7:25 AM) Blood Pressure 94/54 mm Hg 137/63 mm Hg [90-138/55-84 mm Hg] (04/25/22 6:02 AM) (04/24/22 10:35 PM) Respiratory Rate [16-30 16 br/min 18 br/min br/min] (04/25/22 7:31 AM) (04/24/22 10:35 PM) Temperature [96.8-100.4 97 DegF DegF] (04/24/22 10:35 PM) Liters per Minute 2 L/min (04/25/22 7:31 AM) Mode of Delivery (Oxygen) Room air Nasal cannula Room a ir (04/25/22 10:18 AM) (04/25/22 7:31 AM) (04/25/22 7:25 AM) Temperature Route Axillary (04/24/22 10:35 PM) Social History Social History Type Response Smoking Status 5-9 cigarettes (between 1/4 to 1/2 pack)/day in last 30 days; Use: 6 to 7 cigarettes for the past 20 years entered on: 02/15/22 Sex Note BHSPowerscribe , CIS S: TRANSCRIBE April HUNT, Abelardo S: VERIFY Event Display: Result: Authored Date: Chest 2 Views Frontal and Lat HX OF PRESENT ILLNESS: Etoh; Reason: Shortness of Breath, Fever; Clinical Question(s): Pneumonia / Pneumonia COMPARISON: 04/18/2022 FINDINGS: LINES AND TUBES: None. LUNGS AND PLEURA: Clear lungs. Normal pulmonary vascularity. No pleural effusion. No pneumothorax. HEART, MEDIASTINUM AND CHRISSY: Heart is normal in size. Normal mediastinal and hilar contour. BONES AND SOFT TISSUES: No acute abnormality. IMPRESSION: No evidence of acute abnormality. WSN: [id number] Ordering Physician: Tawnya Carmichael Dictated By: Abelardo Chen MD Dictated Date/Time: 04/25/22 8:29 am Reviewed By: Abelardo Chen MD Signed By: Abelardo Chen MD Signed Date/Time: 04/25/22 8:29 am Transcribed By: CSB Transcribed Date/Time: 04/25/22 8:29 Magdalena HUNT, Christa Schwartz: PERFORM Event Display: Patient Education Leaflets Authored Date: [facility] [place] Substance Abuse Resources ?? 151 If you need Substance Abuse Resources: ?? [facility] [phone] ?? [facility] [phone] ?? [facility] [phone] ?? [facility] [phone] ?? [facility] [phone] ?? [facility] [place] [phone] ?? [facility] [phone] ?? [facility] [phone] ?? [facility] [phone] ?? [facility] [phone] ?? [facility] [phone] ?? [facility] [phone] ?? [facility] [phone] ?? [facility] [phone] ?? [place] [facility] [place] [phone] ?? [facility] (13-17 yo) [place] [phone] ?? [place] [facility]Adolescent[facility] [place] [phone] ? Partial Hospitalization ??? Outpatient therapy for adults and families with substance abuse problems [address] [place] [address] ? Support Services ? [facility] Outreach - Outpatient therapy /support for recovery / transitional housing &&shelters? [address] [facility] [phone] ? [facility] Action - women's AA group/street outreach program/health access assistance? [address] [facility] [phone] ? Alcoholic Anonymous - AA program to maintain sobriety/ [place]-support for families of alcoholics/Alateen-support for children of same [phone] ? [facility] - recovery support services/sober social Opportunities [address] [place] [address] ?Doc HUNT, Christa Schwartz: PERFORM Event Display: Patient Education Leaflets Authored Date: [id number] Alcohol Abuse ?? [id number] Alcohol Abuse Alcoholic drinks harm you when you have too many of them. No set number of drinks means too much. Drinking that affects your life or your health is called alcohol abuse. Alcohol abuse can hurt your relationships with others. You may lose friends, a spouse, or even your job. You may be abusing alcoholif any of the following are true for you: ??? Duties at home or with maternal child nurse suffer because of drinking. ??? Duties at work or in school suffer because of drinking. ??? You have missed work or school because of drinking. ??? You use alcohol while driving or using machinery. ??? You have legal problems such as arrests because of drinking. ??? You keep drinking even though it causes serious problems in your life. Health problems Alcohol abuse causes many health problems.??Sometimes this can happen after only drinking a ???little. ??The effects depend on how much you drink at one time and how often you drink. The effects alsodepend on how long you drink. For example, months, years, or decades.??Alcohol affects all parts of your body Brain Alcohol affects the central nervous system. It can damage parts of the brain that control your balance and gait, memory, thinking, and emotions. It can cause: ??? Memory loss ??? Blackouts ??? Depression ??? Agitation ??? Sleep problems ??? Seizures These changes may be mcfp (permanent). Heart and blood vessels Alcohol can damage heart muscle (cardiomyopathy). This can lead to: ??? Trouble breathing ??? Irregular heartbeat ??? Atrial fibrillation ??? Leg swelling ??? Heart failure Alcohol also makes the blood vessels stiff. This causes high blood pressure. All of these problems raise your risk of having a heart attack or stroke. Liver Alcohol causes fat to build up in the liver. This affects how the liver works. Alcohol also raises the risk for hepatitis. It can cause: ??? Belly (abdominal) pain ??? Belly swelling ??? Loss of appetite ??? Yellowed eyes or skin (jaundice) ??? Bleeding problems ??? Cirrhosis This can make it harder for you to fight off infections. The liver changes keep it from removing toxins in your blood that can cause brain disease (encephalopathy). This condition cause: ??? Confusion ??? Changed level of consciousness ??? Personality changes ??? Memory loss ??? Seizures, coma, and The liver changes can also cause the veins in your esophagus and stomach to become thin and swollenwith blood (varices). This can cause bleeding and vomiting of blood. Pancreas Alcohol can cause swelling (inflammation) of the pancreas (pancreatitis). This can cause belly pain, fever, and diabetes. Immune system Alcohol weakens your immune system. This makes it harder for you to fight infections and colds. It also makes it more likely for you to get pneumonia and tuberculosis. Cancer Alcohol raises the risk for several types of cancer. These include cancer of the mouth, esophagus, pharynx, larynx, liver, and breast. Sexual function Alcohol can lead to sexual problems. ?? Home care These guidelines will help you deal with alcohol abuse: ??? Admit you have a problem with alcohol. ??? Ask for help from your healthcare provider. Also ask for help from trusted family members or close friends. ??? Get help from people trained in dealing with alcohol abuse. This may be one-on-one counseling or group therapy. Or it may be an alcohol treatment program. ??? Join a self-help group for alcohol abuse such as Alcoholics Anonymous. ??? Stay away from people who abuse alcohol or tempt you to drink. ?? Follow-up care Follow up with your healthcare provider, or as advised. Contact these groups to get help: ??? Alcoholics Anonymous (AA) at www.aa.org. Or check the phone book for meetings near you. ??? National Alcohol and Substance Abuse Information Center (NASAIC) at www.addictioncareStudyTube.[employer] or 254-427-0958 ??? National [place] on Alcoholism and Drug Dependence (NCADD) at www.ncadd.org or 215-HYK-EPMV (434-752-9150) ?? Call 911 Call 911 if any of these occur: ??? Trouble breathing or slow, irregular breathing ??? Chest pain ??? Sudden weakness on one side of your body or sudden trouble speaking ??? Heavy bleeding or vomitingblood ??? Very drowsy or trouble awakening ??? Fainting or loss of consciousness ??? Rapid heart rate ??? Seizure ?? When to seek medical care Call your healthcare provider right away if any of these occur:? Confusion ??? Seeing, hearing, or feeling things that aren???t there (hallucinations) ??? Pain in your upper belly that gets worse??? Vomiting that continues, vomiting with blood, or black or tarry stools ??? Severe shakiness ?? Last Reviewed Date: 2021 ?? 3960-1758 The [employer]. All rights reserved. This information is not intended as a substitute for professional medical care. Always follow your healthcare professional's instructions. ?? Patient Care team information Care Team PersonnelName: Fozia Aguilar RN Position: [facility] RN Member Role: Primary Care Nurse Name: Natalia Weems NP Position: [facility] PCO Associate Professional Member Role: Primary Care Nurse Address: Address: [address] [place] [id number] Name: Jae Tapia RN Position: [facility] ED RN W/OE and Tasks Member Role: Primary Care Nurse Name: Krista Naylor RN Position: [facility] RN Member Role: Primary Care Nurse Name: Alecia Alegria RN Position: [facility] SN RN Member Role: Primary Care Nurse Name: Iris Benavidez RN Position: [facility] RN Member Role: Primary Care Nurse Name: Shelia Berg RN Position: [facility] RN Member Role: Primary Care Nurse Name: Hollie Amaya RN Position: [facility] RN Member Role: Primary Care Nurse Name: Clay Davies RN Position: [facility] RN Member Role: Primary Care Nurse Name: Caren Zuniga RN Position: [facility] RN Member Role: Primary Care Nurse Name: Leida Walker RN Position: [facility] SN RN Member Role: Primary Care Nurse Name: Mayra Bernardo Position: [facility] RN Member Role: Primary Care Nurse Name: Shea Zaldivar RN Position: [facility] RN Member Role: Primary Care Nurse Name: James Mixon RN Position: [facility] RN Member Role: Primary Care Nurse Name: Nga Wang RN Position: [facility] RN Member Role: Primary Care Nurse Name: Bud Anderson Jr, RN Position: [facility] RN Member Role: Primary Care Nurse Name: Tomasa Jean RN Position: [facility] RN Member Role: Primary Care Nurse Name: Marylin Mehta RN Position: [facility] OB RN Member Role: Primary Care Nurse Name: Karey Sr Position: [facility] RN Member Role: Primary Care Nurse Name: Miko Gutierrez RN Position: [facility] RN Member Role: Primary Care Nurse Name: Julee Casas RN Position: [facility] RN Member Role: Primary Care Nurse Name: Mesha Dunlap RN Position: [facility] RN Member Role: Primary Care Nurse Name: Marylin Chan RN Position: [facility] RN Member Role: Primary Care Nurse Name: Amalia Castillo NP Position: Reference Physician Member Role: PCP Address: Address: [address] [place] [address] Name: Juan Alberto aPng RN Position: [facility] ED RN W/OE and Tasks Member Role: Primary Care Nurse Name: Rossy Marti Position: [facility] RN Member Role: Primary Care Nurse Name: Olga Castrejon Position: [facility] RN Member Role: Primary Care Nurse Name: Gabby العراقي RN Position: [facility] SN Front Desk Admin Member Role: Primary Care Nurse Name: Ree Toro RN Position: [facility] RN Member Role: Primary Care Nurse Name: Crys Stevens RN Position: [facility] OB RN Member Role: Primary Care Nurse Name: Rossy Thompson RN Position: [facility] RN Member Role: Primary Care Nurse Name: Shelia Bynum RN Position: [facility] Onco RN Member Role: Primary Care Nurse Name: Aime Galeana RN Position: [facility] RN Member Role: Primary Care Nurse Name: Phyllis Jamison RN Position: [facility] SN RN Member Role: Primary Care Nurse Name: Jelly Sutherland RN Position: [facility] RN Member Role: Primary Care Nurse Name: Ivanna Seo RN Position: [facility] RN Supv Member Role: Primary Care Nurse Name: Chacho Juarez RN Position: [facility] RN Member Role: Primary Care Nurse Name: Dian Benz RN Position: [facility] RN Member Role: Primary Care Nurse Name: Jacy Almendarez RN Position: [facility] RN Member Role: Primary Care Nurse Name: Camacho Estrella RN Position: [facility] RN Member Role: Primary Care Nurse Name: Tomasa Shin RN Position: [facility] ED RN W/OE and Tasks Member Role: Primary Care Nurse Name: Anabel Nuñez NP Position: [facility] PCO Associate Professional Member Role: Primary Care Nurse Address: Address: [address] [place] [address] 3rd floor [facility] [place] [address]- [place] Name: Crys Davison RN Position: [facility] RN Member Role: Primary Care Nurse Name: Katie Frazier RN Position: [facility] RN Member Role: Primary Care Nurse Name: Sharron Middleton RN Position: [facility] RN Member Role: Primary Care Nurse Name: Dasia Franklin RN Position: [facility] SN RN Member Role: Primary Care Nurse Name: Blanca Marley RN Position: [facility] RN Member Role: Primary Care Nurse Name: Viki Can RN Position: [facility] RN Member Role: Primary Care Nurse Name: Brian Can RN Position: [facility] RN Member Role: Primary Care Nurse Name: Marcela De Souza RN Position: [facility] RN Member Role: Primary Care Nurse Name: Alicia Martines RN Position: [facility] RN Member Role: Primary Care Nurse Name: Katie Parrish RN Position: [facility] RN Member Role: Primary Care Nurse Name: Magrarette Porter RN Position: [facility] RN Member Role: Primary Care Nurse Name: Delmi Marrufo RN Position: [facility] RN Member Role: Primary Care Nurse Name: Akbar Cowart RN Position: [facility] RN Member Role: Primary Care Nurse Name: Vanessa Gomez RN Position: [facility] RN Member Role: Primary Care Nurse Name: Yolanda Sanchez RN Position: [facility] Hospital Document Management Specialist Member Role: Primary Care Nurse Name: Natalia Hess RN Position: [facility] RN Supv Member Role: Primary Care Nurse Name: Rachel Marie Position: [facility] ED TA [facility] Name: Laith Puentes Position: [facility] Associate Professional Member Role: ED Physician Communications Editor Address: Address: [address] [place] [address]- [place] Name: Carloz Maciel MD Position: [facility] ED Medicine MD Member Role: Admitting Physician Address: Address: [address] [place] [address]- Care Team Related PersonsName: SOCORRO MCGRATH Address: home [address] [place] [id number] Name: RUPESH MCALLISTER Address: [place] [address] Name: PREETI COFFMAN Address: home [address] [place] [address]
--- OUTSIDE RECORDS SUMMARY | 2022-06-04 11:52 | XMS_ITS | Continuity of Care Document ---
:1970 Author Organization [facility] Address [address] [place] [address]- Care Team Providers Name Role Phone Jonathan OLIVARES, Amalia Primary Care Physician Encounter [facility] R [id number] Date(s): 04/23/22 - 04/24/22 [facility] [address] [place] [id number]- Discharge Disposition: A-D/C Home Attending Physician: Marco Antonio Xavier MD Admitting Physician: Marco Antonio Xavier MD Referring Physician: Not on Staff, Referring MD Allergies, Adverse Reactions, Alerts Substance Reaction Severity Status lisinopril1 intestent twisting Active Zoloft Active Red Dye2 Persistent Severe Active Mushrooms Persistent Severe Active Hawthorn Oil Active 1Makes his legs bfra1Fep dye 40 Immunizations Given and Recorded Vaccine Date Status Refusal Reason influenza virus vaccine, inactivated 02/22/22 Given [id number] 12y+ bivalent booster vax 02/07/22 Given hepatitis [...] Refuses 1Result Comment: Not given on that [id number] Note: pt refused vaccine at this time [...] 10:29:00 EDT, XL Tablet, [facility], Partial fill upon patient request if the prescription is for a schedule II opioid drug., 175, cm, 02/01/22 10:53:00 ED... Start Date: 02/10/22 Stop Date: 03/12/22 Status: Orderedfolic acid 1 mg oral tablet 1 mg, 1, tablet, By Mouth, Daily, # 30 tablet, Refills 0, Tot. Refills 0, Maintenance, 02/10/22 10:30:00 EDT, Route to Pharmacy Electronically, [facility] 3, Partial fill upon patient request [...] 0 Refills, Maintenance, 02/10/22 10:31:00 EDT, Tablet, [facility], 1 tablet By Mouth Daily,x30 days, 175, cm, 02/01/22 10:53:00 EDT, Height, 84, kg, 01/28/22 14:32:00 EDT, Dry Weight Start Date: 02/10/22 Stop Date: 03/12/22 Status: Orderednaltrexone 50 mg oral tablet 1 tablet = 50 mg, By Mouth, Daily, for 12 week(s), # 84 tablet, 0 Refills, Acute 05/05/22 9:37:00 EST, 02/10/22 9:37:00 EDT, Tablet, [facility] 3, Partial fill upon patient request if the prescription is for a schedule II opioid drug., 175... Start Date: 02/10/22 Stop Date: 05/05/22 Status: OrderedoxyCODONE 5 mg oral tablet 5 mg, 1, tablet, By Mouth, Every 6 hours, PRN, taper over 5 days per [place] discretion, Refills0, Tot. Refills 0, Maintenance, Pain [...] Route to Pharmacy Electronically, [facility] 3, Partial fill upon patient request if [...] [Reference Range]: Oxygen Saturation [94-100 95 % 92 % %] (04/24/22 6:21 AM) *L* (04/23/22 8:14 PM) Pulse Rate [55-90 bpm] 78 bpm 78 bpm 98 bpm (04/24/22 6:21 AM) (04/24/22 5:30 AM) *H* (04/24/22 12:36 AM) Blood Pressure 103/54 mm Hg 103/54 mm Hg 131/91 mm Hg [90-138/55-84 mm Hg] (04/24/22 6:21 AM) (04/24/22 5:30 AM) (04/04 06/25 12:36 AM) Respiratory Rate [16-30 18 br/min 18 br/min 16 br/mi n br/min] (04/24/22 6:21 AM) (04/24/22 5:30 AM) (04/23/22 8:14 PM) Temperature [96.8-100.4 97.3 DegF DegF] (04/23/22 8:14 PM) Mode of Delivery (Oxygen) Room air Room air (04/24/22 6:21 AM) (04/23/22 8:14 PM) Blood pressure sites Arm, left Arm, left (04/24/22 12:36 AM) (04/23/22 8:14 PM) Temperature Route Axillary (12/21/22 8:14 PM) Social History Social History Type Response Smoking Status 5-9 cigarettes (between 1/4 to 1/2 pack)/day in last 30 days; Use: 6 to 7 cigarettes for the past 20 years entered on: 02/15/22 Sex Note Marco Antonio Xavier MD: PERFORM Event Display: Patient Education Leaflets Authored Date: [id number] Psychiatric Outpatient Referral List ?? 263 Psychiatric Outpatient Referral List [facility] 24hr Emergency Crisis Line? [address], [place]? [phone] ? [phone] [facility] Central Intake? [phone] ? [phone] [facility]? [address], [place] ? [phone] ? Walk in: T-Th 9:45-12:45pm [facility]? [address], [place]? [phone] [facility]? [phone] [facility]? [address], [place]? [phone] [facility]? [address], [place]?[phone] [facility]? [address], [place]? [phone] [facility]? [address], [place]? [phone] [facility]? [address], [place]? [phone] ? Walk in: M-Th 8:00-4:00pm [facility]? [address], [place]? [phone] [facility] [place] [facility]? [address] [place]? [phone] [facility]? [address], [place] ? [phone] [facility]? [address], [place]? [phone] [facility]? [address], [place]? [phone] [facility]? [place] &&[place]? [phone] [facility] [address], [place]? [phone] [facility]? [place] &&[place]?[phone] [facility]? [address], [place] ? [phone] [facility]? [address], [place]? [phone] [facility]? [address], [place]? [phone] ? Walk in: M-W 9:30 or 10:30am [facility] &&Counseling? [address], [place]?? [place]? [phone] ? [phone] Domestic Violence 24 Hr Hot Lines: ? [facility]? [phone] ? [facility]? [phone]? [facility]? [phone] ? [facility]? [phone] ?? Elder Services: ? [facility] [place] [facility]? [phone] ? [facility] [place] [facility] ? [phone] ?? Legal Advocacy Hot Line: ? [facility] ? [phone] (9:30-12:45 M-Keysha) ?? [place] Dept of Transitional Assistance: ? [place] [phone] / [place] [phone] / [facility] [phone] ?? [facility]? [address], [place], [place]? [phone] [facility]? [address], [place], [place]? [phone] [facility]? [address], [place], [place]? [phone] [facility] ??? [facility]? [address], [place], [place]? [phone] ? [phone] ? After 5pm:? [phone] [facility] ??? [facility] [address], [place], [place]? [phone] ? [phone]? After 5pm:? [phone] [facility]? [address], [place], [place]? [phone] [facility]? [address], [place], [place]? [phone] ? [phone] [facility]? [address], [place], [place]? [phone] [facility]? [address], [place], [place]? [phone] [facility]? [address], [place], [place]? [phone] [facility]? [address], [place], [place]? [phone] ? [phone] [facility] ?[address], [place], [place]? [phone] [facility]? [address], [place], [place]? [phone] ? [phone] [facility]? [address], [place], [place]? [phone] ? [phone] [facility]? [address], [place], [place]? [phone] [facility]? [address], [place], [place] ? [phone] [facility]? [address], [place], [place]? [phone] ? [phone] ?Marco Antonio Xavier MD: PERFORM Event Display: Patient Education Leaflets Authored Date: [id number] Depression ?? [id number] Depresi??n La depresi??n es un problema muy com??n de yvette mental. No es solo un estado de infelicidad o tristeza. Es joyce enfermedad verdadera. Al parecer, la causa est?? relacionada con cambios en las sustancias qu??micas que transmiten se??ales en el cerebro. Lo siguiente aumenta el riesgo de depresi??n en joyce persona: ??? Antecedentes familiares de depresi??n, alcoholismo o suicidio ??? Enfermedad cr??deborah ??? Dolorcr??marian ??? Migra??a (willard de mary beth intensos) ??? Estr??s emocional alto Es probable que sea m??s f??cil detectar la depresi??n en otras personas. Si usted padece de depresi??n, quiz?? le cueste identificarla. Se puede manifestar de varias maneras f??sicas y emocionales. Entre ellos, se incluyen los siguientes: ??? Falta de apetito ??? [place] en exceso ??? No poder dormir ??? Dormir demasiado ??? Mucho cansancio no asociado con actividad f??dawn ??? Impaciencia o irritabilidad ??? Lentitud en el movimiento o en el habla ??? Sentimientos de tristeza o desesperanza ??? P??rdida de inter??s por las cosas que antes disfrutaba ??? Problemas para concentrarse, recordar cosas o cb decisiones ??? Pensamientos dehacerse da??o o suicidarse, o pensar que no olivia la yanes vivir ??? Baja autoestima El tratamiento para la depresi??n puede incluir tanto medicamentos debbie psicoterapia. Los antidepresivos pueden aliviar los s??ntomas. Tambi??n pueden hacer que le resulte m??s f??cil hacer tika tareasdiarias. La terapia puede pricilla apoyo emocional. Adem??s, puede ayudarlo a entender aquello que le causan depresi??n. Cuidados en el hogar ??? La atenci??n y el apoyo constantes ayudan a las personas a controlar esta enfermedad. Busque un proveedor de atenci??n m??dica y un terapeuta que atiendan tika necesidades. Busque ayuda cuando considere que puede estar enfermo. ??? Sea foster consigo mismo. Prop??ngase hacer cosas que disfrute. Puede ser cuidar el jard??n, pricilla un paseo en un parque o ir al cine. Recompense tika navid??os logros. ??? Cuide mas cuerpo. Mantenga joyce alimentaci??n saludable. Elija alimentos con poca cantidad de grasas saturadas. Coma muchas frutas y verduras. Berhane teddy ejercicio beckie 30??minutos al menos 3??veces por semana. Incluso el ejercicio leve a moderado, debbie las caminatas r??pidas, pu dee hacer que se sienta mejor. ??? [place] tika medicamentos any debbie se los receten. No deje de cb los medicamentos ni cambie la dosis, a menos que hable dulce con el proveedor de atenci??n m??dica.??? Cuando comience a cb los medicamentos, los s??ntomas mejorar??n de a poco. Con el tiempo, la depresi??n desaparecer??. No mejora de inmediato. Consulte con el proveedor de atenci??n m??dica cu??nto tardar??n los medicamentos en hacer efecto. ??? No comparta los medicamentos. Tampoco use los medicamentos de otra persona. ??? Informe a los proveedores de atenci??n m??dica todos los medicamentos que michi. Katie incluye los medicamentos con receta y los de venta marquita. Tambi??n incluye las vitaminas y los suplementos herbarios. Algunos suplementos pueden interactuar con los medicamentos. Si esto ocurre, podr??an tener efectos secundarios peligrosos. Consulte con el farmac??utico cuando tenga alguna yessi acerca de las interacciones entre los medicamentos. ??? No tome decisiones importantes hasta que se sienta mejor. Katie incluye cuestiones debbie cambiar de trabajo, divorciarse o casarse. ??? No consuma alcohol. Podr??a hacer que empeore la depresi??n. ??? Hable con mas cole y amigos de confianza sobre tika sentimientos y tika pensamientos.??P??dales que lo ayuden a reconocer los cambios de comportamiento a tiempo. Entonces podr?? buscar ayuda y cambiar los medicamentos, si es necesario. ??? Hable con mas proveedor de atenci??n m??dica si no se siente mejor. Es posible que le cambie los medicamentos o le indique otro tratamiento. ?? Atenci??n de seguimiento Asista a las citas de seguimiento con el proveedor de atenci??n m??dica seg??n le hayan indicado. ?? Cu??ndo llamar al?? 911 Llame al 911 si sucede lo siguiente: ??? Tiene pensamientos suicidas, un plan suicida y conoce la manera para llevar a cabo dicho plan ??? Tiene pensamientos serios de atacar a otra persona ??? Presenta dificultad para respirar ??? Se siente muy confundido ??? Se siente adormecido o tiene dificultades para despertarse ??? Se desmaya ???Presenta un dolor nuevo en el pecho que se vuelve intenso, dura m??s tiempo o comienza a extenderse hacia el hombro, el brazo, el efra, la evgeny??bula o la espalda Red Nacional de Prevenci??n La Red Nacional de Prevenci??n del Suicidio (National Suicide Prevention Lifeline) est?? disponiblelas 24??horas, todos los d??as, si llama al??[phone] ([phone]). All?? brindan atenci??n gratuita y confidencial. Tambi??n tiene joyce opci??n de chat en l??guillermo en www.suicidepreventionlifeline.org. ?? Cu??ndo buscar atenci??n m??dica Llame al proveedor de atenci??n m??dica de inmediato ante cualquiera de las siguientes situaciones:??? Los s??ntomas empeoran ??? Siente depresi??n extrema, miedo, ansiedad o frank contra usted mismo ocontra otras personas ??? Se siente fuera de control ??? Siente que podr??a intentar hacerse da??o austed mismo o a otra persona ??? Oye voces que otras personas no ??? Ve cosas que otras personas no ??? No duerme ni come beckie pantera d??as seguidos ??? Mas cole o tika amigos manifiestan preocupaci??n por mas comportamiento y le piden que busque ayuda ?? Last Reviewed Date: 2021 ?? 1108-4784 [employer] [place]. Todos los derechos reservados. Esta informaci??n no pretende sustituir la atenci??n m??dica profesional. S??lo mas m??dico puede diagnosticar y tratar un problema de yvette. ??Marco Antonio Xavier MD: PERFORM Event Display: Patient Education Leaflets Authored Date: [id number] Meditation ?? 624 ?? What is Meditation?Meditation is an??intentional practice that??focuses on opening??one???s??heart,expanding awareness and??calming??the??mind. ?Meditation?? has?? been?? used by many individuals for thousands of years to find??inner??peace??and??come to??terms with difficulties they experience in life. ?? Why?? Practice?? Meditation? ?? Meditation?? has?? been?? studied for decades and is proven to have many positive effects including: ??? Decreasing anxiety ??? Decreasing stress ??? Improving?? self-awareness ??? Increasing?? imagination and creativity ?? Some?? studies have even??suggested??that??meditation??can??benefit??people who suffer??from physical conditions??including asthma,??headaches, high blood??pressure, sleep problems and chronic pain. ?? Types of Meditation ?? There are many types of meditation??that emphasize different ways to calm the mind. We encourageyou to try a few different types to find the??method??that??works best for you. ? Mindfulness?? Meditation - Mindfulness Meditation??focuses??on??slowing down and being in the present??moment while allowing??thoughts from a busy mind to pass one by without??judgement or stress. ?? Guided Meditation- This??technique??typically uses a teacher(either??in??person or through a website/martinez) to guide??the??person??through a scene or image to calm??the mind. Guided??meditation may use??the five senses to help the??person??experience??the??scene. ?? Mantra Meditation- Mantra??Meditation??emphasizes on??using a specific word or sound to focus??the mind and help prevent??distracting??thoughts. ?? Movement Meditation - Movement?? Meditation?? focuses?? on?? using?? movement?? to allow one to find??inner??peace.??Yoga is a very common??example of movement??meditation,??but??other??methods??include??Qigong,gardening, or even going on a quiet??walk??or hike. ?? These are only a few??of the different types of meditation. Use the resources below??to discover others. ?? Additional?? Resources ?? Websites: ??? Insight Timer: https://Tred/ ??? Meditation [place]: https://www.meditationoasis.[employer]/??? [facility] Mindful Awareness??Research Center (available??in??10+ languages):??http://libia.[facility].edu/body.cfm?id=22 Phone?? Apps: ??? Head space ??? Calm ??? Omvana ??? Buddhify ??? 7 Minute Chi ??? Insight Timer ??? Unplug ?? There are also many??resources??available in places like [employer]??and??Spotify. ? Last Reviewed Date: 2020 This?? information is not intended as a substitute for professional medical care. Always follow??your??health direct care professional???s instruction. ?? Patient Care team information Care Team PersonnelName: Fozia Aguilar RN Position: [facility] RN Member Role: Primary Care Nurse Name: Natalia Weems NP Position: [facility] PCO Associate Professional Member Role: Primary Care Nurse Address: Address: [address] [place] [address] [place] [address] Name: Jae Tapia RN Position: [facility] ED RN W/OE and Tasks Member Role: Primary Care Nurse Name: Krista Naylor RN Position: [facility] RN Member Role: Primary Care Nurse Name: Alecia Alegria RN Position: [facility] SN RN Member Role: Primary Care Nurse Name: Iris Benavidez RN Position: [facility] RN Member Role: Primary Care Nurse Name: Shelia Berg RN Position: [facility] RN Member Role: Primary Care Nurse Name: Hollie Amaya RN Position: [facility] RN Member Role: Primary Care Nurse Name: Clay Davies RN Position: [facility] RN Member Role: Primary Care Nurse Name: Caren Zuniga RN Position: [facility] RN Member Role: Primary Care Nurse Name: Leida Walker RN Position: [facility] SN RN Member Role: Primary Care Nurse Name: Mayra Bernardo Position: [facility] RN Member Role: Primary Care Nurse Name: Shea Zaldivar RN Position: [facility] RN Member Role: Primary Care Nurse Name: James Mixon RN Position: [facility] RN Member Role: Primary Care Nurse Name: Nga Wang RN Position: [facility] RN Member Role: Primary Care Nurse Name: Bud Anderson Jr, RN Position: [facility] RN Member Role: Primary Care Nurse Name: Tomasa Jean RN Position: [facility] RN Member Role: Primary Care Nurse Name: Marylin Mehta RN Position: [facility] OB RN Member Role: Primary Care Nurse Name: Karey Sr Position: [facility] RN Member Role: Primary Care Nurse Name: Ladan Osman RN Position: [facility] RN Member Role: Primary Care Nurse Name: Miko Gutierrez RN Position: [facility] RN Member Role: Primary Care Nurse Name: Julee Casas RN Position: [facility] RN Member Role: Primary Care Nurse Name: Mesha Dunlap RN Position: [facility] RN Member Role: Primary Care Nurse Name: Marylin Chan RN Position: [facility] RN Member Role: Primary Care Nurse Name: Amalia Castillo NP Position: Reference Physician Member Role: PCP Address: Address: [address] [place] [address] Name: Juan Alberto Pang RN Position: [facility] ED RN W/OE and Tasks Member Role: Primary Care Nurse Name: Rossy Marti Position: [facility] RN Member Role: Primary Care Nurse Name: Olga Castrejon Position: [facility] RN Member Role: Primary Care Nurse Name: Gabby العراقي RN Position: [facility] SN Exhibit Builder Member Role: Primary Care Nurse Name: Ree Toro RN Position: [facility] RN Member Role: Primary Care Nurse Name: Crys Stevens RN Position: [facility] OB RN Member Role: Primary Care Nurse Name: Rossy Thompson RN Position: [facility] RN Member Role: Primary Care Nurse Name: Shelia Bynum RN Position: [facility] Onco RN Member Role: Primary Care Nurse Name: Aime Galeana RN Position: [facility] RN Member Role: Primary Care Nurse Name: Phyllis Jamison RN Position: [facility] SN RN Member Role: Primary Care Nurse Name: Jelly Sutherland RN Position: [facility] RN Member Role: Primary Care Nurse Name: Ivanna Seo RN Position: [facility] RN Supv Member Role: Primary Care Nurse Name: Chacho Juarez RN Position: [facility] RN Member Role: Primary Care Nurse Name: Dian Benz RN Position: [facility] RN Member Role: Primary Care Nurse Name: Jacy Almendarez RN Position: [facility] RN Member Role: Primary Care Nurse Name: Camacho Estrella RN Position: [facility] RN Member Role: Primary Care Nurse Name: Tomasa Shin RN Position: [facility] ED RN W/OE and Tasks Member Role: Primary Care Nurse Name: Anabel Nuñez NP Position: [facility] PCO Associate Professional Member Role: Primary Care Nurse Address: Address: [address] [place] [address] 3rd floor [facility] [place] [address]- [place] Name: Crys Davison RN Position: [facility] RN Member Role: Primary Care Nurse Name: Katie Frazier RN Position: [facility] RN Member Role: Primary Care Nurse Name: Sharron Middleton RN Position: [facility] RN Member Role: Primary Care Nurse Name: Dasia Franklin RN Position: [facility] SN RN Member Role: Primary Care Nurse Name: Blanca Marley RN Position: [facility] RN Member Role: Primary Care Nurse Name: Viki Can RN Position: [facility] RN Member Role: Primary Care Nurse Name: Brian Can RN Position: [facility] RN Member Role: Primary Care Nurse Name: Marcela De Souza RN Position: [facility] RN Member Role: Primary Care Nurse Name: Alicia Martines RN Position: [facility] RN Member Role: Primary Care Nurse Name: Katie Parrish RN Position: [facility] RN Member Role: Primary Care Nurse Name: Margarette Porter RN Position: [facility] RN Member Role: Primary Care Nurse Name: Delmi Marrufo RN Position: [facility] RN Member Role: Primary Care Nurse Name: Akbar Cowart RN Position: [facility] RN Member Role: Primary Care Nurse Name: Vanessa Gomze RN Position: [facility] RN Member Role: Primary Care Nurse Name: Yolanda Sanchez RN Position: [facility] Compressor Station Engineer Member Role: Primary Care Nurse Name: Natalia Hess RN Position: [facility] RN Supv Member Role: Primary Care [facility] Attending Position: [facility] ED Attendings Patient Name: Margarito Davies Position: [facility] ED RN W/OE and Tasks Member Role: Patient Care Provider Name: Marco Antonio Xavier MD Position: [facility] ED Medicine MD Member Role: Admitting Physician Address: Address: [address] [place] [address]- [place] Name: Josie Haider Position: [facility] ED TA [facility] Member Role: Mattress Maker Care Team Related PersonsName: SOCORRO MCGRATH Address: home [address] [place] [address] Name: RUPESH MCALLISTER Address: [place] [address] Name: PREETI COFFMAN Address: home [address] [place] [id number]
--- OUTSIDE RECORDS SUMMARY | 2022-06-04 11:53 | XMS_ITS | Continuity of Care Document ---
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 Glucose, POC 155 mg/dL (High)?? 04/30/2022 12:21 BUN 11 mg/dL ()?? 04/30/2022 17:33 Creatinine-Blood 0.7 mg/dL ()?? 04/30/2022 17:33 Estimated GFR Creatinine 112 ML/MIN/1.73 M2 ()?? 04/30/2022 17:33 Calcium 8.3 mg/dL (Low)?? 04/30/2022 17:33 Magnesium 1.9 mg/dL ()?? 04/30/2022 17:33 Protein, Total 6.4 Gm/dL ()?? 04/30/2022 17:33 Albumin 4.1 Gm/dL ()?? 04/30/2022 17:33 AG Ratio 1.8 ()?? 04/30/2022 17:33 Alkaline Phosphatase 64 units/L ()?? 04/30/2022 17:33 Lipase 27 units/L ()?? 04/30/2022 17:33 AST (SGOT) 27 units/L ()?? 04/30/2022 17:33 ALT (SGPT) 36 units/L ()?? 04/30/2022 17:33 Bilirubin, Total 0.3 mg/dL ()?? 04/30/2022 17:33 Lactate 3.7 mmol/L (High)?? 04/30/2022 17:15 ?? HEME OTHER Hold Blue Top SPECIMEN DISCARDED AFTER 4 HOURS. ()?? 04/30/2022 17:33 ?? TOXICOLOGY/TDM Ethanol, Serum or Plasma 212 mg/dL (Abnormal)?? 04/30/2022 17:33 Salicylate Level <0.3 mg/dL (Low)?? 04/30/2022 17:33 Acetaminophen Level <5 mg/L (Low)?? 04/30/2022 17:33 ? Jeff Calabrese DO W: PERFORM Event Display: Admission Note Authored Date: [id number] I have seen and evaluated this patient.??I have discussed the case and its management with the resident and agree with the findings and plan as documented in the resident???s note unless otherwise documented below. When seen at bedside, patient is quite??fidgety.?? He was able to??give a history that corroborates with what he has told other??physicians, including that he is still??suicidal at this time. During our conversation he again states?? I cannot think right now, and turns his attention back tothe television. Further work-up noted will for continued??elevation in lactate??despite IV fluid??resuscitation (would likely benefit from further??IV fluids), as well as??urine tox screen positive for cocaine. ?? The biggest concern at the moment is the patient's active suicidal ideation??as well as his??overdose of Wellbutrin.?? Once he is medically cleared,??if he does not leave AGAINST MEDICAL ADVICE as he has in the past,??do feel that the patient would be??an appropriate??candidate for inpatient??psychiatric evaluation. At this point,??Mr. Mcallister does not??exhibit capacity??with regard to medical decision making??and should not be permitted to leave AGAINST MEDICAL ADVICE. Will need further??psychiatric evaluation??to aid to help with managing??his underlying??mental health concerns. At this point, primarily monitoring??for??effects of Wellbutrin toxicity, which will??lower seizure threshold??certainly seizures would be??of concern??should the patient begin to withdraw??without support. ?? Otherwise,??as noted??lactate??has been persistent,??was administered further IV fluids??and will??reassess lactate. Does not appear to have an intra-abdominal process, likely in setting of his??overdose??and overall illness. EKG study Event Display: ECG 12-Lead Authored Date: Please click on pdf link to open report Event Display: ECG 12-Lead Authored Date: Ventricular Rate: 99 BPM Atrial Rate: 99 BPM P-R Interval: 146 ms QRS Duration: 96 ms Q-T Interval: 366 ms QTC Calculation(Bazett): 469 ms P [place]: 57 degrees R [place]: 9 degrees T [place]: 52 degrees Poor data quality, interpretation may be adversely affected Normal sinus rhythm Normal ECG When compared with ECG of 18-APR-2022 16:35, Vent. rate has increased BY 40 BPM Confirmed by KHAI ENRIQUEZ MD ([id number]) on 04/30/2022 5:40:34 PM [place]: KHAI ENRIQUEZ MD Note Event Display: Cardiac Rhythm Strips Authored Date: Delaney Bronson MD: PERFORM Event Display: Discharge/Transfer Note Hospital Authored Date: Patient: ??REESE MCALLISTER ? Age:??51 Years?Sex:??Male?:??1970?? Patient Information Discharge Location: Primary Care Physician: Amalia Castillo NP Admit Date/Time: 04/30/22 20:43 Discharge Disposition Discharge Disposition: ?? Discharge Diagnosis Alcohol abuse (F10.10) Bupropion overdose (T43.291A) Alcohol withdrawal _ Discharge Medications Acetaminophen (acetaminophen 325 mg oral tablet)?975?Milligram?By Mouth?3 times a day?Temperature Greater than 100.5 Atorvastatin (atorvastatin 40 mg oral tablet)?1?tab(s)?40?Milligram?By Mouth?Dailyat bedtime?TAKE 1 TABLET BY MOUTH AT BEDTIME BuPROpion (buPROPion 300 mg/24 hours (XL) oral tablet, extended release)?1?tab(s)?300?Milligram?By Mouth?Daily?for 30?Days Folic Acid (folic acid 1 mg oral tablet)?1?Milligram?1?tablet?By Mouth?Daily?for 30?Days HydrOXYzine (hydrOXYzine pamoate 50 mg oral capsule)?1?capsule?50?Milligram?By Mouth?Every 6 hours?as needed?Anxiety?for 7?Days Lamotrigine (lamotrigine 25 mg oral tablet)?25?Milligram?1?tablet?By Mouth?Daily?for 30?Days Lidocaine Topical (lidocaine 5% topical film)?Topically?Daily Metformin (metFORMIN 500 mg oral tablet)?1?tab(s)?500?Milligram?By Mouth?2 times aday?for 30?Days Multivitamin (multivitamin Multiple Vitamins oral tablet)?1?tab(s)?By Mouth?Daily?for30?Days Oxycodone (oxyCODONE 5 mg oral tablet)?5?Milligram?1?tablet?By Mouth?Every 6 hours?as needed?taper over 5 days per [place] discretion?Pain , Moderate Pantoprazole (Protonix 40 mg oral delayed release tablet)?40?Milligram?By Mouth?2 times a day?for 30?Days Pregabalin (pregabalin 200 mg oral capsule)?1?capsule?200?Milligram?By Mouth?3 times a day Propranolol (propranolol 20 mg oral tablet)?20?Milligram?1?tablet?By Mouth?2 timesa day?for 30?Days Thiamine (thiamine 100 mg oral tablet)?100?Milligram?1?tablet?By Mouth?Daily Tizanidine (tiZANidine 4 mg oral tablet)?4?Milligram?1?tablet?By Mouth?3 times a day?as needed?Spasm ? Allergies Allergies ?(Active and Proposed Allergies Only) Red Dye? (Severity: Persistent Severe, Onset: Unknown) ?Comments: Red dye 40 lisinopril? (Severity: Unknown severity, Onset: Unknown) ?Reactions: intestent twisting ?Comments: Makes ??his legs hurt Zoloft? (Severity: Unknown severity, Onset: Unknown) Mushrooms? (Severity: Persistent Severe, Onset: Unknown) [place] Oil? (Severity: Unknown severity, Onset: Unknown) ? Hospital Course ??51 y/o??polysubstance use including cocaine, cannabis, alcohol use disorder with history of withdrawal seizures requiring ICU hospitalization, history of depression and anxiety on bupropion with frequent visits for SI with a history of overdose on bupropion, syphilis, diabetes mellitus, GERD, presents to ED intoxicated after intentional suicidal attempt with overdose on bupropion admitted for management of Alcohol withdrawal and Bupropion overdose. ??Patient has been treated for alcohol withdrawal, seen by psych. ??Cleared??by psych for discharge. ??Patient??offered discharge in a.m. however insisted to stay??and the plan was to start??IV naltrexone however just before administration he decided to leave AMA. ??Patient was seen 3 times during his stay. ??I would not be surprised if he is back tomorrow??with same scenario ? Alcohol intoxication/withdrawal-treated, patient finished 5 days of [facility] protocol Cocaine abuse Presents with intoxication and initially unarousable. History of alcohol use disorder with drinking of 1 gallon of vodka daily. History of multiple presentations for intoxication with history of withdrawal seizures requiring ICUadmission. Recent MICU admission on 04/18 found to be unarousable requiring intubation. Labs showing elevated blood alcohol level with elevated lactate likely in the setting of poor oral intake. Tested positive for cocaine ?? Overdose attempt on bupropion H/o anxiety and depression Patient has extensive psychiatric history on multiple psychiatric medications.?? History of frequent admissions for SI and attempts for overdose prior.?? Admits to taking 30 pills of bupropion and wants in attempt to end his life.?? Bupropion toxicity: Insomnia agitation nervousness and anxiety or panic can cause angle-closure glaucoma risk of seizures tachycardia, high risk for cardiovascular arrhythmias Daily bedside for discharge ? Objective Assessment and Plan ? Vital Signs?? Temperature: 97.3 DegF (05/06/22 12:55:00) Temperature Route: Oral (05/06/22 12:55:00) Pulse Rate:??112 bpm??High (05/06/22 12:55:00) Respiratory Rate: 18 br/min (05/06/22 12:55:00) Systolic Blood Pressure:??174 mm Hg??High (05/06/22 12:55:00) Diastolic Blood Pressure:??94 mm Hg??High (05/06/22 12:55:00) Blood pressure sites: Arm, left (05/06/22 12:55:00) Mean Arterial Pressure: 121 mm Hg (05/06/22 12:55:00) Pulse Pressure: 80 mm Hg (05/06/22 12:55:00) Oxygen Saturation: 97 % (05/06/22 12:55:00) Mode of Delivery (Oxygen): Room air (05/06/22 12:55:00) Early Warning Score: 0 (05/06/22 14:31:21) ? . Physical Exam General?NAD, AAO HEENT?PERRLA, oropharynx clear, moist mucus membranes Pulm?CTA bilaterally, no wheezes/rhonchi/rales CV?RRR, +S1/S2, no murmurs/rubs GI?Soft, nontender, nondistended, no organomegaly, bowel sounds are present Neuro?Moves all extremities MS?no obvious deformity Psych?Mood appropriate to situation?? Pending Results Add On Lab Order ordered on 04/30/2022 BUN ordered on 05/02/2022 BUN ordered on 05/03/2022 CBC w/ Differential ordered on 05/02/2022 Creatinine ordered on 05/02/2022 Creatinine ordered on 05/03/2022 Electrolytes ordered on 05/02/2022 Electrolytes ordered on 05/03/2022 Glucose Level ordered on 05/02/2022 Glucose Level ordered on 05/03/2022 Hold Lavender Tube (BB) ordered on 04/30/2022 Magnesium Level ordered on 05/02/2022 Magnesium Level ordered on 05/03/2022 Home Health Face to Face ^[facility] Results Discharge Labs BLOOD COUNT & DIFF WBC 6.6 k/mm3 ()?? 05/04/2022 05:44 RBC 4.43 m/mm3 (Low)?? 05/04/2022 05:44 Hgb 13.4 Gm/dL (Low)?? 05/04/2022 05:44 Hct 40.4 % (Low)?? 05/04/2022 05:44 MCV 91.2 femtoliters ()?? 05/04/2022 05:44 MCH 30.2 pg ()?? 05/04/2022 05:44 MCHC 33.2 g/dL ()?? 05/04/2022 05:44 Platelet Count 244 k/mm3 ()?? 05/04/2022 05:44 RDW-SD 47.6 femtoliters (High)?? 05/04/2022 05:44 MPV 9.4 femtoliters ()?? 05/04/2022 05:44 Nucleated RBC (Automated) 0.0 #/100 WBC'S ()?? 05/04/2022 05:44 Abs. NRBC 0.0 k/mm3 ()?? 05/04/2022 05:44 Abs. Neut 3.2 k/mm3 ()?? 05/04/2022 05:44 Abs. Lymph 2.4 k/mm3 ()?? 05/04/2022 05:44 Abs. [place] 0.6 k/mm3 ()?? 05/04/2022 05:44 Abs. Eo 0.2 k/mm3 ()?? 05/04/2022 05:44 Abs. Baso 0.1 k/mm3 ()?? 05/04/2022 05:44 Neut % 48.6 % ()?? 05/04/2022 05:44 Lymph % 36.8 % ()?? 05/04/2022 05:44 [place] % 9.4 % ()?? 05/04/2022 05:44 Eos % 3.5 % ()?? 05/04/2022 05:44 Baso % 0.8 % ()?? 05/04/2022 05:44 Imm Gran 0.9 % ()?? 05/04/2022 05:44 Abs. Imm Gran 0.1 k/mm3 ()?? 05/04/2022 05:44 ?? CHEM GENERAL Sodium 134 mmol/L ()?? 05/04/2022 05:44 Potassium 4.4 mmol/L ()?? 05/04/2022 05:44 Chloride 100 mmol/L ()?? 05/04/2022 05:44 Bicarbonate Level 24 mmol/L ()?? 05/04/2022 05:44 Anion Gap 10 ()?? 05/04/2022 05:44 Glucose Level 115 mg/dL (High)?? 05/04/2022 05:44 Glucose, POC 179 mg/dL (High)?? 05/06/2022 12:44 BUN 15 mg/dL ()?? 05/04/2022 05:44 Creatinine-Blood 0.8 mg/dL ()?? 05/04/2022 05:44 Estimated GFR Creatinine 106 ML/MIN/1.73 M2 ()?? 05/04/2022 05:44 Calcium 9.1 mg/dL ()?? 05/04/2022 05:44 Magnesium 2.0 mg/dL ()?? 05/04/2022 05:44 Protein, Total 6.4 Gm/dL ()?? 04/30/2022 17:33 Albumin 4.1 Gm/dL ()?? 04/30/2022 17:33 AG Ratio 1.8 ()?? 04/30/2022 17:33 Alkaline Phosphatase 64 units/L ()?? 04/30/2022 17:33 Lipase 27 units/L ()?? 04/30/2022 17:33 AST (SGOT) 27 units/L ()?? 04/30/2022 17:33 ALT (SGPT) 36 units/L ()?? 04/30/2022 17:33 Bilirubin, Total 0.3 mg/dL ()?? 04/30/2022 17:33 Lactate 1.6 mmol/L ()?? 05/01/2022 03:48 ? HEME OTHER Hold Blue Top SPECIMEN DISCARDED AFTER 4 HOURS. ()?? 04/30/2022 17:33 ? TOXICOLOGY/TDM Ethanol, Serum or Plasma 212 mg/dL (Abnormal)?? 04/30/2022 17:33 Salicylate Level <0.3 mg/dL (Low)?? 04/30/2022 17:33 Cocaine Metabolite Screen, Urine POSITIVE (Abnormal)?? 04/30/2022 22:54 Opiate Screen, Urine NONE DETECTED ()?? 04/30/2022 22:54 Acetaminophen Level <5 mg/L (Low)?? 04/30/2022 17:33 ? VIROLOGY COVID-19 PCR Specimen Source NASAL ()?? 05/05/2022 10:28 COVID-19 PCR Result NEGATIVE ()?? 05/05/2022 10:28 ? Microbiology ?? COVID-19 (2019 Novel Coronavirus) PCR?? Completed?? Source: Nasal Body Site: Nose Collected Dt/Tm: 05/01/2022 05:01 Last Updated Dt/Tm: 05/01/2022 14:15 COVID-19 (2019 Novel Coronavirus) PCR?? Completed?? Source: Nasal Body Site: Nose Collected Dt/Tm: 05/05/2022 10:28 Last Updated Dt/Tm: 05/05/2022 22:18 ? >35??minutes spent on discharge [facility]owerscribe , CIS S: TRANSCRIBE Abelardo Rodriguez MD: VERIFY Event Display: Result: Authored Date: Chest 2 Views Frontal and Lat Reason: Angina; Clinical Question(s): CHF COMPARISON: X-ray 04/25/2022 FINDINGS: LINES AND TUBES: None. LUNGS AND PLEURA: Lung volumes are low. No focal opacity or volume loss. Normal pulmonary vascularity. No pleural effusion. No pneumothorax. HEART, MEDIASTINUM AND CHRISSY: Heart is at the upper limits of normal for size. Normal mediastinal and hilar contour. BONES AND SOFT TISSUES: No acute abnormality. IMPRESSION: No acute abnormality. WSN: [id number] Ordering Physician: Sydney Blackwood Dictated By: Abelardo Rodriguez MD Dictated Date/Time: 04/30/22 10:00 p Reviewed By: Abelardo Rodriguez MD Signed By: Abelardo Rodriguez MD Signed Date/Time: 04/30/22 10:00 pm Transcribed By: VANDANA Transcribed Date/Time: 04/30/22 9:59 pm Hospital Progress note Ceci Wang RN: PERFORM, SIGN, VERIFY Event Display: Progress Note Hospital Authored Date: Patient: REESE MCALLISTER Age: 51 years Sex: Male : 1970 Associated Diagnoses: None Author: Ceci Wang RN Findings Evaluation Pt started getting agitated and anxious around 1400, said he wanted to leave. MD Bronson made aware. Tried talking with pt, had no effect. Pt left AMA around 1430. .Aiyana HUNT, [facility]: PERFORM Event Display: Progress Note Hospital Authored Date: Patient: ??REESE MCALLISTER ? Age:??51 Years?Sex:??Male?:??1970?? Subjective No events overnight patient seems more comfortable and less anxious Seen at bedside denying chest pain or shortness of breath?? Review of Systems All review of systems negative except above Objective ? Vital Signs?? Temperature: 97.5 DegF (05/05/22 07:00:00) Temperature Route: Oral (05/05/22 07:00:00) Pulse Rate: 77 bpm (05/05/22 07:00:00) Respiratory Rate: 18 br/min (05/05/22 07:00:00) Vented: No (05/05/22 16:00:00) Systolic Blood Pressure: 131 mm Hg (05/05/22 07:00:00) Diastolic Blood Pressure: 76 mm Hg (05/05/22 07:00:00) Blood pressure sites: Arm, left (05/05/22 07:00:00) Mean Arterial Pressure: 84 mm Hg (05/04/22 23:58:00) Pulse Pressure: 55 mm Hg (05/05/22 07:00:00) Oxygen Saturation: 95 % (05/05/22 07:00:00) Mode of Delivery (Oxygen): Room air (05/05/22 07:00:00) Early Warning Score: 5 (05/05/22 12:07:18) ? Intake/Output? 04/30 20:43 05/05 07:00 05/04 07:00 05/03 07:00 05/02 07:00 ?? 05/05 16:31 05/05 16:31 05/05 06:59 05/04 06:59 05/03 06:59 Intake ? 1658 ?860 ?318 ?0 ?480 Output ?0 ?0 ?0 ?0 ?0 Net Total ? 1658 ?860 ?318 ?0 ?480 ? Urine Count ?4 ?2 ?0 ?2 ?0 ? Physical Exam General?NAD, AAO HEENT?PERRLA, oropharynx clear, moist mucus membranes Pulm?CTA bilaterally, no wheezes/rhonchi/rales CV?RRR, +S1/S2, no murmurs/rubs GI?Soft, nontender, nondistended, no organomegaly, bowel sounds are present Neuro?Moves all extremities MS?no obvious deformity Psych?Mood appropriate to situation?? _ Inpatient Medications Medications (24) Active SCHEDULED: (7) Clonidine 0.1 mg Tablet (cloNIDine 0.1 mg oral tablet) ??0.1 mg, By Mouth, 3 times a day Folic Acid 1 mg Tablet (Folic Acid Tablet) ??1 mg, By Mouth, Daily Insulin Lispro 100 units/mL Inj (3mL) (Insulin LISPRO Sliding Scale) ??2-10 units, Subcutaneous Injection, 3 times a day before meals Multivitamin Tablet ??1 tablet, By Mouth, Daily NaCl 0.9% Flush 3ml (NaCL 0.9% Flush) ??3 mL, IV Push, Every 8 hours Pyridoxine 50 mg Tablet (Pyridoxine Tablet) ??50 mg, By Mouth, Daily Thiamine 100 mg Tablet (Thiamine Tablet) ??100 mg, By Mouth, 2 times a day CONTINUOUS: (0) PRN: (17) Acetaminophen 325 mg Tablet (Acetaminophen Tablet) ??650 mg, By Mouth, Every 4 hours Dextromethorphan-Guaifenesin 20 mg-200 mg/10 mL Liqu UD (Robitussin DM Liquid) ??10 mL, By Mouth, Every 4 hours Dextrose Inj Syringe (Dextrose 50% Inj Syringe (25Gm)) ??12.5 Gm, IV Push Slowly, Every 20 minutes Dextrose Inj Syringe (Dextrose 50% Inj Syringe (25Gm)) ??25 Gm, IV Push Slowly, Every 15 minutes Glucagon 1 mg Inj (Glucagon Inj) ??1 mg, Intramuscular, Once Glucose 40% Gel (15 Gm) (Glucose Gel) ??15 Gm, By Mouth, Every 20 minutes Glucose 40% Gel (15 Gm) (Glucose Gel) ??30 Gm, By Mouth, Every 20 minutes Haloperidol Lactate 5 mg/mL Inj (1 mL) (Haloperidol LACTATE Inj) ??5 mg 1 mL, IV Push Slowly, Once Lorazepam 2 mg Inj Syringe (Ativan Inj) ??1 mg, IV Push Slowly, Every 2 hours Lorazepam 2 mg Inj Syringe (Ativan Inj) ??2 mg, IV Push Slowly, Every 2 hours Lorazepam 2 mg Inj Syringe (Ativan Inj) ??2 mg, IV Push Slowly, Every hour Melatonin 3 mg Tablet (Melatonin Tablet) ??3 mg, By Mouth, Daily at bedtime NaCl 0.9% Flush 3ml (NaCL 0.9% Flush) ??3 mL, IV Push, Every 8 hours Ondansetron 2mg/mL Inj (2mL Vial) (Ondansetron Inj) ??4 mg, IV Push Slowly, Every 30 minutes Polyethylene Glycol 17 Gm Powder (MiraLax Powder) ??17 Gm 1 pack/packet, By Mouth, Daily Senna 8.6 mg / Docusate 50 mg tablet (Docusate/Senna Tablet) ??1 tablet, By Mouth, 2 times a day Simethicone 80 mg Chewable Tablet (Simethicone Tablet) ??80 mg, Chew, 3 times a day ? Results Abnormal Labs ?? CHEM GENERAL ??Glucose, POC ??110 mg/dL (High) ??05/05/2022 12:06 ? Note: Critical results are displayed in red. ? Assessment/Plan 51 y/o??polysubstance use including cocaine, cannabis, alcohol use disorder with history of withdrawal seizures requiring ICU hospitalization, history of depression and anxiety on bupropion with frequent visits for SI with a history of overdose on bupropion, syphilis, diabetes mellitus, GERD, presentsto ED intoxicated after intentional suicidal attempt with overdose on bupropion admitted for management of Alcohol withdrawal and Bupropion overdose. ? Alcohol intoxication/withdrawal Cocaine abuse Presents with intoxication and initially unarousable. History of alcohol use disorder with drinking of 1 gallon of vodka daily. History of multiple presentations for intoxication with history of withdrawal seizures requiring ICUadmission. Recent MICU admission on 04/18 found to be unarousable requiring intubation. Labs showing elevated blood alcohol level with elevated lactate likely in the setting of poor oral intake. Diuretics positive for cocaine ?? -Starting clonidine 3 times daily scheduled, patient already clonidine at home once daily -CIWA score with lorazepam and scheduled diazepam -Thiamine, pyridoxine, multivitamin and folic acid -Seizure precautions -Phenytoin contraindicated for seizure as per poison control due to bupropion intoxication. ?? Overdose attempt on bupropion H/o anxiety and depression Patient has extensive psychiatric history on multiple psychiatric medications.?? History of frequent admissions for SI and attempts for overdose prior.?? Admits to taking 30 pills of bupropion and wants in attempt to end his life.?? Bupropion toxicity: Insomnia agitation nervousness and anxiety or panic can cause angle-closure glaucoma risk of seizures tachycardia, high risk for cardiovascular arrhythmias ?? -Seen by psych, recs: --can re-assess once medically cleared for dispo, cannot leave AMA currently. --Consider Haldol 5 mg PO/IM and Benadryl 50mg PO/IM??Q6H PRN agitation. --Addiction or SW consult when stabilized ?? Elevated lactate-resolved T2DM:will hold home metformin, SSI, scheduled POC, hypoglycemia measures GERD: Hold Pantoprazole ?? Full code Regular diet as patient refusing low-carb diet No chemical DVT prophylaxis patient ambulating ? Gail Cote RN: PERFORM, SIGN, VERIFY Event Display: Progress Note Hospital Authored Date: [id number] Patient: REESE MCALLISTER Age: 51 years Sex: Male : 1970 Associated Diagnoses: None Author: Gail Cote RN Findings Narrative/Incidental Patient alert and oriented x4. Denies SI but pt attempts to elope and take supplies from kitchen so sitter in place. Pt has been cooperative all day. LUngs clear on room air. Abdomen intact. Voiding inthe bathroom. Ambulating independently. refusing vitals and POC this evening, aware. see flowsheet for further documentation. will continue to monitor. . CT Cervical spine WO contrast [facility]erscribe , CIS S: TRANSCRIBE Cheo Carnes MD: VERIFY Event Display: Result: Authored Date: [id number] CT Head/Brain W/O Contrast, CT Cervical Spine W/O Contrast INDICATION: Reason: Other:; Clinical Question(s): Subarachnoid Hemorrhage TECHNIQUE: Noncontrast head CT using axial technique was reconstructed in axial and coronal planes. Noncontrast spiral CT through the cervical spine was formatted in 3 planes. Automatic tube modulationwas used for the cervical spine and iterative dose reconstruction was used for both the head and cervical spine to optimize scan parameters and image quality. CTDIvol Body: 16.00 mGy, DLP Body: 424 mGy*cm. CTDIvol Head: 42.00 mGy, DLP Head: 672 mGy*cm. COMPARISON: Prior head CT dated April 18, 2022. 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 BRAIN AND EXTRA-AXIAL SPACES: No parenchymal hemorrhage, midline shift, or mass effect. [place]-white matter differentiation is well preserved. No acute infarct. Negative insular ribbon sign. Atherosclerotic vascular calcification of the carotid arteries but negative hyperdense vessel sign. Ventricles, sulci, and basilar cisterns are normal. Mild low-density white matter changes. Bilateral basal ganglia hypodensities are unchanged, representing either chronic lacunar infarctions or small dilated perivascular spaces. No subarachnoid hemorrhage. No subdural or epidural collection. CALVARIUM, SKULL BASE, AND SOFT TISSUES: No fractures or suspicious bony lesions. The paranasal sinuses and mastoid air cells are clear. Visualized orbits and globes are intact. The extracranial soft tissues are unremarkable. CERVICAL SPINE: No fracture. No acute osseous abnormalities. Reversal of the normal cervical lordosis, likely combination of positioning and degenerative change.Moderate to severe multilevel degenerative changes with intervertebral disc space narrowing and marginal spurring. OTHER BONES: No acute abnormality. CERVICAL SOFT TISSUES AND LUNG APICES: Normal soft tissues. Visualized lung apices are clear. IMPRESSION: No acute abnormality of the head or cervical spine. WSN: [id number] Ordering Physician: Sydney Blackwood Dictated By: Cheo Carnes MD Dictated Date/Time: 04/30/22 5:14 pm Reviewed By: Cheo Carnes MD Signed By: Cheo Carnes MD Signed Date/Time: 04/30/22 5:14 pm Transcribed By: VANDANA Transcribed Date/Time: 04/30/22 5:[address] Head WO contrast [facility] , CIS S: TRANSCRIBE Cheo Carnes MD: VERIFY Event Display: Result: Authored Date: [id number] CT Head/Brain W/O Contrast, CT Cervical Spine W/O Contrast INDICATION: Reason: Other:; Clinical Question(s): Subarachnoid Hemorrhage TECHNIQUE: Noncontrast head CT using axial technique was reconstructed in axial and coronal planes. Noncontrast spiral CT through the cervical spine was formatted in 3 planes. Automatic tube modulationwas used for the cervical spine and iterative dose reconstruction was used for both the head and cervical spine to optimize scan parameters and image quality. CTDIvol Body: 16.00 mGy, DLP Body: 424 mGy*cm. CTDIvol Head: 42.00 mGy, DLP Head: 672 mGy*cm. COMPARISON: Prior head CT dated April 18, 2022. 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 BRAIN AND EXTRA-AXIAL SPACES: No parenchymal hemorrhage, midline shift, or mass effect. [place]-white matter differentiation is well preserved. No acute infarct. Negative insular ribbon sign. Atherosclerotic vascular calcification of the carotid arteries but negative hyperdense vessel sign. Ventricles, sulci, and basilar cisterns are normal. Mild low-density white matter changes. Bilateral basal ganglia hypodensities are unchanged, representing either chronic lacunar infarctions or small dilated perivascular spaces. No subarachnoid hemorrhage. No subdural or epidural collection. CALVARIUM, SKULL BASE, AND SOFT TISSUES: No fractures or suspicious bony lesions. The paranasal sinuses and mastoid air cells are clear. Visualized orbits and globes are intact. The extracranial soft tissues are unremarkable. CERVICAL SPINE: No fracture. No acute osseous abnormalities. Reversal of the normal cervical lordosis, likely combination of positioning and degenerative change.Moderate to severe multilevel degenerative changes with intervertebral disc space narrowing and marginal spurring. OTHER BONES: No acute abnormality. CERVICAL SOFT TISSUES AND LUNG APICES: Normal soft tissues. Visualized lung apices are clear. IMPRESSION: No acute abnormality of the head or cervical spine. WSN: [id number] Ordering Physician: Sydney Blackwood Dictated By: Cheo Carnes MD Dictated Date/Time: 04/30/22 5:14 pm Reviewed By: Cheo Carnes MD Signed By: Cheo Carnes MD Signed Date/Time: 04/30/22 5:14 pm Transcribed By: VANDANA Transcribed Date/Time: 04/30/22 5:07 pm Patient Care team information Care Team PersonnelName: Fozia Aguilar [facility] RN Member Role: Primary Care Nurse Name: Natalia Weems NP Position: [facility] PCO Associate Professional Member Role: Primary Care Nurse Address: Address: [address] [place] [id number] Name: Jae Tapia RN Position: [facility] ED RN W/OE and Tasks Member Role: Primary Care Nurse Name: Krista Naylor RN Position: [facility] RN Member Role: Primary Care Nurse Name: Alecia Alegria RN Position: [facility] SN RN Member Role: Primary Care Nurse Name: Iris Benavidez RN Position: [facility] RN Member Role: Primary Care Nurse Name: Shelia Berg RN Position: [facility] RN Member Role: Primary Care Nurse Name: Hollie Amaya RN Position: [facility] RN Member Role: Primary Care Nurse Name: Clay Davies RN Position: [facility] RN Member Role: Primary Care Nurse Name: Caren Zuniga RN Position[facility] RN Member Role: Primary Care Nurse Name: Leida Walker RN Position: [facility] SN RN Member Role: Primary Care Nurse Name: Mayra Bernardo Position: [facility] RN Member Role: Primary Care Nurse Name: Shea Zaldivar RN Position: [facility] RN Member Role: Primary Care Nurse Name: James Mixon RN Position: [facility] RN Member Role: Primary Care Nurse Name: Gail Cote RN Position: [facility] RN Member Role: Primary Care Nurse Name: Nga Wang RN Position: [facility] RN Member Role: Primary Care Nurse Name: Bud Anderson Jr, RN Position: [facility] RN Member Role: Primary Care Nurse Name: Tomasa Jean RN Position: [facility] RN Member Role: Primary Care Nurse Name: Marylin Mehta RN Position: [facility] OB RN Member Role: Primary Care Nurse Name: Remberto Karey Position: [facility] RN Member Role: Primary Care Nurse Name: Miko Gutierrez RN Position: [facility] RN Member Role: Primary Care Nurse Name: Julee Casas RN Position: [facility] RN Member Role: Primary Care Nurse Name: Mesha Dunlap RN Position: [facility] RN Member Role: Primary Care Nurse Name: Marylin Chan RN Position: [facility] RN Member Role: Primary Care Nurse Name: Amalia Castillo NP Position: Reference Physician Member Role: PCP Address: Address: [address] [place] [id number] Name: Juan Alberto Pang RN Position[facility] ED RN W/OE and Tasks Member Role: Primary Care Nurse Name: Rossy Marti Position: [facility] RN Member Role: Primary Care Nurse Name: Olga Castrejon Position: [facility] RN Member Role: Primary Care Nurse Name: Gabby العراقي RN Position: [facility] SN Filtering Machine Tender Helper Member Role: Primary Care Nurse Name: Ree Toro RN Position[facility] RN Member Role: Primary Care Nurse Name: Crys Stevens RN Position: [facility] OB RN Member Role: Primary Care Nurse Name: Rossy Thompson RN Position[facility] RN Member Role: Primary Care Nurse Name: Shelia Bynum RN Position: [facility] Onco RN Member Role: Primary Care Nurse Name: Aime Galeana RN Position[facility] RN Member Role: Primary Care Nurse Name: Phyllis Jamison RN Position: [facility] SN RN Member Role: Primary Care Nurse Name: Jelly Sutherland RN Position[facility] RN Member Role: Primary Care Nurse Name: Ivanna Seo RN Position: [facility] RN Supv Member Role: Primary Care Nurse Name: Chacho Juarez RN Position[facility] RN Member Role: Primary Care Nurse Name: Dian Benz RN Position[facility] RN Member Role: Primary Care Nurse Name: Jacy Almendarez RN Position[facility] RN Member Role: Primary Care Nurse Name: Camacho Estrella RN Position[facility] RN Member Role: Primary Care Nurse Name: Tomasa Shin RN Position: [facility] ED RN W/OE and Tasks Member Role: Primary Care Nurse Name: Anabel Nuñez NP Position: [facility] PCO Associate Professional Member Role: Primary Care Nurse Address: Address: [address] [place] [address] [address] [place] [address]- Name: Gabby Vogel RN Position[facility] RN Member Role: Primary Care Nurse Name: Crys Davison RN Position[facility] RN Member Role: Primary Care Nurse Name: Katie Frazier RN Position: [facility] RN Member Role: Primary Care Nurse Name: Sharron Middleton RN Position: [facility] RN Member Role: Primary Care Nurse Name: aDsia Franklin RN Position: [facility] SN RN Member Role: Primary Care Nurse Name: Blanca Marley RN Position[facility] RN Member Role: Primary Care Nurse Name: Viki Can RN Position[facility] RN Member Role: Primary Care Nurse Name: Brian Can RN Position[facility] RN Member Role: Primary Care Nurse Name: Marcela De Souza RN Position[facility] RN Member Role: Primary Care Nurse Name: Alicia Martines RN Position: [facility] RN Member Role: Primary Care Nurse Name: Katie Parrish RN Position[facility] RN Member Role: Primary Care Nurse Name: Margarette Porter RN Position[facility] RN Member Role: Primary Care Nurse Name: Delmi Marrufo RN Position[facility] RN Member Role: Primary Care Nurse Name: Akbar Cowart RN Position[facility] RN Member Role: Primary Care Nurse Name: Vanessa Gomez RN Position: [facility] RN Member Role: Primary Care Nurse Name: Yolanda Sanchez RN Position: [facility] [employer] Tooling Machine Operator Member Role: Primary Care Nurse Name: Natalia Hess RN Position[facility] RN Supv Member Role: Primary Care Nurse Name: Anibal[facility]ALE[facility] Attending Position: [facility] ED Medicine MD Name: Zonia Melton RN Position: [facility] ED RN W/OE and Tasks Member Role: Patient Care Provider Name: Terra To Position: [facility] ED [facility] Member Role: Systems Technologist Care Team Related PersonsName: SOCORRO MCGRATH Address: home [address] [place] [address] Name: RUPESH MCALLISTER Address: [place] [address] Name: PREETI COFFMAN Address: home [address] [place] [id number]
--- NOTE | 2022-06-04 12:01 | PC.NURSE ---
Belongings and medications locked in laundry room of the pod
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
[2022-06-04 13:51] LABS: MANUAL DIFF FLAG NO
[2022-06-04 13:54] LABS: Basophils Absolute Auto 0.1 X10*3/uL (0.0-0.2); Eosinophils Absolute Auto 0.2 X10*3/uL (0.0-0.4); Eosinophils Percent Auto 3.3 % (0-4); Hematocrit 43.5 % (42.0-52.0); Hemoglobin 14.3 g/dl (14.0-18.0); Imm Gran Abs Auto 0.02 X10*3/uL (0.00-0.03); Imm Gran Pct Auto 0.3 % (0.0-0.4); Lymphocytes Absolute Auto 3.3 X10*3/uL (1.2-4.9); Lymphocytes Percent Auto 44.5 % (20-40); Mean Corpuscular HGB Conc 32.9 g/dl (31.0-36.0); Mean Corpuscular Hemoglobin 30.3 pg (27.0-33.0); Mean Corpuscular Volume 92.2 fL (80.0-98.0); Monocytes Absolute Auto 0.6 X10*3/uL (0.1-1.2); Monocytes Percent Auto 7.6 % (2-11); Neutrophils Absolute Auto 3.2 x10*3/uL (2.0-8.3); Neutrophils Percent Auto 43.3 % (45-73); Platelet Count 300 X10*3/uL (160-400); Red Blood Count 4.72 X10*6/uL (4.60-5.80); Red Cell Distribution Width 15.2 % (11.0-16.0); White Blood Count 7.4 X10*3/uL (4.8-10.8)
[2022-06-04 14:43] VITALS: BP 123/73; PULSE 64; TEMP 37; O2SAT 92
[2022-06-04 14:49] LABS: Alanine Aminotransferase 28 U/L (0-40); Albumin Level 4.1 g/dL (3.5-5.0); Alkaline Phosphatase 70 U/L (39-117); Anion Gap 13 (12-20); Aspartate Amino Transferase 24 U/L (5-37); Bilirubin Total 0.4 mg/dL (0.0-1.0); Blood Urea Nitrogen 13 mg/dL (9-16); Calcium 8.9 mg/dL (8.4-10.2); Carbon Dioxide 27 mmol/L (22-29); Chloride 111 mmol/L (96-108); Creatinine Clr Calc Pharmacy 129.7; Estimated Glomerular Filt Rate > 60; Ethanol 216 mg/dL; Glucose Random 104 mg/dL (60-115); Potassium 4.4 mmol/L (3.3-5.1); Sodium 147 mmol/L (135-145); Total Protein 7.1 g/dL (6.5-8.0)
[2022-06-04] MEDS: 0.9 % Sodium Chloride 1,000 ML 999 ML IV (15:17)
[2022-06-04 15:33] VITALS: BP 112/70; PULSE 79; RESP 16; O2SAT 98
--- NOTE | 2022-06-04 17:08 | MHC.RECOVSUP ---
? Reason for consult Recovery support o Current location: [id number] o Identified substance use concern: Alcohol - Seeking ATS (detox) - Support ? Intervention: <del>o</del> <del>ATS</del> <del>bed</del> <del>search</del> <del>started/completed/in</del> <del>process</del> <del>o</del> <del>MAT</del> <del>started</del> <del>or</del> <del>to</del> <del>be</del> <del>started</del> <del>o</del> <del>Community</del> <del>resources</del> <del>provided</del> <del>o</del> <del>Harm</del> <del>reduction</del> <del>discussion</del> ? Plan: <del>o</del> <del>Referral</del> <del>to</del> <del>[facility]</del> <del>o</del> <del>Bed</del> <del>search</del> <del>in</del> <del>progress</del> <del>to</del> <del>o</del> <del>Follow</del> <del>up</del> <del>tomorrow</del> <del>o</del> <del>Patient</del> <del>awaiting</del> <del>crisis</del> <del>evaluation</del> o Patient to follow up with [facility] after discharge ? Additional information: I called [facility] They stated that Patient would have to stay over night..
[2022-06-04 17:17] LABS: Anion Gap 13 (12-20); Blood Urea Nitrogen 13 mg/dL (9-16); Calcium 8.4 mg/dL (8.4-10.2); Carbon Dioxide 25 mmol/L (22-29); Chloride 113 mmol/L (96-108); Estimated Glomerular Filt Rate > 60; Glucose Random 99 mg/dL (60-115); Potassium 4.5 mmol/L (3.3-5.1); Sodium 146 mmol/L (135-145)
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
== END 2022-06-04 17:56 | disposition home or self-care (01) ==
PROVIDERS: Emergency Provider Student in an Organized Health Care Education/Training Program; PCP Nurse Practitioner Family
DX: F10.129 Alcohol abuse with intoxication, unspecified (principal); R51.9 Headache, unspecified; R07.89 Other chest pain; Y90.7 Blood alcohol level of 200-239 mg/100 ml; F14.10 Cocaine abuse, uncomplicated; F11.10 Opioid abuse, uncomplicated; Z79.899 Other long term (current) drug therapy
CPT/HCPCS: 36415; 70450; 71045; 80048; 80053; 82077; 85025; 96360; 99284; 99285

== ENCOUNTER 2022-09-09 12:24 | Emergency (ER) | payer MEDICAID, SELFPAY ==
[2022-09-09 12:28] VITALS: BP 138/78; BP 160/98; PULSE 119; PULSE 94; RESP 18; TEMP 36.6; O2SAT 98; BMI 26.9
--- NOTE | 2022-09-09 13:06 | ED.PSYCH ---
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 09/10/22 14:49> Lab Results 09/09/22 09/09/22 09/10/22 Range/Units 13:10 13:10 03:59 WBC 14.8 H (4.8-10.8) X10*3/uL RBC 5.67 D (4.60-5.80) X10*6/uL Hgb 17.3 D (14.0-18.0) g/dl Hct 52.0 (42.0-52.0) % MCV 91.7 (80.0-98.0) fL MCH 30.5 (27.0-33.0) pg MCHC 33.3 (31.0-36.0) g/dl RDW 15.2 (11.0-16.0) % Plt Count 346 (160-400) X10*3/uL MPV 9.2 L (9.4-12.4) fL Immature Gran % (Auto) 0.4 (0.0-0.4) % Neut % (Auto) 77.0 H (45-73) % Lymph % (Auto) 17.3 L (20-40) % [place] % (Auto) 4.5 (2-11) % Eos % (Auto) 0.1 (0-4) % Baso % (Auto) 0.7 (0-2) % Lymph # (Auto) 2.6 (1.2-4.9) X10*3/uL [place] # (Auto) 0.7 (0.1-1.2) X10*3/uL Eos # (Auto) 0.0 (0.0-0.4) X10*3/uL Baso # (Auto) 0.1 (0.0-0.2) X10*3/uL Abs Immat Gran (auto) 0.06 H (0.00-0.03) X10*3/uL Absolute Neuts (auto) 11.4 H (2.0-8.3) x10*3/uL Absolute Nucleated RBC 0.000 (0.0-0.012) X10*3/uL Nucleated RBC % (auto) 0.0 (0.0-0.2) /100WBC Sodium 145 (135-145) mmol/L Potassium 4.2 (3.3-5.1) mmol/L Chloride 106 (96-108) mmol/L Carbon Dioxide 24 (22-29) mmol/L Anion Gap 19 (12-20) BUN 10 (9-16) mg/dL Creatinine 0.90 (0.5-1.4) mg/dL Estim Creat Clear Calc 97.1 Estimated GFR > 60 Random Glucose 128 H (60-115) mg/dL Calcium 9.2 D (8.4-10.2) mg/dL Total Bilirubin 0.6 (0.0-1.0) mg/dL AST 29 (5-37) U/L ALT 26 (0-40) U/L Alkaline Phosphatase 78 (39-117) U/L Total Protein 7.7 (6.5-8.0) g/dL Albumin 4.6 (3.5-5.0) g/dL Urine Color Yellow Urine Appearance Clear Urine pH 6.5 (5.0-9.0) Ur Specific Bridger 1.020 (1.005-1.025) Urine Protein Trace (Neg-Trace) mg/dL Urine Glucose (UA) Negative (Negative) mg/dL Urine Ketones Negative (Negative) mg/dL Urine Blood Negative (Negative) Urine Nitrite Negative (Negative) Ur Leukocyte Esterase Moderate (2+) H (Negative) Urine RBC 0-2 (0-2) /HPF Urine WBC 21-50 H (0-5) /HPF Ur Squamous Epith Cells 3-5 (0-2) /HPF Urine Bacteria 1+ (None Seen) Hyaline Casts 0-2 (0-2) /LPF Urine Opiates Screen (Not Detect) Urine Fentanyl Screen (Not Detect) Ur Barbiturates Screen (Not Detect) Ur Phencyclidine Scrn (Not Detect) Ur Amphetamines Screen (Not Detect) U Benzodiazepines Scrn (Not Detect) Urine Cocaine Screen (Not Detect) U Marijuana (THC) Screen (Not Detect) Ethyl Alcohol 261 mg/dL 09/10/22 Range/Units 03:59 WBC (4.8-10.8) X10*3/uL RBC (4.60-5.80) X10*6/uL Hgb (14.0-18.0) g/dl Hct (42.0-52.0) % MCV (80.0-98.0) fL MCH (27.0-33.0) pg MCHC (31.0-36.0) g/dl RDW (11.0-16.0) % Plt Count (160-400) X10*3/uL MPV (9.4-12.4) fL Immature Gran % (Auto) (0.0-0.4) % Neut % (Auto) (45-73) % Lymph % (Auto) (20-40) % [place] % (Auto) (2-11) % Eos % (Auto) (0-4) % Baso % (Auto) (0-2) % Lymph # (Auto) (1.2-4.9) X10*3/uL [place] # (Auto) (0.1-1.2) X10*3/uL Eos # (Auto) (0.0-0.4) X10*3/uL Baso # (Auto) (0.0-0.2) X10*3/uL Abs Immat Gran (auto) (0.00-0.03) X10*3/uL Absolute Neuts (auto) (2.0-8.3) x10*3/uL Absolute Nucleated RBC (0.0-0.012) X10*3/uL Nucleated RBC % (auto) (0.0-0.2) /100WBC Sodium (135-145) mmol/L Potassium (3.3-5.1) mmol/L Chloride (96-108) mmol/L Carbon Dioxide (22-29) mmol/L Anion Gap (12-20) BUN (9-16) mg/dL Creatinine (0.5-1.4) mg/dL Estim Creat Clear Calc Estimated GFR Random Glucose (60-115) mg/dL Calcium (8.4-10.2) mg/dL Total Bilirubin (0.0-1.0) mg/dL AST (5-37) U/L ALT (0-40) U/L Alkaline Phosphatase (39-117) U/L Total Protein (6.5-8.0) g/dL Albumin (3.5-5.0) g/dL Urine Color Urine Appearance Urine pH (5.0-9.0) Ur Specific Bridger (1.005-1.025) Urine Protein (Neg-Trace) mg/dL Urine Glucose (UA) (Negative) mg/dL Urine Ketones (Negative) mg/dL Urine Blood (Negative) Urine Nitrite (Negative) Ur Leukocyte Esterase (Negative) Urine RBC (0-2) /HPF Urine WBC (0-5) /HPF Ur Squamous Epith Cells (0-2) /HPF Urine Bacteria (None Seen) Hyaline Casts (0-2) /LPF Urine Opiates Screen Not Detected (Not Detect) Urine Fentanyl Screen Not Detected (Not Detect) Ur Barbiturates Screen Not Detected (Not Detect) Ur Phencyclidine Scrn Not Detected (Not Detect) Ur Amphetamines Screen Not Detected (Not Detect) U Benzodiazepines Scrn Not Detected (Not Detect) Urine Cocaine Screen POSITIVE H (Not Detect) U Marijuana (THC) Screen POSITIVE H (Not Detect) Ethyl Alcohol mg/dL <RILEY Camargo - Last Filed: 09/11/22 09:59> Chronic Conditions Patient?s care impacted by: Other (alcoholism) <Clifford Mcintosh MD - Last Filed: 09/09/22 16:13> Social Determinants Patient?s care significantly limited by Social Determinants of Health including: Alcoholism and drug addiction in family <Clifford Mcintosh MD - Last Filed: 09/09/22 16:13> Discharge Plan Discharge Clinical Impression: Alcoholic intoxication, Alcohol withdrawal syndrome, Major depression <Clifford Mcintosh MD - Last Filed: 09/09/22 16:13> Patient Disposition: Still a Patient <Clifford Mcintosh MD - Last Filed: 09/09/22 16:13> Prescriptions: No Action atorvastatin 40 mg tablet 1 tab PO DAILY clonidine HCl 0.1 mg tablet 1 tab PO BEDTIME bupropion HCl 300 mg tablet extended release 24 hr 1 tab PO QAM pregabalin 200 mg capsule 1 cap PO TID metformin 500 mg tablet 1 tab PO BID bupropion HCl 150 mg tablet extended release 24 hr 150 mg PO QAM <Clifford Mcintosh MD - Last Filed: 09/09/22 16:13>
[2022-09-09 13:17] LABS: MANUAL DIFF FLAG NO
[2022-09-09 13:21] LABS: Basophils Absolute Auto 0.1 X10*3/uL (0.0-0.2); Basophils Percent Auto 0.7 % (0-2); Eosinophils Percent Auto 0.1 % (0-4); Hemoglobin 17.3 g/dl (14.0-18.0); Imm Gran Abs Auto 0.06 X10*3/uL (0.00-0.03); Imm Gran Pct Auto 0.4 % (0.0-0.4); Lymphocytes Absolute Auto 2.6 X10*3/uL (1.2-4.9); Lymphocytes Percent Auto 17.3 % (20-40); Mean Corpuscular HGB Conc 33.3 g/dl (31.0-36.0); Mean Corpuscular Hemoglobin 30.5 pg (27.0-33.0); Mean Corpuscular Volume 91.7 fL (80.0-98.0); Mean Platelet Volume 9.2 fL (9.4-12.4); Monocytes Absolute Auto 0.7 X10*3/uL (0.1-1.2); Monocytes Percent Auto 4.5 % (2-11); Neutrophils Absolute Auto 11.4 x10*3/uL (2.0-8.3); Platelet Count 346 X10*3/uL (160-400); Red Blood Count 5.67 X10*6/uL (4.60-5.80); Red Cell Distribution Width 15.2 % (11.0-16.0); White Blood Count 14.8 X10*3/uL (4.8-10.8)
[2022-09-09] MEDS: Haloperidol Lactate 5 MG/ML VIAL 10 MG IVPUSH (13:26)
[2022-09-09] MEDS: diphenhydrAMINE HCL 50 MG/ML VIAL 25 MG IVPUSH (13:27)
[2022-09-09] MEDS: LORazepam 2 MG/ML VIAL IVPUSH (13:27)
[2022-09-09 13:35] LABS: Alanine Aminotransferase 26 U/L (0-40); Albumin Level 4.6 g/dL (3.5-5.0); Alkaline Phosphatase 78 U/L (39-117); Anion Gap 19 (12-20); Aspartate Amino Transferase 29 U/L (5-37); Bilirubin Total 0.6 mg/dL (0.0-1.0); Blood Urea Nitrogen 10 mg/dL (9-16); Calcium 9.2 mg/dL (8.4-10.2); Carbon Dioxide 24 mmol/L (22-29); Chloride 106 mmol/L (96-108); Creatinine Clr Calc Pharmacy 97.1; Estimated Glomerular Filt Rate > 60; Ethanol 261 mg/dL; Glucose Random 128 mg/dL (60-115); Potassium 4.2 mmol/L (3.3-5.1); Sodium 145 mmol/L (135-145); Total Protein 7.7 g/dL (6.5-8.0)
[2022-09-09 14:15] VITALS: PULSE 97; RESP 14; O2SAT 94
--- NOTE | 2022-09-09 15:21 | PC.NURSE ---
pt changed into hosptial attire - security assisted with change management coordinator. belongings locked in pod laundry - pt asleep at this time following medication administration for alcohol withdrawal sx. medicated per MAR
[2022-09-09 16:00] VITALS: BP 127/78; PULSE 98; RESP 16; TEMP 36.8; O2SAT 95
--- OUTSIDE RECORDS SUMMARY | 2022-09-09 16:29 | XMS_ITS | Continuity of Care Document ---
Author Name Unknown Organization [facility] ter Address [address] [place] [address]- Care Team Providers Care Wardrobe Technician Name Role Phone Jonathan OLIVARES, Amalia Primary Care Physician Encounter [facility] Date(s): 06/06/22 - 06/09/[address] [address]- Discharge Disposition: Transfer to [facility] Facility Attending Physician: Marcela Palafox MD Admitting Physician: Marcela Palafox MD Referring Physician: Not on Staff, Referring MD Allergies, Adverse Reactions, Alerts Substance Reaction Severity Status lisinopril 1 intestent twisting Active Zoloft Active Red Dye 2 Persistent Severe Active Mushrooms Persistent Severe Active [place] Active 1Makes his legs hurt 2Red dye 40 Immunizations Given and Recorded Vaccine Date Status Refusal Reason influenza virus vaccine, inactivated 02/22/22 Give n [id number] 12y+ bivalent booster vax 02/07/22 Given hepatitis B adult vaccine 11/29/21 Recorded SARS-CoV-2 (COVID-19) mRNA-1273 vaccine 11/12/21 R ecorded SARS-CoV-2 (COVID-19) mRNA-1273 vaccine 1 11/01/21 Recorded SARS-CoV-2 (COVID-19) mRNA BNT-162b2 vac 07/12/20 Recorded SARS-CoV-2 (COVID-19) mRNA BNT-162b2 vac 06/20/20 Recorded Not Given Vaccine Date Status Refusal Reason influenza virus vaccine, inactivated 04/08/20 Not Given Patient Refuses influenza virus vaccine, inactivated 03/06/20 Not Given Patient Refuses influenza virus vaccine, inactivated 03/04/20 Not Given Patient Refuses influenza virus vaccine, inactivated 02/05/20 Not Given Patient Refuses pneumococcal 23-valent vaccine 04/08/20 Not Given Patient Refuses pneumococcal 23-valent vaccine 03/06/20 Not Given Patient Refuses pneumococcal 23-valent vaccine 03/04/20 Not Given Patient Refuses pneumococcal 23-valent vaccine 02/29/20 Not Given Permanently Refused pneumococcal 23-valent vaccine 10/12/14 Not Given Patient Refuses pneumococcal 23-valent vaccine 10/01/14 Not Given Patient Refuses pneumococcal 23-valent vaccine 01/12/14 Not Given Patient Refuses pneumococcal 23-valent vaccine 01/03/14 Not Given Patient Refuses pneumococcal 23-valent vaccine 2 09/06/13 Not Give n Patient Refuses 1Result Comment: Not given on that day 2Result Note: pt refused vaccine at this time Medications acetaminophen 325 mg oral tablet 975 mg, By Mouth, 3 times a day, Temperature Greater than 100.5, Refills 0, Maintenance, 03/05/22 14:36:00 EDT, Partial fill upon patient request if the prescription is for a schedule II opioid drug. Start Date: 03/05/22 Status: Ordered atorvastatin 40 mg oral tablet 1 tablet = 40 mg, By Mouth, Daily at bedtime, TAKE 1 TABLET BY MOUTH AT BEDTIME Start Date: 02/11/22 Status: Ordered buPROPion 300 mg/24 hours (XL) oral tablet, extended release 1 tablet = 300 mg, By Mouth, Daily, # 30 tablet, 0 Refills, Maintenance, 02/10/22 10:29:00 EDT, XL Tablet, [facility], Partial fill upon patient request if the prescription is for a schedule II opioid drug., 175, cm, 02/01/22 10:53:00 ED... Start Date: 02/10/22 Stop Date: 03/12/22 Status: Ordered folic acid 1 mg oral tablet 1 mg, 1, tablet, By Mouth, Daily, # 30 tablet, Refills 0, Tot. Refills 0, Maintenance, 02/10/22 10:30:00 EDT, Route to Pharmacy Electronically, [facility], Partial fill upon patient request if the prescription is for a schedule II opioid... Start Date: 02/10/22 Stop Date: 03/12/22 Status: Ordered hydrOXYzine pamoate 50 mg oral capsule 1 capsule = 50 mg, By Mouth, Every 6 hours, PRN Anxiety, # 28 capsule, 3 Refills, Maintenance, 02/10/22 10:31:00 EDT, Capsule, [facility], 175, cm, 02/01/22 10:53:00 EDT, Height, 84, kg, 01/28/22 14:32:00 EDT, Dry Weight Start Date: 02/10/22 Stop Date: 03/10/22 Status: Ordered lamotrigine 25 mg oral tablet 25 mg, 1, tablet, By Mouth, Daily, # 30 tablet, Refills 0, Tot. Refills 0, Maintenance, 02/10/22 10:31:00 EDT, Route to Pharmacy Electronically, [facility], Partial fill upon patient request if the prescription is for a schedule II opioi... Start Date: 02/10/22 Stop Date: 03/12/22 Status: Ordered lidocaine 5% topical film Topically, Daily, 0 Refills, Maintenance, 03/05/22 14:37:00 EDT, Patch, Partial fill upon patient request if the prescription is for a schedule II opioid drug. Start Date: 03/05/22 Status: Ordered metFORMIN 500 mg oral tablet 1 tablet = 500 mg, By Mouth, 2 times a day, # 60 tablet, 0 Refills, Maintenance, 02/10/22 10:29:00 EDT, Tablet, [facility], 175, cm, 02/01/22 10:53:00 EDT, Height, 84, kg, 01/28/22 14:32:00 EDT, Dry Weight Start Date: 02/10/22 Stop Date: 03/12/22 Status: Ordered multivitamin Multiple Vitamins oral tablet 1 tablet, By Mouth, Daily, # 30 tablet, 0 Refills, Maintenance, 02/10/22 10:31:00 EDT, Tablet, [facility], 1 tablet By Mouth Daily,x30 days, 175, cm, 02/01/22 10:53:00 EDT, Height, 84, kg, 01/28/22 14:32:00 EDT, Dry Weight Start Date: 02/10/22 Stop Date: 03/12/22 Status: Ordered oxyCODONE 5 mg oral tablet 5 mg, 1, tablet, By Mouth, Every 6 hours, PRN, taper over 5 days per [place] discretion, Refills 0, Tot. Refills 0, Maintenance, Pain , Moderate, 03/05/22 14:36:00 EDT, Partial fill upon patient request if the prescription is for a schedule II opi... Start Date: 03/05/22 Status: Ordered pregabalin 200 mg oral capsule 1 capsule = 200 mg, By Mouth, 3 times a day, 0 Refills, Maintenance, 02/15/22 16:47:00 EDT, Capsule, Partial fill upon patient request if the prescription is for a schedule II opioid drug. Start Date: 02/15/22 Status: Ordered propranolol 20 mg oral tablet 20 mg, 1, tablet, By Mouth, 2 times a day, # 60 tablet, Refills 0, Tot. Refills 0, Maintenance, 02/10/22 10:31:00 EDT, Route to Pharmacy Electronically, [facility], Partial fill upon patient request if the prescription is for a schedule... Start Date: 02/10/22 Stop Date: 03/12/22 Status: Ordered propranolol 20 mg oral tablet 20 mg, Tablet, By Mouth, 06/09/22 9:00:00 EST Start Date: 06/09/22 Stop Date: 06/09/22 Status: Completed Protonix 40 mg oral delayed release tablet = 40 mg, By Mouth, 2 times a day, # 30 capsule, 0 Refills, Maintenance, 02/10/22 10:31:00 EDT, EC Tablet, 175, cm, 02/01/22 10:53:00 EDT, Height, 84, kg, 01/28/22 14:32:00 EDT, Dry Weight Start Date: 02/10/22 Stop Date: 03/12/22 Status: Ordered thiamine 100 mg oral tablet 100 mg, 1, tablet, By Mouth, Daily, Refills 0, Maintenance, 03/05/22 14:51:00 EDT, Partial fill upon patient request if the prescription is for a schedule II opioid drug. Start Date: 03/05/22 Status: Ordered tiZANidine 4 mg oral tablet 4 mg, 1, tablet, By Mouth, 3 times a day, PRN, Refills 0, Maintenance, Spasm, 03/05/22 14:36:00 EDT, Partial fill upon patient request if the prescription is for a schedule II opioid drug. 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 Confirmed Active Post traumatic stress disorder (PTSD) Confirmed Active Major depressive disorder, recurrent episode, moderate without psychosis Confirmed Active Alcohol use disorder, severe, dependence Confirmed Active Suicidal ideation Confirmed Active Diabetes mellitus type 2, diet-controlled Confirmed Active Vital Signs Most recent to oldest [Reference Range]: 1 2 3 Oxygen Saturation [94-100 %] 97 % (06/09/22 7:51 AM) 100 % (06/08/22 9:03 PM) 93 % *L* (06/08/22 3:18 PM) Pulse Rate [55-90 bpm] 64 bpm (06/09/22 8:26 AM) 64 bpm (06/09/22 7:51 AM) 64 bpm (06/09/22 7:34 AM) Blood Pressure [90-138/55-84 mm Hg] 123/82mm Hg (06/09/22 8:26 AM) 123/82mm Hg (06/09/22 7:51 AM) 123/82mm Hg (06/09/22 7:34 AM) Respiratory Rate [16-30 br/min] 16 br/min (06/09/22 7:51 AM) 18 br/min (06/09/22 7:34 AM) 16 br/min (06/08/22 9:03 PM) Temperature [96.8-100.4 DegF] 97.9 DegF (06/09/22 7:51 AM) 97.7 DegF (06/09/22 7:34 AM) 98.0 DegF (06/08/22 9:03 PM) Mode of Delivery (Oxygen) Room air (06/09/22 7:51 AM) Room air (06/08/22 9:03 PM) Room air (06/07/22 9:43 PM) Blood pressure sites Arm, left (06/09/22 7:51 AM) Arm, right (06/08/22 9:03 PM) Arm, right (06/08/22 3:18 PM) Temperature Route Oral (06/09/22 7:51 AM) Oral (06/09/22 7:34 AM) Oral (06/08/22 9:03 PM) Social History Social History Type Response Smoking Status 5-9 cigarettes (betw een 1/4 to 1/2 pack)/day in last 30 days; Use: 6 to 7 cigarettes for the past 20 years entered on: 02/15/22 Sex EKG study * Event Display: ECG 12-Lead Authored Date: [id number] Please click on pdf link to open report * Event Display: ECG 12-Lead Authored Date: [id number] Ventricular Rate: 89 BPM Atrial Rate: 89 BPM P-R Interval: 144 ms QRS Duration: 108 ms Q-T Interval: 384 ms QTC Calculation(Bazett): 467 ms P Whitman: 54 degrees R Whitman: 11 degrees T Whitman: 50 degrees Poor data quality, interpretation may be adversely affected Normal sinus rhythm Normal ECG When compared with ECG of 06-JUN-2022 12:09, No significant change was found Confirmed by BOAZ CRUM ([id number]) on 06/09/2022 9:59:20 AM Bear: BOAZ CRUM * Event Display: ECG 12-Lead Authored Date: [id number] Please click on pdf link to open report * Event Display: ECG 12-Lead Authored Date: [id number] Ventricular Rate: 86 BPM Atrial Rate: 86 BPM P-R Interval: 152 ms QRS Duration: 108 ms Q-T Interval: 408 ms QTC Calculation(Bazett): 488 ms P Whitman: 57 degrees R Whitman: 5 degrees T Whitman: 50 degrees Normal sinus rhythm Prolonged QT Abnormal ECG When compared with ECG of 30-APR-2022 13:09, No significant change was found Confirmed by LUBA SHAW ([id number]) on 06/06/2022 2:05:41 PM Bear: LUBA SHAW Patient Care team information Care Team Personnel Name: Fozia Aguilar RN Position: S RN Member Role: Primary Care Nurse Name: Natalia Weems NP Position: [facility] PCO Associate Professional Member Role: Primary Care Nurse Address: Address: [address] [place] [address] [place] [address]- Name: Jae Tapia RN Position: [facility] ED RN W/OE and Tasks Member Role: Primary Care Nurse Name: Krista Naylor RN Position: [facility] RN Member Role: Primary Care Nurse Name: Alecia Alegria RN Position: [facility] SN RN Member Role: Primary Care Nurse Name: Iris Benavidez RN Position: [facility] RN Member Role: Primary Care Nurse Name: Hollie Amaya RN Position: [facility] RN Member Role: Primary Care Nurse Name: Clay Davies RN Position: [facility] RN Member Role: Primary Care Nurse Name: Caren Zuniga RN Position: [facility] RN Member Role: Primary Care Nurse Name: Leida Walker RN Position: [facility] SN RN Member Role: Primary Care Nurse Name: Mayra Bernardo Position: [facility] RN Member Role: Primary Care Nurse Name: Shea Zaldivar RN Position: [facility] RN Member Role: Primary Care Nurse Name: James Mixon RN Position: [facility] RN Supv Member Role: Primary Care Nurse Name: Gail Cote RN Position: [facility] RN Member Role: Primary Care Nurse Name: Nga Wang RN Position: [facility] RN Member Role: Primary Care Nurse Name: Bud Anderson Jr, RN Position: [facility] RN Member Role: Primary Care Nurse Name: Tomasa Jean RN Position: [facility] RN Member Role: Primary Care Nurse Name: Marylin Mehta RN Position: [facility] OB RN Member Role: Primary Care Nurse Name: Karey Sr Position: [facility] RN Member Role: Primary Care Nurse Name: Miko Gutierrez RN Position: [facility] RN Member Role: Primary Care Nurse Name: Julee Casas RN Position: [facility] RN Member Role: Primary Care Nurse Name: Mesha Dunlap RN Position: [facility] RN Member Role: Primary Care Nurse Name: Marylin Chan RN Position: [facility] RN Member Role: Primary Care Nurse Name: Amalia Castillo NP Position: Reference Physician Member Role: PCP Address: Address: [address] [place] [id number]- Name: Juan Alberto Pang RN Position: [facility] ED RN W/OE and Tasks Member Role: Primary Care Nurse Name: Rossy Marti Position: [facility] RN Member Role: Primary Care Nurse Name: Olga Castrejon Position: [facility] RN Member Role: Primary Care Nurse Name: Gabby العراقي RN Position: [facility] SN State Manager Member Role: Primary Care Nurse Name: Ree Toro RN Position: [facility] RN Member Role: Primary Care Nurse Name: Crys Stevens RN Position: [facility] OB RN Member Role: Primary Care Nurse Name: Rossy Thompson RN Position: [facility] RN Member Role: Primary Care Nurse Name: Shelia Bynum RN Position: [facility] Onco RN Member Role: Primary Care Nurse Name: Aime Galeana RN Position: [facility] RN Member Role: Primary Care Nurse Name: Phyllis Jamison RN Position: [facility] SN RN Member Role: Primary Care Nurse Name: Ivanna Seo RN Position: [facility] RN Supv Member Role: Primary Care Nurse Name: Chacho Juarez RN Position: [facility] RN Member Role: Primary Care Nurse Name: Dian Benz RN Position: [facility] RN Member Role: Primary Care Nurse Name: Jacy Almendarez RN Position: [facility] RN Member Role: Primary Care Nurse Name: Camacho Estrella RN Position: [facility] RN Member Role: Primary Care Nurse Name: Tomasa Shin RN Position: [facility] ED RN W/OE and Tasks Member Role: Primary Care Nurse Name: Anabel Nuñez NP Position: [facility] PCO Associate Professional Member Role: Primary Care Nurse Address: Address: [address] [place] [address] Name: Gabby Vogel RN Position: [facility] RN Member Role: Primary Care Nurse Name: Crys Davison RN Position: [facility] RN Member Role: Primary Care Nurse Name: Katie Frazier RN Position: [facility] RN Member Role: Primary Care Nurse Name: Sharron Middleton RN Position: [facility] RN Member Role: Primary Care Nurse Name: Dasia Franklin RN Position: [facility] SN RN Member Role: Primary Care Nurse Name: Blanca Marley RN Position: [facility] RN Member Role: Primary Care Nurse Name: Viki aCn RN Position: [facility] RN Member Role: Primary Care Nurse Name: Brian Can RN Position: [facility] RN Member Role: Primary Care Nurse Name: Marcela De Souza RN Position: [facility] RN Member Role: Primary Care Nurse Name: Alicia Martines RN Position: [facility] RN Member Role: Primary Care Nurse Name: Katie Parrish RN Position: [facility] RN Member Role: Primary Care Nurse Name: Margarette Porter RN Position: [facility] RN Member Role: Primary Care Nurse Name: Delmi Marrufo RN Position: [facility] RN Member Role: Primary Care Nurse Name: Akbar Cowart RN Position: [facility] RN Member Role: Primary Care Nurse Name: Vanessa Gomez RN Position: [facility] RN Member Role: Primary Care Nurse Name: Yolanda Sanchez RN Position: [facility] Hospital Manager Community Relations Member Role: Primary Care Nurse [facility] Attending Position: [facility] ED Attendings Patient Name: Vanessa Yepez RN Position: [facility] ED RN W/OE and Tasks Member Role: Patient Care Provider Name: Charles Cope MD Position: [facility] Resident Member Role: ED Attending Physician Address: Address: [address] [place] [address] [place] [address]- [place] Care Team Related Persons Name: SOCORRO MCGRATH Address: home [address] [place] [id number] Name: RUPESH MCALLISTER Address: [place] [address] Name: PREETI COFFMAN Address: home [address] [place] [id number]
[2022-09-09 18:00] VITALS: BP 108/62; PULSE 109; RESP 16; TEMP 37; O2SAT 94
[2022-09-09 20:27] VITALS: BP 118/67; PULSE 109; RESP 18; TEMP 37.2; O2SAT 98
[2022-09-09 22:00] VITALS: RESP 16; TEMP 36.8
[2022-09-10] VITALS (9 sets, daily range): BP systolic 119–175; BP diastolic 78–99; PULSE 74–101; RESP 13–20; TEMP 36.3–37.3; O2SAT 96–100
[2022-09-10 04:04] LABS: Appearance Urine Clear; Color Urine Yellow; Glucose Urine UA Negative (Negative); Leukocyte Esterase Urine Moderate (2+) (Negative); Nitrite Urine Negative (Negative); PH 6.5 (5.0-9.0); UMIC TRIGGER UACC YES; Urine Blood Negative (Negative); Urine Ketones Negative (Negative); Urine Protein Trace mg/dL (Neg-Trace)
[2022-09-10 04:06] LABS: Bacteria Urine 1+ (None Seen); Hyaline Casts Urine 0-2 /LPF (0-2); RBC Urine 0-2 /HPF (0-2); UACC Culture Trigger YES; WBC Urine 21-50 /HPF (0-5)
[2022-09-10 04:15] LABS: Amphetamine Screen Urine Not Detected (Not Detect); Barbiturates, Urine Not Detected (Not Detect); Benzodiazepines Screen Urine Not Detected (Not Detect); Cannabinoid Screen Urine POSITIVE (Not Detect); Cocaine Screen Urine POSITIVE (Not Detect); Fentanyl, urine Not Detected (Not Detect); Opiate Screen Urine Not Detected (Not Detect); Phencyclidine Screen Urine Not Detected (Not Detect)
[2022-09-10] MEDS: LORazepam 1 MG TABLET 2 MG PO (08:25)
--- NOTE | 2022-09-10 10:12 | PC.NURSE ---
Pt anxious, visibly shaking, sensitive to sound and light. MD notified
--- NOTE | 2022-09-10 12:17 | MHC.CARE ---
Patient evaluated by the CARE Team because he made suicidal statements yesterday while intoxicated, he recanted today, does not require an inpatient admission and asked to be referred to detox.
--- NOTE | 2022-09-10 14:40 | PC.NURSE ---
Pt denies SI, HI, AH, VH. Pt wants to be discharged home.
[2022-09-10] MEDS: PHENobarbitaL sodium 130 MG/ML IM ONCE 396 MG IM (15:22)
[2022-09-10] MEDS: PHENobarbitaL sodium 130 MG/ML VIAL IM Q3Hx2 297 MG IM ×2 (18:43→20:29)
--- NOTE | 2022-09-10 20:34 | PC.NURSE ---
mediated per mar, notified LAYA Dyer
--- NOTE | 2022-09-10 22:20 | MHC.EDTECH ---
pt refused to have bp taken.
--- NOTE | 2022-09-11 05:43 | MHC.EDTECH ---
Patient refused for all vitals to be taken. I don't want my vitals done anymore.
--- NOTE | 2022-09-11 07:22 | MHC.EDTECH ---
patient refused vital signs
--- NOTE | 2022-09-11 07:41 | MHC.EDTECH ---
Pt refused vitals. RN aware.
--- NOTE | 2022-09-11 08:20 | PC.NURSE ---
Pt sleeping, respirations even and unlabored.
--- NOTE | 2022-09-11 08:54 | MHC.RECOVRN ---
Addendum entered by Angela Santizo RN 09/11/22 09:32: This ticket writer met w/ patient to discuss d/c plan. Patient reports would like to d/c to the community. Patient reports has a classroom technology coach to call for support. T/W reviewed list of detox contact sheet, Mariya Rocha. Patient verbalized understanding. Recovery resources left with patient to f/u from the community per patient request. Original Note: This ticket writer met w/ patient, patient reports feeling better compared to yesterday. Patient limited engagement with this ticket writer, when asked about d/c plans and detox, patient reports does not know right now . T/W reminded patient that Provider would like d/c plan, patient agreeable to discuss at 10am with Recovery Aquatics Manager.
[2022-09-11] MEDS: buPROPion HCl XL 150 MG TAB.ER.24H PO (09:10)
[2022-09-11] MEDS: buPROPion HCl XL 300 MG TAB.ER.24H PO (09:10)
[2022-09-11] MEDS: Atorvastatin Calcium 40 MG TABLET PO (09:10)
[2022-09-11] MEDS: metFORMIN HCl 500 MG TABLET PO (09:10)
--- NOTE | 2022-09-11 09:16 | PC.NURSE ---
Pt refused PO phenobarb, requesting to be discharged. Denies SI/HI
--- NOTE | 2022-09-11 09:35 | PC.NURSE ---
Plan for discharge, pt phone charging in nurses station
--- NOTE | 2022-09-11 10:35 | MHC.EDTECH ---
Pt discharged and left behind clothes, pair of sneakers, pair of slippers and toiletries, stating he cannot carry these items. He was offered multiple times other means to help him take home his items and he refused each time.
== END 2022-09-11 10:45 | disposition home or self-care (01) ==
PROVIDERS: Emergency Medicine; Emergency Provider Emergency Medicine Emergency Medical Services; PCP Nurse Practitioner Family
DX: F10.220 Alcohol dependence with intoxication, uncomplicated (principal); F10.230 Alcohol dependence with withdrawal, uncomplicated; Y90.8 Blood alcohol level of 240 mg/100 ml or more; F32.9 Major depressive disorder, single episode, unspecified; R45.851 Suicidal ideations; E11.9 Type 2 diabetes mellitus without complications; F43.10 Post-traumatic stress disorder, unspecified; F19.10 Other psychoactive substance abuse, uncomplicated; Z79.84 Long term (current) use of oral hypoglycemic drugs; Z79.02 Long term (current) use of antithrombotics/antiplatelets; Z79.899 Other long term (current) drug therapy
CPT/HCPCS: 36415; 80053; 80307; 81001; 85025; 87086; 87088; 87186; 96372; 96374; 96375; 99285; J1200; J2060; J2560

== ENCOUNTER 2022-09-12 16:16 | Emergency (ER) | payer MEDICAID, OTHER, SELFPAY ==
--- NOTE | ~2022-09-12 | CT_ITS ---
EXAMINATION: CT HEAD WITHOUT CONTRAST CLINICAL INFORMATION: Altered mental status, fall COMPARISON: 06/04/2022 TECHNIQUE: Contiguous axial imaging was performed from the skull base to vertex without intravenous administration of contrast. This CT examination was performed using dose optimization techniques as appropriate, variously including the following: *Automated exposure control *Adjustment of mA and/or kV according to patient size (this includes techniques or standardized protocols for targeted exams where dose is matched to indication/reason for exam; i.e. extremities or head) *Use of iterative reconstruction technique DLP: 750 mGy-cm FINDINGS: There is no midline shift. There is no mass effect. There is no hemorrhage. The basal cisterns appear patent. The posterior fossa is grossly within normal limits. There is no extra-axial collection. Some scattered areas of probable white matter ischemic changes. There is no fracture on the bone windows. CT/CT head/brain wo IV con IMPRESSION: Negative acute noncontrast CT of the brain.
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
[2022-09-12 16:30] VITALS: BP 132/96; PULSE 122; O2SAT 94
[2022-09-12 16:34] VITALS: BP 107/60; PULSE 104; RESP 16; TEMP 37.1; O2SAT 93; BMI 34.4
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
[2022-09-12 17:13] LABS: MANUAL DIFF FLAG NO
[2022-09-12 17:14] LABS: Basophils Absolute Auto 0.1 X10*3/uL (0.0-0.2); Basophils Percent Auto 0.5 % (0-2); Eosinophils Absolute Auto 0.1 X10*3/uL (0.0-0.4); Eosinophils Percent Auto 0.5 % (0-4); Imm Gran Abs Auto 0.05 X10*3/uL (0.00-0.03); Imm Gran Pct Auto 0.3 % (0.0-0.4); Lymphocytes Absolute Auto 2.8 X10*3/uL (1.2-4.9); Lymphocytes Percent Auto 19.3 % (20-40); Mean Corpuscular HGB Conc 33.3 g/dl (31.0-36.0); Mean Corpuscular Hemoglobin 29.8 pg (27.0-33.0); Mean Corpuscular Volume 89.4 fL (80.0-98.0); Mean Platelet Volume 8.9 fL (9.4-12.4); Monocytes Absolute Auto 0.8 X10*3/uL (0.1-1.2); Monocytes Percent Auto 5.4 % (2-11); Neutrophils Absolute Auto 10.8 x10*3/uL (2.0-8.3); Platelet Count 280 X10*3/uL (160-400); Red Cell Distribution Width 14.3 % (11.0-16.0); White Blood Count 14.6 X10*3/uL (4.8-10.8)
[2022-09-12 17:38] LABS: Alanine Aminotransferase 29 U/L (0-40); Albumin Level 4.1 g/dL (3.5-5.0); Alkaline Phosphatase 78 U/L (39-117); Anion Gap 17 (12-20); Aspartate Amino Transferase 42 U/L (5-37); Bilirubin Total 0.4 mg/dL (0.0-1.0); Blood Urea Nitrogen 15 mg/dL (9-16); Calcium 9.4 mg/dL (8.4-10.2); Carbon Dioxide 23 mmol/L (22-29); Chloride 106 mmol/L (96-108); Estimated Glomerular Filt Rate > 60; Ethanol 336 mg/dL; Glucose Random 132 mg/dL (60-115); Magnesium 1.9 mg/dL (1.6-2.6); Sodium 142 mmol/L (135-145); Total Protein 6.9 g/dL (6.5-8.0)
[2022-09-12 18:46] VITALS: BP 114/57; PULSE 100; RESP 12; O2SAT 92
[2022-09-12 21:13] VITALS: RESP 20
--- NOTE | 2022-09-12 21:14 | MHC.EDTECH ---
Pt is agitated and aggressive after coming back from imaging security called. Pt refused vital signs
--- NOTE | 2022-09-12 21:40 | MHC.EDTECH ---
Pt assisted to commode by Bishop White and LAYA Drake. Pt requested female assistance. Pt placed on [facility]
[2022-09-12 22:53] VITALS: RESP 19
[2022-09-13 01:14] VITALS: RESP 16
--- NOTE | 2022-09-13 06:06 | PC.NURSE ---
This press writer assumed care of this Pt at 0400. Pt ambulated to room with steady gait. Pt calm and cooperative. Requesting sarina maria.
--- NOTE | 2022-09-13 06:09 | PC.NURSE ---
Pt reports SI with plan to OD on drugs , states hes been feeling like this for a few days. Pt changed over.
[2022-09-13 06:13] VITALS: BP 146/84; PULSE 106; RESP 19; TEMP 36.6; O2SAT 98
[2022-09-13] MEDS: LORazepam 1 MG TABLET 2 MG PO ×3 (06:52→16:04)
--- NOTE | 2022-09-13 07:12 | MHC.CARE ---
CARE Team checked in with Pt who presented to the ED on 09/12/22 with a BAL of 336 at 1706. Pt is requesting detox admission. Plan for recovery team to support Pt in this process.
[2022-09-13 08:03] VITALS: BP 136/82; PULSE 98; RESP 16; TEMP 36.8; O2SAT 98
--- NOTE | 2022-09-13 09:50 | PC.NURSE ---
pt moved to the pod. rn to rn report given to brett. pt aware of plan of care.
--- NOTE | 2022-09-13 09:52 | PC.NURSE ---
pt is now stating that he is +si, [facility] ([facility]) aware. pt to go to the pod.
--- NOTE | 2022-09-13 10:44 | PHA.MEDREC ---
Pharmacy Consult ? Medication Reconciliation Pharmacy has completed the medication reconciliation. spoke with patient and he was able to verify his medications.
[2022-09-13 11:34] LABS: COVID-19 Test Negative (Negative); IDNOW Serial# BCCEAD1C
[2022-09-13 15:47] VITALS: BP 182/106; PULSE 112; RESP 20; TEMP 36.8; O2SAT 97
--- NOTE | 2022-09-13 17:02 | MHC.RECOVSUP ---
? Reason for consult Recovery support... o Current location: [facility] o Identified substance use concern: Alcohol - Seeking ATS (detox) - Support ? Intervention: o Community resources provided o Harm reduction discussion ? Plan: o Patient to follow up with [facility] after discharge ? Additional information: Patient seeking ATS.. Commissioned Police Officer tried contacting every ATS but no luck at the moment..
[2022-09-13 18:26] VITALS: BP 142/86; PULSE 106; RESP 16; TEMP 36.9; O2SAT 96
[2022-09-13 18:28] LABS: Amphetamine Screen Urine Not Detected (Not Detect); Barbiturates, Urine POSITIVE (Not Detect); Benzodiazepines Screen Urine Not Detected (Not Detect); Cannabinoid Screen Urine Not Detected (Not Detect); Cocaine Screen Urine Not Detected (Not Detect); Fentanyl, urine Not Detected (Not Detect); Opiate Screen Urine Not Detected (Not Detect); Phencyclidine Screen Urine Not Detected (Not Detect)
[2022-09-13] MEDS: metFORMIN HCl 500 MG TABLET PO (19:38)
[2022-09-13] MEDS: Atorvastatin Calcium 40 MG TABLET PO (19:38)
[2022-09-13] MEDS: cloNIDine HCL 0.1 MG TABLET PO (19:38)
[2022-09-13 20:39] VITALS: BP 166/98; PULSE 108; RESP 18; TEMP 36.4; O2SAT 97
[2022-09-13] MEDS: Pregabalin 200 MG CAPSULE PO (20:43)
[2022-09-14] MEDS: LORazepam 1 MG TABLET 2 MG PO ×2 (06:29→10:28)
[2022-09-14 06:32] VITALS: BP 142/102; PULSE 98; RESP 17; O2SAT 98
[2022-09-14] MEDS: Pregabalin 200 MG CAPSULE PO (09:51)
[2022-09-14] MEDS: metFORMIN HCl 500 MG TABLET PO (09:51)
[2022-09-14] MEDS: buPROPion HCl XL 300 MG TAB.ER.24H PO (09:51)
[2022-09-14] MEDS: buPROPion HCl XL 150 MG TAB.ER.24H PO (09:51)
[2022-09-14 09:57] LABS: Appearance Urine Clear; Color Urine Yellow; Glucose Urine UA Negative (Negative); Leukocyte Esterase Urine Small (1+) (Negative); Nitrite Urine Negative (Negative); Specific Gravity - Urine 1.015 (1.005-1.025); UMIC TRIGGER UACC YES; Urine Blood Negative (Negative); Urine Ketones Negative (Negative); Urine Protein Negative (Neg-Trace)
[2022-09-14 10:02] LABS: Bacteria Urine 1+ (None Seen); Hyaline Casts Urine 0-2 /LPF (0-2); RBC Urine 0-2 /HPF (0-2); Squamous Epithelial Cell Urine 0-2 /HPF (0-2); UACC Culture Trigger YES
--- NOTE | 2022-09-14 10:36 | MHC.RECOVRN ---
Met with pt after pt request to dc. Pt reports mother last night and he needs to discharge. Pt provided with information regarding ATS facilities as well as [facility]. Pt denies questions or concerns. RN aware.
== END 2022-09-14 11:09 | disposition home or self-care (01) ==
PROVIDERS: Emergency Medicine; Nurse Practitioner Family; Physician Assistant; Emergency Provider Internal Medicine
DX: F10.220 Alcohol dependence with intoxication, uncomplicated (principal); Y90.8 Blood alcohol level of 240 mg/100 ml or more; F43.10 Post-traumatic stress disorder, unspecified; F32.A Depression, unspecified; F19.10 Other psychoactive substance abuse, uncomplicated; E11.9 Type 2 diabetes mellitus without complications; Z79.02 Long term (current) use of antithrombotics/antiplatelets; Z79.899 Other long term (current) drug therapy; Z79.84 Long term (current) use of oral hypoglycemic drugs
CPT/HCPCS: 36415; 70450; 71045; 80053; 80307; 81001; 81003; 83735; 85025; 87086; 87088; 87186; 87635; 99285; S9485